=== PATIENT | female | born 1995 | race African-American/Black ===

== ENCOUNTER 2016-09-12 02:07 | Emergency (ER) | payer OTHER ==
[~2016-09-12 02:07] MED LIST: CEPH-460 PO; CLOT1CRE4 VAGINAL; MACR100C2 PO; ZOFR4TAB3 SL
[2016-09-12 02:10] VITALS: BP 123/63; PULSE 77; RESP 16; TEMP 98.3; O2SAT 98
[2016-09-12 03:21] LABS: BACTERIA, URINE RARE /hpf; BLOOD, URINE LARGE (NEG); CALCIUM OXALATE CRYSTALS,URINE MOD /hpf; COMMENT (UR) CULTURE INDICATED; CULTURE IF INDICATED CULTURE INDICATED; GLUCOSE,URINE NEG (NEG); KETONE, URINE 10 mg/dL (NEG); MUCUS URINE MOD /lpf (OCC); NITRITE,URINE NEG (NEG); PH, URINE 5.5 (5.0-8.5); SQUAMOUS EPITHELIAL CELL URINE 12 /hpf (0-5)
[2016-09-12 03:22] LABS: URINE COLOR LIGHT-RED (YELLW/STRAW)
[2016-09-12 03:49] LABS: BETA HCG QUANT 3729 MIU/ML (0-5)
--- NOTE | 2016-09-12 04:27 | PD ---
HPI Chief Complaint: Related Problem Time Seen by Provider: 02:21 Travel History International Travel<30 days: No Contact w/Intl Traveler<30days: No Traveled to known affect area: No History of Present Illness HPI 21-year-old female 3 para 0 now to be about 11 weeks arrives with pink spotting for about 5 hours or so. About 20 minutes prior to the time of evaluation the patient passed a small bright red clot during urination. She has felt some cramping. No back pain reported. Pt yet to establish outpatient follow up. PFSH Past Medical History Developmental Delay: No Immunizations Current: Yes ?: : 3 Para: 0 Miscarriage: 3 Social History Alcohol Use: No Tobacco Use: No Substance Use: Yes (HX marijuana) Allergies-Medications (Allergen,Severity, Reaction): Coded Allergies: No Known Allergies (Verified , 09/12/16) Reported Meds & Prescriptions Reported Meds & Active Scripts Active Keflex (Cephalexin) 500 Mg Cap 500 Mg PO Q6H 7 Days Zofran Odt (Ondansetron Odt) 4 Mg Tab 4 Mg SL Q6HR PRN Macrobid (Nitrofurantoin Monoh/Nitrofur Macro) 100 Mg Cap 100 Mg PO BID 7 Days Clotrimazole Vaginal 1% Cream 1 Appl VAGINAL HS 7 Days Review of Systems Except as stated in HPI: all other systems reviewed are Neg Physical Exam Narrative GENERAL: 21-year-old female pleasant SKIN: Warm and dry. HEAD: Atraumatic. Normocephalic. EYES: Pupils equal and round. No scleral icterus. No injection or drainage. ENT: No nasal bleeding or discharge. Mucous membranes pink and moist. NECK: Trachea midline. No JVD. CARDIOVASCULAR: Regular rate and rhythm. No murmur appreciated. RESPIRATORY: No accessory muscle use. Clear to auscultation. Breath sounds equal bilaterally. GASTROINTESTINAL: Abdomen soft, non-tender, nondistended. Hepatic and splenic margins not palpable. MUSCULOSKELETAL: No obvious deformities. No clubbing. No cyanosis. No edema. NEUROLOGICAL: Awake and alert. No obvious cranial nerve deficits. Motor grossly within normal limits. Normal speech. PSYCHIATRIC: Appropriate mood and affect; insight and judgment normal. Data Data Last Documented VS Vital Signs Date Time Temp Pulse Resp B/P Pulse Ox O2 Delivery O2 Flow Rate FiO2 09/12/16 02:10 98.3 77 16 123/63 98 Room Air Orders Beta Hcg (Quant/Titer) (09/12/16 02:55) Complete Rh (09/12/16 02:55) Us Pelvis (Ques Preg/Ectopic) (09/12/16 ) Urinalysis - C+S If Indicated (09/12/16 02:55) Urine Culture (09/12/16 03:00) Labs Laboratory Tests Test 09/12/16 03:00 Urine Color LIGHT-RED Urine Turbidity HAZY Urine pH 5.5 Urine Specific [place] 1.028 Urine Protein 30 mg/dL Urine Glucose (UA) NEG mg/dL Urine Ketones 10 mg/dL Urine Occult Blood LARGE Urine Nitrite NEG Urine Bilirubin NEG Urine Urobilinogen 2.0 MG/DL Urine Leukocyte Esterase LARGE Urine RBC /hpf Urine WBC 94 /hpf Urine Squamous Epithelial 12 /hpf Cells Urine Calcium Oxalate Crystals MOD /hpf Urine Bacteria RARE /hpf Urine Mucus MOD /lpf Microscopic Urinalysis Comment CULTURE INDICATED Human Chorionic Gonadotropin, 3729 MIU/ML Quant Blood Type B POSITIVE Rho(D) Type POSITIVE MDM Medical Decision Making Medical Screen Exam Complete: Yes Emergency Medical Condition: Yes Medical Record Reviewed: Yes Differential Diagnosis IUP, UTI, ectopic , ov torsion, appendicitis, TOA, cervicitis, BV, Trichomoniasis, ov cyst, hernia, mittelschmerz, pain from menstruation Narrative Course Urinalysis could reflect a UTI Beta HCG is 3729 Blood type is B+ Ultrasound demonstrates demise in utero at approx 6.5 weeks. Patient was educated regarding same. She will follow-up with Dr. Cortes and call first thing this morning. Diagnosis Primary Impression: demise before 20 weeks with retention of fetus Referrals: Mary Kay Cortes MD 1 day Additional Instructions: You have a choice when it comes to health care, and we are glad that you chose [facility]. Hopefully, we have met your expectations on today's visit. You are welcome to return to [facility] at any time, as we are committed to meeting the health care needs of our community. Med/Other Pt SpecificInfo: No Change to Meds Disposition: 01 DISCHARGE HOME Condition: Stable Mandeep Matos MD Sep 12, 2016 04:27
[2016-09-12 05:31] VITALS: BP 120/60
--- NOTE | 2016-09-12 06:10 | RADRPT ---
EXAM DATE/TIME: 09/12/2016 04:39 [facility] COMPARISON: No previous studies available for comparison. INDICATIONS : Bleeding with . LAB(S): Beta-hC MEDICAL HISTORY : . Miscarriage x 2. SURGICAL HISTORY : None. ENCOUNTER: Initial ACUITY: 1 day PAIN SCORE: 0/10 LOCATION: Bilateral pelvis MEASUREMENTS: UTERUS: 11.2 x 8.0 x 5.6 cm ENDOMETRIAL STRIPE: 1 mm RIGHT OVARY: 3.5 x 2.4 x 2.1 cm LEFT OVARY: 2.7 x 2.1 x 1.8 cm FINDINGS: UTERUS: A cystic structure is seen involving the body of the endometrial canal consistent with a gestational sac. It is somewhat irregularly marginated. No pole or yolk sac. Age by mean sac diameter is 6 weeks 3 days. There is mixed echogenicity seen adjacent to the yolk sac suggesting a component of sub chorionic hemorrhage. RIGHT OVARY: There is a mixed echogenicity lesion involving the right ovary that measures 1.8 cm in diameter. The remaining ovaries unremarkable. LEFT OVARY: Ovary contains no mass or significant cystic lesion. MISCELLANEOUS: Trace amount of free fluid within the cul-de-sac. CONCLUSION: 1. Intrauterine gestation. There is a gestational sac without pole or yolk sac. The gestational sac has an irregular appearance with subchorionic hemorrhage. This is concerning for possible blight ed ovum. A followup ultrasound is suggested. 2. 1.8 cm mixed echogenicity lesion involving the right ovary likely relating to a corpus luteal cyst . 3. Small volume free fluid. Rob Hart Jr., MD on September 12, 2016 at 6:04 Board Certified Radiologist. This report was verified electronically.
== END 2016-09-12 05:45 | disposition home or self-care (01) ==
LOC: NEPC 02:07
DX: O02.1 Missed abortion (principal); R82.90 Unspecified abnormal findings in urine
CPT/HCPCS: 76700; 76817; 81001; 84702; 86901; 87086

== ENCOUNTER 2017-09-10 23:37 | Emergency (ER) | payer MEDICAID, OTHER ==
--- NOTE | 2017-09-11 00:36 | PD ---
HPI Chief Complaint Contractions and possibly leaking fluid Date Seen: Sep 11, 2017 Time Seen: 00:31 Travel History International Travel<30 Days: No Contact w/Intl Traveler<30Days: No Known Affected Area: No History of Present Illness HPI This is 22-year-old black female at 38 weeks sees Socorro Bucio for care. She complains of contractions that are painful more so than I were a week ago, heart tones are reactive and she is kailash irregularly every 6-8 minutes. Amnio sure is negative Weeks Gestation: 38 Para: 0 : 3 Miscarriage: 2 History Obstetric History Obstetric History 2 early losses Social History Alcohol Use: No Tobacco Use: No Substance Abuse: No Allergies-Medications (Allergen,Severity, Reaction): Coded Allergies: No Known Allergies (Verified , 09/12/16) Home Meds Active Scripts Cephalexin (Keflex) 500 Mg Cap, 500 MG PO Q6H for Infection for 7 Days, CAP 0 Refills Prov:Marzena Rocha MD 07/31/16 Ondansetron Odt (Zofran Odt) 4 Mg Tab, 4 MG SL Q6HR Y for Nausea/Vomiting, #7 TAB 0 Refills Prov:Marzena Rocha MD 07/31/16 Nitrofurantoin Monohydrate Macrocrystals (Macrobid) 100 Mg Cap, 100 MG PO BID for Infection for 7 Days, CAP 0 Refills Prov:Vanessa Green 07/21/16 Clotrimazole Vaginal (Clotrimazole Vaginal) 1% Cream, 1 APPL VAGINAL HS for Fungal Infection for 7 Days, GM 0 Refills Prov:Vanessa Green 07/21/16 Review of Systems General / Constitutional: No: Fever, Weight Gain, Chills, Other Eyes: No: Diploplia, Blurred Vision, Visual changes, Pain, Photophobia HENT: No: Headaches, Vertigo, Lightheadedness Cardiovascular: No: Irregular Rhythm, Chest Pain or Discomfort, Palpitations, Tachycardia, Syncope, Varicosities, Edema, Cyanosis Respiratory: No: Cough, Short of Breath, Other Gastrointestinal: No: Nausea, Vomiting, Diarrhea Genitourinary: No: Decreased Urinary Output, Oliguria Musculoskeletal: No: Limited ROM, Weakness, Cramping, Edema, Pain Skin: No Rash, No Itching, No Dryness, No Lumps, No Change in Pigmentation, No Change in Nails, No Alopecia, No Lesions Neurologic: No: Weakness, Dizziness, Syncope, Focal Abnormalities, Coordination Problem, Headache, Slurred Speech, Seizures Psychiatric: No: Depression, Suicidal Ideations, Homicidal Ideation Endocrine: No: Heat Intolerance, Cold Intolerance, Polydipsia, Polyuria, Other Physical Exam Narrative GENERAL: Well-nourished, well-developed patient. SKIN: Warm and dry. HEAD: Normocephalic and atraumatic. EYES: No scleral icterus. No injection or drainage. ENT: No nasal drainage noted. Mucous membranes pink. Airway patent. NECK: Supple, trachea midline. No JVD. CARDIOVASCULAR: Regular rate and rhythm without murmurs, gallops, or rubs. RESPIRATORY: Breath sounds equal bilaterally. No accessory muscle use. BREASTS: Bilateral exam showed no masses , no retractions, no nipple discharge. ABDOMEN/GI: Abdomen soft, non-tender, bowel sounds present, no rebound, no guarding Gravid to [-38] weeks size Fundal Height: [-38] GENITOURINARY: External Genitalia: intact and normal in appearance BUS glands: [-] Cervix: [post-] Dilatation: [-1-2] Effacement: [-thick] Station: [-3] Presentation: [vtx-] Membranes: [intact ] Uterine Contractions: [irreg-] FHT's: Category: [-1] Baseline: [133-] Reactive: [-yes] Variability: [-mod] Decels: [-none] EXTREMITIES: No cyanosis or edema. BACK: Nontender without obvious deformity. No CVA tenderness. NEUROLOGICAL: Awake and alert. Motor and sensory grossly within normal limits. Five out of 5 muscle strength in all muscle groups. Normal speech. Data Data Labs amnisure neg MDM Interpretation(s) Patient is a 22-year-old black female at 38 weeks presents clinically contractions possibly leaking fluid. Amnio sure is negative here. heart tones are reactive she is kailash irregularly. The cervix was 1-2/thick/ high/vertex. Patient was offered a pain shot but she refused. Plan Plan to discharge patient home to bedrest, I increase by mouth fluids, hot bath or heating pad for symptom relief. She is to follow-up with Socorro Bucio as scheduled or sooner for increasing pain/bleeding/leakage. Diagnosis Diagnosis: Primary Impression: False labor after 37 weeks of gestation without delivery Additional Impression: No leakage of amniotic fluid into vagina Disposition: 01 DISCHARGE HOME Condition: Stable Farhad Shetty II, MD Sep 11, 2017 00:36
== END 2017-09-11 01:30 | disposition home or self-care (01) ==
LOC: HOBED 23:37
DX: O47.1 False labor at or after 37 completed weeks of gestation (principal); Z3A.38 38 weeks gestation of pregnancy
CPT/HCPCS: 59025; 84112

== ENCOUNTER 2017-12-24 05:50 | Inpatient (IN) | payer MEDICAID ==
[~2017-12-24] VITALS: Ht 162.6 cm; Wt 60.0 kg
[2017-12-24] VITALS (7 sets, daily range): BP systolic 110–134; BP diastolic 67–86; PULSE 76–110; RESP 16–19; TEMP 98.1–98.8; O2SAT 97–100
[2017-12-24] MEDS ORDERED: APIX5TAB PO (06:14)
[2017-12-24] MEDS ORDERED: METO-426 PO (06:14)
[2017-12-24] MEDS ORDERED: LISI-519 PO (06:14)
[2017-12-24] MEDS ORDERED: SODIUM CHLORIDE 0.9% FLUSH 10 ML FLUSH IVF PRN (06:30)
--- NOTE | 2017-12-24 06:30 | PD ---
HPI . Shortness of breath and palpitations Chief Complaint: Cardiac Complaint Time Seen by Provider: 06:11 Travel History International Travel<30 days: No Contact w/Intl Traveler<30days: No Traveled to known affect area: No History of Present Illness HPI Patient presents with a chief complaint of palpitations, shortness of breath and bilateral lower extremity edema. She states that it all started while she was at work at about 4 AM. She works at the [employer]. She admitted to the nurse that she had been smoking marijuana prior to the onset of her symptoms. Symptoms have persisted. Symptoms are mild. PFSH Past Medical History Developmental Delay: No Diminished Hearing: No Medical other: Yes ("BLOOD CLOT IN LUNG") Immunizations Current: Yes ?: Not : 3 Para: 0 Miscarriage: 3 Past Surgical History Surgical History: No Previous Surgery Social History Alcohol Use: No Tobacco Use: No Substance Use: Yes (MARIJUANA) Allergies-Medications (Allergen,Severity, Reaction): Coded Allergies: No Known Allergies (Verified Adverse Reaction, Unknown, 12/24/17) Reported Meds & Prescriptions Reported Meds & Active Scripts Active Reported Metoprolol Tartrate 75 Mg Tab 75 Mg PO DAILY Lisinopril 5 Mg Tab 5 Mg PO DAILY Eliquis (Apixaban) 5 Mg Tab 5 Mg PO BID Review of Systems Except as stated in HPI: all other systems reviewed are Neg HENT: Positive: Lightheadedness Cardiovascular: Positive: Palpitations Respiratory: Positive: Shortness of Breath Physical Exam Narrative GENERAL: Patient is awake and alert. She smells heavily of marijuana. SKIN: warm/dry. HEAD: Normocephalic. Atraumatic. EYES: Pupils equal and round. No scleral icterus. No injection or drainage. ENT: No nasal bleeding or discharge. Mucous membranes pink and moist. NECK: Trachea midline. Full range of motion without pain.. CARDIOVASCULAR: Regular rate and rhythm. Heart rate is about 100 in sinus. RESPIRATORY: No accessory muscle use. Clear to auscultation. Breath sounds equal bilaterally. MUSCULOSKELETAL: No obvious deformities. 2+ pretibial pitting edema. NEUROLOGICAL: Awake and alert. No obvious cranial nerve deficits. Motor grossly within normal limits. Normal speech. PSYCHIATRIC: Appropriate mood and affect; insight and judgment normal. Data Data Last Documented VS Vital Signs Date Time Temp Pulse Resp B/P (MAP) Pulse Ox O2 Delivery O2 Flow Rate FiO2 12/24/17 06:08 98.1 110 16 134/86 (102) 98 Orders Orders Electrocardiogram (12/24/17 06:24) Basic Metabolic Panel (Bmp) (12/24/17:24) B-Type Natriuretic Peptide (12/24/17:24) Complete Blood Count With Diff (12/24/17:24) Magnesium (Mg) (12/24/17:24) Troponin I (12/24/17:24) Ecg Monitoring (12/24/17:24) Iv Access Insert/Monitor (12/24/17:24) Oximetry (12/24/17:24) Sodium Chloride 0.9% Flush (Ns Flush) (12/24/17 06:30) Chest, Pa & Lat (12/24/17:24) Drug Screen, Random Urine (12/24/17:24) MDM Medical Decision Making Medical Screen Exam Complete: Yes Emergency Medical Condition: Yes Differential Diagnosis Differential diagnosis of palpitations includes but is not limited to anxiety, SVT, aVF with RVR, VT, sinus tachycardia, PVCs Narrative Course This patient presents with dizziness, palpitations, shortness of breath and bilateral lower extremity edema. She states that all symptoms started acutely at 4 AM while she was at work. She admitted to the nurse that the symptoms started after smoking marijuana. This patient does have a history of hypertension. She does have peripheral edema on examination. Cardiac evaluation is in process. Her care is being turned over to Dr. Camacho pending the results of her evaluation. Diagnosis Primary Impression: Palpitations Additional Impressions: Dyspnea Qualified Codes: R06.00 - Dyspnea, unspecified Dizziness Condition: Stable Dary Garza MD Dec 24, 2017 06:30
--- NOTE | 2017-12-24 07:08 | RADRPT ---
EXAM DATE/TIME: 12/24/2017 06:31 [facility] COMPARISON: No previous studies available for comparison. INDICATIONS : Chest pain. MEDICAL HISTORY : None. SURGICAL HISTORY : None. ENCOUNTER: Initial ACUITY: 1 day PAIN SCORE: 6/10 LOCATION: Bilateral chest FINDINGS: Heart is enlarged in this 22-year-old. Lungs are clear. The bony skeleton appears normal. There is no pleural effusion. CONCLUSION: Prominent cardiac silhouette. Correlation suggested in the 22 year-old. Hi Morocho MD FACR on December 24, 2017 at 7:06 Board Certified Radiologist. This report was verified electronically.
[2017-12-24 07:18] LABS: AUTOMATED NEUTROPHIL # 6.8 TH/MM3 (1.8-7.7); BASOPHIL % 0.4 % (0.0-2.0); EOSINOPHIL # 0.1 TH/MM3 (0-0.4); EOSINOPHIL % 1.3 % (0.0-4.0); HEMATOCRIT 29.4 % (35.0-46.0); HEMOGLOBIN 8.3 GM/DL (11.6-15.3); LYMPHOCYTE # 3.7 TH/MM3 (1.0-4.8); MEAN CELL VOLUME 69.3 FL (80.0-100.0); MEAN CORPUSCULAR HEMOGLOBIN 19.6 PG (27.0-34.0); MEAN PLATELET VOLUME 9.3 FL (7.0-11.0); MONO % 5.6 % (0.0-8.0); MONOCYTE # 0.6 TH/MM3 (0-0.9); NEUT % 59.7 % (16.0-70.0); PLATELET COUNT 467 TH/MM3 (150-450); RED BLOOD COUNT 4.24 MIL/MM3 (4.00-5.30); RED CELL DISTRIBUTION WIDTH 19.1 % (11.6-17.2); WHITE BLOOD COUNT 11.3 TH/MM3 (4.0-11.0)
[2017-12-24 07:19] LABS: MEAN CORPUSCULAR HGB CONC 28.2 % (32.0-36.0)
[2017-12-24 07:43] LABS: BICARBONATE 21.5 MEQ/L (21.0-32.0); CALCIUM 8.2 MG/DL (8.5-10.1); CREATININE 1.03 MG/DL (0.50-1.00)
[2017-12-24 07:46] LABS: TROPONIN I 0.07 NG/ML (0.02-0.05)
[2017-12-24] MEDS ORDERED: ASPIRIN 81 MG CHEW TAB CHEW ONE (08:00)
[2017-12-24] MEDS ORDERED: IOHEXOL 350 MG/ML 10 ML VIAL (for RAD DIAG) IVCONTRAST ONE (11:15)
--- NOTE | 2017-12-24 11:22 | RADRPT ---
EXAM DATE/TIME: 12/24/2017 11:06 [facility] COMPARISON: No previous studies available for comparison. INDICATIONS : SOB,Dizzy, nausea, heart palpatations. IV CONTRAST: 85 cc Omnipaque 350 (iohexol) IV RADIATION DOSE: 6.56 CTDIvol (mGy) MEDICAL HISTORY : Marijuana SURGICAL HISTORY : None. ENCOUNTER: Initial ACUITY: 1 day PAIN SCALE: 0/10 LOCATION: chest TECHNIQUE: Volumetric scanning of the chest was performed using a pulmonary embolism protocol MIP images were re constructed. Using automated exposure control and adjustment of the mA and/or kV according to patien t size, radiation dose was kept as low as reasonably achievable to obtain optimal diagnostic quality images. DICOM format image data is available electronically for review and comparison. Follow-up recommendations for detected pulmonary nodules are based at a minimum on nodule size and pa tient risk factors according to Fleischner Society Guidelines. FINDINGS: This small right pleural effusion. There is cardiomegaly without failure. There is no evidence for central pulmonary emboli. There is no axillary or mediastinal adenopathy. CONCLUSION: Splenomegaly without failure or pericardial effusion. Cardiomegaly appears biventricular. Cardiomyo diana may be etiology. Hi Morocho MD FACR on December 24, 2017 at 11:18 Board Certified Radiologist. This report was verified electronically.
--- NOTE | 2017-12-24 12:03 | PD ---
Physical Exam Narrative Patient signed out to me by Dr. Garza. Please see her documentation for complete details. Briefly, patient is a 22-year-old female with recent diagnosis of cardiomyopathy after giving to her baby a few months ago. She also was found to have a PE during this and is currently on blood thinners for this. She reports compliance. She says at work today she had palpitations and noticed swelling in her legs. She does have bilateral lower extremity edema. Lungs are clear to auscultation. Data Data Last Documented VS Vital Signs Date Time Temp Pulse Resp B/P (MAP) Pulse Ox O2 Delivery O2 Flow Rate FiO2 12/24/17 10:00 97 16 110/70 (83) 100 Room Air 12/24/17 06:08 98.1 Orders Orders Electrocardiogram (12/24/17 06:24) Basic Metabolic Panel (Bmp) (12/24/17 06:24) B-Type Natriuretic Peptide (12/24/17 06:24) Complete Blood Count With Diff (12/24/17 06:24) Magnesium (Mg) (12/24/17 06:24) Troponin I (12/24/17 06:24) Ecg Monitoring (12/24/17 06:24) Iv Access Insert/Monitor (12/24/17 06:24) Oximetry (12/24/17 06:24) Sodium Chloride 0.9% Flush (Ns Flush) (12/24/17 06:30) Chest, Pa & Lat (12/24/17 06:24) Drug Screen, Random Urine (12/24/17 06:24) Ct Pulmonary Angiogram (12/24/17 07:54) Aspirin Chew (Aspirin Chew) (12/24/17 08:00) Iohexol 350 Inj (Omnipaque 350 Inj) (12/24/17 11:15) Labs Laboratory Tests Test 12/24/17 06:40 12/24/17 06:50 Urine Opiates Screen NEG Urine Barbiturates Screen NEG Urine Amphetamines Screen NEG Urine Benzodiazepines Screen NEG Urine Cocaine Screen NEG Urine Cannabinoids Screen POS White Blood Count 11.3 TH/MM3 Red Blood Count 4.24 MIL/MM3 Hemoglobin 8.3 GM/DL Hematocrit 29.4 % Mean Corpuscular Volume 69.3 FL Mean Corpuscular Hemoglobin 19.6 PG Mean Corpuscular Hemoglobin Concent 28.2 % Red Cell Distribution Width 19.1 % Platelet Count 467 TH/MM3 Mean Platelet Volume 9.3 FL Neutrophils (%) (Auto) 59.7 % Lymphocytes (%) (Auto) 33.0 % Monocytes (%) (Auto) 5.6 % Eosinophils (%) (Auto) 1.3 % Basophils (%) (Auto) 0.4 % Neutrophils # (Auto) 6.8 TH/MM3 Lymphocytes # (Auto) 3.7 TH/MM3 Monocytes # (Auto) 0.6 TH/MM3 Eosinophils # (Auto) 0.1 TH/MM3 Basophils # (Auto) 0.0 TH/MM3 CBC Comment DIFF FINAL Differential Comment Blood Urea Nitrogen 11 MG/DL Creatinine 1.03 MG/DL Random Glucose 98 MG/DL Calcium Level 8.2 MG/DL Magnesium Level 2.0 MG/DL Sodium Level 142 MEQ/L Potassium Level 4.2 MEQ/L Chloride Level 110 MEQ/L Carbon Dioxide Level 21.5 MEQ/L Anion Gap 11 MEQ/L Estimat Glomerular Filtration Rate 80 ML/MIN Troponin I 0.07 NG/ML B-Type Natriuretic Peptide 1876 PG/ML MDM Supervised Visit with ASAD: No Narrative Course Labs concerning for elevated troponin to 0.07. BNP is elevated over thousand. CT of the chest shows cardiomegaly. There is no evidence of PE currently. Patient given an aspirin. She will be admitted for further management. Diagnosis Primary Impression: Palpitations Additional Impressions: Elevated troponin CHF (congestive heart failure) Qualified Codes: I50.9 - Heart failure, unspecified Admitting Information Admitting Physician Requests: Admit Condition: Stable Stefania Camacho MD Dec 24, 2017 12:03
[2017-12-24] MEDS ORDERED: LACTULOSE SYRUP 20 GM/30 ML CUP PO PRN (12:45)
[2017-12-24] MEDS ORDERED: ACETAMINOPHEN 325 MG TAB PO PRN ×2 (12:45)
[2017-12-24] MEDS ORDERED: oxyCODONE/ACETAMINOPHEN 5 MG/325 MG TAB PO PRN (12:45)
[2017-12-24] MEDS ORDERED: NALOXONE HCL 0.4 MG/ML AMP IV PUSH PRN (12:45)
[2017-12-24] MEDS ORDERED: ALPRAZolam 0.25 MG TAB PO PRN (12:45)
[2017-12-24] MEDS ORDERED: BISACODYL 10 MG SUPP RECTAL PRN (12:45)
[2017-12-24] MEDS ORDERED: METOCLOPRAMIDE HCL 10 MG/2 ML VIAL IV PUSH PRN (12:45)
[2017-12-24] MEDS ORDERED: MORPHINE SULFATE 2 MG/ML SYRINGE IV PUSH PRN (12:45)
[2017-12-24] MEDS ORDERED: NITROGLYCERIN 0.4 MG SL 25 TABS/BTL SL PRN (12:45)
[2017-12-24] MEDS ORDERED: SENNOSIDES 8.6 MG TAB PO PRN (12:45)
[2017-12-24] MEDS ORDERED: MAGNESIUM HYDROXIDE SUSP 30 ML CUP PO PRN (12:45)
[2017-12-24] MEDS ORDERED: ONDANSETRON HCL 4 MG/2 ML VIAL IVP PRN (12:45)
[2017-12-24] MEDS ORDERED: MORPHINE SULFATE 4 MG/ML INJ IV PUSH PRN ×2 (12:45)
[2017-12-24] MEDS ORDERED: oxyCODONE/ACETAMINOPHEN 10 MG/325 MG TAB PO PRN (12:45)
[2017-12-24] MEDS ORDERED: SODIUM CHLORIDE 0.9% FLUSH 10 ML FLUSH IV FLUSH PRN (12:45)
--- NOTE | 2017-12-24 13:50 | HHI.HP ---
[facility] Kumar Cha D.O. Admission Diagnosis elevated troponin, cardiomyopathy Diagnoses: (1) Cardiomyopathy Diagnosis: Principal (2) Pulmonary emboli Diagnosis: Secondary (3) Elevated troponin Diagnosis: Principal (4) CHF (congestive heart failure) Diagnosis: Principal (5) Dyspnea Diagnosis: Principal (6) Palpitations Diagnosis: Principal Chief Complaint: Shortness of breath and palpitations Travel History International Travel<30 Days: No Contact w/Intl Traveler <30 Da: No Traveled to Known Affected Are: No History of Present Illness Patient is a 22-year-old -[place] female. Who presents with chief complaint of palpitations and shortness of breath and bilateral lower extremity edema. Patient states that it all started while she was at work about 4 AM. She works at the [employer] and stands on her feet. Patient is also been smoking some marijuana recently. Her symptoms have persisted and therefore she presented emergency department for further evaluation. Patient has a past medical history significant for pulmonary emboli and what sounds like a cardiomyopathy post- Review of Systems Constitutional: COMPLAINS OF: Fatigue, DENIES: Diaphoretic episodes, Fever, Weight gain, Weight loss, Chills, Dizziness, Change in appetite, Night Sweats Endocrine: DENIES: Abnorml menstrual pattern, Heat/cold intolerance, Polydipsia , Polyuria, Polyphagia Eyes: DENIES: Blurred vision, Diplopia, Eye inflammation, Eye pain, Vision loss , Photosensitivity, Double Vision Ears, nose, mouth, throat: DENIES: Tinnitus, Hearing loss, Vertigo, Nasal discharge, Oral lesions, Throat pain, Hoarseness, Ear Pain, Running Nose, Epistaxis, Sinus Pain, Toothache, Odynophagia Respiratory: DENIES: Apneas, Cough, Snoring, Wheezing, Hemoptysis, Sputum production, Shortness of breath Cardiovascular: COMPLAINS OF: Palpitations, Dyspnea on Exertion, Lower Extremity Edema, DENIES: Chest pain, Syncope, PND, Orthopnea, Claudication Gastrointestinal: DENIES: Abdominal pain, Black stools, Bloody stools, Constipation, Diarrhea, Nausea, Vomiting, Difficulty Swallowing, Anorexia Genitourinary: DENIES: Abnormal vaginal bleeding, Dysmenorrhea, Dyspareunia, Sexual dysfunction, Urinary frequency, Urinary incontinence, Urgency, Hematuria , Dysuria, Nocturia, Vaginal discharge Musculoskeletal: DENIES: Joint pain, Muscle aches, Stiffness, Joint Swelling, Back pain, Neck pain Integumentary: DENIES: Abnormal pigmentation, Pruritus, Rash, Nail changes, Breast masses, Breast skin changes, Nipple discharge Hematologic/lymphatic: DENIES: Bruising, Lymphadenopathy Immunologic/allergic: DENIES: Eczema, Urticaria Neurologic: DENIES: Abnormal gait, Headache, Localized weakness, Paresthesias, Seizures, Speech Problems, Tremor, Poor Balance Psychiatric: DENIES: Anxiety, Confusion, Mood changes, Depression, Hallucinations, Agitation, Suicidal Ideation, Homicidal Ideation, Delusions Except as stated in HPI: all other systems reviewed are Neg Past Family Social History Past Medical History Cardiomyopathy post- Pulmonary emboli History of demise Past Surgical History Denies Reported Medications Reported Meds & Active Scripts Active Reported Metoprolol Tartrate 75 Mg Tab 75 Mg PO DAILY Lisinopril 5 Mg Tab 5 Mg PO DAILY Eliquis (Apixaban) 5 Mg Tab 5 Mg PO BID Allergies: Coded Allergies: No Known Allergies (Verified Adverse Reaction, Unknown, 12/24/17) Active Ordered Medications Current Medications Sodium Chloride (NS Flush) 2 ml UNSCH PRN IVF FLUSH AFTER USING IV ACCESS; Start 12/24/17 at 06:30 Aspirin (Aspirin Chew) 324 mg ONCE ONCE CHEW Last administered on 12/24/17at 08 :14; Start 12/24/17 at 08:00; Stop 12/24/17 at 08:01; Status DC Iohexol (Omnipaque 350 Inj) 85 ml STK-MED ONCE IVCONTRAST Last administered on 12/24/17at 11:15; Start 12/24/17 at 11:15; Stop 12/24/17 at 11:16; Status DC Apixaban (Eliquis) 5 mg BID PO ; Start 12/24/17 at 21:00 Lisinopril (Prinivil) 5 mg DAILY PO ; Start 12/25/17 at 09:00 Metoprolol Tartrate (Lopressor) 75 mg DAILY PO ; Start 12/25/17 at 09:00 Sodium Chloride (NS Flush) 2 ml UNSCH PRN IV FLUSH FLUSH AFTER USING IV ACCESS ; Start 12/24/17 at 12:45 Sodium Chloride (NS Flush) 2 ml BID IV FLUSH ; Start 12/24/17 at 21:00 Acetaminophen (Tylenol) 650 mg Q4H PRN PO TEMP > 100.4; Start 12/24/17 at 12:45 Ondansetron HCl (Zofran Inj) 4 mg Q6H PRN IVP NAUSEA OR VOMITING; Start at 12:45 Metoclopramide HCl (Reglan Inj) 5 mg Q6H PRN IV PUSH NAUSEA OR VOMITING; Start 12/24/17 at 12:45 Zolpidem Tartrate (Ambien) 5 mg HS PRN PO INSOMNIA; Start 12/24/17 at 21:00 Acetaminophen (Tylenol) 650 mg Q6H PRN PO PAIN SCALE 1 TO 2; Start 12/24/17 at 12:45 Oxycodone/ Acetaminophen (Percocet 5-325 Mg) 1 tab Q6H PRN PO PAIN SCALE 3 TO 5; Start 12/24/17 at 12:45 Oxycodone/ Acetaminophen (Percocet 10-325 Mg) 1 tab Q6H PRN PO PAIN SCALE 6 TO 10; Start 12/24/17 at 12:45 Morphine Sulfate (Morphine Inj) 2 mg Q3H PRN IV PUSH Pain 3-5; if unable to take PO; Start 12/24/17 at 12:45 Morphine Sulfate (Morphine Inj) 4 mg Q3H PRN IV PUSH Pain 6-10;if unable to take PO; Start 12/24/17 at 12:45 Morphine Sulfate (Morphine Inj) 4 mg Q3H PRN IV PUSH BREAKTHROUGH PAIN; Start 12/24/17 at 12:45 Naloxone HCl (Narcan Inj) 0.4 mg UNSCH PRN IV PUSH SEE LABEL COMMENTS; Start at 12:45 Senna/Docusate Sodium (Marsha-Colace) 1 tab BID PO ; Start 12/24/17 at 21:00 Magnesium Hydroxide (Milk Of Magnesia Liq) 30 ml Q12H PRN PO Mild constipation ; Start 12/24/17 at 12:45 Sennosides (Senokot) 17.2 mg Q12H PRN PO Moderate constipation; Start 12/24/17 at 12:45 Bisacodyl (Dulcolax Supp) 10 mg DAILY PRN RECTAL SEVERE CONSITIPATION; Start at 12:45 Lactulose (Lactulose Liq) 30 ml DAILY PRN PO SEVERE CONSITIPATION; Start at 12:45 Sodium Chloride (NS Flush) 2 ml BID IV FLUSH ; Start 12/24/17 at 21:00; Stop at 21:00; Status DC Sodium Chloride (NS Flush) 2 ml UNSCH PRN IV FLUSH FLUSH AFTER USING IV ACCESS ; Start 12/24/17 at 12:45; Stop 12/24/17 at 12:58; Status DC Aspirin (Ecotrin Ec) 325 mg DAILY PO ; Start 12/25/17 at 09:00 Nitroglycerin (Nitrostat Sl) 0.4 mg Q5M PRN SL CHEST PAIN; Start 12/24/17 at 12 :45 Alprazolam (Xanax) 0.25 mg Q8H PRN PO ANXIETY; Start 12/24/17 at 12:45 Atorvastatin Calcium (Lipitor) 10 mg HS PO ; Start 12/24/17 at 21:00 Family History May be some hypertension Social History Works at [employer] Smokes marijuana on occasion Denies any tobacco or alcohol or other illicit Physical Exam Vital Signs Vital Signs Date Time Temp Pulse Resp B/P (MAP) Pulse Ox O2 Delivery O2 Flow Rate FiO2 12/24/17 12:53 79 18 117/67 (84) 98 Room Air 12/24/17 12:22 89 18 98 Room Air 12/24/17 10:00 97 16 110/70 (83) 100 Room Air 12/24/17 07:38 108 18 110/76 (87) 100 Room Air 12/24/17 07:38 19 99 Room Air 12/24/17 06:08 98.1 110 16 134/86 (102) 98 Physical Exam GENERAL: This is a well-nourished, well-developed patient, in no apparent distress. SKIN: No rashes, ecchymoses or lesions. Cool and dry. HEAD: Atraumatic. Normocephalic. No temporal or scalp tenderness. EYES: Pupils equal round and reactive. Extraocular motions intact. No scleral icterus. No injection or drainage. ENT: Nose without bleeding, purulent drainage or septal hematoma. Throat without erythema, tonsillar hypertrophy or exudate. Uvula midline. Airway patent. NECK: Trachea midline. No JVD or lymphadenopathy. Supple, nontender, no meningeal signs. CARDIOVASCULAR: Regular rate and rhythm without murmurs, gallops, or rubs. S1- S2 no S3 or S4 RESPIRATORY: Clear to auscultation. Breath sounds equal bilaterally. No wheezes , rales, or rhonchi. GASTROINTESTINAL: Abdomen soft, non-tender, nondistended. No hepato-splenomegaly , or palpable masses. No guarding. MUSCULOSKELETAL: Extremities without clubbing, cyanosis, +2-3 lower extremity edema. No joint tenderness, effusion, or edema noted. No calf tenderness. Negative Homans sign bilaterally. NEUROLOGICAL: Awake and alert. Cranial nerves II through XII intact. Motor and sensory grossly within normal limits. Five out of 5 muscle strength in all muscle groups. Normal speech. Insight and judgment is good Mood and behavior is appropriate Laboratory Laboratory Tests Test 12/24/17 06:40 12/24/17 06:50 Urine Opiates Screen NEG Urine Barbiturates Screen NEG Urine Amphetamines Screen NEG Urine Benzodiazepines Screen NEG Urine Cocaine Screen NEG Urine Cannabinoids Screen POS White Blood Count 11.3 Red Blood Count 4.24 Hemoglobin 8.3 Hematocrit 29.4 Mean Corpuscular Volume 69.3 Mean Corpuscular Hemoglobin 19.6 Mean Corpuscular Hemoglobin Concent 28.2 Red Cell Distribution Width 19.1 Platelet Count 467 Mean Platelet Volume 9.3 Neutrophils (%) (Auto) 59.7 Lymphocytes (%) (Auto) 33.0 Monocytes (%) (Auto) 5.6 Eosinophils (%) (Auto) 1.3 Basophils (%) (Auto) 0.4 Neutrophils # (Auto) 6.8 Lymphocytes # (Auto) 3.7 Monocytes # (Auto) 0.6 Eosinophils # (Auto) 0.1 Basophils # (Auto) 0.0 CBC Comment DIFF FINAL Differential Comment Blood Urea Nitrogen 11 Creatinine 1.03 Random Glucose 98 Calcium Level 8.2 Magnesium Level 2.0 Sodium Level 142 Potassium Level 4.2 Chloride Level 110 Carbon Dioxide Level 21.5 Anion Gap 11 Estimat Glomerular Filtration Rate 80 Troponin I 0.07 B-Type Natriuretic Peptide 1876 Result Diagram: 12/24/17 0650 12/24/17 [address] Angiography 12/24/17 8888 Signed Impressions: Service Date/Time: Sunday, December 24, 2017 11:06 - CONCLUSION: Splenomegaly without failure or pericardial effusion. Cardiomegaly appears biventricular. Cardiomyopathy may be etiology. Hi Morocho MD FACR Chest X-Ray 12/24/17 0624 Signed Impressions: Service Date/Time: Sunday, December 24, 2017 06:31 - CONCLUSION: Prominent cardiac silhouette. Correlation suggested in the 22 year-old. Hi Morocho MD FACR Caprini VTE Risk Assessment Caprini VTE Risk Assessment: Mod/High Risk (score >= 2) Caprini Risk Assessment Model Point Value = 1 Point Value = 2 Point Value = 3 Point Value = 5 Age 41-60 Minor surgery BMI > 25 kg/m2 Swollen legs Varicose veins or History of unexplained or recurrent spontaneous Oral contraceptives or hormone replacement Sepsis (< 1 month) Serious lung disease, including pneumonia (< 1 month) Abnormal pulmonary function Acute myocardial infarction Congestive heart failure (< 1 month) History of inflammatory bowel disease Medical patient at bed rest Age 61-74 Arthroscopic surgery Major open surgery (> 45 min) Laparoscopic surgery (> 45 min) Malignancy Confined to bed (> 72 hours) Immobilizing plaster cast Central venous access Age >= 75 History of VTE Family history of VTE Factor V Leiden Prothrombin [id number] Lupus anticoagulant Anticardiolipin antibodies Elevated serum homocysteine Heparin-induced thrombocytopenia Other congenital or acquired thrombophilia Stroke (< 1 month) Elective arthroplasty Hip, pelvis, or leg fracture Acute spinal cord injury (< 1 month) Prophylaxis Regimen Total Risk Factor Score Risk Level Prophylaxis Regimen 0-1 Low Early ambulation 2 Moderate Order ONE of the following: *Sequential Compression Device (SCD) *Heparin 5000 units SQ BID 3-4 Higher Order ONE of the following medications: *Heparin 5000 units SQ TID *Enoxaparin/Lovenox 40 mg SQ daily (WT < 150 kg, CrCl > 30 mL/min) *Enoxaparin/Lovenox 30 mg SQ daily (WT < 150 kg, CrCl > 10-29 mL/min) *Enoxaparin/Lovenox 30 mg SQ BID (WT < 150 kg, CrCl > 30 mL/min) AND/OR *Sequential Compression Device (SCD) 5 or more Highest Order ONE of the following medications: *Heparin 5000 units SQ TID (Preferred with Epidurals) *Enoxaparin/Lovenox 40 mg SQ daily (WT < 150 kg, CrCl > 30 mL/min) *Enoxaparin/Lovenox 30 mg SQ daily (WT < 150 kg, CrCl > 10-29 mL/min) *Enoxaparin/Lovenox 30 mg SQ BID (WT < 150 kg, CrCl > 30 mL/min) AND *Sequential Compression Device (SCD) Assessment and Plan Assessment and Plan Elevated troponin -we will trend troponins and cardiac enzymes -consult cardiology -get a repeat echocardiogram Continue on her chronic anticoagulation Palpitations -Continue on her home medications -Continue on beta-maricruz Marijuana use -recommend cessation Post cardiomyopathy -We will get a repeat echocardiogram -Diurese with Lasix Pulmonary emboli continue on Eliquis 5 mg p.o. twice daily We will get bilateral lower extremity ultrasounds to rule out any DVTs We will give Lasix Consult cardiology Recommend KATE hose for the bilateral lower extremities if she does not have any Code Status Full code Discussed Condition With Patient and the emergency department and emergency room physician and nurse Problem Qualifiers (1) CHF (congestive heart failure): Qualified Codes: I50.9 - Heart failure, unspecified (2) Dyspnea: Qualified Codes: R06.00 - Dyspnea, unspecified Hi Black DO Dec 24, 2017 13:50
[2017-12-24] MEDS ORDERED: FUROSEMIDE 20 MG/2 ML VIAL IV PUSH ONE (14:00)
--- NOTE | 2017-12-24 14:20 | EKG ---
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
[2017-12-24] MEDS: SODIUM CHLORIDE 0.9% FLUSH 10 ML FLUSH IV FLUSH PRN ×2 (14:54→15:04)
--- NOTE | 2017-12-24 14:55 | RADRPT ---
EXAM DATE/TIME: 12/24/2017 14:18 [place] COMPARISON: No previous studies available for comparison. INDICATIONS : Bilateral leg swelling. MEDICAL HISTORY : . Palpatations. Susbtance use. SURGICAL HISTORY : None. ENCOUNTER: Initial ACUITY: 2 weeks PAIN SCORE: 5/10 LOCATION: Bilateral legs. TECHNIQUE: Venous ultrasound of the left and right leg was performed from the inguinal ligament to the proximal calf. Real-time, color Doppler and spectral tracing, compression and augmentation techniques were us ed. FINDINGS: RIGHT LEG: There is normal compressibility of the deep venous system from the inguinal region to the proximal ca lf. No echogenic clot is seen in the lumen of the common femoral, femoral, popliteal, and posterior tibial veins. There is a normal response of the venous system to proximal and distal augmentation an d respiration. LEFT LEG: There is normal compressibility of the deep venous system from the inguinal region to the proximal ca lf. No echogenic clot is seen in the lumen of the common femoral, femoral, popliteal, and posterior tibial veins. There is a normal response of the venous system to proximal and distal augmentation an d respiration. CONCLUSION: Normal examination. Santana Evangelista MD on December 24, 2017 at 14:52 Board Certified Radiologist. This report was verified electronically.
[2017-12-24 15:29] LABS: TROPONIN I 1.8 NG/ML (0.02-0.05)
--- NOTE | 2017-12-24 16:23 | MB ---
cc: Rayne Sinclair MD DATE: 12/24/2017 REASON FOR CONSULTATION: Elevated troponin. HISTORY OF PRESENT ILLNESS: Ms. Noriega is a 22-year-old female who gives a history of a cardiomyopathy. She reports that she was kept in the hospital in October and her pump function did gradually improve. She has done fairly well since that time. Then, yesterday, she reports that while at work, she started swelling from her feet, which went right on up her legs. She notes that she is feeling significantly better now. She did have some shortness of breath as well. She denies any prior problems since her discharge. She, after further questioning, reports that she had some [place] food earlier in the week. The night of the event, she had several slices of pizza and fries. PAST MEDICAL HISTORY: Significant for cardiomyopathy, pulmonary emboli, history of demise. OUTPATIENT MEDICATIONS: Include metoprolol, lisinopril, Eliquis. FAMILY HISTORY: Positive for hypertension. SOCIAL HISTORY: The patient does not drink or smoke. She does occasionally have marijuana. REVIEW OF SYSTEMS: Except as mentioned in the HPI, all 12 systems are negative. PHYSICAL EXAMINATION: VITAL SIGNS: 79, 18, 117/67. GENERAL: She is a well-appearing female, who is in no apparent distress. NECK: Free from JVD. LUNGS: Bilaterally clear to auscultation. CARDIOVASCULAR: She has a normal S1 and S2. No rubs or gallops were appreciated. ABDOMEN: Soft. EXTREMITIES: Free from edema. DIAGNOSTIC DATA: Chest x-ray shows a prominent cardiac silhouette. CT shows splenomegaly and no failure. LABORATORY DATA: Show serial troponin of 0.07/1.80 with a BNP of 1876. EKG shows normal sinus tachycardia with inverted lateral T waves. IMPRESSIONS: 1. Acute systolic heart failure. This is likely acute on chronic. The patient is feeling much better at this point. We did discuss the importance of sodium and fluid restrictions. The patient is really not interested in any Lasix p.o. as an outpatient if she does not absolutely need it. At this point, we will continue her on her present medications and obtain an echocardiogram to evaluate for the need of ongoing diuretics. The patient was also counseled that the lisinopril is teratogenic. 2. History of pulmonary embolism. I do agree with continuing the Eliquis. 3. Elevated troponin. I believe this elevation is consistent with her acute presentation of the heart failure. She does not have any other cardiac risk factors for ischemia and is quite young. I will continue observation on this regard. MD NHAN Mabry/JUAN , 03:59 PM , 04:20 PM
[2017-12-24 19:50] LABS: CHOLESTEROL/ HDL RATIO 4.59 RATIO; HDL CHOLESTEROL 23.5 MG/DL (40.0-60.0)
[2017-12-24 19:54] LABS: TROPONIN I 1.75 NG/ML (0.02-0.05)
[2017-12-24] MEDS: DOCUSATE SODIUM 50 MG/SENNA 8.6 MG TAB PO SCH (21:00)
[2017-12-24] MEDS ORDERED: SODIUM CHLORIDE 0.9% FLUSH 10 ML FLUSH IV FLUSH SCH (21:00)
[2017-12-24] MEDS ORDERED: ZOLPIDEM TARTRATE 5 MG TAB PO PRN (21:00)
[2017-12-24] MEDS: APIXABAN 5 MG TABLET PO SCH (21:01)
[2017-12-24] MEDS: ATORVASTATIN 10 MG TAB PO SCH (21:04)
[2017-12-24] MEDS: FAMOTIDINE 20 MG TAB PO SCH (21:04)
[2017-12-24] MEDS: SODIUM CHLORIDE 0.9% FLUSH 10 ML FLUSH IV FLUSH SCH (21:05)
[2017-12-25] VITALS (10 sets, daily range): BP systolic 109–154; BP diastolic 76–98; PULSE 88–104; RESP 16–18; TEMP 97.6–98.7; O2SAT 97–100
[2017-12-25 01:35] LABS: ALBUMIN 2.7 GM/DL (3.4-5.0); ALT (GPT) 52 U/L (10-53); AST (GOT) 42 U/L (15-37); BICARBONATE 26.9 MEQ/L (21.0-32.0); BLOOD UREA NITROGEN 8 MG/DL (7-18); CHLORIDE 108 MEQ/L (98-107); CREATININE 0.88 MG/DL (0.50-1.00); GLOMERULAR FILTRATION RATE 96 ML/MIN (>89); GLUCOSE,RANDOM 92 MG/DL (74-106); MAGNESIUM 1.8 MG/DL (1.5-2.5); SODIUM (NA) 142 MEQ/L (136-145)
[2017-12-25 01:43] LABS: ALKALINE PHOSPHATASE 105 U/L (45-117); FREE T4 1.55 NG/DL (0.76-1.46); TOTAL BILIRUBIN ADULT 0.7 MG/DL (0.2-1.0); TOTAL PROTEIN 5.8 GM/DL (6.4-8.2)
[2017-12-25 01:47] LABS: TROPONIN I 2.44 NG/ML (0.02-0.05)
[2017-12-25 07:48] LABS: BASOPHIL # 0.1 TH/MM3 (0-0.2); EOSINOPHIL # 0.1 TH/MM3 (0-0.4); EOSINOPHIL % 1.7 % (0.0-4.0); HEMATOCRIT 25.4 % (35.0-46.0); HEMOGLOBIN 7.5 GM/DL (11.6-15.3); LYMPH % 29.3 % (9.0-44.0); LYMPHOCYTE # 1.9 TH/MM3 (1.0-4.8); MEAN CORPUSCULAR HEMOGLOBIN 20.2 PG (27.0-34.0); MEAN PLATELET VOLUME 9.1 FL (7.0-11.0); MONO % 7.7 % (0.0-8.0); MONOCYTE # 0.5 TH/MM3 (0-0.9); NEUT % 60.3 % (16.0-70.0); PLATELET COUNT 377 TH/MM3 (150-450); RED BLOOD COUNT 3.74 MIL/MM3 (4.00-5.30); RED CELL DISTRIBUTION WIDTH 19.7 % (11.6-17.2); WHITE BLOOD COUNT 6.6 TH/MM3 (4.0-11.0)
[2017-12-25 07:54] LABS: MEAN CORPUSCULAR HGB CONC 29.7 % (32.0-36.0)
[2017-12-25 08:10] LABS: INTERNATIONAL NORMALIZED RATIO 1.3 RATIO; PROTHROMBIN TIME - PATIENT 13.4 SEC (9.8-11.6)
--- NOTE | 2017-12-25 08:38 | HHI.PR ---
Subjective Remarks in no acute distress. denies chest pain or sob or dizziness. overall doing better. Objective Vitals Vital Signs Date Time Temp Pulse Resp B/P (MAP) Pulse Ox O2 Delivery O2 Flow Rate FiO2 12/25/17 07:59 97 21 12/25/17 04:00 93 12/25/17 00:34 103 18 121/98 (106) 100 12/25/17 00:34 104 12/24/17 20:27 96 12/24/17 20:20 98 121/78 (92) 97 12/24/17 15:48 98.8 76 16 122/79 (93) 98 12/24/17 13:56 12/24/17 12:53 79 18 117/67 (84) 98 Room Air 12/24/17 12:22 89 18 98 Room Air 12/24/17 10:00 97 16 110/70 (83) 100 Room Air Result Diagram: 12/25/17 0653 12/25/17 [address] Angiography 12/24/17 0754 Signed Impressions: Service Date/Time: Sunday, December 24, 2017 11:06 - CONCLUSION: Splenomegaly without failure or pericardial effusion. Cardiomegaly appears biventricular. Cardiomyopathy may be etiology. Hi Morocho MD FACR Chest X-Ray 12/24/17 0624 Signed Impressions: Service Date/Time: Sunday, December 24, 2017 06:31 - CONCLUSION: Prominent cardiac silhouette. Correlation suggested in the 22 year-old. Hi Morocho MD FACR Lower Extremity Ultrasound 12/24/17 0000 Signed Impressions: Service Date/Time: Sunday, December 24, 2017 14:18 - CONCLUSION: Normal examination. Santana Evangelista MD Objective Remarks GENERAL: This is a well-nourished, well-developed patient, in no apparent distress. CARDIOVASCULAR: Regular rate and regular rhythm without murmurs, gallops, or rubs. RESPIRATORY: Clear to auscultation. Breath sounds equal bilaterally. No wheezes , rales, or rhonchi. GASTROINTESTINAL: Abdomen soft, non-tender, nondistended. Normal, active bowel sounds MUSCULOSKELETAL: Extremities without clubbing, cyanosis, or edema. NEURO: Alert & Oriented x4 to person, place, time, situation. Moves all ext x4 Medications and IVs Inpatient Medications Acetaminophen (Tylenol) 650 mg Q6H PRN PO PAIN SCALE 1 TO 2; Start 12/24/17 at 12:45 Alprazolam (Xanax) 0.25 mg Q8H PRN PO ANXIETY; Start 12/24/17 at 12:45 Apixaban (Eliquis) 5 mg BID PO Last administered on 12/24/17at 21:01; Start at 21:00 Aspirin (Aspirin Chew) 324 mg ONCE ONCE CHEW Last administered on 12/24/17at 08 :14; Start 12/24/17 at 08:00; Stop 12/24/17 at 08:01; Status DC Aspirin (Ecotrin Ec) 325 mg DAILY PO ; Start 12/25/17 at 09:00 Atorvastatin Calcium (Lipitor) 10 mg HS PO Last administered on 12/24/17at 21:04 ; Start 12/24/17 at 21:00 Bisacodyl (Dulcolax Supp) 10 mg DAILY PRN RECTAL SEVERE CONSITIPATION; Start at 12:45 Famotidine (Pepcid) 20 mg BID PO Last administered on 12/24/17at 21:04; Start at 21:00 Furosemide (Lasix Inj) 20 mg ONCE ONCE IV PUSH Last administered on 12/24/17at 14:54; Start 12/24/17 at 14:00; Stop 12/24/17 at 14:01; Status DC Furosemide (Lasix) 20 mg DAILY PO ; Start 12/25/17 at 09:00 Lactulose (Lactulose Liq) 30 ml DAILY PRN PO SEVERE CONSITIPATION; Start at 12:45 Lisinopril (Prinivil) 5 mg DAILY PO ; Start 12/25/17 at 09:00 Magnesium Hydroxide (Milk Of Magnesia Liq) 30 ml Q12H PRN PO Mild constipation ; Start 12/24/17 at 12:45 Metoclopramide HCl (Reglan Inj) 5 mg Q6H PRN IV PUSH NAUSEA OR VOMITING; Start 12/24/17 at 12:45 Metoprolol Tartrate (Lopressor) 75 mg DAILY PO ; Start 12/25/17 at 09:00 Morphine Sulfate (Morphine Inj) 4 mg Q3H PRN IV PUSH BREAKTHROUGH PAIN; Start 12/24/17 at 12:45 Naloxone HCl (Narcan Inj) 0.4 mg UNSCH PRN IV PUSH SEE LABEL COMMENTS; Start at 12:45 Nitroglycerin (Nitrostat Sl) 0.4 mg Q5M PRN SL CHEST PAIN; Start 12/24/17 at 12 :45 Ondansetron HCl (Zofran Inj) 4 mg Q6H PRN IVP NAUSEA OR VOMITING Last administered on 12/24/17at 15:04; Start 12/24/17 at 12:45 Oxycodone/ Acetaminophen (Percocet 5-325 Mg) 1 tab Q6H PRN PO PAIN SCALE 3 TO 5; Start 12/24/17 at 12:45 Oxycodone/ Acetaminophen (Percocet 10-325 Mg) 1 tab Q6H PRN PO PAIN SCALE 6 TO 10; Start 12/24/17 at 12:45 Senna/Docusate Sodium (Marsha-Colace) 1 tab BID PO ; Start 12/24/17 at 21:00 Sennosides (Senokot) 17.2 mg Q12H PRN PO Moderate constipation; Start 12/24/17 at 12:45 Sodium Chloride (NS Flush) 2 ml UNSCH PRN IV FLUSH FLUSH AFTER USING IV ACCESS ; Start 12/24/17 at 12:45; Stop 12/24/17 at 12:58; Status DC Zolpidem Tartrate (Ambien) 5 mg HS PRN PO INSOMNIA; Start 12/24/17 at 21:00 A/P Problem List: (1) Cardiomyopathy ICD Code: I42.9 - Cardiomyopathy, unspecified (2) Pulmonary emboli ICD Code: I26.99 - Other pulmonary embolism without acute cor pulmonale (3) Elevated troponin ICD Code: R74.8 - Abnormal levels of other serum enzymes Status: Acute (4) CHF (congestive heart failure) ICD Code: I50.9 - Heart failure, unspecified Status: Acute (5) Dyspnea ICD Code: R06.00 - Dyspnea, unspecified Status: Acute (6) Palpitations ICD Code: R00.2 - Palpitations Status: Acute Assessment and Plan A/P Elevated troponin - likely related to CHF exacerbation -cardiology consult appreciated; no interventions at this time. -get a repeat echocardiogram Continue on her chronic anticoagulation Palpitations -Continue on her home medications -Continue on beta-maricruz Marijuana use -recommended cessation Post cardiomyopathy -We will get a repeat echocardiogram -Kaylae with Lasix Pulmonary emboli continue on Eliquis 5 mg p.o. twice daily anemia- chronic- however H/H is trending down- anemia w/u; will consult hematology. admit to inpatient due to worsening anemia and need for further w/u with hematology evaluation. d/w . Problem Qualifiers (1) CHF (congestive heart failure): Qualified Codes: I50.9 - Heart failure, unspecified (2) Dyspnea: Qualified Codes: R06.00 - Dyspnea, unspecified Mouna Ramsey MD Dec 25, 2017 08:38
[2017-12-25] MEDS ORDERED: FUROSEMIDE 20 MG/2 ML VIAL IV PUSH SCH (09:00)
[2017-12-25 09:03] LABS: % SATURATION IRON PROFILE 3.8 % (20-50); IRON (FE) 17 MCG/DL (50-170); TOTAL IRON BINDING CAPACITY 448 MCG/DL (250-450)
[2017-12-25] MEDS: SODIUM CHLORIDE 0.9% FLUSH 10 ML FLUSH IV FLUSH SCH ×2 (09:04→20:59)
[2017-12-25] MEDS: DOCUSATE SODIUM 50 MG/SENNA 8.6 MG TAB PO SCH ×2 (09:04→20:59)
[2017-12-25] MEDS: FAMOTIDINE 20 MG TAB PO SCH ×2 (09:04→20:58)
[2017-12-25] MEDS: ASPIRIN EC 325 MG TABEC PO SCH (09:04)
[2017-12-25] MEDS: APIXABAN 5 MG TABLET PO SCH ×2 (09:04→20:58)
[2017-12-25] MEDS: METOPROLOL TARTRATE 25 MG TAB PO SCH (09:04)
[2017-12-25] MEDS: LISINOPRIL 5 MG TAB PO SCH (09:04)
[2017-12-25 09:06] LABS: FERRITIN 7 NG/ML (8-252)
--- NOTE | 2017-12-25 09:20 | PD.CARD.PN ---
Subjective Subjective Remarks PT without complaints and feeling back to normal, no overt bleeding- she is spotting Objective Medications Current Medications Medications (Trade) Dose Ordered Sig/Ruma Route Start Time Stop Time Status Last Admin (NS Flush) 2 ml UNSCH PRN IVF 12/24/17 06:30 (Eliquis) 5 mg BID PO 12/24/17 21:00 12/25/17 09:04 (Prinivil) 5 mg DAILY PO 12/25/17 09:00 12/25/17 09:04 (Lopressor) 75 mg DAILY PO 12/25/17 09:00 12/25/17 09:04 (NS Flush) 2 ml UNSCH PRN IV FLUSH 12/24/17 12:45 12/24/17 15:04 (NS Flush) 2 ml BID IV FLUSH 12/24/17 21:00 12/25/17 09:04 (Tylenol) 650 mg Q4H PRN PO 12/24/17 12:45 (Zofran Inj) 4 mg Q6H PRN IVP 12/24/17 12:45 12/24/17 15:04 (Reglan Inj) 5 mg Q6H PRN IV PUSH 12/24/17 12:45 (Ambien) 5 mg HS PRN PO 12/24/17 21:00 (Tylenol) 650 mg Q6H PRN PO 12/24/17 12:45 (Percocet 5-325 Mg) 1 tab Q6H PRN PO 12/24/17 12:45 (Percocet 10-325 Mg) 1 tab Q6H PRN PO 12/24/17 12:45 (Morphine Inj) 2 mg Q3H PRN IV PUSH 12/24/17 12:45 (Morphine Inj) 4 mg Q3H PRN IV PUSH 12/24/17 12:45 (Morphine Inj) 4 mg Q3H PRN IV PUSH 12/24/17 12:45 (Narcan Inj) 0.4 mg UNSCH PRN IV PUSH 12/24/17 12:45 (Marsha-Colace) 1 tab BID PO 12/24/17 21:00 (Milk Of Magnesia Liq) 30 ml Q12H PRN PO 12/24/17 12:45 (Senokot) 17.2 mg Q12H PRN PO 12/24/17 12:45 (Dulcolax Supp) 10 mg DAILY PRN RECTAL 12/24/17 12:45 (Lactulose Liq) 30 ml DAILY PRN PO 12/24/17 12:45 (Ecotrin Ec) 325 mg DAILY PO 12/25/17 09:00 12/25/17 09:04 (Nitrostat Sl) 0.4 mg Q5M PRN SL 12/24/17 12:45 (Xanax) 0.25 mg Q8H PRN PO 12/24/17 12:45 (Lipitor) 10 mg HS PO 12/24/17 21:00 12/24/17 21:04 (Pepcid) 20 mg BID PO 12/24/17 21:00 12/25/17 09:04 (Lasix) 20 mg DAILY PO 12/25/17 09:00 Vital Signs / I&O Vital Signs Date Time Temp Pulse Resp B/P (MAP) Pulse Ox O2 Delivery O2 Flow Rate FiO2 12/25/17 08:00 98.5 92 16 112/79 (90) 97 12/25/17 07:59 97 21 12/25/17 04:00 93 12/25/17 00:34 103 18 121/98 (106) 100 12/25/17 00:34 104 12/24/17 20:27 96 12/24/17 20:20 98 121/78 (92) 97 12/24/17 15:48 98.8 76 16 122/79 (93) 98 12/24/17 13:56 12/24/17 12:53 79 18 117/67 (84) 98 Room Air 12/24/17 12:22 89 18 98 Room Air 12/24/17 10:00 97 16 110/70 (83) 100 Room Air Physical Exam GENERAL: Well developed, well nourished. No acute distress. HEENT: Jugular venous pressure is normal. CHEST: Lungs clear to auscultation bilaterally. Unlabored respiratory effort. CARDIAC: Regular rate and rhythm without S3, S4, or murmur. ABDOMEN: Soft, nontender, no hepatosplenomegaly. Bowel sounds present. EXTREMITIES: No clubbing, cyanosis, or edema. Laboratory Laboratory Tests Test 12/24/17 12:55 12/24/17 19:01 12/25/17 00:48 12/25/17 06:53 Total Creatine Kinase 103 U/L 105 U/L 105 U/L Troponin I 1.80 NG/ML 1.75 NG/ML 2.44 NG/ML Triglycerides Level 66 MG/DL Cholesterol Level 108 MG/DL LDL Cholesterol 71 MG/DL HDL Cholesterol 23.5 MG/DL Cholesterol/HDL Ratio 4.59 RATIO Blood Urea Nitrogen 8 MG/DL Creatinine 0.88 MG/DL Random Glucose 92 MG/DL Total Protein 5.8 GM/DL Albumin 2.7 GM/DL Calcium Level 8.0 MG/DL Phosphorus Level 3.0 MG/DL Magnesium Level 1.8 MG/DL Alkaline Phosphatase 105 U/L Aspartate Amino Transf (AST/SGOT) 42 U/L Alanine Aminotransferase (ALT/SGPT) 52 U/L Total Bilirubin 0.7 MG/DL Sodium Level 142 MEQ/L Potassium Level 3.5 MEQ/L Chloride Level 108 MEQ/L Carbon Dioxide Level 26.9 MEQ/L Anion Gap 7 MEQ/L Estimat Glomerular Filtration Rate 96 ML/MIN Iron Level 17 MCG/DL Total Iron Binding Capacity 448 MCG/DL Percent Iron Saturation 3.8 % Ferritin 7 NG/ML Free Thyroxine 1.55 NG/DL Thyroid Stimulating Hormone 3rd Gen 0.429 uIU/ML White Blood Count 6.6 TH/MM3 Red Blood Count 3.74 MIL/MM3 Hemoglobin 7.5 GM/DL Hematocrit 25.4 % Mean Corpuscular Volume 68.0 FL Mean Corpuscular Hemoglobin 20.2 PG Mean Corpuscular Hemoglobin Concent 29.7 % Red Cell Distribution Width 19.7 % Platelet Count 377 TH/MM3 Mean Platelet Volume 9.1 FL Neutrophils (%) (Auto) 60.3 % Lymphocytes (%) (Auto) 29.3 % Monocytes (%) (Auto) 7.7 % Eosinophils (%) (Auto) 1.7 % Basophils (%) (Auto) 1.0 % Neutrophils # (Auto) 4.0 TH/MM3 Lymphocytes # (Auto) 1.9 TH/MM3 Monocytes # (Auto) 0.5 TH/MM3 Eosinophils # (Auto) 0.1 TH/MM3 Basophils # (Auto) 0.1 TH/MM3 CBC Comment DIFF FINAL Differential Comment Prothrombin Time 13.4 SEC Prothromb Time International Ratio 1.3 RATIO Imaging Last [address] Angiography 12/24/17 0754 Signed Impressions: Service Date/Time: Sunday, December 24, 2017 11:06 - CONCLUSION: Splenomegaly without failure or pericardial effusion. Cardiomegaly appears biventricular. Cardiomyopathy may be etiology. Hi Morocho MD FACR Chest X-Ray 12/24/17 0624 Signed Impressions: Service Date/Time: Sunday, December 24, 2017 06:31 - CONCLUSION: Prominent cardiac silhouette. Correlation suggested in the 22 year-old. Hi Morocho MD FACR Lower Extremity Ultrasound 12/24/17 0000 Signed Impressions: Service Date/Time: Sunday, December 24, 2017 14:18 - CONCLUSION: Normal examination. Santana Evangelista MD Assessment and Plan Assessment and Plan 1. Acute systolic heart failure. This is likely acute on chronic. The patient is feeling much better at this point. ECHO pending - seems to be at baseline 2. History of pulmonary embolism. I do agree with continuing the Eliquis. 3. secondary HI- pt has never had any CP- no risk factors -secondary to CHF and anemia, though a bit higher then we typically see for this -elevated trop is typically a poor prognostic factor 4. Anemia- per primary team, we discussed her care both yesterday and today Rayne Sinclair MD Dec 25, 2017 09:20
--- NOTE | 2017-12-25 10:32 | EKG ---
Date Performed: 12/24/2017 Time Performed: 18:55:12 PTAGE: 22 years EKG: Sinus rhythm POSSIBLE LEFT ATRIAL ENLARGEMENT SEPTAL MYOCARDIAL INFARCTION MODERATE T-WAVE ABNORMALITY, CONSIDER ANTEROLATERAL ISCHEMIA ABNORMAL ECG Since the PREVIOUS TRACING , no significant change noted PREVIOUS TRACIN12/24/2017 13.25 DOCTOR: Best Mcknight Interpretating Date/Time 12/25/2017 10:29:46
--- NOTE | 2017-12-25 10:32 | EKG ---
Date Performed: 12/25/2017 Time Performed: 00:42:08 PTAGE: 22 years EKG: SINUS TACHYCARDIA POSSIBLE LEFT ATRIAL ENLARGEMENT MODERATE T-WAVE ABNORMALITY, CONSIDER LA TERAL ISCHEMIA ABNORMAL ECG Since the PREVIOUS TRACING , no significant change noted PREVIOUS TRACIN12/24/2017 18.55 DOCTOR: Best Mcknight Interpretating Date/Time 12/25/2017 10:29:38
--- NOTE | 2017-12-25 10:32 | EKG ---
Date Performed: 12/24/2017 Time Performed: 13:25:30 PTAGE: 22 years EKG: SINUS TACHYCARDIA POSSIBLE LEFT ATRIAL ENLARGEMENT SEPTAL MYOCARDIAL INFARCTION MODERATE T- WAVE ABNORMALITY, CONSIDER LATERAL ISCHEMIA ABNORMAL ECG Since the PREVIOUS TRACING , no significant change noted PREVIOUS TRACIN12/24/2017 07.02 DOCTOR: Best Mcknight Interpretating Date/Time 12/25/2017 10:29:54
[2017-12-25] MEDS: FUROSEMIDE 20 MG TAB PO SCH (16:00)
[2017-12-25 16:02] LABS: HEMOGLOBIN A1C 5.2 % (4.3-6.0)
[2017-12-25] MEDS ORDERED: SODIUM CHLOR 0.9% 250 ML INJ 250 ML IV ONE (18:00)
--- NOTE | 2017-12-25 18:59 | MB ---
cc: Rusty Hammonds MD DATE: 12/25/2017 REASON FOR CONSULTATION: Consult requested by hospitalist for evaluation of a microcytic hypochromic anemia. HISTORY OF PRESENT ILLNESS: Izabela is a 22-year-old female. She has a history of hypertension and recurrent miscarriages x 4. She stated that all these were in the first trimester. The longest was up to 3 months when she lost her fetus last year, September. The patient subsequently got and she was able to continue her to the full term, and she delivered a baby girl on 09/17/2017. She stated that she was 38 weeks at that time. She was under the care of cabin crew on [facility]. The patient stated that a month after her delivery, she developed shortness of breath. She was admitted to [facility] and she was diagnosed with cardiomyopathy. She was prescribed some medications that she could not remember. The patient, in middle of last month, developed severe shortness of breath and not feeling well. She again went to [facility], and she was diagnosed with bilateral pulmonary embolism. She did not have any DVTs. She was treated with anticoagulation. She saw a director of supply chain, which she could not remember the name. She was placed on Eliquis and was discharged to home. The patient has been compliant with the Eliquis. The patient came into the emergency room yesterday, complaning of swelling in both legs , palpitations and feeling dizzy. In the emergency room, she underwent workup and her troponin level was high. The patient is subsequently admitted to the hospital. Cardiology was consulted. The patient was found to have exacerbation of congestive heart failure. The troponin was not considered to be due to ischemia. The patient had a CBC yesterday, which showed white count 11.3, hemoglobin 8.3, hematocrit 29.4, MCV 69.3, platelet count is 467. CBC today white count of 6.6, hemoglobin 7.5, hematocrit 25.4, platelet count 377. Her iron studies shows serum ferritin of only 7, serum iron is 17, TIBC is 448, iron saturation is 3.8. I have been asked to see the patient for further evaluation. The patient stated that with her , she was anemic and she was taking iron, but she was not compliant with that. When she was admitted to the hospital last month, she was anemic also and she was told to take oral iron. She took it for a few days and then she stopped. She noticed that after taking the Eliquis, she had excessive vaginal bleeding. Her menses usually last for 4 days and she stated that she was bleeding for almost 3 weeks. She did not seek CONTINUOUS DRIER OPERATOR advice on that. The patient said that last night, she started having vaginal bleeding. This is her normal time. She is feeling somewhat better since she is in the hospital. She underwent multiple tests. The ultrasound of lower legs does not show any DVTs. The CT angiogram of the chest does not show any pulmonary embolism. She has cardiomegaly without failure or pericardial effusion. I think there is a typographical error in the conclusion of the CT angiogram of the chest. Radiologist mentioned splenomegaly, but it should be read as cardiomegaly. The patient wants to go home. Her baby girl was in the room with the patient's boyfriend. The rest of the review of systems is negative. PAST MEDICAL HISTORY: Hypertension, cardiomyopathy diagnosed 2 months ago, bilateral pulmonary embolism diagnosed last month. History of repeated miscarriage x 4. PAST SURGICAL HISTORY: None. ALLERGIES: NONE. MEDICATIONS: Prior to coming to the hospital were metoprolol, lisinopril and then Eliquis 5 mg twice a day. FAMILY HISTORY: None for any blood disorder or malignancy. SOCIAL HISTORY: The patient lives with her boyfriend. She does not smoke cigarettes, does not drink alcohol. She uses marijuana. She works at [employer]. PHYSICAL EXAMINATION: GENERAL: This is a well-developed, well-nourished female in no apparent distress. VITAL SIGNS: Temperature 98.1, heart rate is 90, blood pressure 109/76, O2 saturation 99%. HEENT: PERRLA. EOMI, anicteric. No oral lesions noted. NECK: No lymphadenopathy noted. LUNGS: Clear. No wheezing, rhonchi or rales. HEART: Regular rate and rhythm. ABDOMEN: Soft, nontender. EXTREMITIES: Edema noted. NEUROLOGIC: Awake, alert, oriented x 3. SKIN: No significant lesions are noted. ASSESSMENT: 1. Severe microcytic hypochromic anemia due to menorrhagia since she has been placed on Eliquis. 2. cardiomyopathy. 3. Pulmonary embolism diagnosed last month, currently on Eliquis. The patient had a repeat CT angiogram of the chest, which did not show any pulmonary embolism. The Doppler ultrasound of both lower legs does not show any deep vein thrombosis either. 4. Exacerbation of congestive heart failure, most likely due to severe anemia. PLAN: I have reviewed her available records, and I had an extensive discussion with the patient and her boyfriend regarding the anemia. She has severe microcytic hypochromic anemia. The iron study shows severe iron deficiency with a serum ferritin of only 7. She is noncompliant with oral iron due to the intolerance. She states that she had prolonged vaginal bleeding last month, which lasted for 3 weeks, and it all happened since she was placed on Eliquis. Clearly, the source of iron loss is heavy vaginal bleeding. My recommendation is that patient should be evaluated by stonecutter for menorrhagia and to slow down her excessive menstrual bleeding while she is on Eliquis for pulmonary embolism. The patient has severe anemia, which most likely has caused exacerbation of her cardiomyopathy/congestive heart failure. Therefore, my recommendation is for 2 units of blood transfusion. We discussed the risks of blood transfusion. The patient has agreed and accepted those risks. She has been advised to take oral iron again, but if she is not able to tolerate it, then she can come to our office for iron infusion or she can go to director of supply chain in [place] whom she saw last month when she was admitted to [facility] for pulmonary embolism. Thank you for asking my opinion. MD NEENA Joyce/JUAN , 05:57 PM , 06:58 PM RADHA
--- NOTE | 2017-12-25 19:56 | ECHRPT ---
Indication: POST CARDIOMYOPATHY CONCLUSIONS Mildly dilated left ventricle. The left ventricular systolic function is severely reduced with an estimated ejection fraction in th e range of 25-30%. There is global left ventricular dysfunction. There are findings consistent with dilated cardiomyopathy. The right ventricular systoilc function is moderately decreased. Moderate mitral valve regurgitation. There is moderate to severe tricuspid valve regurgitation. There is estimated [id number] pulmonary hypertension present (range 60-70 mmHg). Mild pulmonary valve regurgitation. There is a small pericardial effusion present. No hemodynamically significant echocardiographic features were observed (no pre-tamponade physiology). BP: 121 / 98 HR: 103 Rhythm: Sinus MEASUREMENTS (Male / Female) Normal Values Technical Quality:Fair 2D ECHO LV Diastolic Diameter PLAX 5.6 cm 4.2 - 5.9 / 3.9 - 5.3 cm LV Systolic Diameter PLAX 4.9 cm IVS Diastolic Thickness 0.8 cm 0.6 - 1.0 / 0.6 - 0.9 cm LVPW Diastolic Thickness 0.8 cm 0.6 - 1.0 / 0.6 - 0.9 cm LV Relative Wall Thickness 0.3 RV Internal Dim ED PLAX 2.8 cm LVOT Diameter 1.7 cm Aortic Root Diameter 2.5 cm LA Systolic Diameter LX 4.4 cm 3.0 - 4.0 / 2.7 - 3.8 cm M-MODE AV Cusp Separation MM 2.0 cm DOPPLER AV Peak Velocity 99.1 cm/s AV Peak Gradient 3.9 mmHg AV Mean Gradient 2.0 mmHg AV Velocity Time Integral 13.8 cm LVOT Peak Velocity 55.6 cm/s LVOT Peak Gradient 1.2 mmHg LVOT Velocity Time Integral 8.2 cm AV Area Cont Eq vti 1.3 cm AV Area Cont Eq pk 1.3 cm LV E' Lateral Velocity 5.2 cm/s LV E' Septal Velocity 4.3 cm/s TR Peak Velocity 370.0 cm/s TR Peak Gradient 54.8 mmHg Right Atrial Pressure 10.0 mmHg Pulmonary Artery Systolic Pressu 64.8 mmHg Right Ventricular Systolic Press 64.8 mmHg PV Peak Velocity 42.9 cm/s PV Peak Gradient 0.7 mmHg FINDINGS LEFT VENTRICLE Mildly dilated left ventricle. Wall thickness is normal. The left ventricular systolic function is severely reduced with an estimated ejection fraction in th e range of 25-30%. There is global left ventricular dysfunction. There are findings consistent with dilated cardiomyopathy. RIGHT VENTRICLE The right ventricular size is normal. The right ventricular systoilc function is moderately decreased. LEFT ATRIUM The left atrial size is moderately dilated. RIGHT ATRIUM The right atrial size is moderately dilated. ATRIAL SEPTUM No atrial level shunt is demonstrated by color flow Doppler interrogation. AORTA The aortic root and proximal ascending aorta are normal in size on limited imaging. MITRAL VALVE Structurally normal mitral valve. Moderate mitral valve regurgitation. The mitral valve regurgitation jet is directed posteriorly. No mitral valve stenosis. AORTIC VALVE Trileaflet aortic valve. No aortic valve stenosis or regurgitation. TRICUSPID VALVE There is moderate to severe tricuspid valve regurgitation. The estimated pulmonary arterial pressure is 64.8 mmHg. There is estimated [id number] pulmonary hypertension present (range 60-70 mmHg). PULMONARY VALVE Mild pulmonary valve regurgitation. VESSELS The inferior vena cava is normal in size. PERICARDIUM There is a small pericardial effusion present. No hemodynamically significant echocardiographic features were observed (no pre-tamponade physiology). Sachin Matos DO (Electronically Signed) Final Date:25 December 2017 19:55
[2017-12-25] MEDS: ATORVASTATIN 10 MG TAB PO SCH (20:59)
[2017-12-26] VITALS (12 sets, daily range): BP systolic 104–132; BP diastolic 68–100; PULSE 81–99; RESP 15–20; TEMP 97.4–98.6; O2SAT 96–100
--- NOTE | 2017-12-26 09:12 | PD.CARD.PN ---
Subjective Subjective Remarks PT without complaints Objective Medications Current Medications Medications (Trade) Dose Ordered Sig/Ruma Route Start Time Stop Time Status Last Admin (NS Flush) 2 ml UNSCH PRN IVF 12/24/17 06:30 (Eliquis) 5 mg BID PO 12/24/17 21:00 12/25/17 20:58 (Prinivil) 5 mg DAILY PO 12/25/17 09:00 12/25/17 09:04 (Lopressor) 75 mg DAILY PO 12/25/17 09:00 12/25/17 09:04 (NS Flush) 2 ml UNSCH PRN IV FLUSH 12/24/17 12:45 12/24/17 15:04 (NS Flush) 2 ml BID IV FLUSH 12/24/17 21:00 12/25/17 20:59 (Tylenol) 650 mg Q4H PRN PO 12/24/17 12:45 (Zofran Inj) 4 mg Q6H PRN IVP 12/24/17 12:45 12/24/17 15:04 (Reglan Inj) 5 mg Q6H PRN IV PUSH 12/24/17 12:45 (Ambien) 5 mg HS PRN PO 12/24/17 21:00 (Tylenol) 650 mg Q6H PRN PO 12/24/17 12:45 (Percocet 5-325 Mg) 1 tab Q6H PRN PO 12/24/17 12:45 (Percocet 10-325 Mg) 1 tab Q6H PRN PO 12/24/17 12:45 (Morphine Inj) 2 mg Q3H PRN IV PUSH 12/24/17 12:45 (Morphine Inj) 4 mg Q3H PRN IV PUSH 12/24/17 12:45 (Morphine Inj) 4 mg Q3H PRN IV PUSH 12/24/17 12:45 (Narcan Inj) 0.4 mg UNSCH PRN IV PUSH 12/24/17 12:45 (Marsha-Colace) 1 tab BID PO 12/24/17 21:00 (Milk Of Magnesia Liq) 30 ml Q12H PRN PO 12/24/17 12:45 (Senokot) 17.2 mg Q12H PRN PO 12/24/17 12:45 (Dulcolax Supp) 10 mg DAILY PRN RECTAL 12/24/17 12:45 (Lactulose Liq) 30 ml DAILY PRN PO 12/24/17 12:45 (Ecotrin Ec) 325 mg DAILY PO 12/25/17 09:00 12/25/17 09:04 (Nitrostat Sl) 0.4 mg Q5M PRN SL 12/24/17 12:45 (Xanax) 0.25 mg Q8H PRN PO 12/24/17 12:45 (Lipitor) 10 mg HS PO 12/24/17 21:00 12/25/17 20:59 (Pepcid) 20 mg BID PO 12/24/17 21:00 12/25/17 20:58 (Lasix) 20 mg DAILY PO 12/25/17 09:00 Sodium Chloride 250 ml @ 15 mls/hr ONCE ONCE IV 12/25/17 18:00 12/26/17 10:39 Vital Signs / I&O Vital Signs Date Time Temp Pulse Resp B/P (MAP) Pulse Ox O2 Delivery O2 Flow Rate FiO2 12/26/17 07:29 98.2 89 18 106/75 (85) 98 12/26/17 07:03 98.2 89 18 106/75 (85) 98 12/26/17 07:02 98.2 88 18 106/75 98 12/26/17 06:46 97.4 84 15 119/81 99 12/26/17 06:44 97.4 84 15 119/81 99 12/26/17 06:12 21 12/26/17 04:05 86 12/26/17 03:33 98.5 89 18 122/85 96 12/26/17 03:20 98.6 99 18 117/76 (90) 96 12/26/17 03:16 98.6 97 15 117/76 96 12/26/17 00:26 98.4 84 18 104/68 (80) 100 12/26/17 00:05 88 12/25/17 21:09 98.7 88 18 154/83 (106) 100 12/25/17 20:35 98 12/25/17 16:05 92 12/25/17 16:00 98.1 90 16 109/76 (87) 99 12/25/17 12:00 97.6 97 16 109/87 (94) 100 I/O 4/16/18 12/25/17 12/25/17 12/26/17 12/26/17 12/26/17 07:00 15:00 23:00 07:00 15:00 23:00 Intake Total 412 ml Balance 412 ml Intake Packed Cells 400 ml Blood Product IV Normal Saline Flush 12 ml Physical Exam GENERAL: Well developed, well nourished. No acute distress. HEENT: Jugular venous pressure is normal. CHEST: Lungs clear to auscultation bilaterally. Unlabored respiratory effort. CARDIAC: Regular rate and rhythm without S3, S4, or murmur. ABDOMEN: Soft, nontender, no hepatosplenomegaly. Bowel sounds present. EXTREMITIES: No clubbing, cyanosis, or edema. Assessment and Plan Assessment and Plan 1. Acute systolic heart failure. This is likely acute on chronic. - EF 25% by ECHO - seems to be at baseline -consult EPP- Dr Salazar to evaluate for ICD 2. History of pulmonary embolism. - I do agree with continuing the Eliquis. 3. secondary CO- pt has never had any CP- no risk factors -secondary to CHF and anemia, though a bit higher then we typically see for this -elevated trop is typically a poor prognostic factor 4. Anemia- per primary team, we discussed her care both yesterday and today Rayne Sinclair MD Dec 26, 2017 09:12
[2017-12-26] MEDS: DOCUSATE SODIUM 50 MG/SENNA 8.6 MG TAB PO SCH (09:21)
[2017-12-26] MEDS: FAMOTIDINE 20 MG TAB PO SCH (09:21)
[2017-12-26] MEDS: APIXABAN 5 MG TABLET PO SCH (09:21)
[2017-12-26] MEDS: FUROSEMIDE 20 MG TAB PO SCH (09:21)
[2017-12-26] MEDS: LISINOPRIL 5 MG TAB PO SCH (09:22)
[2017-12-26] MEDS: METOPROLOL TARTRATE 25 MG TAB PO SCH (09:22)
[2017-12-26] MEDS: ASPIRIN EC 325 MG TABEC PO SCH (09:22)
--- NOTE | 2017-12-26 10:05 | HHI.PR ---
Subjective Remarks in no acute distress. denies chest pain, sob. is upset about the ' whole situation' and wants to sign out. d/w the RN. Objective Vitals Vital Signs Date Time Temp Pulse Resp B/P (MAP) Pulse Ox O2 Delivery O2 Flow Rate FiO2 12/26/17 09:39 98.2 81 20 132/100 100 12/26/17 07:29 98.2 89 18 106/75 (85) 98 12/26/17 07:03 98.2 89 18 106/75 (85) 98 12/26/17 07:02 98.2 88 18 106/75 98 12/26/17 06:46 97.4 84 15 119/81 99 12/26/17 06:44 97.4 84 15 119/81 99 12/26/17 06:12 21 12/26/17 04:05 86 12/26/17 03:33 98.5 89 18 122/85 96 12/26/17 03:20 98.6 99 18 117/76 (90) 96 12/26/17 03:16 98.6 97 15 117/76 96 12/26/17 00:26 98.4 84 18 104/68 (80) 100 12/26/17 00:05 88 12/25/17 21:09 98.7 88 18 154/83 (106) 100 12/25/17 20:35 98 12/25/17 16:05 92 12/25/17 16:00 98.1 90 16 109/76 (87) 99 12/25/17 12:00 97.6 97 16 109/87 (94) 100 I/O 12/25/17 12/25/17 12/25/17 12/26/17 12/26/17 12/26/17 07:00 15:00 23:00 07:00 15:00 23:00 Intake Total 412 ml 400 ml Balance 412 ml 400 ml Intake Packed Cells 400 ml 400 ml Blood Product IV Normal Saline Flush 12 ml Result Diagram: 12/25/17 0653 12/25/17 [address] Angiography 12/24/17 0754 Signed Impressions: Service Date/Time: Sunday, December 24, 2017 11:06 - CONCLUSION: Splenomegaly without failure or pericardial effusion. Cardiomegaly appears biventricular. Cardiomyopathy may be etiology. Hi Morocho MD FACR Chest X-Ray 12/24/17 0624 Signed Impressions: Service Date/Time: Sunday, December 24, 2017 06:31 - CONCLUSION: Prominent cardiac silhouette. Correlation suggested in the 22 year-old. Hi Morocho MD FACR Lower Extremity Ultrasound 12/24/17 0000 Signed Impressions: Service Date/Time: Sunday, December 24, 2017 14:18 - CONCLUSION: Normal examination. Santana Evangelista MD Objective Remarks GENERAL: This is a well-nourished, well-developed patient, in no apparent distress. CARDIOVASCULAR: Regular rate and regular rhythm without murmurs, gallops, or rubs. RESPIRATORY: Clear to auscultation. Breath sounds equal bilaterally. No wheezes , rales, or rhonchi. GASTROINTESTINAL: Abdomen soft, non-tender, nondistended. Normal, active bowel sounds MUSCULOSKELETAL: Extremities without clubbing, cyanosis, or edema. NEURO: Alert & Oriented x4 to person, place, time, situation. Moves all ext x4 Medications and IVs Inpatient Medications Acetaminophen (Tylenol) 650 mg Q6H PRN PO PAIN SCALE 1 TO 2; Start 12/24/17 at 12:45 Alprazolam (Xanax) 0.25 mg Q8H PRN PO ANXIETY; Start 12/24/17 at 12:45 Apixaban (Eliquis) 5 mg BID PO Last administered on 12/26/17at 09:21; Start at 21:00 Aspirin (Aspirin Chew) 324 mg ONCE ONCE CHEW Last administered on 12/24/17at 08 :14; Start 12/24/17 at 08:00; Stop 12/24/17 at 08:01; Status DC Aspirin (Ecotrin Ec) 325 mg DAILY PO Last administered on 12/26/17at 09:22; Start 12/25/17 at 09:00 Atorvastatin Calcium (Lipitor) 10 mg HS PO Last administered on 12/25/17at 20:59 ; Start 12/24/17 at 21:00 Bisacodyl (Dulcolax Supp) 10 mg DAILY PRN RECTAL SEVERE CONSITIPATION; Start at 12:45 Famotidine (Pepcid) 20 mg BID PO Last administered on 12/26/17at 09:21; Start at 21:00 Furosemide (Lasix Inj) 20 mg ONCE ONCE IV PUSH Last administered on 12/24/17at 14:54; Start 12/24/17 at 14:00; Stop 12/24/17 at 14:01; Status DC Furosemide (Lasix) 20 mg DAILY PO Last administered on 12/26/17at 09:21; Start 12/25/17 at 09:00 Lactulose (Lactulose Liq) 30 ml DAILY PRN PO SEVERE CONSITIPATION; Start at 12:45 Lisinopril (Prinivil) 5 mg DAILY PO Last administered on 12/26/17at 09:22; Start 12/25/17 at 09:00 Magnesium Hydroxide (Milk Of Magnesia Liq) 30 ml Q12H PRN PO Mild constipation ; Start 12/24/17 at 12:45 Metoclopramide HCl (Reglan Inj) 5 mg Q6H PRN IV PUSH NAUSEA OR VOMITING; Start 12/24/17 at 12:45 Metoprolol Tartrate (Lopressor) 75 mg DAILY PO Last administered on 12/26/17at 09:22; Start 12/25/17 at 09:00 Morphine Sulfate (Morphine Inj) 4 mg Q3H PRN IV PUSH BREAKTHROUGH PAIN; Start 12/24/17 at 12:45 Naloxone HCl (Narcan Inj) 0.4 mg UNSCH PRN IV PUSH SEE LABEL COMMENTS; Start at 12:45 Nitroglycerin (Nitrostat Sl) 0.4 mg Q5M PRN SL CHEST PAIN; Start 12/24/17 at 12 :45 Ondansetron HCl (Zofran Inj) 4 mg Q6H PRN IVP NAUSEA OR VOMITING Last administered on 12/24/17at 15:04; Start 12/24/17 at 12:45 Oxycodone/ Acetaminophen (Percocet 5-325 Mg) 1 tab Q6H PRN PO PAIN SCALE 3 TO 5; Start 12/24/17 at 12:45 Oxycodone/ Acetaminophen (Percocet 10-325 Mg) 1 tab Q6H PRN PO PAIN SCALE 6 TO 10; Start 12/24/17 at 12:45 Senna/Docusate Sodium (Marsha-Colace) 1 tab BID PO ; Start 12/24/17 at 21:00 Sennosides (Senokot) 17.2 mg Q12H PRN PO Moderate constipation; Start 12/24/17 at 12:45 Sodium Chloride 250 ml @ 15 mls/hr ONCE ONCE IV ; Start 12/25/17 at 18:00; Stop 12/26/17 at 10:39 Sodium Chloride (NS Flush) 2 ml UNSCH PRN IV FLUSH FLUSH AFTER USING IV ACCESS ; Start 12/24/17 at 12:45; Stop 12/24/17 at 12:58; Status DC Zolpidem Tartrate (Ambien) 5 mg HS PRN PO INSOMNIA; Start 12/24/17 at 21:00 A/P Problem List: (1) Cardiomyopathy ICD Code: I42.9 - Cardiomyopathy, unspecified (2) Pulmonary emboli ICD Code: I26.99 - Other pulmonary embolism without acute cor pulmonale (3) Elevated troponin ICD Code: R74.8 - Abnormal levels of other serum enzymes Status: Acute (4) CHF (congestive heart failure) ICD Code: I50.9 - Heart failure, unspecified Status: Acute (5) Dyspnea ICD Code: R06.00 - Dyspnea, unspecified Status: Acute (6) Palpitations ICD Code: R00.2 - Palpitations Status: Acute Assessment and Plan A/P Elevated troponin - likely related to CHF exacerbation -echo with EF 25% -cardiology consult appreciated- Continue on her chronic anticoagulation Palpitations -Continue on her home medications -Continue on beta-maricruz Marijuana use -recommended cessation Post cardiomyopathy -eche with EF 25%- was consulted for possible ICD placement. -Diurese with Lasix -continue with lisinopril and metoprolol. Pulmonary emboli continue on Eliquis 5 mg p.o. twice daily anemia- chronic- however H/H is trending down-anemia w/u with iron deficiency anemia- likely due to abnormal uterine bleeding. hematology consult appreciated; had PRBC transfusion- [employer] was conulted. d/w . Problem Qualifiers (1) CHF (congestive heart failure): Qualified Codes: I50.9 - Heart failure, unspecified (2) Dyspnea: Qualified Codes: R06.00 - Dyspnea, unspecified Mouna Ramsey MD Dec 26, 2017 10:05
--- NOTE | 2017-12-26 10:19 | PD.ONC.PN ---
Subjective Subjective Remarks Afebrile overnight. Patient states "I feel fine." when asked how she is feeling. she is still having vaginal bleeding. patient reports she is planning to leave the hospital AMA after being told she needs a "pacemaker." she is planning to go straight to a hospital in [place]. I have strongly encouraged the patient not to leave. Objective Data Date Time Temp Pulse Resp B/P (MAP) Pulse Ox O2 Delivery O2 Flow Rate FiO2 12/26/17 09:39 98.2 81 20 132/100 100 12/26/17 07:29 98.2 89 18 106/75 (85) 98 12/26/17 07:03 98.2 89 18 106/75 (85) 98 12/26/17 07:02 98.2 88 18 106/75 98 12/26/17 06:46 97.4 84 15 119/81 99 12/26/17 06:44 97.4 84 15 119/81 99 12/26/17 06:12 21 12/26/17 04:05 86 12/26/17 03:33 98.5 89 18 122/85 96 12/26/17 03:20 98.6 99 18 117/76 (90) 96 12/26/17 03:16 98.6 97 15 117/76 96 12/26/17 00:26 98.4 84 18 104/68 (80) 100 12/26/17 00:05 88 12/25/17 21:09 98.7 88 18 154/83 (106) 100 12/25/17 20:35 98 12/25/17 16:05 92 12/25/17 16:00 98.1 90 16 109/76 (87) 99 12/25/17 12:00 97.6 97 16 109/87 (94) 100 12/26/17 12/26/17 12/26/17 07:00 15:00 23:00 Intake Total 412 ml 400 ml Balance 412 ml 400 ml Result Diagram: 12/25/17 0653 12/25/17 0048 Administered Medications Medications (Trade) Dose Ordered Sig/Ruma Route PRN Reason Start Time Stop Time Status Last Admin Dose Admin Apixaban (Eliquis) 5 mg BID PO 12/24/17 21:00 12/26/17 09:21 Lisinopril (Prinivil) 5 mg DAILY PO 12/25/17 09:00 12/26/17 09:22 Metoprolol Tartrate (Lopressor) 75 mg DAILY PO 12/25/17 09:00 12/26/17 09:22 Sodium Chloride (NS Flush) 2 ml UNSCH PRN IV FLUSH FLUSH AFTER USING IV ACCESS 12/24/17 12:45 12/24/17 15:04 Sodium Chloride (NS Flush) 2 ml BID IV FLUSH 12/24/17 21:00 12/25/17 20:59 Ondansetron HCl (Zofran Inj) 4 mg Q6H PRN IVP NAUSEA OR VOMITING 12/24/17 12:45 12/24/17 15:04 Aspirin (Ecotrin Ec) 325 mg DAILY PO 12/25/17 09:00 12/26/17 09:22 Atorvastatin Calcium (Lipitor) 10 mg HS PO 12/24/17 21:00 12/25/17 20:59 Famotidine (Pepcid) 20 mg BID PO 12/24/17 21:00 12/26/17 09:21 Furosemide (Lasix) 20 mg DAILY PO 12/25/17 09:00 12/26/17 09:21 Objective Remarks GENERAL: Young woman, sitting up in bed in [facility]. SKIN: Warm and dry. HEAD: Normocephalic. EYES: No injection or drainage. NECK: Supple, trachea midline. CARDIOVASCULAR: Regular rate and rhythm. RESPIRATORY: Breath sounds equal bilaterally. No accessory muscle use. GASTROINTESTINAL: Abdomen soft, non-tender, nondistended. EXTREMITIES: No cyanosis NEUROLOGICAL: awake and alert. normal speech. Assessment/Plan Problem List: (1) Microcytic anemia ICD Codes: D50.9 - Iron deficiency anemia, unspecified Plan: 12/26: await CBC today. s/p 2 units pRBC early this AM. await [employer] for recommendations on vaginal bleeding. encouraged patient to follow up with hematology upon discharge from hospital. --Severe microcytic hypochromic anemia due to menorrhagia since she has been placed on Eliquis. --iron study shows severe iron deficiency--> serum ferritin= 7. --is noncompliant with oral iron due to the intolerance. had prolonged vaginal bleeding last month x 3 weeks since starting Eliquis. (2) Menorrhagia ICD Codes: N92.0 - Excessive and frequent menstruation with regular cycle Plan: --await [employer]ST[employer]ER consult. (3) History of pulmonary embolism ICD Codes: Z86.711 - Personal history of pulmonary embolism Plan: --on Eliquis Assessment 22y/o female with microcytic hypochromic anemia w/ h/o pulmonary embolism admitted with CHF exacerbation. history of hypertension and recurrent miscarriages x 4. h/o congestive heart failure. cardiomyopathy diagnosed 2 months ago, bilateral pulmonary embolism diagnosed last month. Ira Abernathy Dec 26, 2017 10:19
== END 2017-12-26 11:12 | disposition left against medical advice (07) | DRG 776 ==
LOC: NEPE 05:50 → NEDA 12:36 → INTOOBSV 12:36 → NEPGCP 13:55 → OBSVTOIN 12-25 09:12
PROVIDERS: ADMIT Internal Medicine; ATTEND Internal Medicine
PROC: 30233N1 Transfusion of Nonautologous Red Blood Cells into Peripheral Vein, Percutaneous Approach (ICD-10-PCS; principal; 2017-12-26)
DX: O90.3 Peripartum cardiomyopathy (principal); I50.23 Acute on chronic systolic (congestive) heart failure; F12.90 Cannabis use, unspecified, uncomplicated; R00.2 Palpitations; D50.0 Iron deficiency anemia secondary to blood loss (chronic); N92.0 Excessive and frequent menstruation with regular cycle; I11.0 Hypertensive heart disease with heart failure; R74.8 Abnormal levels of other serum enzymes; Z86.711 Personal history of pulmonary embolism; Z91.14 Patient's other noncompliance with medication regimen; Z79.02 Long term (current) use of antithrombotics/antiplatelets
CPT/HCPCS: 36430; 71046; 71275; 80048; 80053; 80061; 80307; 82550; 82728; 83036; 83540; 83550; 83735; 83880; 84100; 84439; 84443; 84484; 85025; 85610; 86077; 86850; 86870; 86900; 86901; 86902; 86920; 86922; 93005; 93306; 93970; 99285; G0378; J1940; J2405; P9016; Q9967

== ENCOUNTER 2018-03-15 17:08 | Inpatient (IN) ==
--- NOTE | 2018-03-15 17:28 | ED ---
HPI General Chief Complaint: Chest Pain Stated Complaint: L side pain/Evac Time Seen by Provider: 03/15/18 17:22 Source: patient Mode of arrival: EMS Limitations: no limitations History of Present Illness HPI narrative: Patient gave a history of sharp left costal pain, nonradiating, 8 out of 10 MD complaint: rapid heart beat, "heart racing" and palpitations Onset (ago): hour(s) (1) Duration: constant Severity: moderate Context: occurred during rest Arrhythmia history: other (History of cardiomyopathy with ejection fraction of 25) Related Data Home Medications Medication Instructions Recorded Confirmed apixaban [Eliquis] 2.5 mg PO BID 03/15/18 03/15/18 carvedilol 3.125 mg PO BID 03/15/18 03/15/18 cefdinir 300 mg PO Q12H 03/15/18 03/15/18 furosemide [Lasix] 40 mg PO DAILY 03/15/18 03/15/18 spironolactone 25 mg PO BID 03/15/18 03/15/18 Allergies Allergy/AdvReac Type Severity Reaction Status Date / Time No Known Allergies Allergy Unverified 03/15/18 18:05 Review of Systems Except as stated in HPI: all other systems reviewed are negative PMFSH History History Provided By: Patient Medical History Medical History cardiomyopathy (Acute) in first trimester with history of (Acute) Pulmonary emboli (Acute) Family History Family History Other Hypothyroidism Social History Social History Substance History: Active Abuse Second Hand Smoke Exposure: Yes Smoking Status: Never smoker (Smokes marijuana) How Often Do You Have a Drink Containing Alcohol: Never Recent Travel in [facility] within the Last 8 Weeks: No Recent Out of Country Travel within the Last 8 Weeks: No Exam Narrative Exam Narrative: GENERAL: Well-nourished, well-developed patient in no apparent distress. SKIN: Warm and dry. HEAD: Atraumatic. Normocephalic. EYES: Pupils equal and round. No scleral icterus. No injection or drainage. ENT: No nasal bleeding or discharge. Mucous membranes pink and moist. NECK: Trachea midline. No JVD. CARDIOVASCULAR: Tachycardic rate, regular rhythm RESPIRATORY: No accessory muscle use. Clear to auscultation. Breath sounds equal bilaterally. GASTROINTESTINAL: Abdomen soft, non-tender, nondistended. No rebound or guarding MUSCULOSKELETAL: Extremities without clubbing, cyanosis, or edema. No obvious deformities. NEUROLOGICAL: Awake and alert. No obvious cranial nerve deficits. Motor grossly within normal limits. Five out of 5 muscle strength in the arms and legs. Normal speech. PSYCHIATRIC: Appropriate mood and affect; insight and judgment normal. Course Initial Documented Vital Signs Temperature 97.8 F 03/15/18 18:17 Pulse Rate 119 H 03/15/18 18:17 Respiratory Rate 18 03/15/18 18:17 Blood Pressure 136/87 03/15/18 18:17 Pulse Oximetry 100 03/15/18 18:17 Last Documented Vital Signs Temperature 98.0 F 03/17/18 02:00 Pulse Rate 126 H 03/17/18 03:30 Respiratory Rate 37 H 03/17/18 03:30 Blood Pressure 102/77 03/17/18 03:30 Pulse Oximetry 99 03/17/18 03:30 Critical Care Time Critical Care Time: Yes Total Critical Care Time: 30 Attestation: Aggregate critical care time was [30] minutes. Time to perform other separately billable procedures was not included in the critical care time. My time did not include minutes spent treating any other patients simultaneously or on activities that did not directly contribute to the patient's treatment. The services I provided to this patient were to treat and/or prevent clinically significant deterioration that could result in: [] I provided critical care services requiring my management, as noted below: Chart data review, documentation time, medication orders and management, vital sign assessments/reviewing monitor data, ordering and reviewing lab tests, ordering and interpreting/reviewing x-rays and diagnostic studies, care of the patient and discussion of the patient with the admitting physicians. Sign Out Sign Out Data: Patient Sign Out occurred on 03/15/18 at 19:14. Patient's care was discussed, and care was transferred from Stephen Hart to Zeus Escalera. Sign Out Comment: post cardiomyopathy, ef 25%, c/o left chest area pain, tachy 130's, once labs back needs admit Last updated by Stephen Hart at 03/15/18 18:36 Medical Decision Making Lab Data Result diagrams: 03/16/18 07:43 03/16/18 14:55 Lab Results 03/15/18 03/15/18 03/15/18 Range/Units 17:10 17:10 17:10 WBC 11.8 H (4.0-11.0) th/mm3 RBC 3.82 L (4.00-5.30) mil/mm3 Hgb 9.7 L (11.6-15.3) gm/dL Hct 30.1 L (35.0-46.0) % MCV 78.7 L (80.0-100.0) fL MCH 25.3 L (27.0-34.0) pg MCHC 32.2 (32.0-36.0) % RDW 22.0 H (11.6-17.2) % Plt Count 712 H (150-450) th/mm3 MPV 7.2 (7.0-11.0) fL Neut % (Auto) 77.6 H (16.0-70.0) % Lymph % (Auto) 12.4 (9.0-44.0) % Schuyler % (Auto) 7.2 (0.0-8.0) % Eos % (Auto) 2.2 (0.0-4.0) % Baso % (Auto) 0.6 (0.0-2.0) % Neut # (Auto) 9.2 H (1.8-7.7) th/mm3 Lymph # (Auto) 1.5 (1.0-4.8) th/mm3 Schuyler # (Auto) 0.8 (0.0-0.9) th/mm3 Eos # (Auto) 0.3 (0.0-0.4) th/mm3 Baso # (Auto) 0.1 (0.0-0.2) th/mm3 WBC Differential . Differential Comment Auto diff final PT (9.8-11.6) sec INR Ratio APTT (24.3-30.1) sec Sodium (136-145) meq/L Potassium (3.5-5.1) meq/L Chloride (98-107) meq/L Carbon Dioxide (21.0-32.0) meq/L Anion Gap (5-15) meq/L BUN (7-18) mg/dL Creatinine (0.50-1.00) mg/dL Estimated GFR (>89) mL/min Random Glucose (74-106) mg/dL Calcium (8.5-10.1) mg/dL Total Bilirubin (0.2-1.0) mg/dL AST (15-37) U/L ALT (10-53) U/L Alkaline Phosphatase (45-117) U/L Total Creatine Kinase (26-192) U/L Troponin I (0.02-0.05) ng/mL B-Natriuretic Peptide 443 H (0-100) pg/mL Total Protein (6.4-8.2) g/dL Albumin (3.4-5.0) g/dL Urine Color (Yellw/Straw) Urine Clarity (Clear) Urine pH (5.0-8.5) Ur Specific [place] (1.002-1.035) Urine Protein (Neg-Trace) mg/dL Urine Glucose (UA) (Negative) mg/dL Urine Ketones (Negative) mg/dL Urine Occult Blood (Negative) Urine Nitrate (Negative) Urine Bilirubin (Negative) Urine Urobilinogen (Less than 2) mg/dL Ur Leukocyte Esterase (Negative) Urine RBC (0-3) /hpf Urine WBC (0-5) /hpf Ur Squamous Epith Cells (0-5) /hpf Urine Mucus (Occasional) /lpf Micro UA Comment Urine Culture Comments Nasal Screen MRSA (PCR) (Negative) Urine Opiates Screen (Neg) Ur Barbiturates Screen (Neg) Ur Amphetamines Screen (Neg) U Benzodiazepines Scrn (Neg) Urine Cocaine Screen (Neg) U Cannabinoids Screen (Neg) Serum Alcohol Less than 3 (0-5) mg/dL 03/15/18 03/15/18 03/15/18 Range/Units 17:10 17:10 17:10 WBC (4.0-11.0) th/mm3 RBC (4.00-5.30) mil/mm3 Hgb (11.6-15.3) gm/dL Hct (35.0-46.0) % MCV (80.0-100.0) fL MCH (27.0-34.0) pg MCHC (32.0-36.0) % RDW (11.6-17.2) % Plt Count (150-450) th/mm3 MPV (7.0-11.0) fL Neut % (Auto) (16.0-70.0) % Lymph % (Auto) (9.0-44.0) % Schuyler % (Auto) (0.0-8.0) % Eos % (Auto) (0.0-4.0) % Baso % (Auto) (0.0-2.0) % Neut # (Auto) (1.8-7.7) th/mm3 Lymph # (Auto) (1.0-4.8) th/mm3 Schuyler # (Auto) (0.0-0.9) th/mm3 Eos # (Auto) (0.0-0.4) th/mm3 Baso # (Auto) (0.0-0.2) th/mm3 WBC Differential Differential Comment PT 11.9 H (9.8-11.6) sec INR 1.2 Ratio APTT 26.4 (24.3-30.1) sec Sodium 142 (136-145) meq/L Potassium 3.7 (3.5-5.1) meq/L Chloride 108 H (98-107) meq/L Carbon Dioxide 26.1 (21.0-32.0) meq/L Anion Gap 8 (5-15) meq/L BUN 7 (7-18) mg/dL Creatinine 0.73 (0.50-1.00) mg/dL Estimated GFR Greater than 89 (>89) mL/min Random Glucose 87 (74-106) mg/dL Calcium 8.9 (8.5-10.1) mg/dL Total Bilirubin 0.3 (0.2-1.0) mg/dL AST 11 L (15-37) U/L ALT 11 (10-53) U/L Alkaline Phosphatase 178 H (45-117) U/L Total Creatine Kinase 33 (26-192) U/L Troponin I Less than 0.02 L (0.02-0.05) ng/mL B-Natriuretic Peptide (0-100) pg/mL Total Protein 7.9 (6.4-8.2) g/dL Albumin 2.4 L (3.4-5.0) g/dL Urine Color (Yellw/Straw) Urine Clarity (Clear) Urine pH (5.0-8.5) Ur Specific [place] (1.002-1.035) Urine Protein (Neg-Trace) mg/dL Urine Glucose (UA) (Negative) mg/dL Urine Ketones (Negative) mg/dL Urine Occult Blood (Negative) Urine Nitrate (Negative) Urine Bilirubin (Negative) Urine Urobilinogen (Less than 2) mg/dL Ur Leukocyte Esterase (Negative) Urine RBC (0-3) /hpf Urine WBC (0-5) /hpf Ur Squamous Epith Cells (0-5) /hpf Urine Mucus (Occasional) /lpf Micro UA Comment Urine Culture Comments Nasal Screen MRSA (PCR) (Negative) Urine Opiates Screen (Neg) Ur Barbiturates Screen (Neg) Ur Amphetamines Screen (Neg) U Benzodiazepines Scrn (Neg) Urine Cocaine Screen (Neg) U Cannabinoids Screen (Neg) Serum Alcohol (0-5) mg/dL 03/15/18 03/16/18 03/16/18 Range/Units 21:43 02:45 02:45 WBC 12.4 H (4.0-11.0) th/mm3 RBC 4.16 (4.00-5.30) mil/mm3 Hgb 10.0 L (11.6-15.3) gm/dL Hct 32.8 L (35.0-46.0) % MCV 79.0 L (80.0-100.0) fL MCH 24.1 L (27.0-34.0) pg MCHC 30.5 L (32.0-36.0) % RDW 21.7 H (11.6-17.2) % Plt Count 850 H (150-450) th/mm3 MPV 7.6 (7.0-11.0) fL Neut % (Auto) 72.4 H (16.0-70.0) % Lymph % (Auto) 19.2 (9.0-44.0) % Schuyler % (Auto) 5.8 (0.0-8.0) % Eos % (Auto) 1.9 (0.0-4.0) % Baso % (Auto) 0.7 (0.0-2.0) % Neut # (Auto) 9.0 H (1.8-7.7) th/mm3 Lymph # (Auto) 2.4 (1.0-4.8) th/mm3 Schuyler # (Auto) 0.7 (0.0-0.9) th/mm3 Eos # (Auto) 0.2 (0.0-0.4) th/mm3 Baso # (Auto) 0.1 (0.0-0.2) th/mm3 WBC Differential . Differential Comment Auto diff final PT (9.8-11.6) sec INR Ratio APTT (24.3-30.1) sec Sodium 143 (136-145) meq/L Potassium 4.0 (3.5-5.1) meq/L Chloride 109 H (98-107) meq/L Carbon Dioxide 23.5 (21.0-32.0) meq/L Anion Gap 11 (5-15) meq/L BUN 7 (7-18) mg/dL Creatinine 0.59 (0.50-1.00) mg/dL Estimated GFR Greater than 89 (>89) mL/min Random Glucose 84 (74-106) mg/dL Calcium 8.8 (8.5-10.1) mg/dL Total Bilirubin 0.7 (0.2-1.0) mg/dL AST 11 L (15-37) U/L ALT 12 (10-53) U/L Alkaline Phosphatase 155 H (45-117) U/L Total Creatine Kinase (26-192) U/L Troponin I (0.02-0.05) ng/mL B-Natriuretic Peptide (0-100) pg/mL Total Protein 8.5 H D (6.4-8.2) g/dL Albumin 2.7 L (3.4-5.0) g/dL Urine Color (Yellw/Straw) Urine Clarity (Clear) Urine pH (5.0-8.5) Ur Specific [place] (1.002-1.035) Urine Protein (Neg-Trace) mg/dL Urine Glucose (UA) (Negative) mg/dL Urine Ketones (Negative) mg/dL Urine Occult Blood (Negative) Urine Nitrate (Negative) Urine Bilirubin (Negative) Urine Urobilinogen (Less than 2) mg/dL Ur Leukocyte Esterase (Negative) Urine RBC (0-3) /hpf Urine WBC (0-5) /hpf Ur Squamous Epith Cells (0-5) /hpf Urine Mucus (Occasional) /lpf Micro UA Comment Urine Culture Comments Nasal Screen MRSA (PCR) (Negative) Urine Opiates Screen Neg (Neg) Ur Barbiturates Screen Neg (Neg) Ur Amphetamines Screen Neg (Neg) U Benzodiazepines Scrn Neg (Neg) Urine Cocaine Screen Neg (Neg) U Cannabinoids Screen Pos (Neg) Serum Alcohol (0-5) mg/dL 03/16/18 03/16/18 03/16/18 Range/Units 02:45 07:43 07:43 WBC 10.8 (4.0-11.0) th/mm3 RBC 3.67 L (4.00-5.30) mil/mm3 Hgb 8.9 L (11.6-15.3) gm/dL Hct 29.1 L (35.0-46.0) % MCV 79.3 L (80.0-100.0) fL MCH 24.2 L (27.0-34.0) pg MCHC 30.5 L (32.0-36.0) % RDW 21.9 H (11.6-17.2) % Plt Count 759 H (150-450) th/mm3 MPV 7.6 (7.0-11.0) fL Neut % (Auto) (16.0-70.0) % Lymph % (Auto) (9.0-44.0) % Schuyler % (Auto) (0.0-8.0) % Eos % (Auto) (0.0-4.0) % Baso % (Auto) (0.0-2.0) % Neut # (Auto) (1.8-7.7) th/mm3 Lymph # (Auto) (1.0-4.8) th/mm3 Schuyler # (Auto) (0.0-0.9) th/mm3 Eos # (Auto) (0.0-0.4) th/mm3 Baso # (Auto) (0.0-0.2) th/mm3 WBC Differential Differential Comment PT 12.7 H (9.8-11.6) sec INR 1.3 Ratio APTT 27.5 34.3 H D (24.3-30.1) sec Sodium (136-145) meq/L Potassium (3.5-5.1) meq/L Chloride (98-107) meq/L Carbon Dioxide (21.0-32.0) meq/L Anion Gap (5-15) meq/L BUN (7-18) mg/dL Creatinine (0.50-1.00) mg/dL Estimated GFR (>89) mL/min Random Glucose (74-106) mg/dL Calcium (8.5-10.1) mg/dL Total Bilirubin (0.2-1.0) mg/dL AST (15-37) U/L ALT (10-53) U/L Alkaline Phosphatase (45-117) U/L Total Creatine Kinase (26-192) U/L Troponin I (0.02-0.05) ng/mL B-Natriuretic Peptide (0-100) pg/mL Total Protein (6.4-8.2) g/dL Albumin (3.4-5.0) g/dL Urine Color (Yellw/Straw) Urine Clarity (Clear) Urine pH (5.0-8.5) Ur Specific [place] (1.002-1.035) Urine Protein (Neg-Trace) mg/dL Urine Glucose (UA) (Negative) mg/dL Urine Ketones (Negative) mg/dL Urine Occult Blood (Negative) Urine Nitrate (Negative) Urine Bilirubin (Negative) Urine Urobilinogen (Less than 2) mg/dL Ur Leukocyte Esterase (Negative) Urine RBC (0-3) /hpf Urine WBC (0-5) /hpf Ur Squamous Epith Cells (0-5) /hpf Urine Mucus (Occasional) /lpf Micro UA Comment Urine Culture Comments Nasal Screen MRSA (PCR) (Negative) Urine Opiates Screen (Neg) Ur Barbiturates Screen (Neg) Ur Amphetamines Screen (Neg) U Benzodiazepines Scrn (Neg) Urine Cocaine Screen (Neg) U Cannabinoids Screen (Neg) Serum Alcohol (0-5) mg/dL 03/16/18 03/16/18 03/16/18 Range/Units 09:50 14:55 14:55 WBC (4.0-11.0) th/mm3 RBC (4.00-5.30) mil/mm3 Hgb (11.6-15.3) gm/dL Hct (35.0-46.0) % MCV (80.0-100.0) fL MCH (27.0-34.0) pg MCHC (32.0-36.0) % RDW (11.6-17.2) % Plt Count (150-450) th/mm3 MPV (7.0-11.0) fL Neut % (Auto) (16.0-70.0) % Lymph % (Auto) (9.0-44.0) % Schuyler % (Auto) (0.0-8.0) % Eos % (Auto) (0.0-4.0) % Baso % (Auto) (0.0-2.0) % Neut # (Auto) (1.8-7.7) th/mm3 Lymph # (Auto) (1.0-4.8) th/mm3 [place]yler # (Auto) (0.0-0.9) th/mm3 Eos # (Auto) (0.0-0.4) th/mm3 Baso # (Auto) (0.0-0.2) th/mm3 WBC Differential Differential Comment PT (9.8-11.6) sec INR Ratio APTT 34.0 H (24.3-30.1) sec Sodium 144 (136-145) meq/L Potassium 4.6 (3.5-5.1) meq/L Chloride 111 H (98-107) meq/L Carbon Dioxide 21.9 (21.0-32.0) meq/L Anion Gap 11 (5-15) meq/L BUN 8 (7-18) mg/dL Creatinine 0.65 (0.50-1.00) mg/dL Estimated GFR Greater than 89 (>89) mL/min Random Glucose 78 (74-106) mg/dL Calcium 9.3 (8.5-10.1) mg/dL Total Bilirubin (0.2-1.0) mg/dL AST (15-37) U/L ALT (10-53) U/L Alkaline Phosphatase (45-117) U/L Total Creatine Kinase (26-192) U/L Troponin I Less than 0.02 L (0.02-0.05) ng/mL B-Natriuretic Peptide (0-100) pg/mL Total Protein (6.4-8.2) g/dL Albumin (3.4-5.0) g/dL Urine Color (Yellw/Straw) Urine Clarity (Clear) Urine pH (5.0-8.5) Ur Specific [place] (1.002-1.035) Urine Protein (Neg-Trace) mg/dL Urine Glucose (UA) (Negative) mg/dL Urine Ketones (Negative) mg/dL Urine Occult Blood (Negative) Urine Nitrate (Negative) Urine Bilirubin (Negative) Urine Urobilinogen (Less than 2) mg/dL Ur Leukocyte Esterase (Negative) Urine RBC (0-3) /hpf Urine WBC (0-5) /hpf Ur Squamous Epith Cells (0-5) /hpf Urine Mucus (Occasional) /lpf Micro UA Comment Urine Culture Comments Nasal Screen MRSA (PCR) (Negative) Urine Opiates Screen (Neg) Ur Barbiturates Screen (Neg) Ur Amphetamines Screen (Neg) U Benzodiazepines Scrn (Neg) Urine Cocaine Screen (Neg) U Cannabinoids Screen (Neg) Serum Alcohol (0-5) mg/dL 03/16/18 03/16/18 03/16/18 Range/Units 17:25 23:20 23:20 WBC (4.0-11.0) th/mm3 RBC (4.00-5.30) mil/mm3 Hgb (11.6-15.3) gm/dL Hct (35.0-46.0) % MCV (80.0-100.0) fL MCH (27.0-34.0) pg MCHC (32.0-36.0) % RDW (11.6-17.2) % Plt Count (150-450) th/mm3 MPV (7.0-11.0) fL Neut % (Auto) (16.0-70.0) % Lymph % (Auto) (9.0-44.0) % [place] % (Auto) (0.0-8.0) % Eos % (Auto) (0.0-4.0) % Baso % (Auto) (0.0-2.0) % Neut # (Auto) (1.8-7.7) th/mm3 Lymph # (Auto) (1.0-4.8) th/mm3 [place] # (Auto) (0.0-0.9) th/mm3 Eos # (Auto) (0.0-0.4) th/mm3 Baso # (Auto) (0.0-0.2) th/mm3 WBC Differential Differential Comment PT (9.8-11.6) sec INR Ratio APTT (24.3-30.1) sec Sodium (136-145) meq/L Potassium (3.5-5.1) meq/L Chloride (98-107) meq/L Carbon Dioxide (21.0-32.0) meq/L Anion Gap (5-15) meq/L BUN (7-18) mg/dL Creatinine (0.50-1.00) mg/dL Estimated GFR (>89) mL/min Random Glucose (74-106) mg/dL Calcium (8.5-10.1) mg/dL Total Bilirubin (0.2-1.0) mg/dL AST (15-37) U/L ALT (10-53) U/L Alkaline Phosphatase (45-117) U/L Total Creatine Kinase 21 L (26-192) U/L Troponin I Less than 0.02 L (0.02-0.05) ng/mL B-Natriuretic Peptide (0-100) pg/mL Total Protein (6.4-8.2) g/dL Albumin (3.4-5.0) g/dL Urine Color (Yellw/Straw) Urine Clarity (Clear) Urine pH (5.0-8.5) Ur Specific [place] (1.002-1.035) Urine Protein (Neg-Trace) mg/dL Urine Glucose (UA) (Negative) mg/dL Urine Ketones (Negative) mg/dL Urine Occult Blood (Negative) Urine Nitrate (Negative) Urine Bilirubin (Negative) Urine Urobilinogen (Less than 2) mg/dL Ur Leukocyte Esterase (Negative) Urine RBC (0-3) /hpf Urine WBC (0-5) /hpf Ur Squamous Epith Cells (0-5) /hpf Urine Mucus (Occasional) /lpf Micro UA Comment Urine Culture Comments Nasal Screen MRSA (PCR) Not detected (Negative) Urine Opiates Screen (Neg) Ur Barbiturates Screen (Neg) Ur Amphetamines Screen (Neg) U Benzodiazepines Scrn (Neg) Urine Cocaine Screen (Neg) U Cannabinoids Screen (Neg) Serum Alcohol (0-5) mg/dL 03/17/18 Range/Units 00:00 WBC (4.0-11.0) th/mm3 RBC (4.00-5.30) mil/mm3 Hgb (11.6-15.3) gm/dL Hct (35.0-46.0) % MCV (80.0-100.0) fL MCH (27.0-34.0) pg MCHC (32.0-36.0) % RDW (11.6-17.2) % Plt Count (150-450) th/mm3 MPV (7.0-11.0) fL Neut % (Auto) (16.0-70.0) % Lymph % (Auto) (9.0-44.0) % [place] % (Auto) (0.0-8.0) % Eos % (Auto) (0.0-4.0) % Baso % (Auto) (0.0-2.0) % Neut # (Auto) (1.8-7.7) th/mm3 Lymph # (Auto) (1.0-4.8) th/mm3 [place] # (Auto) (0.0-0.9) th/mm3 Eos # (Auto) (0.0-0.4) th/mm3 Baso # (Auto) (0.0-0.2) th/mm3 WBC Differential Differential Comment PT (9.8-11.6) sec INR Ratio APTT (24.3-30.1) sec Sodium (136-145) meq/L Potassium (3.5-5.1) meq/L Chloride (98-107) meq/L Carbon Dioxide (21.0-32.0) meq/L Anion Gap (5-15) meq/L BUN (7-18) mg/dL Creatinine (0.50-1.00) mg/dL Estimated GFR (>89) mL/min Random Glucose (74-106) mg/dL Calcium (8.5-10.1) mg/dL Total Bilirubin (0.2-1.0) mg/dL AST (15-37) U/L ALT (10-53) U/L Alkaline Phosphatase (45-117) U/L Total Creatine Kinase (26-192) U/L Troponin I (0.02-0.05) ng/mL B-Natriuretic Peptide (0-100) pg/mL Total Protein (6.4-8.2) g/dL Albumin (3.4-5.0) g/dL Urine Color Lisa (Yellw/Straw) Urine Clarity Cloudy H (Clear) Urine pH 5.0 (5.0-8.5) Ur Specific [place] 1.031 (1.002-1.035) Urine Protein 100 H (Neg-Trace) mg/dL Urine Glucose (UA) Negative (Negative) mg/dL Urine Ketones Trace H (Negative) mg/dL Urine Occult Blood Small H (Negative) Urine Nitrate Negative (Negative) Urine Bilirubin Negative (Negative) Urine Urobilinogen Less than 2 (Less than 2) mg/dL Ur Leukocyte Esterase Negative (Negative) Urine RBC 2 (0-3) /hpf Urine WBC 6 H (0-5) /hpf Ur Squamous Epith Cells 37 (0-5) /hpf Urine Mucus Few H (Occasional) /lpf Micro UA Comment Culture not ind Urine Culture Comments Culture not ind Nasal Screen MRSA (PCR) (Negative) Urine Opiates Screen (Neg) Ur Barbiturates Screen (Neg) Ur Amphetamines Screen (Neg) U Benzodiazepines Scrn (Neg) Urine Cocaine Screen (Neg) U Cannabinoids Screen (Neg) Serum Alcohol (0-5) mg/dL Imaging Data Radiologist's impression: ITS Impressions Chest X-Ray 03/15/18 17:24 CONCLUSION: Mild cardiac decompensation Chest CTA 03/15/18 17:32 CONCLUSION: 1. Low volume pulmonary embolism 2. Multifocal infiltrates including cavitary left base infiltrate. 3. Cardiac enlargement Chest X-Ray 03/16/18 21:24 CONCLUSION: 1. Marked cardiomegaly suggesting cardiomyopathy. 2. Patchy infiltrates consistent with probable pneumonia and/or pulmonary edema. Clinical correlation is recommended. ECG Data EKG Prior to Arrival: No Attestation: I personally reviewed and interpreted this ECG as follows: Prior ECG tracings: not available for review Interpretation: st 135 bpm, lvh,lateral st depressions mild with nonspec stt changes Patient received at sign out from Dr Hart pending CT scan and labs. CT demonstrated diffuse infiltrate and segmental/subsegmental PE Patient given Vancomycin/Cefepime. Admitted to Dr Kent ([facility]) Discharge Plan Discharge Disposition Patient Disposition: 30 Still Patient Discharge Condition Condition: Fair Physicians Team ED Provider: Zeus Escalera Primary Care Provider: Neo Vasques Attending Provider: Shayla Duque Other Providers: Juan Hughes ; Santana Rucker V ; Emmanuel Nava ; Tawana Arndt Status ED Status: Left Department Discharge Information Discharge Date/Time: 03/15/18 23:31
[2018-03-15] MEDS: Metoprolol Inj 5 MG/5 ML Vial IV.PUSH SCH ×3 (18:13→19:44)
--- NOTE | 2018-03-15 18:29 | XR ---
EXAM DATE: 03/15/2018 6:13 PM EDT AGE/SEX: 22 years / Female INDICATIONS: Left side chest pain. CLINICAL DATA: This is the patient's initial encounter. Patient reports that signs and symptoms have been present for 4 - 6 days and indicates a pain score of 7/10. MEDICAL/SURGICAL HISTORY: . Post- cardiomyopathy. None. COMPARISON: [facility] – [place], CHEST PA & LAT, 12/24/2017. . FINDINGS: Moderate cardiac silhouette enlargement. Small bilateral effusions. Mild probable parenchymal edema i n the lung bases. CONCLUSION: Mild cardiac decompensation Electronically signed by: Santana Evangelista MD 03/15/2018 6:27 PM EDT
[2018-03-15 18:50] LABS: Baso # (Auto) 0.1 th/mm3 (0.0-0.2); Baso % (Auto) 0.6 % (0.0-2.0); Eos # (Auto) 0.3 th/mm3 (0.0-0.4); Eos % (Auto) 2.2 % (0.0-4.0); Hematocrit 30.1 % (35.0-46.0); Hemoglobin 9.7 gm/dL (11.6-15.3); Lymph # (Auto) 1.5 th/mm3 (1.0-4.8); Lymph % (Auto) 12.4 % (9.0-44.0); Mean Corpuscular HGB Conc 32.2 % (32.0-36.0); Mean Corpuscular Hemoglobin 25.3 pg (27.0-34.0); Mean Corpuscular Volume 78.7 fL (80.0-100.0); Mean Platelet Volume 7.2 fL (7.0-11.0); Mono # (Auto) 0.8 th/mm3 (0.0-0.9); Mono % (Auto) 7.2 % (0.0-8.0); Neut # (Auto) 9.2 th/mm3 (1.8-7.7); Neut % (Auto) 77.6 % (16.0-70.0); Platelet Count 712 th/mm3 (150-450); Red Blood Count 3.82 mil/mm3 (4.00-5.30); White Blood Count 11.8 th/mm3 (4.0-11.0)
[2018-03-15 18:58] LABS: Activated Partial Thrombo Time 26.4 sec (24.3-30.1); INR 1.2 Ratio; Prothrombin Time 11.9 sec (9.8-11.6)
[2018-03-15 18:59] LABS: Alanine Aminotransferase 11 U/L (10-53); Albumin 2.4 g/dL (3.4-5.0); Anion Gap 8 meq/L (5-15); Aspartate Aminotransferase 11 U/L (15-37); Blood Urea Nitrogen 7 mg/dL (7-18); Calcium 8.9 mg/dL (8.5-10.1); Carbon Dioxide 26.1 meq/L (21.0-32.0); Chloride 108 meq/L (98-107); Glomerular Filtration Rate Greater Than 89 mL/min (>89); Glucose,Random 87 mg/dL (74-106); Potassium 3.7 meq/L (3.5-5.1); Sodium 142 meq/L (136-145)
[2018-03-15 19:02] LABS: Alkaline Phosphatase 178 U/L (45-117); Total Protein 7.9 g/dL (6.4-8.2)
[2018-03-15 19:15] LABS: Creatine Kinase 33 U/L (26-192)
--- NOTE | 2018-03-15 19:54 | CT ---
EXAM DATE: 03/15/2018 7:41 PM EDT AGE/SEX: 22 years / Female INDICATIONS: Left sided chest pain. CLINICAL DATA: This is the patient's initial encounter. Patient reports that signs and symptoms have been present for 1 day and indicates a pain score of 8/10. MEDICAL/SURGICAL HISTORY: . cardiomyopathy. None. RADIATION DOSE: 5.66 CTDI (mGy) [place] [facility] [place]24/2017. . TECHNIQUE: Volumetric scanning was performed using a multi-row detector CT scanner during bolus infu fifi of 75 ml Omnipaque 350 (iohexol) nonionic water-soluble contrast as a single exam dose. The tessy a was post processed with a variety of visualization algorithms including full volume maximum intensi ty projection and sliding thin slab reformation. Using automated exposure control and adjustment of the mA and/or kV according to patient size, radiation dose was kept as low as reasonably achievable t o obtain optimal diagnostic quality images. DICOM format image data is available electronically for review and comparison. FINDINGS: Pulmonary Arteries: There is low volume PE identified with a filling defect seen in the posterior la teral basal segmental vessels on the left. No larger central PE is identified. Lung: There are patchy bilateral infiltrates identified including a slightly greater than 3 cm cavit debbie infiltrate in the lateral left lower lobe with larger noncavitary infiltrates in the anterior lef t upper lobe, the posterior lower lobes bilaterally and in the lateral right lower lobe. 8 mm focus i n the posterior lateral right upper lobe. Effusion: Small left effusion Mediastinum: Heart is enlarged. Other: The axilla is unremarkable. CONCLUSION: 1. Low volume pulmonary embolism 2. Multifocal infiltrates including cavitary left base infiltrate. 3. Cardiac enlargement Electronically signed by: Santana Evangelista MD 03/15/2018 7:53 PM EDT
[2018-03-15] MEDS ORDERED: Vancomycin Inj 1 GM/200 ML PIGGYBACK IV.SIG ONE (20:18)
[2018-03-15] MEDS ORDERED: Vancomycin Inj 1,000 MG in Sodium Chlor 0.9% Inj 250 ML IV.SIG ONE (21:00)
[2018-03-15] MEDS ORDERED: Bisacodyl 10 MG Supp RECTAL PRN (21:22)
[2018-03-15] MEDS ORDERED: Temazepam 15 MG Capsule PO PRN (21:22)
[2018-03-15] MEDS ORDERED: Heparin 10,000 UNITS/10 ML Vial (for IV use) IV.PUSH STA (21:25)
--- NOTE | 2018-03-15 21:51 | ECG ---
Date Performed: 03/15/2018 Time Performed: 17:20:16 PTAGE: 22 years EKG: SINUS TACHYCARDIA VOLTAGE CRITERIA FOR LVH NONSPECIFIC ST & T-WAVE ABNORMALITY ABNORMAL ECG Compared to prior electrocardiogram, Rate has increased and QRS voltage has increased. PREVIOUS TRACING : 12/25/2017 00.42 DOCTOR: Rory Joiner Interpretating Date/Time 03/15/2018 21:50:29
[2018-03-15] MEDS ORDERED: Vancomycin Consult Pharmacy 1 EACH OTHER SCH (22:00)
[2018-03-15] MEDS ORDERED: Sod Chloride 0.9% Inj 1,000 ML IV.SIG ONE (22:08)
[2018-03-15 22:19] LABS: Amphetamine Screen,Urine Neg (Neg); Barbiturate Screen,Urine Neg (Neg); Cannabinoid Screen,Urine Pos (Neg); Cocaine Screen,Urine Neg (Neg); Opiate Screen,Urine Neg (Neg)
[2018-03-16] MEDS ORDERED: Heparin 10,000 UNITS/10 ML Vial (for IV use) IV.PUSH SCH (03:01)
[2018-03-16] MEDS ORDERED: Heparin Drip 25,000 UNIT/250 ML BAG IV.CONT PRN (03:10)
[2018-03-16 03:12] LABS: Baso # (Auto) 0.1 th/mm3 (0.0-0.2); Baso % (Auto) 0.7 % (0.0-2.0); Eos # (Auto) 0.2 th/mm3 (0.0-0.4); Eos % (Auto) 1.9 % (0.0-4.0); Hematocrit 32.8 % (35.0-46.0); Lymph # (Auto) 2.4 th/mm3 (1.0-4.8); Lymph % (Auto) 19.2 % (9.0-44.0); Mean Corpuscular Hemoglobin 24.1 pg (27.0-34.0); Mean Platelet Volume 7.6 fL (7.0-11.0); Mono # (Auto) 0.7 th/mm3 (0.0-0.9); Mono % (Auto) 5.8 % (0.0-8.0); Neut % (Auto) 72.4 % (16.0-70.0); Platelet Count 850 th/mm3 (150-450); Red Blood Count 4.16 mil/mm3 (4.00-5.30); Red Cell Distribution Width 21.7 % (11.6-17.2); White Blood Count 12.4 th/mm3 (4.0-11.0)
[2018-03-16 03:18] LABS: Mean Corpuscular HGB Conc 30.5 % (32.0-36.0)
[2018-03-16 03:40] LABS: Alanine Aminotransferase 12 U/L (10-53); Albumin 2.7 g/dL (3.4-5.0); Anion Gap 11 meq/L (5-15); Aspartate Aminotransferase 11 U/L (15-37); Blood Urea Nitrogen 7 mg/dL (7-18); Calcium 8.8 mg/dL (8.5-10.1); Carbon Dioxide 23.5 meq/L (21.0-32.0); Chloride 109 meq/L (98-107); Glomerular Filtration Rate Greater Than 89 mL/min (>89); Glucose,Random 84 mg/dL (74-106); Sodium 143 meq/L (136-145)
[2018-03-16 03:42] LABS: Alkaline Phosphatase 155 U/L (45-117); Total Protein 8.5 g/dL (6.4-8.2)
[2018-03-16 08:29] LABS: Hematocrit 29.1 % (35.0-46.0); Hemoglobin 8.9 gm/dL (11.6-15.3); Mean Corpuscular Hemoglobin 24.2 pg (27.0-34.0); Mean Corpuscular Volume 79.3 fL (80.0-100.0); Mean Platelet Volume 7.6 fL (7.0-11.0); Platelet Count 759 th/mm3 (150-450); Red Blood Count 3.67 mil/mm3 (4.00-5.30); Red Cell Distribution Width 21.9 % (11.6-17.2); White Blood Count 10.8 th/mm3 (4.0-11.0)
[2018-03-16 08:36] LABS: Activated Partial Thrombo Time 34.3 sec (24.3-30.1); INR 1.3 Ratio; Prothrombin Time 12.7 sec (9.8-11.6)
[2018-03-16 08:39] LABS: Mean Corpuscular HGB Conc 30.5 % (32.0-36.0)
[2018-03-16] MEDS: Vancomycin Inj 1,000 MG in Sodium Chlor 0.9% Inj 250 ML IV.SIG SCH ×2 (08:51→22:41)
[2018-03-16] MEDS: Sod Chloride 0.9% Inj 1,000 ML IV.CONT SCH ×2 (09:30→22:58)
[2018-03-16] MEDS ORDERED: Morphine Inj 4 MG/ML Vial IM ONE (14:30)
--- NOTE | 2018-03-16 14:37 | P.CONCA ---
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 She reports having recently been discharged from [facility] earlier this week and diagnosed with pneumonia. She was seen by Dr. Casiano and given a LifeVest. Upon arrival at the ED yesterday she was in sinus tachycardia with HR 130s, CTA shows pulmonary embolism and bilateral infiltrates. She reports feeling acute "10/10" anterior chest pain worse with deep breaths starting this morning while resting in bed, pain is constant in nature without radiation. She remains tachypneic. Systolic blood pressure decreasing and currently 90, with heart rate 130bpm. She is carvedilol 3.125mg BID. Echo performed at bedside with EF reported 15%. Troponin level and BNP are unremarkable Review of Systems Constitutional: Denies fever(s), Denies headache(s), Denies night sweats Cardiovascular: Denies excessive sweating, Denies irregular heart rhythm, Denies lightheadedness Respiratory: Denies stridor, Denies wheezing Gastrointestinal: Denies abdominal pain, Denies heartburn, Denies nausea, Denies vomiting PMFSH - History History Provided By: Patient - Medical History Medical History: Medical History (Last Updated 03/15/18 @ 19:15 by David Jimenez) cardiomyopathy - Tobacco History Second Hand Smoke Exposure: Yes Tobacco Use In Past 30 Days: Yes Smoking Status: Current every day smoker Tobacco Type: Cigarettes - Alcohol History How Often Do You Have a Drink Containing Alcohol: Never - Substance Use History Substance History: Active Abuse - Substance Use Type Marijuana Status: Active Route Used: Inhalation Frequency: 3 times a week Reason for Use: Calm Down, Feels Good - Travel History Recent Travel in the [place] Within the Last 8 Weeks: No Recent Travel Out of the Country Within the Last 8 Weeks: No - Immunization History Tetanus Immunization: Unsure Medications and Allergies Allergies Allergy/AdvReac Type Severity Reaction Status Date / Time No Known Allergies Allergy Unverified 03/15/18 18:05 Home Medications Medication Instructions Recorded Confirmed Type apixaban [Eliquis] 2.5 mg PO BID 03/15/18 03/15/18 History carvedilol 3.125 mg PO BID 03/15/18 03/15/18 History cefdinir 300 mg PO Q12H 03/15/18 03/15/18 History furosemide [Lasix] 40 mg PO DAILY 03/15/18 03/15/18 History spironolactone 25 mg PO BID 03/15/18 03/15/18 History Active Medications: Active Medications Al Hydroxide/Mg Hydroxide (Milk Of Magnesia Liq) 30 ml PO Q12H PRN PRN Reason: Mild Constipation Albuterol (Albuterol Neb (Ruma)) 2.5 mg NEB Q6HR NEB RUMA Bisacodyl (Dulcolax Supp) 10 mg RECTAL DAILY PRN PRN Reason: SEVERE CONSITIPATION Carvedilol (Coreg) 3.125 mg PO BID [facility] Cefepime HCl 2,000 mg/ Sodium (Chloride) 100 mls @ 200 mls/hr IV.SIG Q8H [facility] Last Infusion: 03/16/18 13:58 Dose: Infused Pharmacy Profile Note (Vancomycin Consult Pharmacy) 0 mls @ 0 mls/hr OTHER UNSCH [facility] Vancomycin HCl 1,000 mg/ (Sodium Chloride) 250 mls @ 200 mls/hr IV.SIG Q12H [facility] Last Infusion: 03/16/18 12:06 Dose: Infused Heparin Sodium/Dextrose (Heparin/D5w 25,000 U/250 Ml) 25,000 unit in 250 mls @ 9 mls/hr IV.CONT TITRATE PRN; Protocol PRN Reason: Per Protocol Last Admin: 03/16/18 03:40 Dose: 900 units/hr, 9 mls/hr Sodium Chloride (Ns Inj) 1,000 mls @ 100 mls/hr IV.CONT .Q10H [facility] Last Admin: 03/16/18 09:30 Dose: 100 mls/hr Lactulose (Lactulose Liq) 30 ml PO DAILY PRN PRN Reason: SEVERE CONSITIPATION Miscellaneous Information ([facility] Ordered Lab Info) 0 each OTHER ONCE ONE Stop: 03/17/18 08:46 Morphine Sulfate (Morphine Inj) 2 mg IM ONCE ONE Stop: 03/16/18 13:58 Nitroglycerin (Nitrostat Sl) 0.4 mg SL Q5M PRN PRN Reason: CHEST PAIN Sennosides (Senokot) 17.2 mg PO Q12H PRN PRN Reason: Moderate Constipation Sodium Chloride (Ns Flush) 2 ml IV.FLUSH UNSCH PRN PRN Reason: FLUSH AFTER USING IV ACCESS Last Admin: 03/15/18 19:10 Dose: 2 ml Temazepam (Restoril) 15 mg PO HS PRN PRN Reason: INSOMNIA Last Admin: 03/16/18 00:10 Dose: 15 mg Exam Vital signs: Vital Signs 03/15/18 18:17 03/15/18 19:05 03/15/18 19:14 Temperature 97.8 F Pulse Rate 119 H 124 H Respiratory Rate 18 16 Blood Pressure 136/87 138/77 Pulse Oximetry 100 100 100 03/15/18 19:20 03/15/18 19:46 03/15/18 21:00 Temperature Pulse Rate 116 H 115 H 122 H Respiratory Rate 16 16 16 Blood Pressure 119/84 110/78 116/88 Pulse Oximetry 100 100 03/16/18 00:00 03/16/18 04:00 03/16/18 07:53 Temperature 98.8 F 99.0 F 98.1 F Pulse Rate 140 H 135 H 130 H Respiratory Rate 17 17 15 Blood Pressure 100/69 Pulse Oximetry 100 98 98 03/16/18 08:00 03/16/18 08:26 03/16/18 09:00 Temperature Pulse Rate Respiratory Rate Blood Pressure 82/50 L Pulse Oximetry 98 98 03/16/18 11:20 03/16/18 12:03 Temperature 98.2 F Pulse Rate 128 H 133 H Respiratory Rate 18 Blood Pressure 90/50 L Pulse Oximetry 100 Intake & Output 03/15/18 03/16/18 03/16/18 18:59 06:59 18:59 Intake Total 1450 / 1450 350 / 350 Balance 1450 / 1450 350 / 350 Weight 52 kg 52 kg Intake: IV 1450 / 1450 350 / 350 Maxipime Inj 2,000 MG In NS Inj 200 / 200 100 / 100 100 ML @ 200 mls/hr IV.SIG Q8H [facility] Rx#:[id number] NS Inj 1,000 ML @ Wide Open IV. 1000 / 1000 SIG BOLUS ONE Rx#:[id number] Vancomycin Inj 1,000 MG In NS 250 / 250 250 / 250 Inj 250 ML @ 200 mls/hr IV.SIG Q12H [facility] Rx#:[id number] Other: Date of Last Bowel Movement 03/16/18 Weight On Admission 52 kg Narrative: GENERAL: SKIN: Warm and dry. HEAD: Normocephalic. EYES: No scleral icterus. No injection or drainage. NECK: Supple, trachea midline. No JVD or lymphadenopathy. CARDIOVASCULAR: tachycardic and rhythm with II/III systolic murmur, gallops, or rubs. RESPIRATORY: Breath sounds equal bilaterally. No accessory muscle use. GASTROINTESTINAL: Abdomen soft, non-tender, nondistended. MUSCULOSKELETAL: No cyanosis, or edema. BACK: Nontender without obvious deformity. No CVA tenderness. Results 03/16/18 07:43 03/16/18 02:45 Cardiac Enzymes 03/15/18 03/15/18 03/15/18 Range/Units 17:10 17:10 17:10 AST 11 L (15-37) U/L Troponin I Less than 0.02 L (0.02-0.05) ng/mL B-Natriuretic Peptide 443 H (0-100) pg/mL 03/16/18 Range/Units 02:45 AST 11 L (15-37) U/L Troponin I (0.02-0.05) ng/mL B-Natriuretic Peptide (0-100) pg/mL Coagulation 03/15/18 03/15/18 03/16/18 Range/Units 17:10 17:10 02:45 PT 11.9 H (9.8-11.6) sec APTT 26.4 27.5 (24.3-30.1) sec B-Natriuretic Peptide 443 H (0-100) pg/mL 03/16/18 03/16/18 Range/Units 07:43 09:50 PT 12.7 H (9.8-11.6) sec APTT 34.3 H D 34.0 H (24.3-30.1) sec B-Natriuretic Peptide (0-100) pg/mL CBC 03/15/18 03/16/18 03/16/18 Range/Units 17:10 02:45 07:43 WBC 11.8 H 12.4 H 10.8 (4.0-11.0) th/mm3 RBC 3.82 L 4.16 3.67 L (4.00-5.30) mil/mm3 Hgb 9.7 L 10.0 L 8.9 L (11.6-15.3) gm/dL Hct 30.1 L 32.8 L 29.1 L (35.0-46.0) % Plt Count 712 H 850 H 759 H (150-450) th/mm3 Neut # (Auto) 9.2 H 9.0 H (1.8-7.7) th/mm3 Lymph # (Auto) 1.5 2.4 (1.0-4.8) th/mm3 [place] # (Auto) 0.8 0.7 (0.0-0.9) th/mm3 Eos # (Auto) 0.3 0.2 (0.0-0.4) th/mm3 Baso # (Auto) 0.1 0.1 (0.0-0.2) th/mm3 Comprehensive Metabolic Panel 03/15/18 03/16/18 Range/Units 17:10 02:45 Sodium 142 143 (136-145) meq/L Potassium 3.7 4.0 (3.5-5.1) meq/L Chloride 108 H 109 H (98-107) meq/L Carbon Dioxide 26.1 23.5 (21.0-32.0) meq/L BUN 7 7 (7-18) mg/dL Creatinine 0.73 0.59 (0.50-1.00) mg/dL Calcium 8.9 8.8 (8.5-10.1) mg/dL AST 11 L 11 L (15-37) U/L ALT 11 12 (10-53) U/L Alkaline Phosphatase 178 H 155 H (45-117) U/L Total Protein 7.9 8.5 H D (6.4-8.2) g/dL Albumin 2.4 L 2.7 L (3.4-5.0) g/dL Intake and Output 03/15/18 03/16/18 03/16/18 22:59 06:59 14:59 Intake Total 1450 / 1450 350 / 350 Balance 1450 / 1450 350 / 350 Intake: IV 1450 / 1450 350 / 350 Maxipime Inj 2,000 MG In NS Inj 200 / 200 100 / 100 100 ML @ 200 mls/hr IV.SIG Q8H [facility] Rx#:[id number] NS Inj 1,000 ML @ Wide Open IV. 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 She reports having recently been discharged from [facility] earlier this week and diagnosed with pneumonia. She was seen by Dr. Casiano and given a LifeVest. Upon arrival at the ED yesterday she was in sinus tachycardia with HR 130s, CTA shows pulmonary embolism and bilateral infiltrates. She reports feeling acute "10/10" anterior chest pain worse with deep breaths starting this morning while resting in bed, pain is constant in nature without radiation. She remains tachypneic. Systolic blood pressure decreasing and currently 90, with heart rate 130bpm. She is carvedilol 3.125mg BID. Echo performed at bedside with EF reported 15%. Troponin level and BNP are unremarkable cardiomyopathy- EF 15%, wearing LifeVest, hypotensive with sinus tachycardia SBP 90, carvedilol 3.125mg BID need records for [facility] from admission this week <Levi Vasques - Last Filed: 03/16/18 15:14> History of Present Illness Primary Care Provider: Neo Vasques Family Provider: Neo Vasques [facility] - Medical History Medical History: Medical History (Last Updated 03/15/18 @ 19:15 by David Jimenez) cardiomyopathy Medications and Allergies Active Medications: Active Medications Al Hydroxide/Mg Hydroxide (Milk Of Magnesia Liq) 30 ml PO Q12H PRN PRN Reason: Mild Constipation Albuterol (Albuterol Neb (Ruma)) 2.5 mg NEB Q6HR NEB RUMA Bisacodyl (Dulcolax Supp) 10 mg RECTAL DAILY PRN PRN Reason: SEVERE CONSITIPATION Cefepime HCl 2,000 mg/ Sodium (Chloride) 100 mls @ 200 mls/hr IV.SIG Q8H [facility] Last Infusion: 03/16/18 13:58 Dose: Infused Pharmacy Profile Note (Vancomycin Consult Pharmacy) 0 mls @ 0 mls/hr OTHER UNSCH [facility] Vancomycin HCl 1,000 mg/ (Sodium Chloride) 250 mls @ 200 mls/hr IV.SIG Q12H [facility] Last Infusion: 03/16/18 12:06 Dose: Infused Heparin Sodium/Dextrose (Heparin/D5w 25,000 U/250 Ml) 25,000 unit in 250 mls @ 9 mls/hr IV.CONT TITRATE PRN; Protocol PRN Reason: Per Protocol Last Admin: 03/16/18 03:40 Dose: 900 units/hr, 9 mls/hr Sodium Chloride (Ns Inj) 1,000 mls @ 100 mls/hr IV.CONT .Q10H [facility] Last Admin: 03/16/18 09:30 Dose: 100 mls/hr Lactulose (Lactulose Liq) 30 ml PO DAILY PRN PRN Reason: SEVERE CONSITIPATION Miscellaneous Information ([facility] Ordered Lab Info) 0 each OTHER ONCE ONE Stop: 03/17/18 08:46 Nitroglycerin (Nitrostat Sl) 0.4 mg SL Q5M PRN PRN Reason: CHEST PAIN Sennosides (Senokot) 17.2 mg PO Q12H PRN PRN Reason: Moderate Constipation Sodium Chloride (Ns Flush) 2 ml IV.FLUSH UNSCH PRN PRN Reason: FLUSH AFTER USING IV ACCESS Last Admin: 03/15/18 19:10 Dose: 2 ml Temazepam (Restoril) 15 mg PO HS PRN PRN Reason: INSOMNIA Last Admin: 03/16/18 00:10 Dose: 15 mg Exam Vital signs: Vital Signs 03/15/18 18:17 03/15/18 19:05 03/15/18 19:14 Temperature 97.8 F Pulse Rate 119 H 124 H Respiratory Rate 18 16 Blood Pressure 136/87 138/77 Pulse Oximetry 100 100 100 03/15/18 19:20 03/15/18 19:46 03/15/18 21:00 Temperature Pulse Rate 116 H 115 H 122 H Respiratory Rate 16 16 16 Blood Pressure 119/84 110/78 116/88 Pulse Oximetry 100 100 03/16/18 00:00 03/16/18 04:00 03/16/18 07:53 Temperature 98.8 F 99.0 F 98.1 F Pulse Rate 140 H 135 H 130 H Respiratory Rate 17 17 15 Blood Pressure 100/69 Pulse Oximetry 100 98 98 03/16/18 08:00 03/16/18 08:26 03/16/18 09:00 Temperature Pulse Rate Respiratory Rate Blood Pressure 82/50 L Pulse Oximetry 98 98 03/16/18 11:20 03/16/18 12:03 Temperature 98.2 F Pulse Rate 128 H 133 H Respiratory Rate 18 Blood Pressure 90/50 L Pulse Oximetry 100 Intake & Output 03/15/18 03/16/18 03/16/18 18:59 06:59 18:59 Intake Total 1450 / 1450 350 / 350 Balance 1450 / 1450 350 / 350 Weight 52 kg 52 kg Intake: IV 1450 / 1450 350 / 350 Maxipime Inj 2,000 MG In NS Inj 200 / 200 100 / 100 100 ML @ 200 mls/hr IV.SIG Q8H [facility] Rx#:[id number] NS Inj 1,000 ML @ Wide Open IV. 1000 / 1000 SIG BOLUS ONE Rx#:[id number] Vancomycin Inj 1,000 MG In NS 250 / 250 250 / 250 Inj 250 ML @ 200 mls/hr IV.SIG Q12H [facility] Rx#:[id number] Other: Date of Last Bowel Movement 03/16/18 Weight On Admission 52 kg Results 03/16/18 07:43 03/16/18 02:45 Cardiac Enzymes 03/15/18 03/15/18 03/15/18 Range/Units 17:10 17:10 17:10 AST 11 L (15-37) U/L Troponin I Less than 0.02 L (0.02-0.05) ng/mL B-Natriuretic Peptide 443 H (0-100) pg/mL 03/16/18 Range/Units 02:45 AST 11 L (15-37) U/L Troponin I (0.02-0.05) ng/mL B-Natriuretic Peptide (0-100) pg/mL Coagulation 03/15/18 03/15/18 03/16/18 Range/Units 17:10 17:10 02:45 PT 11.9 H (9.8-11.6) sec APTT 26.4 27.5 (24.3-30.1) sec B-Natriuretic Peptide 443 H (0-100) pg/mL 03/16/18 03/16/18 Range/Units 07:43 09:50 PT 12.7 H (9.8-11.6) sec APTT 34.3 H D 34.0 H (24.3-30.1) sec B-Natriuretic Peptide (0-100) pg/mL CBC 03/15/18 03/16/18 03/16/18 Range/Units 17:10 02:45 07:43 WBC 11.8 H 12.4 H 10.8 (4.0-11.0) th/mm3 RBC 3.82 L 4.16 3.67 L (4.00-5.30) mil/mm3 Hgb 9.7 L 10.0 L 8.9 L (11.6-15.3) gm/dL Hct 30.1 L 32.8 L 29.1 L (35.0-46.0) % Plt Count 712 H 850 H 759 H (150-450) th/mm3 Neut # (Auto) 9.2 H 9.0 H (1.8-7.7) th/mm3 Lymph # (Auto) 1.5 2.4 (1.0-4.8) th/mm3 [place] # (Auto) 0.8 0.7 (0.0-0.9) th/mm3 Eos # (Auto) 0.3 0.2 (0.0-0.4) th/mm3 Baso # (Auto) 0.1 0.1 (0.0-0.2) th/mm3 Comprehensive Metabolic Panel 03/15/18 03/16/18 Range/Units 17:10 02:45 Sodium 142 143 (136-145) meq/L Potassium 3.7 4.0 (3.5-5.1) meq/L Chloride 108 H 109 H (98-107) meq/L Carbon Dioxide 26.1 23.5 (21.0-32.0) meq/L BUN 7 7 (7-18) mg/dL Creatinine 0.73 0.59 (0.50-1.00) mg/dL Calcium 8.9 8.8 (8.5-10.1) mg/dL AST 11 L 11 L (15-37) U/L ALT 11 12 (10-53) U/L Alkaline Phosphatase 178 H 155 H (45-117) U/L Total Protein 7.9 8.5 H D (6.4-8.2) g/dL Albumin 2.4 L 2.7 L (3.4-5.0) g/dL Intake and Output 03/15/18 03/16/18 03/16/18 22:59 06:59 14:59 Intake Total 1450 / 1450 350 / 350 Balance 1450 / 1450 350 / 350 Intake: IV 1450 / 1450 350 / 350 Maxipime Inj 2,000 MG In NS Inj 200 / 200 100 / 100 100 ML @ 200 mls/hr IV.SIG Q8H [facility] Rx#:[id number] NS Inj 1,000 ML @ Wide Open IV. 1000 / 1000 SIG BOLUS ONE Rx#:[id number] Vancomycin Inj 1,000 MG In NS 250 / 250 250 / 250 Inj 250 ML @ 200 mls/hr IV.SIG Q12H [facility] Rx#:[id number] Other: Date of Last Bowel Movement 03/16/18 Weight 52 kg 52 kg Weight On Admission 52 kg Assessment and Plan - Attending Attestation 22 yo with PPCM EF 15-20%. Admitted yesterday with persistent Left lower pleuritic chest pain and finding of small segmental PEs in LLL with multifocal infiltrates on left consistent with possible PNA. She reported treatment from last Monday to this Monday at [facility] for the same. She was given an Rx for Abx however cost was prohibitive and she did not fill the Rx. As an outpatient previously, she has been appropriately on Carvedilol, Spironolactone, furosemide. Should also be on STEFAN-I/ARB. However, currently she is hypotensive with SBP 80-90s and all BP lowering meds should be held. She is tachycardic with HR 130s which is physiologic and reactive to current PE/PNA with pleuritic chest pain, query small pulmonary infarction with pleuritis. Focus of management should be on treating underlying acute pain syndrome, PNA, PE. She appears euvolemic currently by examination. Would avoid judicious use of IVF for BP support, however would provide 250cc NS bolus now due to current hemodynamics. Resume diuretic therapy and remainder of cardiac medications when she is HD stable and clinically improved. Will sign off for now. please call with any questions.
--- NOTE | 2018-03-16 15:31 | P.HPIM ---
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 The patient reports she was diagnosed and treated with pneumonia at [facility]. She was discharged 5 days ago. She was given a LifeVest during her hospitalization at [facility]. She presented to [facility] due to chest pain involving the left side. She also endorsed coughing and increased heart rate. Workup in the emergency room revealed pulmonary embolus and bilateral infiltrates. There is also mention of cavitary lesion. The patient is currently unstable, she is tachycardic in the 130s and blood pressures in the 90 over 50s. She looks uncomfortable. She denies fevers but endorses chills. She has been complaining of severe pain and was given morphine which she reports make her sleepy. Echo reportedly performed at bedside showed EF of 15%. - Diagnosis (1) Lung infiltrate on CT (2) Cavitary lesion of lung (3) Cardiomyopathy (4) Pulmonary embolism (5) Hypotension (6) Tachycardia Inpatient Certification: I certify that the inpatient services were ordered in accordance with Medicare regulations governing the order. This includes certification that hospital inpatient services are reasonable and necessary and in the case of services not specified as inpatient-only under 42 CFR 419.22(n), that they are appropriately provided as inpatient services in accordance to with the 2-midnight benchmark under 43 CFR 412.3(e) Estimated Total Length of Stay (Days): 5 Plans for Post Hospital Care: Home Review of Systems All other systems reviewed negative except as stated in HPI [facility] - History History Provided By: Patient - Medical History Medical History: Medical History (Last Reviewed 03/16/18 @ 15:40 by Shayla Duque MD) cardiomyopathy - Tobacco History Second Hand Smoke Exposure: Yes Tobacco Use In Past 30 Days: Yes Smoking Status: Current every day smoker Tobacco Type: Cigarettes - Alcohol History How Often Do You Have a Drink Containing Alcohol: Never - Substance Use History Substance History: Active Abuse - Substance Use Type Marijuana Status: Active Route Used: Inhalation Frequency: 3 times a week Reason for Use: Calm Down, Feels Good - Travel History Recent Travel in the [place] Within the Last 8 Weeks: No Recent Travel Out of the Country Within the Last 8 Weeks: No - Immunization History Tetanus Immunization: Unsure Medications and Allergies Active Medications: Active Medications Al Hydroxide/Mg Hydroxide (Milk Of Magnesia Liq) 30 ml PO Q12H PRN PRN Reason: Mild Constipation Albuterol (Albuterol Neb (Ruma)) 2.5 mg NEB Q6HR NEB RUMA Bisacodyl (Dulcolax Supp) 10 mg RECTAL DAILY PRN PRN Reason: SEVERE CONSITIPATION Cefepime HCl 2,000 mg/ Sodium (Chloride) 100 mls @ 200 mls/hr IV.SIG Q8H RUMA Last Infusion: 03/16/18 13:58 Dose: Infused Pharmacy Profile Note (Vancomycin Consult Pharmacy) 0 mls @ 0 mls/hr OTHER UNSCH [facility] Vancomycin HCl 1,000 mg/ (Sodium Chloride) 250 mls @ 200 mls/hr IV.SIG Q12H RUMA Last Infusion: 03/16/18 12:06 Dose: Infused Heparin Sodium/Dextrose (Heparin/D5w 25,000 U/250 Ml) 25,000 unit in 250 mls @ 9 mls/hr IV.CONT TITRATE PRN; Protocol PRN Reason: Per Protocol Last Admin: 03/16/18 03:40 Dose: 900 units/hr, 9 mls/hr Sodium Chloride (Ns Inj) 1,000 mls @ 100 mls/hr IV.CONT .Q10H RUMA Last Admin: 03/16/18 09:30 Dose: 100 mls/hr Lactulose (Lactulose Liq) 30 ml PO DAILY PRN PRN Reason: SEVERE CONSITIPATION Miscellaneous Information ([facility] Ordered Lab Info) 0 each OTHER ONCE ONE Stop: 03/17/18 08:46 Nitroglycerin (Nitrostat Sl) 0.4 mg SL Q5M PRN PRN Reason: CHEST PAIN Sennosides (Senokot) 17.2 mg PO Q12H PRN PRN Reason: Moderate Constipation Sodium Chloride (Ns Flush) 2 ml IV.FLUSH UNSCH PRN PRN Reason: FLUSH AFTER USING IV ACCESS Last Admin: 03/15/18 19:10 Dose: 2 ml Temazepam (Restoril) 15 mg PO HS PRN PRN Reason: INSOMNIA Last Admin: 03/16/18 00:10 Dose: 15 mg Allergies Allergy/AdvReac Type Severity Reaction Status Date / Time No Known Allergies Allergy Unverified 03/15/18 18:05 Home Medications Medication Instructions Recorded Confirmed Type apixaban [Eliquis] 2.5 mg PO BID 03/15/18 03/15/18 History carvedilol 3.125 mg PO BID 03/15/18 03/15/18 History cefdinir 300 mg PO Q12H 03/15/18 03/15/18 History furosemide [Lasix] 40 mg PO DAILY 03/15/18 03/15/18 History spironolactone 25 mg PO BID 03/15/18 03/15/18 History Exam Vital signs: Vital Signs 03/15/18 18:17 03/15/18 19:05 03/15/18 19:14 Temperature 97.8 F Pulse Rate 119 H 124 H Respiratory Rate 18 16 Blood Pressure 136/87 138/77 Pulse Oximetry 100 100 100 03/15/18 19:20 03/15/18 19:46 03/15/18 21:00 Temperature Pulse Rate 116 H 115 H 122 H Respiratory Rate 16 16 16 Blood Pressure 119/84 110/78 116/88 Pulse Oximetry 100 100 03/16/18 00:00 03/16/18 04:00 03/16/18 07:53 Temperature 98.8 F 99.0 F 98.1 F Pulse Rate 140 H 135 H 130 H Respiratory Rate 17 17 15 Blood Pressure 100/69 Pulse Oximetry 100 98 98 03/16/18 08:00 03/16/18 08:26 03/16/18 09:00 Temperature Pulse Rate Respiratory Rate Blood Pressure 82/50 L Pulse Oximetry 98 98 03/16/18 11:20 03/16/18 12:03 Temperature 98.2 F Pulse Rate 128 H 133 H Respiratory Rate 18 Blood Pressure 90/50 L Pulse Oximetry 100 Intake & Output 03/15/18 03/16/18 03/16/18 18:59 06:59 18:59 Intake Total 1450 / 1450 350 / 350 Balance 1450 / 1450 350 / 350 Weight 52 kg 52 kg Intake: IV 1450 / 1450 350 / 350 Maxipime Inj 2,000 MG In NS Inj 200 / 200 100 / 100 100 ML @ 200 mls/hr IV.SIG Q8H RUMA Rx#:[id number] NS Inj 1,000 ML @ Wide Open IV. 1000 / 1000 SIG BOLUS ONE Rx#:[id number] Vancomycin Inj 1,000 MG In NS 250 / 250 250 / 250 Inj 250 ML @ 200 mls/hr IV.SIG Q12H RUMA Rx#:[id number] Other: Date of Last Bowel Movement 03/16/18 Weight On Admission 52 kg Narrative: CONSTITUTIONAL/GENERAL: Thin appearing female, appear uncomfortable and short of breath. SKIN: No jaundice, rashes, or concerning lesions. Not diaphoretic. HEAD: Atraumatic. Normocephalic. EYES: Pupils equal and round and reactive. ENT: Hearing grossly normal. Nose without drainage. Throat without visible erythema, exudates, masses, or lesions. NECK: Trachea midline. Neck is supple, non-tender. No palpable thyroid enlargement or nodularity. CARDIOVASCULAR: Rate in the 140s with 2 out of 6 ISRAEL murmur. RESPIRATORY/CHEST: Diffuse rhonchi throughout. No wheezing. No appreciable crackles. GASTROINTESTINAL: Abdomen soft, non-tender, non-distended. MUSCULOSKELETAL: Extremities without clubbing, cyanosis, or edema. NEUROLOGICAL: Sleepy, slow to answer questions but is otherwise appropriate. No focal deficits. PSYCHIATRIC: No obvious mood problems. Results - Labs CBC & Chem 7: 03/16/18 07:43 03/16/18 02:45 Labs: Short CBC 03/15/18 03/16/18 03/16/18 Range/Units 17:10 02:45 07:43 WBC 11.8 H 12.4 H 10.8 (4.0-11.0) th/mm3 Hgb 9.7 L 10.0 L 8.9 L (11.6-15.3) gm/dL Hct 30.1 L 32.8 L 29.1 L (35.0-46.0) % Plt Count 712 H 850 H 759 H (150-450) th/mm3 BMP 03/15/18 03/16/18 17:10 02:45 Sodium 142 143 Potassium 3.7 4.0 Chloride 108 H 109 H Carbon Dioxide 26.1 23.5 BUN 7 7 Creatinine 0.73 0.59 Calcium 8.9 8.8 Cardiac Enzymes 03/15/18 Range/Units 17:10 Total Creatine Kinase 33 (26-192) U/L Troponin I Less than 0.02 L (0.02-0.05) ng/mL Liver Function 03/15/18 03/16/18 Range/Units 17:10 02:45 Total Bilirubin 0.3 0.7 (0.2-1.0) mg/dL AST 11 L 11 L (15-37) U/L ALT 11 12 (10-53) U/L Alkaline Phosphatase 178 H 155 H (45-117) U/L Albumin 2.4 L 2.7 L (3.4-5.0) g/dL - Imaging Impressions Chest X-Ray 03/15/18 17:24 CONCLUSION: Mild cardiac decompensation Chest CTA 03/15/18 17:32 CONCLUSION: 1. Low volume pulmonary embolism 2. Multifocal infiltrates including cavitary left base infiltrate. 3. Cardiac enlargement Caprini VTE Risk Assessment Caprini VTE Risk Assessment: Moderate/High Risk (score >= 2) Caprini Risk Assessment Model: Point Value = 1 Point Value = 2 Point Value = 3 Point Value = 5 Age 41-60 Minor surgery BMI > 25 kg/m2 Swollen legs Varicose veins or History of unexplained or recurrent spontaneous Oral contraceptives or hormone replacement Sepsis (< 1 month) Serious lung disease, including pneumonia (< 1 month) Abnormal pulmonary function Acute myocardial infarction Congestive heart failure (< 1 month) History of inflammatory bowel disease Medical patient at bed rest Age 61-74 Arthroscopic surgery Major open surgery (> 45 min) Laparoscopic surgery (> 45 min) Malignancy Confined to bed (> 72 hours) Immobilizing plaster cast Central venous access Age >= 75 History of VTE Family history of VTE Factor V Leiden Prothrombin [id number] Lupus anticoagulant Anticardiolipin antibodies Elevated serum homocysteine Heparin-induced thrombocytopenia Other congenital or acquired thrombophilia Stroke (< 1 month) Elective arthroplasty Hip, pelvis, or leg fracture Acute spinal cord injury (< 1 month) Prophylaxis Regimen: Total Risk Factor Score Risk Level Prophylaxis Regimen 0-1 Low Early ambulation 2 Moderate Order ONE of the following: *Sequential Compression Device (SCD) *Heparin 5000 units SQ BID 3-4 Higher Order ONE of the following medications: *Heparin 5000 units SQ TID *Enoxaparin/Lovenox 40 mg SQ daily (WT < 150 kg, CrCl > 30 mL/min) *Enoxaparin/Lovenox 30 mg SQ daily (WT < 150 kg, CrCl > 10-29 mL/min) *Enoxaparin/Lovenox 30 mg SQ BID (WT < 150 kg, CrCl > 30 mL/min) AND/OR *Sequential Compression Device (SCD) 5 or more Highest Order ONE of the following medications: *Heparin 5000 units SQ TID (Preferred with Epidurals) *Enoxaparin/Lovenox 40 mg SQ daily (WT < 150 kg, CrCl > 30 mL/min) *Enoxaparin/Lovenox 30 mg SQ daily (WT < 150 kg, CrCl > 10-29 mL/min) *Enoxaparin/Lovenox 30 mg SQ BID (WT < 150 kg, CrCl > 30 mL/min) AND *Sequential Compression Device (SCD) Assessment and Plan - Assessment (1) Lung infiltrate on CT Code(s): R91.8 - Other nonspecific abnormal finding of lung field Status: Acute Plan: I am concerned about healthcare associated pneumonia. The patient was released from [facility] about 5 days ago after she was reportedly treated for pneumonia. She was given a LifeVest at the time due to severe cardiomyopathy. She is currently tachycardic and hypotensive. Will broaden antibiotics. Add vancomycin to cefepime. Consult infectious disease for assistance. Supplemental oxygen and breathing treatment as needed. (2) Cavitary lesion of lung Code(s): J98.4 - Other disorders of lung Status: Acute Plan: Treatment for pneumonia as above. Will broaden antibiotics coverage (3) Cardiomyopathy Code(s): I42.9 - Cardiomyopathy, unspecified Status: Acute Plan: Severe cardiomyopathy with bedside EF reportedly around 15%. The patient currently has a LifeVest that was put on at [facility] but a week ago. Cardiology consulted who recommended continuing treatment for pneumonia. Plan to resume beta-maricruz, STEFAN inhibitor, and spironolactone when hemodynamically stable (4) Pulmonary embolism Code(s): I26.99 - Other pulmonary embolism without acute cor pulmonale Status : Acute Plan: Patient has been on Eliquis. Continue the same. (5) Hypotension Code(s): I95.9 - Hypotension, unspecified Status: Acute Plan: Hold antihypertensives. She does appear somewhat dry. Will give 500 cc of normal saline bolus and continue to monitor. The patient will be transferred to the ICU for closer monitoring. Given current comorbid conditions including PE and severe cardiomyopathy, she is at high risk for decompensation. (6) Tachycardia Code(s): R00.0 - Tachycardia, unspecified Status: Acute Plan: Could be related to underlying infectious process. Hold off on beta-maricruz. IV fluid as above. Continue to monitor. - Plan Patient is currently critically ill, tachycardic, hypotensive with pneumonia, PE. Admit to ICU. Monitor closely. High risk for sudden decompensation. Appreciate specialist input. H&P: Quality - VTE Deep Vein Thrombosis/Pulmonary Embolism Present on Admission: Yes
[2018-03-16] MEDS ORDERED: Sodium Chlor 0.9% Inj 500 ML IV.SIG ONE (15:51)
--- NOTE | 2018-03-16 16:32 | ECHRPT ---
Indication: PE R/O HEART DYSFUNCTION CONCLUSIONS Wall thickness is normal. Moderately dilated left ventricle. The left ventricular systolic function is severely reduced with an estimated ejection fraction in th e range of 20-25%. There is global left ventricular dysfunction. The right ventricular systoilc function is moderately decreased. The left atrial size is moderately dilated. The right atrial size is moderately dilated. No atrial level shunt is demonstrated by color flow Doppler interrogation. [id number] mitral valve regurgitation. The mitral valve regurgitation jet is directed anteriorly. No mitral valve stenosis. There is moderate to severe eccentric tricuspid valve regurgitation. The estimated pulmonary arterial pressure is 52 mmHg. Mild pulmonary valve regurgitation. There is less than 50% respiratory change in dimension of the inferior vena cava (abnormal). The inferior vena cava is dilated. There is a small pericardial effusion present. BP: / HR: Rhythm: Sinus MEASUREMENTS (Male / Female) Normal Values Technical Quality:Fair 2D ECHO LV Diastolic Diameter PLAX 5.6 cm 4.2 - 5.9 / 3.9 - 5.3 cm LV Systolic Diameter PLAX 5.3 cm IVS Diastolic Thickness 0.7 cm 0.6 - 1.0 / 0.6 - 0.9 cm LVPW Diastolic Thickness 0.7 cm 0.6 - 1.0 / 0.6 - 0.9 cm LV Relative Wall Thickness 0.3 RV Internal Dim ED PLAX 2.6 cm LVOT Diameter 1.9 cm Aortic Root Diameter 2.7 cm LA Systolic Diameter LX 4.2 cm 3.0 - 4.0 / 2.7 - 3.8 cm M-MODE AV Cusp Separation MM 1.5 cm DOPPLER AV Peak Velocity 95.1 cm/s AV Peak Gradient 3.6 mmHg AV Mean Gradient 2.0 mmHg AV Velocity Time Integral 11.9 cm LVOT Peak Velocity 69.2 cm/s LVOT Peak Gradient 1.9 mmHg LVOT Velocity Time Integral 8.3 cm AV Area Cont Eq vti 2.0 cm AV Area Cont Eq pk 2.1 cm Mitral E Point Velocity 70.6 cm/s Mitral A Point Velocity 113.0 cm/s Mitral E to A Ratio 0.6 LV E' Lateral Velocity 9.3 cm/s Mitral E to LV E' Lateral Ratio 7.6 LV E' Septal Velocity 3.4 cm/s Mitral E to LV E' Septal Ratio 20.7 TR Peak Velocity 324.0 cm/s TR Peak Gradient 42.0 mmHg Right Atrial Pressure 10.0 mmHg Pulmonary Artery Systolic Pressu 52.0 mmHg Right Ventricular Systolic Press 52.0 mmHg PV Peak Velocity 49.6 cm/s PV Peak Gradient 1.0 mmHg FINDINGS LEFT VENTRICLE Wall thickness is normal. Moderately dilated left ventricle. The left ventricular systolic function is severely reduced with an estimated ejection fraction in th e range of 20-25%. There is global left ventricular dysfunction. RIGHT VENTRICLE The right ventricular systoilc function is moderately decreased. LEFT ATRIUM The left atrial size is moderately dilated. RIGHT ATRIUM The right atrial size is moderately dilated. ATRIAL SEPTUM No atrial level shunt is demonstrated by color flow Doppler interrogation. AORTA The aortic root and proximal ascending aorta are normal in size on limited imaging. MITRAL VALVE [id number] mitral valve regurgitation. The mitral valve regurgitation jet is directed anteriorly. No mitral valve stenosis. AORTIC VALVE Trileaflet aortic valve. No aortic valve stenosis or regurgitation. TRICUSPID VALVE There is moderate to severe eccentric tricuspid valve regurgitation. The estimated pulmonary arterial pressure is 52 mmHg. PULMONARY VALVE Mild pulmonary valve regurgitation. VESSELS There is less than 50% respiratory change in dimension of the inferior vena cava (abnormal). The inferior vena cava is dilated. PERICARDIUM There is a small pericardial effusion present. Emmanuel aNva MD, FACC (Electronically Signed) Final Date:16 March 2018 16:31
--- NOTE | 2018-03-16 18:23 | MB ---
cc: Ros Smith MD DATE: 03/16/2018 REASON FOR CONSULTATION: Pneumonia and pulmonary emboli. HISTORY OF PRESENT ILLNESS: This is a 22-year-old lady who has been previously diagnosed to have cardiomyopathy approximately 5 months ago, has been treated for recurrent pulmonary embolism and pulmonary hypertension and anemia. The patient was treated for an episode of pneumonia recently and was at [facility] and discharged this past week. She was given a LifeVest and now admitted to [facility] with left-sided lower chest pain. She has been coughing, bringing up some whitish mucus, but has no hemoptysis. No fevers, or chills. A chest CT was done, which showed evidence of small pulmonary emboli and bilateral infiltrates, one of which was cavitated. The patient has now been started on IV antibiotics including cefepime 2 grams IV and vancomycin 1 g IV q.12 hours. She is complaining of pain along the lower chest and requires morphine. She is also tachycardic and mildly hypotensive. The recent echo apparently shows an ejection fraction of 15 to 20%. PAST MEDICAL HISTORY: The patient's past history has been significant for cardiomyopathy, history of pneumonia, history of anemia, and history of pulmonary hypertension. No history of diabetes. HABITS: The patient smokes marijuana quite often. No significant alcohol use. FAMILY HISTORY: Noncontributory. MEDICATIONS: She is on cefepime 2 grams IV and vancomycin 1 g IV q.12 hours. ALLERGIES: NO DRUG ALLERGIES WERE LISTED. REVIEW OF SYSTEMS: The patient has lost weight. She has chest pains and back pain. She has cough and wheezing. She has shortness of breath with activity and she has had no leg swelling. Denies abdominal pains, nausea or GI bleed. She has some anxiety attacks. Denied skin lesions. PHYSICAL EXAMINATION: GENERAL: This is a thinly built young lady, alert, pale, in no acute distress. VITAL SIGNS: Blood pressure 110/70, pulse is 112, respirations 22, temperature 97.8. HEENT: Head is normocephalic. Pupils are reactive. Sclerae were injected. Throat was clear. Nasal mucosa is clear. NECK: Supple, no bruits, no lymphadenopathy or thyromegaly. CHEST: Decreased breath sounds at the periphery with occasional crackles. HEART: Sounds are regular, S1 and S2 with a systolic murmur II/ at the apex. No S3. ABDOMEN: Soft, scaphoid, without masses. No organomegaly or tenderness. Bowel sounds are active. EXTREMITIES: No edema. No lesions. No calf tenderness. Reflexes are 1+. NEUROLOGIC: There are no gross motor deficits. The patient is alert and oriented, cooperative and has normal affect. SKIN: No lesions were noted. IMPRESSION: 1. Bilateral pulmonary infiltrates with cavitation. 2. Probable atypical pneumonia, healthcare-associated infection. 3. Cardiomyopathy. 4. Pulmonary embolism. 5. Pulmonary hypertension. 6. Chest pain. PLAN: The patient has been started on antibiotic coverage, which we will continue including cefepime 2 grams and vancomycin 1 gram IV b.i.d. Nebulized DuoNeb solution added t.i.d. and p.r.n. O2 2 liters nasal cannula to maintain saturations over 92. Sputum sent for Gram stain and culture, and we will also get a followup chest x-ray in a.m. and blood gas studies. The patient will be maintained on anticoagulation and presently on heparin, but could be switched to Eliquis in 24-48 hours. There is no sign of acute cor pulmonale and the patient will need a cardiology assessment with regards to her CHF as well as pulmonary hypertension. Thank you Dr. Mcguire, for this consultation. Ros Smith MD VJD/TREV , 05:42 PM , 06:21 PM
[2018-03-16 18:26] LABS: Anion Gap 11 meq/L (5-15); Blood Urea Nitrogen 8 mg/dL (7-18); Calcium 9.3 mg/dL (8.5-10.1); Carbon Dioxide 21.9 meq/L (21.0-32.0); Chloride 111 meq/L (98-107); Glomerular Filtration Rate Greater Than 89 mL/min (>89); Glucose,Random 78 mg/dL (74-106); Potassium 4.6 meq/L (3.5-5.1); Sodium 144 meq/L (136-145)
--- NOTE | 2018-03-16 19:20 | P.CON ---
History of Present Illness Service: Hematology/oncology Consult date: 03/16/18 Primary Care Provider: Neo Vasques Family Provider: Neo Vasques Chief Complaint: Left-sided chest pain. Difficulty breathing. Cough. Fevers and chills. History of Present Illness: Patient profile: Ms. Noriega is a 22-year-old female, she presently lives at home with her mother and boyfriend, she has a 6-month-old baby daughter. Patient grew up in [place] but had been living in [place] up until the spring 2017. 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 The patient reports having attended school up until the 12th grade, she did not graduate from high school. History of presenting illness: Ms. Noriega is a 22-year-old female with a complicated recent past medical history. Ms. Noriega reports having delivered a healthy baby girl vaginally in mid September 2017 ([facility]). In November 2017 she reports developing a cough producing phlegm and shortness of breath. Her symptoms worsen and she was seen at various outpatient urgent care clinics and was assessed to have bronchitis. She was initiated on antibiotics but had no improvement in her symptoms, she therefore presented to [facility] for further workup and management. During the hospitalization in November 2017 she was diagnosed with a pulmonary embolism, cardiomyopathy with a reported left ventricular ejection fraction of less than 20%. She was told she had cardiomyopathy. She tells me she was initiated on Eliquis for anticoagulation and at that time was also initiated on lisinopril in addition to which she was started on "water pills". She was established with a census enumerator in [place] with whom she had one outpatient follow-up visit. At some point she was initiated on a LifeVest pack for cardiomyopathy associated cardiac arrhythmia. Between December and January 2018 she had hospitalizations at [facility], [facility] in [facility]. Her most recent hospitalization at [facility] was in December 2017, she at that time had become increasingly short of breath and had developed lower extremity edema, orthopnea and fevers and chills. Upon admission to [facility] she underwent CT angiogram which revealed resolution of pulmonary embolus , she was noted to have CHF and was advised having a permanent pacemaker placed. The patient reports she left the hospital AGAINST MEDICAL ADVICE because she did not want to undergo pacemaker placement. Because she was told the CT angiographic performed in December revealed no pulmonary embolism she discontinued therapeutic anticoagulation. She had been taking her cardiac medications and reports her breathing improving, lower extremity edema also improved. In February 2018 she went back to work at a restaurant, she reports having developed increasing difficulty breathing, cough, congestion, fevers, chills and left-sided chest pain while she was at work. She reports she was unable to continue working, she was not on anticoagulation. On the day of hospitalization ; 03/15/2018 she developed left-sided chest pain which was excruciating, the chest pain was worse with taking deep breaths and coughing. She presented to [facility] for further workup and management. CT angiogram performed at [facility] on 03/15/2018 revealed pulmonary embolism as well as pneumonia. Echocardiogram performed earlier today revealed moderate pulmonary hypertension with a peak pulmonary artery pressure 53 mmHg in the left ventricular ejection fraction of approximately 25%. She has been resumed on therapeutic anticoagulation; initially with heparin infusion and now with Eliquis. She has been evaluated by advanced practitioner with cardiology, she is on rate control medications now i.e. Coreg for management of cardiomyopathy. The hematology service is been asked to see her for further workup and management and specifically recommendations for long-term anticoagulation. Review of Systems Constitutional: Reports anorexia, Reports chills, Reports fatigue, Reports fever (s), Reports lack of energy, Reports weakness, Denies body ache(s), Denies daytime sleepiness, Denies excessive sweating, Denies headache(s), Denies increased appetite, Denies malaise, Denies night sweats, Denies weight gain, Denies weight loss Eyes: Denies blind spots, Denies blurry vision, Denies bulging eyes, Denies change in vision, Denies double vision, Denies discharge, Denies dry eyes, Denies floaters, Denies irritation, Denies itchy eyes, Denies loss of vision, Denies pain, Denies requires corrective lenses, Denies sensitivity to light, Denies other Ears, Nose, Mouth, and Throat: Denies abnormal hearing, Denies bleeding gums, Denies bad breath, Denies change in voice, Denies dental pain, Denies difficulty swallowing, Denies dizziness, Denies dry mouth, Denies ear discharge , Denies ear pain, Denies facial pain, Denies headache(s), Denies hearing loss, Denies hoarseness, Denies lip swelling, Denies nosebleed, Denies mouth lesions, Denies mouth pain, Denies nasal congestion, Denies nasal discharge, Denies nasal obstruction, Denies nasal trauma, Denies neck lump, Denies neck pain, Denies nose pain, Denies pain with swallowing, Denies poor balance, Denies post nasal drip, Denies ringing in the ears, Denies sinus pain, Denies sinus pressure , Denies sore throat, Denies throat swelling, Denies tongue swelling, Denies other Cardiovascular: Reports chest pain, Reports chest pain at rest, Reports chest pain with activity, Reports fast heart rate, Reports foot swelling, Reports leg swelling, Reports shortness of breath, Reports shortness of breath with activity , Reports shortness of breath when lying down, Reports shortness of breath causing sudden awakening, Denies excessive sweating, Denies fainting, Denies generalized swelling, Denies irregular heart rhythm, Denies leg pain with activity, Denies leg sores, Denies lightheadedness, Denies radiating jaw, neck or arm pain, Denies rapid, pounding, or irregular heartbeat, Denies slow heart rate Respiratory: Reports cough, Reports pain on inspiration, Reports pain with cough , Reports shortness of breath, Reports shortness of breath with activity, Denies change in phlegm color, Denies chest congestion, Denies coughing up blood , Denies excessive phlegm production, Denies snoring, Denies stridor, Denies wheezing Gastrointestinal: Denies abdominal pain, Denies belching, Denies black, tarry stools, Denies bloating, Denies bright, red blood in stools, Denies change in bowel habits, Denies constant urge to pass stool, Denies change in stools, Denies coffee ground vomit, Denies constipation, Denies cramping, Denies difficulty swallowing, Denies excessive passing of gas, Denies feeling full early, Denies heartburn, Denies incontinent of stools, Denies loose stools, Denies nausea, Denies pain with swallowing, Denies vomiting, Denies vomiting blood, Denies other Genitourinary: Denies abnormal periods, Denies abnormal vaginal bleeding, Denies absent period, Denies bleeding between periods, Denies blood in urine, Denies difficulty starting urination, Denies difficulty urinating, Denies dribbling after urination, Denies frequent nighttime urination, Denies genital itching, Denies genital lesions, Denies heavy periods, Denies hot flashes, Denies light periods, Denies nipple discharge, Denies painful intercourse, Denies painful periods, Denies painful urination, Denies pelvic pain, Denies prolapse symptoms, Denies sexual problems, Denies side pain, Denies urinary incontinence, Denies urinary urgency, Denies vaginal discharge, Denies vaginal dryness, Denies vaginal odor, Denies vaginal itching, Denies other Musculoskeletal: Reports back pain, Denies abnormal walking, Denies body aches, Denies decreased muscle mass, Denies deformity, Denies joint pain, Denies joint swelling, Denies limited joint movement, Denies loss of height, Denies muscle cramps, Denies muscle weakness, Denies neck pain, Denies numbness, Denies radiating pain into limb, Denies stiffness, Denies tingling, Denies other Skin/Breast: Denies acne, Denies bleeding lesions, Denies boil, Denies breast swelling, Denies breast skin changes, Denies breast pain, Denies breast lump, Denies change in breast shape, Denies change in hair, Denies change in skin color, Denies changing lesions, Denies dry skin, Denies excessive hair growth, Denies hair loss, Denies itching, Denies lesions, Denies nail changes, Denies new lesions, Denies nipple discharge, Denies non-healing lesions, Denies redness , Denies sensitivity to light, Denies rash, Denies skin pain, Denies skin ulcer , Denies sores, Denies stretch peng, Denies unusual bruising, Denies wounds, Denies yellowing of the skin, Denies other Neurologic: Denies abnormal hearing, Denies abnormal movements, Denies abnormal speech, Denies abnormal walking, Denies behavioral changes, Denies burning sensations, Denies confusion, Denies dizziness, Denies fainting, Denies frequent falls, Denies headache(s), Denies lack of coordination, Denies localized weakness, Denies loss of vision, Denies memory loss, Denies numbness, Denies other visual disturbances, Denies radiating pain, Denies restless legs, Denies convulsions, Denies seizure-like activity, Denies sensory deficit, Denies tingling, Denies tingling/numbness/burning sensations, Denies tremor(s), Denies unsteadiness, Denies weakness, Denies other Psychiatric: Denies abnormal sleep pattern, Denies anxiety, Denies behavioral changes, Denies change in appetite, Denies change in sex drive, Denies confusion , Denies depression, Denies difficulty concentrating, Denies hearing things others do not hear, Denies hopelessness, Denies irritability, Denies lack of enjoyment, Denies memory loss, Denies mood swings, Denies panic attacks, Denies paranoia, Denies seeing things others do not see, Denies sensing things others do not sense, Denies tactile hallucinations, Denies thoughts of hurting/killing others, Denies thoughts of hurting/killing yourself, Denies other Endocrine: Denies cold intolerance, Denies excessive sweating, Denies flushing, Denies heat intolerance, Denies increased hunger, Denies increased thirst, Denies increased urination, Denies rapid, pounding, or irregular heartbeat, Denies other Hematologic/Lymphatic: Denies easy bleeding, Denies easy bruising, Denies enlarged lymph nodes, Denies other Allergic/Immunologic: Denies GI upset with certain foods, Denies hives, Denies itchy eyes, Denies lip swelling, Denies seasonal runny nose, Denies throat swelling, Denies tongue swelling, Denies wheezing, Denies other PMFSH - History History Provided By: Patient - Medical History Medical History: Medical History (Last Updated 03/16/18 @ 19:12 by Juan Hughes MD) cardiomyopathy in first trimester with history of Pulmonary emboli - Family History Family History: Family History (Last Updated 03/16/18 @ 19:12 by Juan Hughes MD) Other Hypothyroidism - Tobacco History Second Hand Smoke Exposure: Yes Smoking Status: Never smoker (Smokes marijuana) - Alcohol History How Often Do You Have a Drink Containing Alcohol: Never - Substance Use History Substance History: Active Abuse - Substance Use Type Marijuana Status: Active Route Used: Inhalation Frequency: 3- 4 JOINTS 3-4 X WEEK Reason for Use: Calm Down, Feels Good, Get High - Travel History Recent Travel in the [facility] Within the Last 8 Weeks: No Recent Travel Out of the Country Within the Last 8 Weeks: No - Immunization History Tetanus Immunization: Unsure Medications and Allergies Active Medications: Active Medications Al Hydroxide/Mg Hydroxide (Milk Of Magnesia Liq) 30 ml PO Q12H PRN PRN Reason: Mild Constipation Albuterol (Albuterol Neb (Ruma)) 2.5 mg NEB Q6HR NEB RUMA Last Admin: 03/16/18 16:16 Dose: 2.5 mg Apixaban (Eliquis) 2.5 mg PO BID RUMA Bisacodyl (Dulcolax Supp) 10 mg RECTAL DAILY PRN PRN Reason: SEVERE CONSITIPATION Cefepime HCl 2,000 mg/ Sodium (Chloride) 100 mls @ 200 mls/hr IV.SIG Q8H RUMA Last Infusion: 03/16/18 13:58 Dose: Infused Pharmacy Profile Note (Vancomycin Consult Pharmacy) 0 mls @ 0 mls/hr OTHER UNSCH RUMA Vancomycin HCl 1,000 mg/ (Sodium Chloride) 250 mls @ 200 mls/hr IV.SIG Q12H RUMA Last Infusion: 03/16/18 12:06 Dose: Infused Sodium Chloride (Ns Inj) 1,000 mls @ 100 mls/hr IV.CONT .Q10H RUMA Last Admin: 03/16/18 09:30 Dose: 100 mls/hr Lactulose (Lactulose Liq) 30 ml PO DAILY PRN PRN Reason: SEVERE CONSITIPATION Miscellaneous Information ([facility] Ordered Lab Info) 0 each OTHER ONCE ONE Stop: 03/17/18 08:46 Nitroglycerin (Nitrostat Sl) 0.4 mg SL Q5M PRN PRN Reason: CHEST PAIN Sennosides (Senokot) 17.2 mg PO Q12H PRN PRN Reason: Moderate Constipation Sodium Chloride (Ns Flush) 2 ml IV.FLUSH UNSCH PRN PRN Reason: FLUSH AFTER USING IV ACCESS Last Admin: 03/15/18 19:10 Dose: 2 ml Temazepam (Restoril) 15 mg PO HS PRN PRN Reason: INSOMNIA Last Admin: 03/16/18 00:10 Dose: 15 mg Allergies Allergy/AdvReac Type Severity Reaction Status Date / Time No Known Allergies Allergy Unverified 03/15/18 18:05 Home Medications Medication Instructions Recorded Confirmed Type apixaban [Eliquis] 2.5 mg PO BID 03/15/18 03/15/18 History carvedilol 3.125 mg PO BID 03/15/18 03/15/18 History cefdinir 300 mg PO Q12H 03/15/18 03/15/18 History furosemide [Lasix] 40 mg PO DAILY 03/15/18 03/15/18 History spironolactone 25 mg PO BID 03/15/18 03/15/18 History Physical Exam Vital signs: Vital Signs 03/15/18 19:05 03/15/18 19:14 03/15/18 19:20 Temperature Pulse Rate 124 H 116 H Respiratory Rate 16 16 Blood Pressure 138/77 119/84 Pulse Oximetry 100 100 100 03/15/18 19:46 03/15/18 21:00 03/16/18 00:00 Temperature 98.8 F Pulse Rate 115 H 122 H 140 H Respiratory Rate 16 16 17 Blood Pressure 110/78 116/88 Pulse Oximetry 100 100 03/16/18 04:00 03/16/18 07:53 03/16/18 08:00 Temperature 99.0 F 98.1 F Pulse Rate 135 H 130 H Respiratory Rate 17 15 Blood Pressure 100/69 Pulse Oximetry 98 98 98 03/16/18 08:26 03/16/18 09:00 03/16/18 11:20 Temperature Pulse Rate 128 H Respiratory Rate Blood Pressure 82/50 L Pulse Oximetry 98 03/16/18 12:03 03/16/18 15:51 03/16/18 16:02 Temperature 98.2 F 98.3 F Pulse Rate 133 H 128 H 133 H Respiratory Rate 18 14 Blood Pressure 90/50 L 90/50 L Pulse Oximetry 100 100 03/16/18 16:17 03/16/18 18:33 Temperature Pulse Rate 72 144 H Respiratory Rate 18 35 H Blood Pressure 122/91 H Pulse Oximetry 98 Intake & Output 03/16/18 03/16/18 03/17/18 06:59 18:59 06:59 Intake Total 1450 / 1450 500 / 500 Balance 1450 / 1450 500 / 500 Weight 52 kg 52 kg Intake: IV 1450 / 1450 500 / 500 Heparin/D5W 25,000 U/250 mL 25, 150 / 150 000 unit In 250 ml @ 900 UNITS/ HR 9 mls/hr IV.CONT TITRATE PRN Rx#:[id number] Maxipime Inj 2,000 MG In NS Inj 200 / 200 100 / 100 100 ML @ 200 mls/hr IV.SIG Q8H RUMA Rx#:[id number] NS Inj 1,000 ML @ Wide Open IV. 1000 / 1000 SIG BOLUS ONE Rx#:[id number] Vancomycin Inj 1,000 MG In NS 250 / 250 250 / 250 Inj 250 ML @ 200 mls/hr IV.SIG Q12H RUMA Rx#:[id number] Other: Date of Last Bowel Movement 03/16/18 Weight On Admission 52 kg - Constitutional mild distress - Routine HEENT Exam Head: Absent: normocephalic, atraumatic, cushingoid faces, abrasion, laceration , hematoma, Ramirez's sign, CSF rhinorrhea Eye: Present: EOMI, PERRL, normal accommodation. Absent: conjunctival icterus, scleral injection ENT: Absent: mucous membranes moist, mucous membranes dry - Routine Neck Exam Absent: supple, full ROM, JVD - Routine Respiratory Exam Present: rhonchi, crackles. Absent: accessory muscle use, patient mechanically ventilated, decreased breath sounds, CTA bilaterally - Routine Cardiovascular Exam Present: S1, S2, tachycardia - Routine Abdominal Exam Present: soft, normoactive bowel sounds, tenderness, distended - Detailed Abdominal Exam Palpation/Percussion: Absent: hepatomegaly, Mooney's sign, splenomegaly, tympany Abdominal exam hernia: Absent: epigastric, incisional - Routine Extremities Exam Absent: cyanosis, clubbing, edema, full ROM, pulses intact - Routine Skin Exam Present: intact, cyanosis, erythema, dry, pallor, mottling - Routine Neurological Exam Present: alert, oriented X3, CN II-XII intact - Detailed Neurological Exam: Coma Scale Eye Opening: Spontaneous - Routine Psychiatric Exam Present: normal affect Assessment and Plan - Assessment (1) Pulmonary embolism Code(s): I26.99 - Other pulmonary embolism without acute cor pulmonale Status : Chronic Plan: Pulmonary emboli initially diagnosed in November 2017. She had appropriate response to therapy while she was on it with restaging CT angiogram in December 2017 revealing no evidence of residual clot burden. After the scans performed in December she came off of anticoagulation (her own decision). Repeat CT Linsey Pitt performed on 03/15/2018 reveals recurrent pulmonary emboli in the peripheral pulmonary artery circulation. Based on the appearance of the pulmonary emboli as well as echocardiogram results the pulmonary emboli do not appear to be resulting in significant cardiac dysfunction. The patient should be known does have significant cardiac dysfunction but this is related to cardiomyopathy. Agree with management currently being rendered i.e. therapeutic anticoagulation with Eliquis 5 mill grams p.o. twice daily. I have however ordered a prothrombotic workup given her history of repeated loss; antiphospholipid antibody levels, circulating lupus anticoagulant, protein C and protein S antigen and activity levels have been ordered, prothrombin gene mutation is also been ordered. The patient has dual indications for therapeutic anticoagulations i.e. pulmonary emboli as well as advanced cardiomyopathy. (2) Iron deficiency anemia Code(s): D50.9 - Iron deficiency anemia, unspecified Status: Chronic Plan: Initiate intravenous iron replacement therapy at iron sucrose 100 mg IV daily. Her medical record she has difficulty tolerating oral iron replacement therapy. - Plan 1. Pulmonary emboli: Recurrent due to inadequate duration of therapy. Prothrombotic workup has been ordered. 2. Iron deficiency anemia: Initiate intravenous iron replacement therapy with iron sucrose. Code Status: Full Discussed Condition With: Patient. Patient's nurse. (1) Pulmonary embolism Qualifiers: Pulmonary embolism type: other Chronicity: chronic Acute cor pulmonale presence: without acute cor pulmonale Qualified Code(s): I27.82 - Chronic pulmonary embolism (2) Iron deficiency anemia Qualifiers: Iron deficiency anemia type: unspecified iron deficiency Qualified Code(s): D50.9 - Iron deficiency anemia, unspecified
[2018-03-16] MEDS ORDERED: Sodium Chlor 0.9% Inj 250 ML IV.SIG ONE (20:00)
[2018-03-16] MEDS: Iron Sucrose Inj 100 MG in Sodium Chlor 0.9% Inj 100 ML IV.SIG SCH (20:29)
--- NOTE | 2018-03-16 22:08 | XR ---
EXAM DATE: 03/16/2018 9:59 PM EDT AGE/SEX: 22 years / Female INDICATIONS: Follow up pneumonia. CLINICAL DATA: This is the patient's subsequent encounter. Patient reports that signs and symptoms h ave been present for 3 days and indicates a pain score of 4/10. MEDICAL/SURGICAL HISTORY: None. None. COMPARISON: [facility] [place], CTA PULMONARY W CONTRAST W 3D, 03/15/2018. . FINDINGS: The cardiac silhouette is prominent suggesting cardiomyopathy. Patchy infiltrates are noted consisten t with probable pneumonia and/or pulmonary edema. Clinical correlation is recommended. CONCLUSION: 1. Marked cardiomegaly suggesting cardiomyopathy. 2. Patchy infiltrates consistent with probable pneumonia and/or pulmonary edema. Clinical correlatio n is recommended. Electronically signed by: Gregorio Sutton MD 03/16/2018 10:06 PM EDT
[2018-03-16] MEDS ORDERED: Metoprolol Inj 5 MG/5 ML Vial IV.PUSH ONE (22:39)
[2018-03-16] MEDS: Morphine Inj 4 MG/ML Vial IV.PUSH PRN (22:55)
[2018-03-17 00:40] LABS: Bilirubin,Urine Negative (Negative); Clarity,Urine Cloudy (Clear); Color,Urine Amber (Yellw/Straw); Glucose,Urine (UA) Negative (Negative); Leukocyte Esterase,Urine Negative (Negative); Mucus,Urine Few /lpf (Occasional); Nitrite,Urine Negative (Negative); Specific Gravity,Urine 1.031 (1.002-1.035); Squamous Epithelial Cell,Urine 37 /hpf (0-5)
[2018-03-17] MEDS: Morphine Inj 4 MG/ML Vial IV.PUSH PRN (03:54)
[2018-03-17] MEDS ORDERED: Chlorhexidine Gluconate 2% 1 Pack (2 Cloths) TOPICAL PRN (04:00)
[2018-03-17 04:31] LABS: Hematocrit 26.4 % (35.0-46.0); Hemoglobin 7.9 gm/dL (11.6-15.3); Mean Corpuscular Hemoglobin 23.9 pg (27.0-34.0); Mean Corpuscular Volume 80.2 fL (80.0-100.0); Mean Platelet Volume 7.1 fL (7.0-11.0); Platelet Count 719 th/mm3 (150-450); Red Cell Distribution Width 21.3 % (11.6-17.2)
[2018-03-17 04:38] LABS: Mean Corpuscular HGB Conc 29.8 % (32.0-36.0)
[2018-03-17 04:49] LABS: Creatine Kinase 20 U/L (26-192)
[2018-03-17] MEDS: Sod Chloride 0.9% Inj 1,000 ML IV.CONT SCH (05:15)
[2018-03-17] MEDS: Chlorhexidine Gluconate 2% 1 Pack (2 Cloths) TOPICAL SCH (05:16)
[2018-03-17] MEDS ORDERED: Pharmacy Ordered Lab Info OTHER ONE (08:45)
[2018-03-17] MEDS: Vancomycin Inj 1,000 MG in Sodium Chlor 0.9% Inj 250 ML IV.SIG SCH ×2 (08:50→16:37)
[2018-03-17] MEDS ORDERED: Sodium Chlor 0.9% Inj 250 ML IV.SIG SCH (10:00)
--- NOTE | 2018-03-17 10:19 | ECG ---
Date Performed: 03/17/2018 Time Performed: 04:03:22 PTAGE: 22 years EKG: Sinus tachycardia. Lateral and infeiror T wave changes are nonspecific Abnormal ECG NO PREVIOUS TRACING DOCTOR: Cliff Smith Interpretating Date/Time 03/17/2018 10:18:33
--- NOTE | 2018-03-17 10:21 | P.PNONC ---
Subjective Interval history: Afebrile Patient reports she continues to have chest pain, especially when taking deep breath Denies significant shortness of breath States "I know I have to take the blood thinner indefinitely" Objective Vital Signs/Intake & Output: Vital Signs 03/16/18 11:20 03/16/18 12:03 03/16/18 15:51 Temperature 98.2 F 98.3 F Pulse Rate 128 H 133 H 128 H Respiratory Rate 18 14 Blood Pressure 90/50 L 90/50 L Pulse Oximetry 100 100 03/16/18 16:02 03/16/18 16:17 03/16/18 18:33 Temperature Pulse Rate 133 H 72 144 H Respiratory Rate 18 35 H Blood Pressure 122/91 H Pulse Oximetry 98 03/16/18 19:00 03/16/18 19:30 03/16/18 20:00 Temperature 103.1 F H Pulse Rate 145 H 144 H 141 H Respiratory Rate 51 H 44 H 45 H Blood Pressure 121/95 H 119/82 111/74 Pulse Oximetry 100 100 100 03/16/18 20:29 03/16/18 20:30 03/16/18 20:45 Temperature Pulse Rate 143 H Respiratory Rate 4 L 53 H Blood Pressure 104/66 Pulse Oximetry 97 98 03/16/18 21:00 03/16/18 21:30 03/16/18 22:00 Temperature Pulse Rate 145 H 147 H 141 H Respiratory Rate 32 H 26 H 39 H Blood Pressure 110/75 117/90 108/73 Pulse Oximetry 100 100 100 03/16/18 22:22 03/16/18 22:30 03/16/18 23:00 Temperature Pulse Rate 141 H 139 H Respiratory Rate 18 43 H 40 H Blood Pressure 116/79 114/81 Pulse Oximetry 100 97 03/16/18 23:30 03/17/18 00:00 03/17/18 00:30 Temperature 100.9 F H Pulse Rate 120 H 126 H 126 H Respiratory Rate 39 H 46 H 32 H Blood Pressure 97/70 L 111/78 101/78 Pulse Oximetry 99 100 100 03/17/18 01:00 03/17/18 01:30 03/17/18 02:00 Temperature 98.0 F Pulse Rate 126 H 126 H 126 H Respiratory Rate 35 H 33 H 33 H Blood Pressure 102/80 103/80 105/76 Pulse Oximetry 100 100 100 03/17/18 02:30 03/17/18 03:00 03/17/18 03:30 Temperature Pulse Rate 128 H 126 H 126 H Respiratory Rate 35 H 35 H 37 H Blood Pressure 106/77 105/78 102/77 Pulse Oximetry 100 100 99 03/17/18 04:00 03/17/18 04:01 03/17/18 04:30 Temperature 98.7 F Pulse Rate 126 H 126 H 120 H Respiratory Rate 34 H 33 H 29 H Blood Pressure 114/79 104/68 Pulse Oximetry 100 100 100 03/17/18 05:00 03/17/18 05:30 03/17/18 06:00 Temperature Pulse Rate 119 H 118 H 117 H Respiratory Rate 28 H 28 H 31 H Blood Pressure 103/67 96/61 L 101/59 L Pulse Oximetry 100 99 99 03/17/18 06:30 03/17/18 07:00 03/17/18 07:30 Temperature Pulse Rate 118 H 126 H 129 H Respiratory Rate 30 H 35 H 35 H Blood Pressure 101/61 105/80 104/73 Pulse Oximetry 99 100 100 03/17/18 08:00 03/17/18 08:30 03/17/18 09:00 Temperature 98.5 F Pulse Rate 129 H 130 H 134 H Respiratory Rate 34 H 30 H 38 H Blood Pressure 106/72 105/74 96/72 L Pulse Oximetry 100 99 100 03/17/18 09:30 Temperature Pulse Rate 130 H Respiratory Rate 36 H Blood Pressure 102/63 Pulse Oximetry 98 Intake & Output 03/16/18 03/17/18 03/17/18 18:59 06:59 18:59 Intake Total 500 / 500 2350 / 2350 1468 / 1468 Balance 500 / 500 2350 / 2350 1468 / 1468 Weight 114 lb 10.246 oz Intake: IV 500 / 500 2100 / 2100 1468 / 1468 Heparin/D5W 25,000 U/250 mL 25, 150 / 150 000 unit In 250 ml @ 900 UNITS/ HR 9 mls/hr IV.CONT TITRATE PRN Rx#:[id number] NS Inj 1,000 ML @ 100 mls/hr IV 1999 / 1999 263 / 263 .CONT .Q10H [facility] Rx#:[id number] Maxipime Inj 2,000 MG In NS Inj 100 / 100 100 / 100 100 / 100 100 ML @ 200 mls/hr IV.SIG Q8H [facility] Rx#:[id number] Venofer Inj 100 MG In NS Inj 105 / 105 100 ML @ 105 mls/hr IV.SIG Q24H [facility] Rx#:[id number] Vancomycin Inj 1,000 MG In NS 250 / 250 500 / 500 Inj 250 ML @ 200 mls/hr IV.SIG Q12H [facility] Rx#:[id number] Oral 250 / 250 Other: # Voids 3 Date of Last Bowel Movement 03/16/18 03/16/18 Result Diagrams: 03/17/18 03:59 03/16/18 14:55 Laboratory Results: Laboratory Results - last 24 hr 03/16/18 03/16/18 03/16/18 09:50 14:55 14:55 WBC RBC Hgb Hct MCV MCH MCHC RDW Plt Count MPV APTT 34.0 H Sodium 144 Potassium 4.6 Chloride 111 H Carbon Dioxide 21.9 Anion Gap 11 BUN 8 Creatinine 0.65 Estimated GFR Greater than 89 Random Glucose 78 Calcium 9.3 Total Creatine Kinase Troponin I Less than 0.02 L Urine Color Urine Clarity Urine pH Ur Specific [place] Urine Protein Urine Glucose (UA) Urine Ketones Urine Occult Blood Urine Nitrate Urine Bilirubin Urine Urobilinogen Ur Leukocyte Esterase Urine RBC Urine WBC Ur Squamous Epith Cells Urine Mucus Micro UA Comment Urine Culture Comments Nasal Screen MRSA (PCR) Vancomycin Trough 03/16/18 03/16/18 03/16/18 17:25 23:20 23:20 WBC RBC Hgb Hct MCV MCH MCHC RDW Plt Count MPV APTT Sodium Potassium Chloride Carbon Dioxide Anion Gap BUN Creatinine Estimated GFR Random Glucose Calcium Total Creatine Kinase 21 L Troponin I Less than 0.02 L Urine Color Urine Clarity Urine pH Ur Specific [place] Urine Protein Urine Glucose (UA) Urine Ketones Urine Occult Blood Urine Nitrate Urine Bilirubin Urine Urobilinogen Ur Leukocyte Esterase Urine RBC Urine WBC Ur Squamous Epith Cells Urine Mucus Micro UA Comment Urine Culture Comments Nasal Screen MRSA (PCR) Not detected Vancomycin Trough 03/17/18 03/17/18 03/17/18 00:00 03:59 03:59 WBC 17.0 H D RBC 3.30 L Hgb 7.9 L Hct 26.4 L MCV 80.2 MCH 23.9 L MCHC 29.8 L RDW 21.3 H Plt Count 719 H MPV 7.1 APTT Sodium Potassium Chloride Carbon Dioxide Anion Gap BUN Creatinine Estimated GFR Random Glucose Calcium Total Creatine Kinase 20 L Troponin I Less than 0.02 L Urine Color Lisa Urine Clarity Cloudy H Urine pH 5.0 Ur Specific [place] 1.031 Urine Protein 100 H Urine Glucose (UA) Negative Urine Ketones Trace H Urine Occult Blood Small H Urine Nitrate Negative Urine Bilirubin Negative Urine Urobilinogen Less than 2 Ur Leukocyte Esterase Negative Urine RBC 2 Urine WBC 6 H Ur Squamous Epith Cells 37 Urine Mucus Few H Micro UA Comment Culture not ind Urine Culture Comments Culture not ind Nasal Screen MRSA (PCR) Vancomycin Trough 03/17/18 08:51 WBC RBC Hgb Hct MCV MCH MCHC RDW Plt Count MPV APTT Sodium Potassium Chloride Carbon Dioxide Anion Gap BUN Creatinine Estimated GFR Random Glucose Calcium Total Creatine Kinase Troponin I Urine Color Urine Clarity Urine pH Ur Specific [place] Urine Protein Urine Glucose (UA) Urine Ketones Urine Occult Blood Urine Nitrate Urine Bilirubin Urine Urobilinogen Ur Leukocyte Esterase Urine RBC Urine WBC Ur Squamous Epith Cells Urine Mucus Micro UA Comment Urine Culture Comments Nasal Screen MRSA (PCR) Vancomycin Trough 9.8 Culture Results: Microbiology 03/15/18 20:25 Aerobic Blood Culture - Preliminary Blood - Peripheral No growth in 1 day Anaerobic Blood Culture - Preliminary No growth in 1 day 03/15/18 20:30 Aerobic Blood Culture - Preliminary Blood - Peripheral No growth in 1 day Anaerobic Blood Culture - Preliminary No growth in 1 day Imaging Studies: Impressions Chest X-Ray 03/16/18 21:24 CONCLUSION: 1. Marked cardiomegaly suggesting cardiomyopathy. 2. Patchy infiltrates consistent with probable pneumonia and/or pulmonary edema. Clinical correlation is recommended. Medications: Active Medications Generic Name Dose Route Start Last Admin Trade Name Pedroq PRN Reason Stop Dose Admin Albuterol 2.5 mg 03/16/18 16:00 03/16/18 16:16 Albuterol Neb (Ruma) NEB 2.5 mg Q6HR NEB RUMA Administration Apixaban 5 mg 03/16/18 21:00 03/17/18 08:50 Eliquis PO 5 mg BID RUMA Administration Chlorhexidine Gluconate 3 pack 03/17/18 04:00 03/17/18 05:16 Chlorhexidine 2% Cloth TOPICAL 03/22/18 03:59 3 pack DAILY@0400 RUMA Administration Cefepime HCl 2,000 mg/ Sodium 100 mls @ 200 mls/hr 03/16/18 05:00 03/17/18 07 :25 Chloride IV.SIG Infused Q8H [facility] Infusion Vancomycin HCl 1,000 mg/ 250 mls @ 200 mls/hr 03/16/18 09:00 03/17/18 09:52 Sodium Chloride IV.SIG Infused Q12H [facility] Infusion Iron Sucrose 100 mg/ Sodium 105 mls @ 105 mls/hr 03/16/18 20:00 03/17/18 07: 25 Chloride IV.SIG 03/18/18 20:59 Infused Q24H [facility]MA Infusion Sodium Chloride 2 ml 03/15/18 17:22 03/17/18 08:50 Ns Flush IV.FLUSH 2 ml UNSCH PRN Administration FLUSH AFTER USING IV ACCESS Temazepam 15 mg 03/15/18 21:22 03/16/18 00:10 Restoril PO 15 mg HS PRN Administration INSOMNIA Objective Remarks: GENERAL: Young female resting in bed in no obvious distress SKIN: Warm and dry. No oozing from lines HEAD: Normocephalic. EYES: No scleral icterus. No injection or drainage. NECK: Supple, trachea midline. No JVD or lymphadenopathy. CARDIOVASCULAR: Tachycardia with heart rate in 130s. RESPIRATORY: Breath sounds equal bilaterally. No accessory muscle use. GASTROINTESTINAL: Abdomen soft, non-tender, nondistended. EXTREMITIES: No cyanosis, or edema. MUSCULOSKELETAL: Adequate muscle tone. NEUROLOGICAL: No obvious focal deficit. Awake, alert, and oriented x3. Assessment/Plan - Plan Hx/Workup: Patient is a 22-year-old female who delivered a baby mid September of this year. In November she developed a pulmonary embolism with severe cardiomyopathy that was felt to be related to being . Patient had a repeat CTA in December that did not show any pulmonary embolism and unfortunately the patient self discontinued her anticoagulation. She again presents now with significant shortness of breath. CTA shows persistent pulmonary embolism. Echocardiogram this admission shows ejection fraction estimated in the range of 20-25%. 1. Continue Eliquis at 5 mg twice daily 2. Patient tolerating iron sucrose. We will continue with 3 doses. 3. Noted patient has tachycardia, low blood pressure and drop in hemoglobin. Transfuse 1 unit packed red blood cells for symptomatic anemia. 4. CBC in a.m. - Attending Statement The exam, history, and the medical decision-making described in the above note were completed with the assistance of the mid-level provider. I reviewed and agree with the findings presented. I attest that I had a [id number] encounter with the patient on the same day, and personally performed and documented my assessment and findings in the medical record. Patient still has pleuritic chest pain. Shortness of breath is stable. She remains tachycardic. The globin trended down to 7.9. She will get 1 unit of packed red blood cell transfusion today. We will give Lasix after transfusion. Continue Eliquis. Check stool occult blood.
--- NOTE | 2018-03-17 10:24 | ECG ---
Date Performed: 03/16/2018 Time Performed: 22:20:02 PTAGE: 22 years EKG: Probable sinus tachycardia. Possible left ventricular hypertrophy Anterolateral ST-T change s are probably due to ventricular hypertrophy, cannot rule out ischemia Abnormal ECG PREVIOUS TRACING : 03/16/2018 13.51 No significant change from previous tracing noted. DOCTOR: Cliff Smith Interpretating Date/Time 03/17/2018 10:24:17
--- NOTE | 2018-03-17 10:43 | P.PNCA ---
<MalikAlly A - Last Filed: 03/17/18 10:44> Subjective Interval history: improved chest pain now "-01/18" compared to "06/20" yesterday. Improved breathing. Hgb falling, 1 PRBC ordered. Physical Exam Vital signs: Vital Signs 03/16/18 11:20 03/16/18 12:03 03/16/18 15:51 Temperature 98.2 F 98.3 F Pulse Rate 128 H 133 H 128 H Respiratory Rate 18 14 Blood Pressure 90/50 L 90/50 L Pulse Oximetry 100 100 03/16/18 16:02 03/16/18 16:17 03/16/18 18:33 Temperature Pulse Rate 133 H 72 144 H Respiratory Rate 18 35 H Blood Pressure 122/91 H Pulse Oximetry 98 03/16/18 19:00 03/16/18 19:30 03/16/18 20:00 Temperature 103.1 F H Pulse Rate 145 H 144 H 141 H Respiratory Rate 51 H 44 H 45 H Blood Pressure 121/95 H 119/82 111/74 Pulse Oximetry 100 100 100 03/16/18 20:29 03/16/18 20:30 03/16/18 20:45 Temperature Pulse Rate 143 H Respiratory Rate 4 L 53 H Blood Pressure 104/66 Pulse Oximetry 97 98 03/16/18 21:00 03/16/18 21:30 03/16/18 22:00 Temperature Pulse Rate 145 H 147 H 141 H Respiratory Rate 32 H 26 H 39 H Blood Pressure 110/75 117/90 108/73 Pulse Oximetry 100 100 100 03/16/18 22:22 03/16/18 22:30 03/16/18 23:00 Temperature Pulse Rate 141 H 139 H Respiratory Rate 18 43 H 40 H Blood Pressure 116/79 114/81 Pulse Oximetry 100 97 03/16/18 23:30 03/17/18 00:00 03/17/18 00:30 Temperature 100.9 F H Pulse Rate 120 H 126 H 126 H Respiratory Rate 39 H 46 H 32 H Blood Pressure 97/70 L 111/78 101/78 Pulse Oximetry 99 100 100 03/17/18 01:00 03/17/18 01:30 03/17/18 02:00 Temperature 98.0 F Pulse Rate 126 H 126 H 126 H Respiratory Rate 35 H 33 H 33 H Blood Pressure 102/80 103/80 105/76 Pulse Oximetry 100 100 100 03/17/18 02:30 03/17/18 03:00 03/17/18 03:30 Temperature Pulse Rate 128 H 126 H 126 H Respiratory Rate 35 H 35 H 37 H Blood Pressure 106/77 105/78 102/77 Pulse Oximetry 100 100 99 03/17/18 04:00 03/17/18 04:01 03/17/18 04:30 Temperature 98.7 F Pulse Rate 126 H 126 H 120 H Respiratory Rate 34 H 33 H 29 H Blood Pressure 114/79 104/68 Pulse Oximetry 100 100 100 03/17/18 05:00 03/17/18 05:30 03/17/18 06:00 Temperature Pulse Rate 119 H 118 H 117 H Respiratory Rate 28 H 28 H 31 H Blood Pressure 103/67 96/61 L 101/59 L Pulse Oximetry 100 99 99 03/17/18 06:30 03/17/18 07:00 03/17/18 07:30 Temperature Pulse Rate 118 H 126 H 129 H Respiratory Rate 30 H 35 H 35 H Blood Pressure 101/61 105/80 104/73 Pulse Oximetry 99 100 100 03/17/18 08:00 03/17/18 08:30 03/17/18 09:00 Temperature 98.5 F Pulse Rate 129 H 130 H 134 H Respiratory Rate 34 H 30 H 38 H Blood Pressure 106/72 105/74 96/72 L Pulse Oximetry 100 99 100 03/17/18 09:30 03/17/18 10:00 Temperature Pulse Rate 130 H 134 H Respiratory Rate 36 H 36 H Blood Pressure 102/63 100/63 Pulse Oximetry 98 99 Intake & Output 03/16/18 03/17/18 03/17/18 18:59 06:59 18:59 Intake Total 500 / 500 2350 / 2350 1468 / 1468 Balance 500 / 500 2350 / 2350 1468 / 1468 Weight 52 kg Intake: IV 500 / 500 2100 / 2100 1468 / 1468 Heparin/D5W 25,000 U/250 mL 25, 150 / 150 000 unit In 250 ml @ 900 UNITS/ HR 9 mls/hr IV.CONT TITRATE PRN Rx#:[id number] NS Inj 1,000 ML @ 100 mls/hr IV 1999 / 1999 263 / 263 .CONT .Q10H [facility] Rx#:[id number] Maxipime Inj 2,000 MG In NS Inj 100 / 100 100 / 100 100 / 100 100 ML @ 200 mls/hr IV.SIG Q8H [facility] Rx#:[id number] Venofer Inj 100 MG In NS Inj 105 / 105 100 ML @ 105 mls/hr IV.SIG Q24H [facility] Rx#:[id number] Vancomycin Inj 1,000 MG In NS 250 / 250 500 / 500 Inj 250 ML @ 200 mls/hr IV.SIG Q12H [facility] Rx#:[id number] Oral 250 / 250 Other: # Voids 3 Date of Last Bowel Movement 03/16/18 03/16/18 Narrative: GENERAL: SKIN: Warm and dry. HEAD: Normocephalic. EYES: No scleral icterus. No injection or drainage. NECK: Supple, trachea midline. No JVD or lymphadenopathy. CARDIOVASCULAR: tachycardic and sinus rhythm without murmurs, gallops, or rubs. RESPIRATORY: Breath sounds equal bilaterally. No accessory muscle use. GASTROINTESTINAL: Abdomen soft, non-tender, nondistended. MUSCULOSKELETAL: No cyanosis, or edema. 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 She reports having recently been discharged from [facility] earlier this week and diagnosed with pneumonia. She was seen by Dr. Valdez and given a LifeVest. Upon arrival at the ED yesterday she was in sinus tachycardia with HR 130s, CTA shows pulmonary embolism and bilateral infiltrates. cardiomyopathy- EF 15%, wearing LifeVest, hypotensive with sinus tachycardia remains hypotensive, carvedilol held chest pain improving add digoxin for improved chronotropic support. Consider Corlanor brand med, but not covered by formulary. sinus tachycardia compensatory from low EF and/or pulmonary embolism follow up with Dr. Valdez in outpatient setting anemia- hematology following, 1 unit PRBC ordered for keyona <Emmanuel Nava - Last Filed: 03/17/18 11:16> Physical Exam Vital signs: Vital Signs 03/16/18 11:20 03/16/18 12:03 03/16/18 15:51 Temperature 98.2 F 98.3 F Pulse Rate 128 H 133 H 128 H Respiratory Rate 18 14 Blood Pressure 90/50 L 90/50 L Pulse Oximetry 100 100 03/16/18 16:02 03/16/18 16:17 03/16/18 18:33 Temperature Pulse Rate 133 H 72 144 H Respiratory Rate 18 35 H Blood Pressure 122/91 H Pulse Oximetry 98 03/16/18 19:00 03/16/18 19:30 03/16/18 20:00 Temperature 103.1 F H Pulse Rate 145 H 144 H 141 H Respiratory Rate 51 H 44 H 45 H Blood Pressure 121/95 H 119/82 111/74 Pulse Oximetry 100 100 100 03/16/18 20:29 03/16/18 20:30 03/16/18 20:45 Temperature Pulse Rate 143 H Respiratory Rate 4 L 53 H Blood Pressure 104/66 Pulse Oximetry 97 98 03/16/18 21:00 03/16/18 21:30 03/16/18 22:00 Temperature Pulse Rate 145 H 147 H 141 H Respiratory Rate 32 H 26 H 39 H Blood Pressure 110/75 117/90 108/73 Pulse Oximetry 100 100 100 03/16/18 22:22 03/16/18 22:30 03/16/18 23:00 Temperature Pulse Rate 141 H 139 H Respiratory Rate 18 43 H 40 H Blood Pressure 116/79 114/81 Pulse Oximetry 100 97 03/16/18 23:30 03/17/18 00:00 03/17/18 00:30 Temperature 100.9 F H Pulse Rate 120 H 126 H 126 H Respiratory Rate 39 H 46 H 32 H Blood Pressure 97/70 L 111/78 101/78 Pulse Oximetry 99 100 100 03/17/18 01:00 03/17/18 01:30 03/17/18 02:00 Temperature 98.0 F Pulse Rate 126 H 126 H 126 H Respiratory Rate 35 H 33 H 33 H Blood Pressure 102/80 103/80 105/76 Pulse Oximetry 100 100 100 03/17/18 02:30 03/17/18 03:00 03/17/18 03:30 Temperature Pulse Rate 128 H 126 H 126 H Respiratory Rate 35 H 35 H 37 H Blood Pressure 106/77 105/78 102/77 Pulse Oximetry 100 100 99 03/17/18 04:00 03/17/18 04:01 03/17/18 04:30 Temperature 98.7 F Pulse Rate 126 H 126 H 120 H Respiratory Rate 34 H 33 H 29 H Blood Pressure 114/79 104/68 Pulse Oximetry 100 100 100 03/17/18 05:00 03/17/18 05:30 03/17/18 06:00 Temperature Pulse Rate 119 H 118 H 117 H Respiratory Rate 28 H 28 H 31 H Blood Pressure 103/67 96/61 L 101/59 L Pulse Oximetry 100 99 99 03/17/18 06:30 03/17/18 07:00 03/17/18 07:30 Temperature Pulse Rate 118 H 126 H 129 H Respiratory Rate 30 H 35 H 35 H Blood Pressure 101/61 105/80 104/73 Pulse Oximetry 99 100 100 03/17/18 08:00 03/17/18 08:30 03/17/18 09:00 Temperature 98.5 F Pulse Rate 129 H 130 H 134 H Respiratory Rate 34 H 30 H 38 H Blood Pressure 106/72 105/74 96/72 L Pulse Oximetry 100 99 100 03/17/18 09:30 03/17/18 10:00 Temperature Pulse Rate 130 H 134 H Respiratory Rate 36 H 36 H Blood Pressure 102/63 100/63 Pulse Oximetry 98 99 Intake & Output 03/16/18 03/17/18 03/17/18 18:59 06:59 18:59 Intake Total 500 / 500 2350 / 2350 1468 / 1468 Balance 500 / 500 2350 / 2350 1468 / 1468 Weight 52 kg Intake: IV 500 / 500 2100 / 2100 1468 / 1468 Heparin/D5W 25,000 U/250 mL 25, 150 / 150 000 unit In 250 ml @ 900 UNITS/ HR 9 mls/hr IV.CONT TITRATE PRN Rx#:[id number] NS Inj 1,000 ML @ 100 mls/hr IV 1999 / 1999 263 / 263 .CONT .Q10H [facility] Rx#:[id number] Maxipime Inj 2,000 MG In NS Inj 100 / 100 100 / 100 100 / 100 100 ML @ 200 mls/hr IV.SIG Q8H [facility] Rx#:[id number] Venofer Inj 100 MG In NS Inj 105 / 105 100 ML @ 105 mls/hr IV.SIG Q24H [facility] Rx#:[id number] Vancomycin Inj 1,000 MG In NS 250 / 250 500 / 500 Inj 250 ML @ 200 mls/hr IV.SIG Q12H [facility] Rx#:[id number] Oral 250 / 250 Other: # Voids 3 Date of Last Bowel Movement 03/16/18 03/16/18 03/16/18 Assessment and Plan - Assessment (1) Cardiomyopathy Code(s): I42.9 - Cardiomyopathy, unspecified Status: Acute (2) Pulmonary embolism Code(s): I26.99 - Other pulmonary embolism without acute cor pulmonale Status : Chronic (3) Lung infiltrate on CT Code(s): R91.8 - Other nonspecific abnormal finding of lung field Status: Acute - Attending Attestation ------ NICM PE anemia due to hypotension unable to tolerate STEFAN ARB or BB will add digoxin for chronotropy lifevest sinus tachycardia - compensatory from PE or cardiomyopathy. Corlanor/irvabrine would be a good option for her, but not on [facility] formulary and not generic continue supportive care minimize salt FU with dr. valdez will sign off call with further questions <Ally Malik - Last Filed: 03/17/18 10:44> (2) Pulmonary embolism Qualifiers: Pulmonary embolism type: other Chronicity: chronic Acute cor pulmonale presence: without acute cor pulmonale Qualified Code(s): I27.82 - Chronic pulmonary embolism <Emmanuel Nava - Last Filed: 03/17/18 11:16> (2) Pulmonary embolism Qualifiers: Pulmonary embolism type: other Chronicity: chronic Acute cor pulmonale presence: without acute cor pulmonale Qualified Code(s): I27.82 - Chronic pulmonary embolism
--- NOTE | 2018-03-17 10:43 | ECG ---
Date Performed: 03/16/2018 Time Performed: 13:51:00 PTAGE: 22 years EKG: SINUS TACHYCARDIA NONSPECIFIC ST & T-WAVE ABNORMALITY ABNORMAL RHYTHM ECG NO PREVIOUS TRACING DOCTOR: Cliff Smith Interpretating Date/Time 03/17/2018 10:42:28
--- NOTE | 2018-03-17 10:51 | ECG ---
Date Performed: 03/17/2018 Time Performed: 09:56:32 PTAGE: 22 years EKG: SINUS TACHYCARDIA NONSPECIFIC ST & T-WAVE ABNORMALITY ABNORMAL ECG PREVIOUS TRACING : 03/17/2018 04.03 No significant change from previous tracing noted. DOCTOR: Cliff Smith Interpretating Date/Time 03/17/2018 10:49:19
--- NOTE | 2018-03-17 11:28 | P.PNIM ---
Subjective Interval history: Patient reports she is feeling slightly better today. However she remains tachycardic, hemoglobin dropped to 7.8. Blood pressure slightly better. Physical Exam Vital signs: Vital Signs 03/16/18 12:03 03/16/18 15:51 03/16/18 16:02 Temperature 98.2 F 98.3 F Pulse Rate 133 H 128 H 133 H Respiratory Rate 18 14 Blood Pressure 90/50 L 90/50 L Pulse Oximetry 100 100 03/16/18 16:17 03/16/18 18:33 03/16/18 19:00 Temperature Pulse Rate 72 144 H 145 H Respiratory Rate 18 35 H 51 H Blood Pressure 122/91 H 121/95 H Pulse Oximetry 98 100 03/16/18 19:30 03/16/18 20:00 03/16/18 20:29 Temperature 103.1 F H Pulse Rate 144 H 141 H Respiratory Rate 44 H 45 H 4 L Blood Pressure 119/82 111/74 Pulse Oximetry 100 100 03/16/18 20:30 03/16/18 20:45 03/16/18 21:00 Temperature Pulse Rate 143 H 145 H Respiratory Rate 53 H 32 H Blood Pressure 104/66 110/75 Pulse Oximetry 97 98 100 03/16/18 21:30 03/16/18 22:00 03/16/18 22:22 Temperature Pulse Rate 147 H 141 H Respiratory Rate 26 H 39 H 18 Blood Pressure 117/90 108/73 Pulse Oximetry 100 100 03/16/18 22:30 03/16/18 23:00 03/16/18 23:30 Temperature Pulse Rate 141 H 139 H 120 H Respiratory Rate 43 H 40 H 39 H Blood Pressure 116/79 114/81 97/70 L Pulse Oximetry 100 97 99 03/17/18 00:00 03/17/18 00:30 03/17/18 01:00 Temperature 100.9 F H Pulse Rate 126 H 126 H 126 H Respiratory Rate 46 H 32 H 35 H Blood Pressure 111/78 101/78 102/80 Pulse Oximetry 100 100 100 03/17/18 01:30 03/17/18 02:00 03/17/18 02:30 Temperature 98.0 F Pulse Rate 126 H 126 H 128 H Respiratory Rate 33 H 33 H 35 H Blood Pressure 103/80 105/76 106/77 Pulse Oximetry 100 100 100 03/17/18 03:00 03/17/18 03:30 03/17/18 04:00 Temperature Pulse Rate 126 H 126 H 126 H Respiratory Rate 35 H 37 H 34 H Blood Pressure 105/78 102/77 Pulse Oximetry 100 99 100 03/17/18 04:01 03/17/18 04:30 03/17/18 05:00 Temperature 98.7 F Pulse Rate 126 H 120 H 119 H Respiratory Rate 33 H 29 H 28 H Blood Pressure 114/79 104/68 103/67 Pulse Oximetry 100 100 100 03/17/18 05:30 03/17/18 06:00 03/17/18 06:30 Temperature Pulse Rate 118 H 117 H 118 H Respiratory Rate 28 H 31 H 30 H Blood Pressure 96/61 L 101/59 L 101/61 Pulse Oximetry 99 99 99 03/17/18 07:00 03/17/18 07:30 03/17/18 08:00 Temperature Pulse Rate 126 H 129 H 129 H Respiratory Rate 35 H 35 H 34 H Blood Pressure 105/80 104/73 106/72 Pulse Oximetry 100 100 100 03/17/18 08:30 03/17/18 09:00 03/17/18 09:30 Temperature 98.5 F Pulse Rate 130 H 134 H 130 H Respiratory Rate 30 H 38 H 36 H Blood Pressure 105/74 96/72 L 102/63 Pulse Oximetry 99 100 98 03/17/18 10:00 Temperature Pulse Rate 134 H Respiratory Rate 36 H Blood Pressure 100/63 Pulse Oximetry 99 Intake & Output 03/16/18 03/17/18 03/17/18 18:59 06:59 18:59 Intake Total 500 / 500 2350 / 2350 1468 / 1468 Balance 500 / 500 2350 / 2350 1468 / 1468 Weight 52 kg Intake: IV 500 / 500 2100 / 2100 1468 / 1468 Heparin/D5W 25,000 U/250 mL 25, 150 / 150 000 unit In 250 ml @ 900 UNITS/ HR 9 mls/hr IV.CONT TITRATE PRN Rx#:[id number] NS Inj 1,000 ML @ 100 mls/hr IV 1999 / 1999 263 / 263 .CONT .Q10H KARLEE Rx#:[id number] Maxipime Inj 2,000 MG In NS Inj 100 / 100 100 / 100 100 / 100 100 ML @ 200 mls/hr IV.SIG Q8H K[facility]LEE Rx#:[id number] Venofer Inj 100 MG In NS Inj 105 / 105 100 ML @ 105 mls/hr IV.SIG Q24H K[facility]LEE Rx#:[id number] Vancomycin Inj 1,000 MG In NS 250 / 250 500 / 500 Inj 250 ML @ 200 mls/hr IV.SIG Q12H KARLEE Rx#:[id number] Oral 250 / 250 Other: # Voids 3 Date of Last Bowel Movement 03/16/18 03/16/18 03/16/18 Narrative: GENERAL: Patient is in no acute distress. CARDIOVASCULAR: Rate in the 130s, regular rhythm. There is a 2 out of 6 [place] murmur best heard over the left lower sternal border. RESPIRATORY: Good respiratory efforts. Diffuse rhonchi throughout. GASTROINTESTINAL: Abdomen soft, non-tender, non-distended. Normal active bowel sounds MUSCULOSKELETAL: Extremities without cyanosis, or edema. NEURO: Alert & Oriented x4 to person, place, time, situation. Moves all ext x4 PSYCH: Appropriate mood and affect. Results - Labs CBC & Chem 7: 03/17/18 03:59 03/16/18 14:55 Laboratory Results - last 24 hr 03/16/18 03/16/18 03/16/18 14:55 14:55 17:25 WBC RBC Hgb Hct MCV MCH MCHC RDW Plt Count MPV Sodium 144 Potassium 4.6 Chloride 111 H Carbon Dioxide 21.9 Anion Gap 11 BUN 8 Creatinine 0.65 Estimated GFR Greater than 89 Random Glucose 78 Calcium 9.3 Total Creatine Kinase Troponin I Less than 0.02 L Urine Color Urine Clarity Urine pH Ur Specific [place] Urine Protein Urine Glucose (UA) Urine Ketones Urine Occult Blood Urine Nitrate Urine Bilirubin Urine Urobilinogen Ur Leukocyte Esterase Urine RBC Urine WBC Ur Squamous Epith Cells Urine Mucus Micro UA Comment Urine Culture Comments Nasal Screen MRSA (PCR) Not detected Vancomycin Trough 03/16/18 03/16/18 03/17/18 23:20 23:20 00:00 WBC RBC Hgb Hct MCV MCH MCHC RDW Plt Count MPV Sodium Potassium Chloride Carbon Dioxide Anion Gap BUN Creatinine Estimated GFR Random Glucose Calcium Total Creatine Kinase 21 L Troponin I Less than 0.02 L Urine Color Lisa Urine Clarity Cloudy H Urine pH 5.0 Ur Specific [place] 1.031 Urine Protein 100 H Urine Glucose (UA) Negative Urine Ketones Trace H Urine Occult Blood Small H Urine Nitrate Negative Urine Bilirubin Negative Urine Urobilinogen Less than 2 Ur Leukocyte Esterase Negative Urine RBC 2 Urine WBC 6 H Ur Squamous Epith Cells 37 Urine Mucus Few H Micro UA Comment Culture not ind Urine Culture Comments Culture not ind Nasal Screen MRSA (PCR) Vancomycin Trough 03/17/18 03/17/18 03/17/18 03:59 03:59 08:51 WBC 17.0 H D RBC 3.30 L Hgb 7.9 L Hct 26.4 L MCV 80.2 MCH 23.9 L MCHC 29.8 L RDW 21.3 H Plt Count 719 H MPV 7.1 Sodium Potassium Chloride Carbon Dioxide Anion Gap BUN Creatinine Estimated GFR Random Glucose Calcium Total Creatine Kinase 20 L Troponin I Less than 0.02 L Urine Color Urine Clarity Urine pH Ur Specific [place] Urine Protein Urine Glucose (UA) Urine Ketones Urine Occult Blood Urine Nitrate Urine Bilirubin Urine Urobilinogen Ur Leukocyte Esterase Urine RBC Urine WBC Ur Squamous Epith Cells Urine Mucus Micro UA Comment Urine Culture Comments Nasal Screen MRSA (PCR) Vancomycin Trough 9.8 Microbiology 03/16/18 23:15 Blood - Peripheral Aerobic Blood Culture - Preliminary No growth in 1 day 03/16/18 23:15 Blood - Peripheral Anaerobic Blood Culture - Preliminary No growth in 1 day 03/16/18 23:20 Blood - Peripheral Aerobic Blood Culture - Preliminary No growth in 1 day 03/16/18 23:20 Blood - Peripheral Anaerobic Blood Culture - Preliminary No growth in 1 day 03/15/18 20:25 Blood - Peripheral Aerobic Blood Culture - Preliminary No growth in 2 days 03/15/18 20:25 Blood - Peripheral Anaerobic Blood Culture - Preliminary No growth in 2 days 03/15/18 20:30 Blood - Peripheral Aerobic Blood Culture - Preliminary No growth in 2 days 03/15/18 20:30 Blood - Peripheral Anaerobic Blood Culture - Preliminary No growth in 2 days - Imaging Impressions Chest X-Ray 03/16/18 21:24 CONCLUSION: 1. Marked cardiomegaly suggesting cardiomyopathy. 2. Patchy infiltrates consistent with probable pneumonia and/or pulmonary edema. Clinical correlation is recommended. Assessment and Plan - Assessment (1) Lung infiltrate on CT Code(s): R91.8 - Other nonspecific abnormal finding of lung field Status: Acute Plan: I am concerned about healthcare associated pneumonia. The patient was released from [facility] about 5 days prior to presentation at [facility] and she was reportedly treated for pneumonia. She was given a LifeVest at the time due to severe cardiomyopathy. Continue vancomycin and cefepime. Infectious disease consulted for assistance. Supplemental oxygen and breathing treatment as needed. (2) Cavitary lesion of lung Code(s): J98.4 - Other disorders of lung Status: Acute Plan: Treatment for pneumonia as above. Antibiotics as above. ID consulted (3) Cardiomyopathy Code(s): I42.9 - Cardiomyopathy, unspecified Status: Acute Plan: Severe cardiomyopathy with bedside EF reportedly around 15%. The patient currently has a LifeVest that was put on at [facility] but a week ago. Appreciate cardiology following. Patient started on digoxin. Has not been able to get beta-blockers, or STEFAN inhibitors due to low blood pressure. Lasix and spironolactone on hold as well. (4) Pulmonary embolism Code(s): I26.99 - Other pulmonary embolism without acute cor pulmonale Status : Chronic Plan: Patient has been on Eliquis. Appreciate Hematology input. Continue the same. (5) Hypotension Code(s): I95.9 - Hypotension, unspecified Status: Acute Plan: Hold antihypertensives. She was started on Digoxin. s/p gentle IVF resuscitation. BP better but not optimal yet. (6) Tachycardia Code(s): R00.0 - Tachycardia, unspecified Status: Acute Plan: Could be related to underlying infectious process. Hold off on beta-maricruz. IV fluid as above. Continue to monitor. (7) Iron deficiency anemia Code(s): D50.9 - Iron deficiency anemia, unspecified Status: Chronic Plan: Anemia is worse today. Symptomatic. Appreciate Hematology following. Agree with blood transfusion given severe cardiomyopathy and overall low cardiac and pulmonary reserve Iron infusion per hematology. - Plan Continue care in the ICU. Follow progress. (4) Pulmonary embolism Qualifiers: Pulmonary embolism type: other Chronicity: chronic Acute cor pulmonale presence: without acute cor pulmonale Qualified Code(s): I27.82 - Chronic pulmonary embolism (7) Iron deficiency anemia Qualifiers: Iron deficiency anemia type: unspecified iron deficiency Qualified Code(s): D50.9 - Iron deficiency anemia, unspecified
[2018-03-17] MEDS: Digoxin 250 MCG Tablet PO SCH (11:46)
--- NOTE | 2018-03-17 15:21 | P.CONID ---
History of Present Illness Service: ID Consult date: 03/17/18 Requesting Physician: Shayla Duque Reason for Consult: Evaluation and Mment of Pneumonia and Septic emboli. Primary Care Provider: Neo Vasques Family Provider: Neo Vasques Chief Complaint: Left-sided chest pain. Difficulty breathing. Cough. Fevers and chills. 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 Patient also was found to have bilateral PE and was placed on Eliquis. Her PMHx is also significant for severe pulmonary hypertension, iron deficiency anemia, and recurrent pulmonary embolism. The patient reports she was diagnosed and treated with pneumonia at [facility]. She was discharged 5 days ago. She was given a LifeVest during her hospitalization at [facility]. She presented to [facility] due to chest pain involving the left side. She also endorsed coughing and increased heart rate. Workup in the emergency room revealed pulmonary embolus and bilateral infiltrates with left cavitary lesion. Patient reports cough with clear sputum and blood tinged sputum. Repeat Echo reportedly performed at bedside showed EF of 15%. Patient is undergoing workup for sepsis and cavitary pneumonia. Patient reports a sick contact her best friend. She reports working at [employer] and [employer]. Denies any exposure to patients with tuberculosis Denies any intravenous drug abuse although admits to using marijuana Patient's best friend who is a girl has had recent pneumonia. ID consulted for evaluation and management of sepsis and cavitating pneumonia Review of Systems All other systems reviewed negative except as stated in HPI PMFSH - History History Provided By: Patient - Medical History Medical History: Medical History (Last Updated 03/16/18 @ 19:12 by Juan Hughes MD) cardiomyopathy in first trimester with history of Pulmonary emboli - Family History Family History: Family History (Last Updated 03/16/18 @ 19:12 by Juan Hughes MD) Other Hypothyroidism - Tobacco History Second Hand Smoke Exposure: Yes Tobacco Use In Past 30 Days: Yes Smoking Status: Never smoker (Smokes marijuana) - Alcohol History How Often Do You Have a Drink Containing Alcohol: Never - Substance Use History Substance History: Active Abuse - Substance Use Type Marijuana Status: Active Route Used: Inhalation Frequency: 3- 4 JOINTS 3-4 X WEEK Reason for Use: Calm Down, Feels Good, Get High - Travel History Recent Travel in the [place] Within the Last 8 Weeks: No Recent Travel Out of the Country Within the Last 8 Weeks: No - Immunization History Tetanus Immunization: Unsure Medications and Allergies Active Medications: Active Medications Hydrocodone Bitart/Acetaminophen ([place] 5/325) 1 tab PO Q4H PRN PRN Reason: PAIN SCALE 6 TO 10 Al Hydroxide/Mg Hydroxide (Milk Of Magnjosey Liq) 30 ml PO Q12H PRN PRN Reason: Mild Constipation Albuterol (Albuterol Neb (Ruma)) 2.5 mg NEB Q6HR NEB [facility] Last Admin: 03/16/18 16:16 Dose: 2.5 mg Apixaban (Eliquis) 5 mg PO BID [facility] Last Admin: 03/17/18 08:50 Dose: 5 mg Bisacodyl (Dulcolax Supp) 10 mg RECTAL DAILY PRN PRN Reason: SEVERE CONSITIPATION Chlorhexidine Gluconate (Chlorhexidine 2% Cloth) 3 pack TOPICAL DAILY@0400 [facility] Stop: 03/22/18 03:59 Last Admin: 03/17/18 05:16 Dose: 3 pack Chlorhexidine Gluconate (Chlorhexidine 2% Cloth) 3 pack TOPICAL DAILY@0400 PRN PRN Reason: Extra cloth needed Stop: 03/22/18 03:59 Digoxin (Lanoxin) 250 mcg PO DAILY [facility] Last Admin: 03/17/18 11:46 Dose: 250 mcg Cefepime HCl 2,000 mg/ Sodium (Chloride) 100 mls @ 200 mls/hr IV.SIG Q8H [facility] Last Admin: 03/17/18 13:18 Dose: 200 mls/hr Pharmacy Profile Note (Vancomycin Consult Pharmacy) 0 mls @ 0 mls/hr OTHER UNSCH [facility] Iron Sucrose 100 mg/ Sodium (Chloride) 105 mls @ 105 mls/hr IV.SIG Q24H [facility] Stop: 03/18/18 20:59 Last Infusion: 03/17/18 07:25 Dose: Infused Sodium Chloride (Ns Inj) 250 mls @ 15 mls/hr IV.SIG ONCE [facility] Stop: 03/18/18 02:39 Vancomycin HCl 1,000 mg/ (Sodium Chloride) 250 mls @ 200 mls/hr IV.SIG Q8H [facility] Ipratropium [place] (Atrovent Neb) 0.5 mg NEB Q4HR NEB PRN PRN Reason: sob Lactulose (Lactulose Liq) 30 ml PO DAILY PRN PRN Reason: SEVERE CONSITIPATION Miscellaneous Information ([facility] Ordered Lab Info) 0 each OTHER ONCE ONE Stop: 03/18/18 12:46 Sennosides (Senokot) 17.2 mg PO Q12H PRN PRN Reason: Moderate Constipation Sodium Chloride (Ns Flush) 2 ml IV.FLUSH UNSCH PRN PRN Reason: FLUSH AFTER USING IV ACCESS Last Admin: 03/17/18 08:50 Dose: 2 ml Temazepam (Restoril) 15 mg PO HS PRN PRN Reason: INSOMNIA Last Admin: 03/16/18 00:10 Dose: 15 mg Allergies Allergy/AdvReac Type Severity Reaction Status Date / Time No Known Allergies Allergy Unverified 03/15/18 18:05 Home Medications Medication Instructions Recorded Confirmed Type apixaban [Eliquis] 2.5 mg PO BID 03/15/18 03/15/18 History carvedilol 3.125 mg PO BID 03/15/18 03/15/18 History cefdinir 300 mg PO Q12H 03/15/18 03/15/18 History furosemide [Lasix] 40 mg PO DAILY 03/15/18 03/15/18 History spironolactone 25 mg PO BID 03/15/18 03/15/18 History Exam Vital signs: Vital Signs 03/16/18 15:51 03/16/18 16:02 03/16/18 16:17 Temperature 98.3 F Pulse Rate 128 H 133 H 72 Respiratory Rate 14 18 Blood Pressure 90/50 L Pulse Oximetry 100 03/16/18 18:33 03/16/18 19:00 03/16/18 19:30 Temperature Pulse Rate 144 H 145 H 144 H Respiratory Rate 35 H 51 H 44 H Blood Pressure 122/91 H 121/95 H 119/82 Pulse Oximetry 98 100 100 03/16/18 20:00 03/16/18 20:29 03/16/18 20:30 Temperature 103.1 F H Pulse Rate 141 H 143 H Respiratory Rate 45 H 4 L 53 H Blood Pressure 111/74 104/66 Pulse Oximetry 100 97 03/16/18 20:45 03/16/18 21:00 03/16/18 21:30 Temperature Pulse Rate 145 H 147 H Respiratory Rate 32 H 26 H Blood Pressure 110/75 117/90 Pulse Oximetry 98 100 100 03/16/18 22:00 03/16/18 22:22 03/16/18 22:30 Temperature Pulse Rate 141 H 141 H Respiratory Rate 39 H 18 43 H Blood Pressure 108/73 116/79 Pulse Oximetry 100 100 03/16/18 23:00 03/16/18 23:30 03/17/18 00:00 Temperature 100.9 F H Pulse Rate 139 H 120 H 126 H Respiratory Rate 40 H 39 H 46 H Blood Pressure 114/81 97/70 L 111/78 Pulse Oximetry 97 99 100 03/17/18 00:30 03/17/18 01:00 03/17/18 01:30 Temperature Pulse Rate 126 H 126 H 126 H Respiratory Rate 32 H 35 H 33 H Blood Pressure 101/78 102/80 103/80 Pulse Oximetry 100 100 100 03/17/18 02:00 03/17/18 02:30 03/17/18 03:00 Temperature 98.0 F Pulse Rate 126 H 128 H 126 H Respiratory Rate 33 H 35 H 35 H Blood Pressure 105/76 106/77 105/78 Pulse Oximetry 100 100 100 03/17/18 03:30 03/17/18 04:00 03/17/18 04:01 Temperature Pulse Rate 126 H 126 H 126 H Respiratory Rate 37 H 34 H 33 H Blood Pressure 102/77 114/79 Pulse Oximetry 99 100 100 03/17/18 04:30 03/17/18 05:00 03/17/18 05:30 Temperature 98.7 F Pulse Rate 120 H 119 H 118 H Respiratory Rate 29 H 28 H 28 H Blood Pressure 104/68 103/67 96/61 L Pulse Oximetry 100 100 99 03/17/18 06:00 03/17/18 06:30 03/17/18 07:00 Temperature Pulse Rate 117 H 118 H 126 H Respiratory Rate 31 H 30 H 35 H Blood Pressure 101/59 L 101/61 105/80 Pulse Oximetry 99 99 100 03/17/18 07:30 03/17/18 08:00 03/17/18 08:30 Temperature 98.5 F Pulse Rate 129 H 129 H 130 H Respiratory Rate 35 H 34 H 30 H Blood Pressure 104/73 106/72 105/74 Pulse Oximetry 100 100 99 03/17/18 09:00 07/07/18 09:30 03/17/18 10:00 Temperature Pulse Rate 134 H 130 H 134 H Respiratory Rate 38 H 36 H 36 H Blood Pressure 96/72 L 102/63 100/63 Pulse Oximetry 100 98 99 03/17/18 10:30 03/17/18 11:00 03/17/18 11:30 Temperature Pulse Rate 140 H 138 H 142 H Respiratory Rate 43 H 32 H 27 H Blood Pressure 105/76 104/70 103/79 Pulse Oximetry 100 100 99 03/17/18 12:00 03/17/18 12:12 03/17/18 13:00 Temperature 101.3 F H Pulse Rate 153 H 138 H 138 H Respiratory Rate 51 H 41 H 9 L Blood Pressure 109/61 Pulse Oximetry 100 100 98 03/17/18 14:00 Temperature Pulse Rate 135 H Respiratory Rate 3 L Blood Pressure Pulse Oximetry 99 Intake & Output 03/16/18 03/17/18 03/17/18 18:59 06:59 18:59 Intake Total 500 / 500 2350 / 2350 1468 / 1468 Output Total 200 / 200 Balance 500 / 500 2350 / 2350 1268 / 1268 Weight 52 kg Intake: IV 500 / 500 2100 / 2100 1468 / 1468 Heparin/D5W 25,000 U/250 mL 25, 150 / 150 000 unit In 250 ml @ 900 UNITS/ HR 9 mls/hr IV.CONT TITRATE PRN Rx#:[id number] NS Inj 1,000 ML @ 100 mls/hr IV 1999 / 1999 263 / 263 .CONT .Q10H RUMA Rx#:[id number] Maxipime Inj 2,000 MG In NS Inj 100 / 100 100 / 100 100 / 100 100 ML @ 200 mls/hr IV.SIG Q8H RUMA Rx#:[id number] Venofer Inj 100 MG In NS Inj 105 / 105 100 ML @ 105 mls/hr IV.SIG Q24H RUMA Rx#:[id number] Vancomycin Inj 1,000 MG In NS 250 / 250 500 / 500 Inj 250 ML @ 200 mls/hr IV.SIG Q12H RUMA Rx#:[id number] Oral 250 / 250 Output: Urine 200 / 200 Other: # Voids 3 Date of Last Bowel Movement 03/16/18 03/16/18 03/16/18 Narrative: GENERAL: Well-nourished well-developed, not in acute distress SKIN: Cool and dry, no generalized rash HEAD: Atraumatic. Normocephalic. No temporal or scalp tenderness. EYES: Pupils equal round and reactive. Scleral icterus. No injection or drainage. No petechia ENT: Nothing abnormal detected NECK: Trachea midline. Supple, nontender, no meningeal signs. CARDIOVASCULAR: HS audible. RESPIRATORY: Decreased air entry bilaterally. Occasional crepitations in the bases especially on the left side. GASTROINTESTINAL: Abdomen soft nontender. MUSCULOSKELETAL: Extremities without clubbing, cyanosis. NEUROLOGICAL: Alert oriented 3. Nonfocal. Psych cooperative IV line sites ok. Results - Labs CBC & Chem 7: 03/17/18 15:50 03/16/18 14:55 Labs: Laboratory Results - last 24 hr 03/16/18 03/16/18 03/16/18 14:55 14:55 17:25 WBC RBC Hgb Hct MCV MCH MCHC RDW Plt Count MPV Sodium 144 Potassium 4.6 Chloride 111 H Carbon Dioxide 21.9 Anion Gap 11 BUN 8 Creatinine 0.65 Estimated GFR Greater than 89 Random Glucose 78 Calcium 9.3 Total Creatine Kinase Troponin I Less than 0.02 L Urine Color Urine Clarity Urine pH Ur Specific [place] Urine Protein Urine Glucose (UA) Urine Ketones Urine Occult Blood Urine Nitrate Urine Bilirubin Urine Urobilinogen Ur Leukocyte Esterase Urine RBC Urine WBC Ur Squamous Epith Cells Urine Mucus Micro UA Comment Urine Culture Comments Nasal Screen MRSA (PCR) Not detected Vancomycin Trough MTS Gel Crossmatch 03/16/18 03/16/18 03/17/18 23:20 23:20 00:00 WBC RBC Hgb Hct MCV MCH MCHC RDW Plt Count MPV Sodium Potassium Chloride Carbon Dioxide Anion Gap BUN Creatinine Estimated GFR Random Glucose Calcium Total Creatine Kinase 21 L Troponin I Less than 0.02 L Urine Color Lisa Urine Clarity Cloudy H Urine pH 5.0 Ur Specific [place] 1.031 Urine Protein 100 H Urine Glucose (UA) Negative Urine Ketones Trace H Urine Occult Blood Small H Urine Nitrate Negative Urine Bilirubin Negative Urine Urobilinogen Less than 2 Ur Leukocyte Esterase Negative Urine RBC 2 Urine WBC 6 H Ur Squamous Epith Cells 37 Urine Mucus Few H Micro UA Comment Culture not ind Urine Culture Comments Culture not ind Nasal Screen MRSA (PCR) Vancomycin Trough MTS Gel Crossmatch 03/17/18 03/17/18 03/17/18 03:59 03:59 08:51 WBC 17.0 H D RBC 3.30 L Hgb 7.9 L Hct 26.4 L MCV 80.2 MCH 23.9 L MCHC 29.8 L RDW 21.3 H Plt Count 719 H MPV 7.1 Sodium Potassium Chloride Carbon Dioxide Anion Gap BUN Creatinine Estimated GFR Random Glucose Calcium Total Creatine Kinase 20 L Troponin I Less than 0.02 L Urine Color Urine Clarity Urine pH Ur Specific [place] Urine Protein Urine Glucose (UA) Urine Ketones Urine Occult Blood Urine Nitrate Urine Bilirubin Urine Urobilinogen Ur Leukocyte Esterase Urine RBC Urine WBC Ur Squamous Epith Cells Urine Mucus Micro UA Comment Urine Culture Comments Nasal Screen MRSA (PCR) Vancomycin Trough 9.8 MTS Gel Crossmatch 03/17/18 13:40 WBC RBC Hgb Hct MCV MCH MCHC RDW Plt Count MPV Sodium Potassium Chloride Carbon Dioxide Anion Gap BUN Creatinine Estimated GFR Random Glucose Calcium Total Creatine Kinase Troponin I Urine Color Urine Clarity Urine pH Ur Specific [place] Urine Protein Urine Glucose (UA) Urine Ketones Urine Occult Blood Urine Nitrate Urine Bilirubin Urine Urobilinogen Ur Leukocyte Esterase Urine RBC Urine WBC Ur Squamous Epith Cells Urine Mucus Micro UA Comment Urine Culture Comments Nasal Screen MRSA (PCR) Vancomycin Trough MTS Gel Crossmatch See Detail - Imaging Impressions Chest X-Ray 03/16/18 21:24 CONCLUSION: 1. Marked cardiomegaly suggesting cardiomyopathy. 2. Patchy infiltrates consistent with probable pneumonia and/or pulmonary edema. Clinical correlation is recommended. Assessment and Plan - Plan Lung infiltrates with cavity DDx: Community acquired pneumonia with cavities Septic Emboli related cavities. Pulm embolism on treatment 6 months post Cardiomyopathy with severe TR, moderate MR. On Life Vest Recs Continue cefepime IV Continue vancomycin IV target trough 15-20 Start Levaquin for atypical pneumonia. Follow QuantiFERON gold TB Check legionella urine antigen Check pneumococcal urinary antigen Due to multiple PE is as well as cavitary lesions concern for Autoimmune processes (will start basic workup) Patient adamantly denies IV drug abuse. Fungal workup sent. Sputum culture and gram stain Sputum AFB stain and Culture. Follow cultures Follow clinically Discussed with RN Discussed with patient
[2018-03-17 15:24] LABS: Creatine Kinase 29 U/L (26-192)
[2018-03-17 16:36] LABS: Hematocrit 26.7 % (35.0-46.0); Hemoglobin 8.2 gm/dL (11.6-15.3)
[2018-03-17] MEDS ORDERED: Acetaminophen 325 MG Tablet PO PRN (17:10)
[2018-03-17] MEDS: levoFLOXacin 500 MG Tablet PO SCH (19:10)
[2018-03-17] MEDS: Iron Sucrose Inj 100 MG in Sodium Chlor 0.9% Inj 100 ML IV.SIG SCH (20:03)
[2018-03-17 23:21] LABS: Hepatitis A IgM Antibody Nonreactive (Nonreactive); Hepatitits B Surface Antigen Nonreactive (Nonreactive)
[2018-03-18] MEDS: Vancomycin Inj 1,000 MG in Sodium Chlor 0.9% Inj 250 ML IV.SIG SCH ×3 (00:51→16:53)
[2018-03-18 05:38] LABS: Hematocrit 28.6 % (35.0-46.0); Mean Corpuscular HGB Conc 31.5 % (32.0-36.0); Mean Corpuscular Hemoglobin 24.9 pg (27.0-34.0); Mean Corpuscular Volume 79.1 fL (80.0-100.0); Mean Platelet Volume 7.3 fL (7.0-11.0); Platelet Count 601 th/mm3 (150-450); Red Blood Count 3.61 mil/mm3 (4.00-5.30); Red Cell Distribution Width 20.8 % (11.6-17.2); White Blood Count 11.9 th/mm3 (4.0-11.0)
[2018-03-18] MEDS: Chlorhexidine Gluconate 2% 1 Pack (2 Cloths) TOPICAL SCH (05:55)
[2018-03-18 06:00] LABS: Anion Gap 10 meq/L (5-15); Blood Urea Nitrogen 10 mg/dL (7-18); Calcium 8.3 mg/dL (8.5-10.1); Carbon Dioxide 23.7 meq/L (21.0-32.0); Chloride 106 meq/L (98-107); Glomerular Filtration Rate Greater Than 89 mL/min (>89); Glucose,Random 81 mg/dL (74-106); Potassium 3.6 meq/L (3.5-5.1); Sodium 140 meq/L (136-145)
--- NOTE | 2018-03-18 08:22 | P.PNONC ---
Subjective Interval history: Patient had temperature 101.7 yesterday afternoon Reports overall she is feeling better since blood transfusion Chest pain is improved Heart rate improved as well Objective Vital Signs/Intake & Output: Vital Signs 03/17/18 08:30 03/17/18 09:00 03/17/18 09:30 Temperature 98.5 F Pulse Rate 130 H 134 H 130 H Respiratory Rate 30 H 38 H 36 H Blood Pressure 105/74 96/72 L 102/63 Pulse Oximetry 99 100 98 03/17/18 10:00 03/17/18 10:30 03/17/18 11:00 Temperature Pulse Rate 134 H 140 H 138 H Respiratory Rate 36 H 43 H 32 H Blood Pressure 100/63 105/76 104/70 Pulse Oximetry 99 100 100 03/17/18 11:30 03/17/18 12:00 03/17/18 12:12 Temperature Pulse Rate 142 H 153 H 138 H Respiratory Rate 27 H 51 H 41 H Blood Pressure 103/79 109/61 Pulse Oximetry 99 100 100 03/17/18 13:00 03/17/18 14:00 03/17/18 15:00 Temperature 101.3 F H Pulse Rate 138 H 135 H 132 H Respiratory Rate 9 L 3 L 29 H Blood Pressure Pulse Oximetry 98 99 03/17/18 16:00 03/17/18 16:04 03/17/18 17:00 Temperature 101.7 F H Pulse Rate 141 H 133 H 127 H Respiratory Rate 45 H 34 H 42 H Blood Pressure 92/67 L Pulse Oximetry 100 100 03/17/18 18:00 03/17/18 19:00 03/17/18 20:00 Temperature Pulse Rate 132 H 125 H 128 H Respiratory Rate 41 H 39 H 38 H Blood Pressure 109/72 Pulse Oximetry 100 100 99 03/17/18 21:00 03/17/18 22:00 03/17/18 22:06 Temperature 98.5 F Pulse Rate 133 H 130 H 130 H Respiratory Rate 35 H 41 H 15 Blood Pressure 109/72 Pulse Oximetry 100 97 100 03/17/18 22:07 03/17/18 22:22 03/17/18 22:23 Temperature 99.1 F Pulse Rate 130 H 128 H 128 H Respiratory Rate 29 H 27 H 31 H Blood Pressure 109/72 102/68 102/68 Pulse Oximetry 100 100 99 03/17/18 23:00 03/18/18 00:00 03/18/18 01:00 Temperature 99.1 F Pulse Rate 130 H 129 H 128 H Respiratory Rate 40 H 26 H 35 H Blood Pressure 110/79 106/76 111/81 Pulse Oximetry 100 98 100 03/18/18 02:00 03/18/18 03:00 03/18/18 04:00 Temperature Pulse Rate 134 H 113 H 126 H Respiratory Rate 37 H 29 H 28 H Blood Pressure 100/79 126/76 Pulse Oximetry 100 99 100 03/18/18 04:01 03/18/18 05:00 03/18/18 06:00 Temperature 99.4 F Pulse Rate 125 H 110 H 106 H Respiratory Rate 29 H 26 H 33 H Blood Pressure 119/86 112/76 115/75 Pulse Oximetry 100 99 98 Intake & Output 03/17/18 03/18/18 03/18/18 18:59 06:59 18:59 Intake Total 2618 / 2618 1205 / 1205 100 / 100 Output Total 1300 / 1300 1300 / 1300 Balance 1318 / 1318 -95 / -95 100 / 100 Weight 121 lb 4.068 oz Intake: IV 1818 / 1818 455 / 455 100 / 100 NS Inj 1,000 ML @ 100 mls/hr IV 263 / 263 .CONT .Q10H RUMA Rx#:[id number] Maxipime Inj 2,000 MG In NS Inj 200 / 200 100 / 100 100 / 100 100 ML @ 200 mls/hr IV.SIG Q8H RUMA Rx#:[id number] Venofer Inj 100 MG In NS Inj 105 / 105 105 / 105 100 ML @ 105 mls/hr IV.SIG Q24H RUMA Rx#:[id number] Vancomycin Inj 1,000 MG In NS 750 / 750 250 / 250 Inj 250 ML @ 200 mls/hr IV.SIG Q8H RUMA Rx#:[id number] Oral 800 / 800 350 / 350 Intake (Blood Product) Amt 400 / 400 Rbc As-3 Leukoreduced Unit 400 / 400 [id number] Output: Urine 1300 / 1300 1300 / 1300 Other: Date of Last Bowel Movement 03/16/18 03/16/18 Result Diagrams: 03/18/18 05:04 03/18/18 05:04 Laboratory Results: Laboratory Results - last 24 hr 03/17/18 03/17/18 03/17/18 08:51 13:40 13:40 WBC RBC Hgb Hct MCV MCH MCHC RDW Plt Count MPV Sodium Potassium Chloride Carbon Dioxide Anion Gap BUN Creatinine Estimated GFR Random Glucose Calcium Total Creatine Kinase 29 Troponin I Less than 0.02 L C-Reactive Protein Vancomycin Trough 9.8 Hepatitis A IgM Ab Hep Bs Antigen Hep B Core IgM Ab Hep C IgG Ab Blood Type B Positive Antibody Screen Positive H Ab Screen Tube Method Positive H Prewarmed Antibody Srcn Positive H Antibody Identification Direct Antiglob Test Negative MTS Gel Crossmatch See Detail Crossmatch Prewarmed See Detail Bld Prod Order Comment 03/17/18 03/17/18 03/17/18 13:40 15:50 17:58 WBC RBC Hgb 8.2 L Hct 26.7 L MCV MCH MCHC RDW Plt Count MPV Sodium Potassium Chloride Carbon Dioxide Anion Gap BUN Creatinine Estimated GFR Random Glucose Calcium Total Creatine Kinase Troponin I C-Reactive Protein 15.00 H Vancomycin Trough Hepatitis A IgM Ab Hep Bs Antigen Hep B Core IgM Ab Hep C IgG Ab Blood Type B Positive Antibody Screen Ab Screen Tube Method Prewarmed Antibody Srcn Positive H Antibody Identification Direct Antiglob Test MTS Gel Crossmatch Crossmatch Prewarmed Bld Prod Order Comment 03/17/18 03/17/18 03/18/18 18:04 20:43 05:04 WBC 11.9 H RBC 3.61 L Hgb 9.0 L Hct 28.6 L MCV 79.1 L MCH 24.9 L MCHC 31.5 L RDW 20.8 H Plt Count 601 H MPV 7.3 Sodium Potassium Chloride Carbon Dioxide Anion Gap BUN Creatinine Estimated GFR Random Glucose Calcium Total Creatine Kinase Troponin I C-Reactive Protein Vancomycin Trough Hepatitis A IgM Ab Nonreactive Hep Bs Antigen Nonreactive Hep B Core IgM Ab Nonreactive Hep C IgG Ab Nonreactive Blood Type Antibody Screen Ab Screen Tube Method Prewarmed Antibody Srcn Antibody Identification Strong Non-Specific Cold Agg Direct Antiglob Test MTS Gel Crossmatch Crossmatch Prewarmed Bld Prod Order Comment 03/18/18 05:04 WBC RBC Hgb Hct MCV MCH MCHC RDW Plt Count MPV Sodium 140 Potassium 3.6 D Chloride 106 Carbon Dioxide 23.7 Anion Gap 10 BUN 10 Creatinine 0.56 Estimated GFR Greater than 89 Random Glucose 81 Calcium 8.3 L D Total Creatine Kinase Troponin I C-Reactive Protein Vancomycin Trough Hepatitis A IgM Ab Hep Bs Antigen Hep B Core IgM Ab Hep C IgG Ab Blood Type Antibody Screen Ab Screen Tube Method Prewarmed Antibody Srcn Antibody Identification Direct Antiglob Test MTS Gel Crossmatch Crossmatch Prewarmed Bld Prod Order Comment Culture Results: Microbiology 03/16/18 23:15 Aerobic Blood Culture - Preliminary Blood - Peripheral No growth in 1 day Anaerobic Blood Culture - Preliminary No growth in 1 day 03/16/18 23:20 Aerobic Blood Culture - Preliminary Blood - Peripheral No growth in 1 day Anaerobic Blood Culture - Preliminary No growth in 1 day 03/15/18 20:25 Aerobic Blood Culture - Preliminary Blood - Peripheral No growth in 2 days Anaerobic Blood Culture - Preliminary No growth in 2 days 03/15/18 20:30 Aerobic Blood Culture - Preliminary Blood - Peripheral No growth in 2 days Anaerobic Blood Culture - Preliminary No growth in 2 days Medications: Active Medications Generic Name Dose Route Start Last Admin Trade Name Freq PRN Reason Stop Dose Admin Hydrocodone Bitart/Acetaminophen 1 tab 03/17/18 08:49 03/18/18 00:51 [place] 5/325 PO 1 tab Q4H PRN Administration PAIN SCALE 6 TO 10 Albuterol 2.5 mg 03/16/18 16:00 03/16/18 16:16 Albuterol Neb (Ruma) NEB 2.5 mg Q6HR NEB RUMA Administration Apixaban 5 mg 03/16/18 21:00 03/17/18 20:44 Eliquis PO 5 mg BID RUMA Administration Chlorhexidine Gluconate 3 pack 03/17/18 04:00 03/18/18 05:55 Chlorhexidine 2% Cloth TOPICAL 03/22/18 03:59 3 pack DAILY@0400 RUMA Administration Digoxin 250 mcg 03/17/18 10:45 03/17/18 11:46 Lanoxin PO 250 mcg DAILY RUMA Administration Cefepime HCl 2,000 mg/ Sodium 100 mls @ 200 mls/hr 03/16/18 05:00 03/18/18 07 :43 Chloride IV.SIG Infused Q8H RUMA Infusion Iron Sucrose 100 mg/ Sodium 105 mls @ 105 mls/hr 03/16/18 20:00 03/18/18 03: 35 Chloride IV.SIG 03/18/18 20:59 Infused Q24H RUMA Infusion Vancomycin HCl 1,000 mg/ 250 mls @ 200 mls/hr 03/17/18 17:00 03/18/18 03:35 Sodium Chloride IV.SIG Infused Q8H RUMA Infusion Levofloxacin 500 mg 03/17/18 18:00 03/17/18 19:10 Levaquin PO 500 mg DAILY RUMA Administration Sodium Chloride 2 ml 03/15/18 17:22 03/17/18 08:50 Ns Flush IV.FLUSH 2 ml UNSCH PRN Administration FLUSH AFTER USING IV ACCESS Temazepam 15 mg 03/15/18 21:22 03/16/18 00:10 Restoril PO 15 mg HS PRN Administration INSOMNIA Objective Remarks: GENERAL: Young female resting in bed asleep on approach. She wakens easily to verbal stimuli. SKIN: Warm and moist. No oozing from lines HEAD: Normocephalic. EYES: No scleral icterus. No injection or drainage. NECK: Supple, trachea midline. No JVD or lymphadenopathy. CARDIOVASCULAR: Tachycardia with heart rate in 110s. LifeVest in place. RESPIRATORY: Breath sounds equal bilaterally. No accessory muscle use. GASTROINTESTINAL: Abdomen soft, non-tender, nondistended. EXTREMITIES: No cyanosis, or edema. MUSCULOSKELETAL: Adequate muscle tone. NEUROLOGICAL: No obvious focal deficit. Awake, alert, and oriented x3. Assessment/Plan - Plan Hx/Workup: Patient is a 22-year-old female who delivered a baby mid September of this year. In November she developed a pulmonary embolism with severe cardiomyopathy that was felt to be related to being . Patient had a repeat CTA in December that did not show any pulmonary embolism and unfortunately the patient self discontinued her anticoagulation. She again presents now with significant shortness of breath. CTA shows persistent pulmonary embolism. Echocardiogram this admission shows ejection fraction estimated in the range of 20-25%. 1. Patient improved after packed red blood cell transfusion yesterday. Heart rate down from the 130s at rest prior to transfusion to the 110s at rest. 2. Continue for total of 3 doses of iron sucrose IV. 3. Continue apixaban 5 mg twice daily for pulmonary embolism. 4. CBC in a.m. 5. Stool for occult blood ordered. - Attending Statement The exam, history, and the medical decision-making described in the above note were completed with the assistance of the mid-level provider. I reviewed and agree with the findings presented. I attest that I had a [id number] encounter with the patient on the same day, and personally performed and documented my assessment and findings in the medical record. Patient is feeling better. Her chest pain is improved. Her shortness of breath also has improved. Hemoglobin trended up to 9 after transfusion. Stool occult blood test pending. She will continue Eliquis. Continue monitor CBC.
[2018-03-18] MEDS: Digoxin 250 MCG Tablet PO SCH (08:46)
[2018-03-18] MEDS: levoFLOXacin 500 MG Tablet PO SCH (08:46)
--- NOTE | 2018-03-18 10:02 | P.PNIM ---
Subjective Interval history: Patient reports she is feeling much better today. Chest pain has resolved. Still tachycardic. However blood pressure is normal. Physical Exam Vital signs: Vital Signs 03/17/18 10:00 03/17/18 10:30 03/17/18 11:00 Temperature Pulse Rate 134 H 140 H 138 H Respiratory Rate 36 H 43 H 32 H Blood Pressure 100/63 105/76 104/70 Pulse Oximetry 99 100 100 03/17/18 11:30 03/17/18 12:00 03/17/18 12:12 Temperature Pulse Rate 142 H 153 H 138 H Respiratory Rate 27 H 51 H 41 H Blood Pressure 103/79 109/61 Pulse Oximetry 99 100 100 03/17/18 13:00 03/17/18 14:00 03/17/18 15:00 Temperature 101.3 F H Pulse Rate 138 H 135 H 132 H Respiratory Rate 9 L 3 L 29 H Blood Pressure Pulse Oximetry 98 99 03/17/18 16:00 03/17/18 16:04 03/17/18 17:00 Temperature 101.7 F H Pulse Rate 141 H 133 H 127 H Respiratory Rate 45 H 34 H 42 H Blood Pressure 92/67 L Pulse Oximetry 100 100 03/17/18 18:00 03/17/18 19:00 03/17/18 20:00 Temperature Pulse Rate 132 H 125 H 128 H Respiratory Rate 41 H 39 H 38 H Blood Pressure 109/72 Pulse Oximetry 100 100 99 03/17/18 21:00 03/17/18 22:00 03/17/18 22:06 Temperature 98.5 F Pulse Rate 133 H 130 H 130 H Respiratory Rate 35 H 41 H 15 Blood Pressure 109/72 Pulse Oximetry 100 97 100 03/17/18 22:07 03/17/18 22:22 03/17/18 22:23 Temperature 99.1 F Pulse Rate 130 H 128 H 128 H Respiratory Rate 29 H 27 H 31 H Blood Pressure 109/72 102/68 102/68 Pulse Oximetry 100 100 99 03/17/18 23:00 03/18/18 00:00 03/18/18 01:00 Temperature 99.1 F Pulse Rate 130 H 129 H 128 H Respiratory Rate 40 H 26 H 35 H Blood Pressure 110/79 106/76 111/81 Pulse Oximetry 100 98 100 03/18/18 02:00 03/18/18 03:00 03/18/18 04:00 Temperature Pulse Rate 134 H 113 H 126 H Respiratory Rate 37 H 29 H 28 H Blood Pressure 100/79 126/76 Pulse Oximetry 100 99 100 03/18/18 04:01 03/18/18 05:00 03/18/18 06:00 Temperature 99.4 F Pulse Rate 125 H 110 H 106 H Respiratory Rate 29 H 26 H 33 H Blood Pressure 119/86 112/76 115/75 Pulse Oximetry 100 99 98 Intake & Output 03/17/18 03/18/18 03/18/18 18:59 06:59 18:59 Intake Total 2618 / 2618 1205 / 1205 100 / 100 Output Total 1300 / 1300 1300 / 1300 Balance 1318 / 1318 -95 / -95 100 / 100 Weight 55 kg Intake: IV 1818 / 1818 455 / 455 100 / 100 NS Inj 1,000 ML @ 100 mls/hr IV 263 / 263 .CONT .Q10H [facility] Rx#:[id number] Maxipime Inj 2,000 MG In NS Inj 200 / 200 100 / 100 100 / 100 100 ML @ 200 mls/hr IV.SIG Q8H [facility] Rx#:[id number] Venofer Inj 100 MG In NS Inj 105 / 105 105 / 105 100 ML @ 105 mls/hr IV.SIG Q24H [facility] Rx#:[id number] Vancomycin Inj 1,000 MG In NS 750 / 750 250 / 250 Inj 250 ML @ 200 mls/hr IV.SIG Q8H [facility] Rx#:[id number] Oral 800 / 800 350 / 350 Intake (Blood Product) Amt 400 / 400 Rbc As-3 Leukoreduced Unit 400 / 400 [id number] Output: Urine 1300 / 1300 1300 / 1300 Other: Date of Last Bowel Movement 03/16/18 03/16/18 Narrative: GENERAL: Patient is in no acute distress. CARDIOVASCULAR: Rate in the 120s, regular rhythm. There is a 2 out of 6 [place] murmur best heard over the left lower sternal border. RESPIRATORY: Good respiratory efforts. Faint rhonchi throughout. GASTROINTESTINAL: Abdomen soft, non-tender, non-distended. Normal active bowel sounds MUSCULOSKELETAL: Extremities without cyanosis, or edema. NEURO: Alert & Oriented x4 to person, place, time, situation. Moves all ext x4 PSYCH: Appropriate mood and affect. Results - Labs CBC & Chem 7: 07/08/18 05:04 03/18/18 05:04 Laboratory Results - last 24 hr 03/17/18 03/17/18 03/17/18 13:40 13:40 13:40 WBC RBC Hgb Hct MCV MCH MCHC RDW Plt Count MPV Sodium Potassium Chloride Carbon Dioxide Anion Gap BUN Creatinine Estimated GFR Random Glucose Calcium Total Creatine Kinase 29 Troponin I Less than 0.02 L C-Reactive Protein 15.00 H Hepatitis A IgM Ab Hep Bs Antigen Hep B Core IgM Ab Hep C IgG Ab Blood Type B Positive Antibody Screen Positive H Ab Screen Tube Method Positive H Prewarmed Antibody Srcn Positive H Antibody Identification Direct Antiglob Test Negative MTS Gel Crossmatch See Detail Crossmatch Prewarmed See Detail Bld Prod Order Comment 03/17/18 03/17/18 03/17/18 15:50 17:58 18:04 WBC RBC Hgb 8.2 L Hct 26.7 L MCV MCH MCHC RDW Plt Count MPV Sodium Potassium Chloride Carbon Dioxide Anion Gap BUN Creatinine Estimated GFR Random Glucose Calcium Total Creatine Kinase Troponin I C-Reactive Protein Hepatitis A IgM Ab Hep Bs Antigen Hep B Core IgM Ab Hep C IgG Ab Blood Type B Positive Antibody Screen Ab Screen Tube Method Prewarmed Antibody Srcn Positive H Antibody Identification Strong Non-Specific Cold Agg Direct Antiglob Test MTS Gel Crossmatch Crossmatch Prewarmed Bld Prod Order Comment 03/17/18 03/18/18 03/18/18 20:43 05:04 05:04 WBC 11.9 H RBC 3.61 L Hgb 9.0 L Hct 28.6 L MCV 79.1 L MCH 24.9 L MCHC 31.5 L RDW 20.8 H Plt Count 601 H MPV 7.3 Sodium 140 Potassium 3.6 D Chloride 106 Carbon Dioxide 23.7 Anion Gap 10 BUN 10 Creatinine 0.56 Estimated GFR Greater than 89 Random Glucose 81 Calcium 8.3 L D Total Creatine Kinase Troponin I C-Reactive Protein Hepatitis A IgM Ab Nonreactive Hep Bs Antigen Nonreactive Hep B Core IgM Ab Nonreactive Hep C IgG Ab Nonreactive Blood Type Antibody Screen Ab Screen Tube Method Prewarmed Antibody Srcn Antibody Identification Direct Antiglob Test MTS Gel Crossmatch Crossmatch Prewarmed Bld Prod Order Comment Microbiology 03/17/18 23:40 Urine - Clean Catch Urine Streptococcus pneumoniae Antigen ( M - Final Presumptive negative for streptococcus pneumoniae antigen, suggesting no current or recent infection. Infection due to Streptococcus pneumoniae cannot be ruled out since the antigen present in the sample may be below the detection limit of the test. 03/17/18 23:40 Urine - Clean Catch Urine Legionella Antigen - Final Presumptive negative for Legionella pneumophila serogroup 1 antigen in urine, suggesting no recent or recurrent infection. Infection due to Legionella cannot be ruled out since other serogroups and species may cause disease, antigen may not be present in urine in early infection, and the level of antigen present in the urine may be below the detection limit of the test. 03/17/18 16:10 Sputum - Expectorated Sputum Gram Stain - Final 03/16/18 23:15 Blood - Peripheral Aerobic Blood Culture - Preliminary No growth in 1 day 03/16/18 23:15 Blood - Peripheral Anaerobic Blood Culture - Preliminary No growth in 1 day 03/16/18 23:20 Blood - Peripheral Aerobic Blood Culture - Preliminary No growth in 1 day 03/16/18 23:20 Blood - Peripheral Anaerobic Blood Culture - Preliminary No growth in 1 day 03/15/18 20:25 Blood - Peripheral Aerobic Blood Culture - Preliminary No growth in 2 days 03/15/18 20:25 Blood - Peripheral Anaerobic Blood Culture - Preliminary No growth in 2 days 03/15/18 20:30 Blood - Peripheral Aerobic Blood Culture - Preliminary No growth in 2 days 03/15/18 20:30 Blood - Peripheral Anaerobic Blood Culture - Preliminary No growth in 2 days Assessment and Plan - Assessment (1) Lung infiltrate on CT Code(s): R91.8 - Other nonspecific abnormal finding of lung field Status: Acute Plan: ID following. Continue vancomycin and cefepime. Levaquin. Supplemental oxygen and breathing treatment as needed. Follow cultures Patient is much improved (2) Cavitary lesion of lung Code(s): J98.4 - Other disorders of lung Status: Acute Plan: Treatment for pneumonia as above. Antibiotics as above. (3) Cardiomyopathy Code(s): I42.9 - Cardiomyopathy, unspecified Status: Acute Plan: Severe cardiomyopathy with bedside EF reportedly around 15%. The patient currently has a LifeVest that was put on at [facility] but a week ago. Appreciate cardiology following. Patient started on digoxin. Has not been able to get beta-blockers, or STEFAN inhibitors due to low blood pressure. Lasix and spironolactone on hold as well. Patient still with significant tachycardia. BP stable to resume beta maricruz today. Will add Metoprolol further plans per cardiology. (4) Pulmonary embolism Code(s): I26.99 - Other pulmonary embolism without acute cor pulmonale Status : Chronic Plan: Patient has been on Eliquis. Appreciate Hematology input. Continue the same. (5) Hypotension Code(s): I95.9 - Hypotension, unspecified Status: Resolved Plan: Resolved, see above. (6) Tachycardia Code(s): R00.0 - Tachycardia, unspecified Status: Acute Plan: Started on Metoprolol. On Digoxin. Continue to monitor (7) Iron deficiency anemia Code(s): D50.9 - Iron deficiency anemia, unspecified Status: Chronic Plan: Symptomatic anemia. Status post PRBC transfusion. Anemia much improved. Appreciate hematology following. Iron infusion per hematology. - Plan Stable for transfer to [facility] today. (4) Pulmonary embolism Qualifiers: Pulmonary embolism type: other Chronicity: chronic Acute cor pulmonale presence: without acute cor pulmonale Qualified Code(s): I27.82 - Chronic pulmonary embolism (7) Iron deficiency anemia Qualifiers: Iron deficiency anemia type: unspecified iron deficiency Qualified Code(s): D50.9 - Iron deficiency anemia, unspecified
[2018-03-18] MEDS: Metoprolol Tartrate 25 MG Tablet PO SCH ×3 (12:36→18:24)
[2018-03-18] MEDS ORDERED: Pharmacy Ordered Lab Info OTHER ONE (12:45)
[2018-03-18] MEDS: Iron Sucrose Inj 100 MG in Sodium Chlor 0.9% Inj 100 ML IV.SIG SCH (20:12)
[2018-03-19] MEDS ORDERED: Pharmacy Ordered Lab Info OTHER ONE (00:45)
[2018-03-19] MEDS: Vancomycin Inj 1,000 MG in Sodium Chlor 0.9% Inj 250 ML IV.SIG SCH ×2 (01:25→09:18)
[2018-03-19] MEDS: Chlorhexidine Gluconate 2% 1 Pack (2 Cloths) TOPICAL SCH (04:44)
[2018-03-19 07:27] LABS: Hematocrit 29.6 % (35.0-46.0); Hemoglobin 9.1 gm/dL (11.6-15.3); Mean Corpuscular Hemoglobin 24.9 pg (27.0-34.0); Mean Platelet Volume 7.5 fL (7.0-11.0); Platelet Count 594 th/mm3 (150-450); Red Blood Count 3.65 mil/mm3 (4.00-5.30); White Blood Count 8.3 th/mm3 (4.0-11.0)
[2018-03-19 07:37] LABS: Mean Corpuscular HGB Conc 30.7 % (32.0-36.0)
[2018-03-19 07:39] LABS: Anion Gap 9 meq/L (5-15); Blood Urea Nitrogen 10 mg/dL (7-18); Calcium 8.2 mg/dL (8.5-10.1); Carbon Dioxide 23.4 meq/L (21.0-32.0); Chloride 111 meq/L (98-107); Glomerular Filtration Rate Greater Than 89 mL/min (>89); Glucose,Random 80 mg/dL (74-106); Sodium 143 meq/L (136-145)
[2018-03-19] MEDS: Metoprolol Tartrate 25 MG Tablet PO SCH ×3 (09:15→17:33)
[2018-03-19] MEDS: levoFLOXacin 500 MG Tablet PO SCH (09:15)
[2018-03-19] MEDS: Digoxin 250 MCG Tablet PO SCH (09:15)
--- NOTE | 2018-03-19 11:19 | P.PNONC ---
Subjective Interval history: T-max 24 hours 100F. patient lying in bed, talking on the telephone. In no acute distress. She states she is feeling much better. She reports her breathing is much improved. She is no longer experiencing chest pain, unless she takes a very deep breath. Her heart rate is down trending. Objective Vital Signs/Intake & Output: Vital Signs 03/18/18 12:00 03/18/18 13:00 03/18/18 14:00 Temperature 99.0 F Pulse Rate 124 H 119 H 125 H Respiratory Rate 28 H 29 H 22 Blood Pressure 114/78 101/69 131/87 Pulse Oximetry 100 100 62 L 03/18/18 15:00 03/18/18 16:00 03/18/18 19:53 Temperature 100.0 F H Pulse Rate 112 H 107 H Respiratory Rate 27 H 27 H 16 Blood Pressure 114/80 102/70 Pulse Oximetry 100 100 03/18/18 20:00 03/18/18 20:16 03/19/18 00:00 Temperature 98.5 F 98.7 F Pulse Rate 110 H 98 H 113 H Respiratory Rate 16 18 Blood Pressure 130/103 H 95/53 L Pulse Oximetry 96 98 03/19/18 00:04 03/19/18 03:42 03/19/18 04:00 Temperature 98.8 F Pulse Rate 113 H 112 H Respiratory Rate 18 Blood Pressure 108/72 Pulse Oximetry 98 98 03/19/18 04:06 03/19/18 08:38 Temperature 97.4 F L Pulse Rate 113 H 103 H Respiratory Rate 16 Blood Pressure 123/80 Pulse Oximetry 97 Intake & Output 03/18/18 03/19/18 03/19/18 18:59 06:59 18:59 Intake Total 1180 / 1180 885 / 885 Output Total 1000 / 1000 250 / 250 Balance 180 / 180 635 / 635 Weight 51 kg Intake: IV 700 / 700 555 / 555 Maxipime Inj 2,000 MG In NS Inj 200 / 200 200 / 200 100 ML @ 200 mls/hr IV.SIG Q8H [facility] Rx#:[id number] Venofer Inj 100 MG In NS Inj 105 / 105 100 ML @ 105 mls/hr IV.SIG Q24H RUMA Rx#:[id number] Vancomycin Inj 1,000 MG In NS 500 / 500 250 / 250 Inj 250 ML @ 200 mls/hr IV.SIG Q8H REPLACED BY [facility] Rx#:[id number] Oral 480 / 480 330 / 330 Output: Urine 1000 / 1000 250 / 250 Other: Date of Last Bowel Movement 03/16/18 03/19/18 # Bowel Movements 0 Result Diagrams: 03/19/18 06:03 03/19/18 06:03 Laboratory Results: Laboratory Results - last 24 hr 03/17/18 03/19/18 03/19/18 03:59 01:19 06:03 WBC 8.3 RBC 3.65 L Hgb 9.1 L Hct 29.6 L MCV 81.0 MCH 24.9 L MCHC 30.7 L RDW 21.0 H Plt Count 594 H MPV 7.5 Thrombin Time Cancelled Lupus Anticoagulant Cancelled Lupus Anticoag aPTT Cancelled Dil Bentley Viper Venom Cancelled dRVVT Confirm Interp Cancelled dRVVT Mix Pat/Norm 1:1 Cancelled dRVVT Mix Interpret Cancelled Hexagonal Phase Confirm Cancelled Sodium Potassium Chloride Carbon Dioxide Anion Gap BUN Creatinine Estimated GFR Random Glucose Calcium Vancomycin Trough 19.7 H Beta-2-GPI IgG Ab Cancelled Beta-2-GPI IgA Ab Cancelled Beta-2-GPI IgM Ab Cancelled Anti-Cardiolipin IgG Ab Cancelled Anti-Cardiolipin IgA Ab Cancelled Anti-Cardiolipin IgM Ab Cancelled 03/19/18 06:03 WBC RBC Hgb Hct MCV MCH MCHC RDW Plt Count MPV Thrombin Time Lupus Anticoagulant Lupus Anticoag aPTT Dil Bentley Viper Venom dRVVT Confirm Interp dRVVT Mix Pat/Norm 1:1 dRVVT Mix Interpret Hexagonal Phase Confirm Sodium 143 Potassium 4.0 Chloride 111 H Carbon Dioxide 23.4 Anion Gap 9 BUN 10 Creatinine 0.56 Estimated GFR Greater than 89 Random Glucose 80 Calcium 8.2 L Vancomycin Trough Beta-2-GPI IgG Ab Beta-2-GPI IgA Ab Beta-2-GPI IgM Ab Anti-Cardiolipin IgG Ab Anti-Cardiolipin IgA Ab Anti-Cardiolipin IgM Ab Culture Results: Microbiology 03/16/18 23:15 Aerobic Blood Culture - Preliminary Blood - Peripheral No growth in 3 days Anaerobic Blood Culture - Preliminary No growth in 3 days 03/16/18 23:20 Aerobic Blood Culture - Preliminary Blood - Peripheral No growth in 3 days Anaerobic Blood Culture - Preliminary No growth in 3 days 03/15/18 20:25 Aerobic Blood Culture - Preliminary Blood - Peripheral No growth in 4 days Anaerobic Blood Culture - Preliminary No growth in 4 days 03/15/18 20:30 Aerobic Blood Culture - Preliminary Blood - Peripheral No growth in 4 days Anaerobic Blood Culture - Preliminary No growth in 4 days 03/17/18 16:10 Gram Stain - Final Sputum - Expectorated Sputum Sputum Culture - Preliminary Light growth normal respiratory eber at 24 hours 03/17/18 23:40 Streptococcus pneumoniae Antigen (M - Final Urine - Clean Catch Urine Presumptive negative for streptococcus pneumoniae antigen, suggesting no current or recent infection. Infection due to Streptococcus pneumoniae cannot be ruled out since the antigen present in the sample may be below the detection limit of the test. 03/17/18 23:40 Legionella Antigen - Final Urine - Clean Catch Urine Presumptive negative for Legionella pneumophila serogroup 1 antigen in urine, suggesting no recent or recurrent infection. Infection due to Legionella cannot be ruled out since other serogroups and species may cause disease, antigen may not be present in urine in early infection, and the level of antigen present in the urine may be below the detection limit of the test. Medications: Active Medications Generic Name Dose Route Start Last Admin Trade Name Freq PRN Reason Stop Dose Admin Hydrocodone Bitart/Acetaminophen 1 tab 03/17/18 08:49 03/19/18 04:38 [place] 5/325 PO 1 tab Q4H PRN Administration PAIN SCALE 6 TO 10 Albuterol 2.5 mg 03/16/18 16:00 03/18/18 22:42 Albuterol Neb (Ruma) NEB Not Given Q6HR NEB RUMA Apixaban 5 mg 03/16/18 21:00 03/19/18 09:15 Eliquis PO 5 mg BID RUMA Administration Chlorhexidine Gluconate 3 pack 03/17/18 04:00 03/19/18 04:44 Chlorhexidine 2% Cloth TOPICAL 03/22/18 03:59 3 pack DAILY@0400 RUMA Administration Digoxin 250 mcg 03/17/18 10:45 03/19/18 09:15 Lanoxin PO 250 mcg DAILY RUMA Administration Cefepime HCl 2,000 mg/ Sodium 100 mls @ 200 mls/hr 03/16/18 05:00 03/19/18 06 :14 Chloride IV.SIG Infused Q8H RUMA Infusion Vancomycin HCl 1,000 mg/ 250 mls @ 200 mls/hr 03/17/18 17:00 03/19/18 09:18 Sodium Chloride IV.SIG 250 mls/hr Q8H RUMA Administration Levofloxacin 500 mg 03/17/18 18:00 03/19/18 09:15 Levaquin PO 500 mg DAILY RUMA Administration Metoprolol Tartrate 25 mg 03/18/18 09:56 03/19/18 09:15 Lopressor PO 25 mg TID RUMA Administration Sodium Chloride 2 ml 03/15/18 17:22 03/19/18 09:18 Ns Flush IV.FLUSH 2 ml UNSCH PRN Administration FLUSH AFTER USING IV ACCESS Temazepam 15 mg 03/15/18 21:22 03/16/18 00:10 Restoril PO 15 mg HS PRN Administration INSOMNIA Objective Remarks: GENERAL: Well-nourished, well-developed patient, young female patient. In no acute distress SKIN: Warm and dry. HEAD: Normocephalic. EYES: No scleral icterus. No injection or drainage. NECK: Supple, trachea midline. CARDIOVASCULAR: +S/S2. LifeVest in place RESPIRATORY: Breath sounds equal bilaterally. No accessory muscle use. GASTROINTESTINAL: Abdomen flat, soft, non-tender, nondistended. EXTREMITIES: No cyanosis, or edema. MUSCULOSKELETAL: Adequate muscle tone. NEUROLOGICAL: No obvious focal deficit. Awake, alert, and oriented x3. PSYCHIATRIC: Appropriate mood and affect; insight and judgment normal. Assessment/Plan - Plan Hx/Workup: Patient is a 22-year-old female who delivered a baby mid September of this year. In November she developed a pulmonary embolism with severe cardiomyopathy that was felt to be related to being . Patient had a repeat CTA in December that did not show any pulmonary embolism and unfortunately the patient self discontinued her anticoagulation. She again presents now with significant shortness of breath. CTA shows persistent pulmonary embolism. Echocardiogram this admission shows ejection fraction estimated in the range of 20-25%. 1. Heart rate has continued to improve. Subjectively reported ease in breathing. 2. Hemoglobin improving, status post 1 unit packed red blood cells and iron infusions. 3. Continue apixaban 5 mg twice daily for pulmonary embolism. 4. CBC in a.m. 5. Stool for occult blood ordered, continue to monitor for bleeding. - Attending Statement The exam, history, and the medical decision-making described in the above note were completed with the assistance of the mid-level provider. I reviewed and agree with the findings presented. I attest that I had a [id number] encounter with the patient on the same day, and personally performed and documented my assessment and findings in the medical record. Denies any SOB/CP. Continue Eliquis. Advice her that she should not stop eliquis without an MD approval.
--- NOTE | 2018-03-19 12:17 | P.PNID ---
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 Patient also was found to have bilateral PE and was placed on Eliquis. Her PMHx is also significant for severe pulmonary hypertension, iron deficiency anemia, and recurrent pulmonary embolism. The patient reports she was diagnosed and treated with pneumonia at [facility]. She was discharged 5 days ago. She was given a LifeVest during her hospitalization at [facility]. She presented to [facility] due to chest pain involving the left side. She also endorsed coughing and increased heart rate. Workup in the emergency room revealed pulmonary embolus and bilateral infiltrates with left cavitary lesion. Patient reports cough with clear sputum and blood tinged sputum. Repeat Echo reportedly performed at bedside showed EF of 15%. Patient is undergoing workup for sepsis and cavitary pneumonia. Patient reports a sick contact her best friend. She reports working at [employer]. Denies any exposure to patients with tuberculosis Denies any intravenous drug abuse although admits to using marijuana Patient's best friend who is a girl has had recent pneumonia. ID consulted for evaluation and management of sepsis and cavitating pneumonia Overnight events reviewed No fevers No rash No diarrhea Reviewed imaging with Dr. Juarez pulmonology due to her extensive history of DVT and anticoagulants will hold off on bronchoscopy until we can further evaluate her medical records from [facility]. Upon further questioning patient reports she was prescribed some antibiotics on discharge from [facility] but did not fill her prescriptions. She goes on to report that she did receive IV antibiotics for an extended period of time in hospital. Antibiotics: Cefepime IV Vanco IV Levaquin oral Lines: Lines Ok Past Medical History: cardiomyopathy on Lifevest in first trimester with history of Pulmonary emboli Allergies/Adverse Reactions: Allergies No Known Allergies Allergy (Unverified 03/15/18 18:05) Objective Vital Signs 03/18/18 13:00 03/18/18 14:00 03/18/18 15:00 Temperature Pulse Rate 119 H 125 H 112 H Respiratory Rate 29 H 22 27 H Blood Pressure 101/69 131/87 114/80 Pulse Oximetry 100 62 L 100 03/18/18 16:00 03/18/18 19:53 03/18/18 20:00 Temperature 100.0 F H 98.5 F Pulse Rate 107 H 110 H Respiratory Rate 27 H 16 16 Blood Pressure 102/70 130/103 H Pulse Oximetry 100 96 03/18/18 20:16 03/19/18 00:00 03/19/18 00:04 Temperature 98.7 F Pulse Rate 98 H 113 H 113 H Respiratory Rate 18 Blood Pressure 95/53 L Pulse Oximetry 98 03/19/18 03:42 03/19/18 04:00 03/19/18 04:06 Temperature 98.8 F Pulse Rate 112 H 113 H Respiratory Rate 18 Blood Pressure 108/72 Pulse Oximetry 98 98 03/19/18 08:38 Temperature 97.4 F L Pulse Rate 103 H Respiratory Rate 16 Blood Pressure 123/80 Pulse Oximetry 97 Intake & Output 03/18/18 03/19/18 03/19/18 18:59 06:59 18:59 Intake Total 1180 / 1180 885 / 885 Output Total 1000 / 1000 250 / 250 Balance 180 / 180 635 / 635 Weight 51 kg Intake: IV 700 / 700 555 / 555 Maxipime Inj 2,000 MG In NS Inj 200 / 200 200 / 200 100 ML @ 200 mls/hr IV.SIG Q8H [facility] Rx#:[id number] Venofer Inj 100 MG In NS Inj 105 / 105 100 ML @ 105 mls/hr IV.SIG Q24H [facility] Rx#:[id number] Vancomycin Inj 1,000 MG In NS 500 / 500 250 / 250 Inj 250 ML @ 200 mls/hr IV.SIG Q8H [facility] Rx#:[id number] Oral 480 / 480 330 / 330 Output: Urine 1000 / 1000 250 / 250 Other: Date of Last Bowel Movement 03/16/18 03/19/18 # Bowel Movements 0 03/16/18 23:15 Blood - Peripheral Aerobic Blood Culture - Preliminary No growth in 3 days 03/16/18 23:15 Blood - Peripheral Anaerobic Blood Culture - Preliminary No growth in 3 days 03/16/18 23:20 Blood - Peripheral Aerobic Blood Culture - Preliminary No growth in 3 days 03/16/18 23:20 Blood - Peripheral Anaerobic Blood Culture - Preliminary No growth in 3 days 03/15/18 20:25 Blood - Peripheral Aerobic Blood Culture - Preliminary No growth in 4 days 03/15/18 20:25 Blood - Peripheral Anaerobic Blood Culture - Preliminary No growth in 4 days 03/15/18 20:30 Blood - Peripheral Aerobic Blood Culture - Preliminary No growth in 4 days 03/15/18 20:30 Blood - Peripheral Anaerobic Blood Culture - Preliminary No growth in 4 days 03/17/18 16:10 Sputum - Expectorated Sputum Gram Stain - Final 03/17/18 16:10 Sputum - Expectorated Sputum Sputum Culture - Preliminary Light growth normal respiratory eber at 24 hours 03/17/18 23:40 Urine - Clean Catch Urine Streptococcus pneumoniae Antigen ( M - Final Presumptive negative for streptococcus pneumoniae antigen, suggesting no current or recent infection. Infection due to Streptococcus pneumoniae cannot be ruled out since the antigen present in the sample may be below the detection limit of the test. 03/17/18 23:40 Urine - Clean Catch Urine Legionella Antigen - Final Presumptive negative for Legionella pneumophila serogroup 1 antigen in urine, suggesting no recent or recurrent infection. Infection due to Legionella cannot be ruled out since other serogroups and species may cause disease, antigen may not be present in urine in early infection, and the level of antigen present in the urine may be below the detection limit of the test. 03/17/18 16:10 Sputum - Expectorated Sputum Acid Fast Bacilli Smear - Pending 03/17/18 16:10 Sputum - Expectorated Sputum Mycobacterial Culture - Pending Lab - Hematology Results 03/17/18 03/18/18 03/19/18 15:50 05:04 06:03 WBC 11.9 H 8.3 RBC 3.61 L 3.65 L Hgb 8.2 L 9.0 L 9.1 L Hct 26.7 L 28.6 L 29.6 L MCV 79.1 L 81.0 MCH 24.9 L 24.9 L MCHC 31.5 L 30.7 L RDW 20.8 H 21.0 H Plt Count 601 H 594 H MPV 7.3 7.5 Lab - Chemistry Results 03/17/18 03/17/18 03/18/18 13:40 13:40 05:04 Sodium 140 Potassium 3.6 D Chloride 106 Carbon Dioxide 23.7 Anion Gap 10 BUN 10 Creatinine 0.56 Estimated GFR Greater than 89 Random Glucose 81 Calcium 8.3 L D Total Creatine Kinase 29 Troponin I Less than 0.02 L C-Reactive Protein 15.00 H 03/19/18 06:03 Sodium 143 Potassium 4.0 Chloride 111 H Carbon Dioxide 23.4 Anion Gap 9 BUN 10 Creatinine 0.56 Estimated GFR Greater than 89 Random Glucose 80 Calcium 8.2 L Total Creatine Kinase Troponin I C-Reactive Protein Imaging: ITS Impressions Chest CTA 03/15/18 17:32 CONCLUSION: 1. Low volume pulmonary embolism 2. Multifocal infiltrates including cavitary left base infiltrate. 3. Cardiac enlargement Chest X-Ray 03/16/18 21:24 CONCLUSION: 1. Marked cardiomegaly suggesting cardiomyopathy. 2. Patchy infiltrates consistent with probable pneumonia and/or pulmonary edema. Clinical correlation is recommended. Physical Exam: GENERAL: Well-nourished well-developed, not in acute distress SKIN: Cool and dry, no generalized rash HEAD: Atraumatic. Normocephalic. No temporal or scalp tenderness. EYES: Pupils equal round and reactive. Scleral icterus. No injection or drainage. No petechia ENT: Nothing abnormal detected NECK: Trachea midline. Supple, nontender, no meningeal signs. CARDIOVASCULAR: HS audible. RESPIRATORY: Clear to auscultation bilaterally. GASTROINTESTINAL: Abdomen soft nontender. MUSCULOSKELETAL: Extremities without clubbing, cyanosis. NEUROLOGICAL: Alert oriented 3. Nonfocal. Psych cooperative IV line sites ok. Assessment and Plan - Plan Lung infiltrates with cavity DDx: Community acquired pneumonia with cavities Septic Emboli related cavities. Pulm embolism on treatment 6 months post Cardiomyopathy with severe TR, moderate MR. On Life Vest Recs Start Ceftriaxone IV DC cefepime IV DC vancomycin IV target trough 15-20 DC Levaquin Follow QuantiFERON gold TB legionella urine antigen negative Pneumococcal urinary antigen negative Due to multiple PE is as well as cavitary lesions. 2 million workup. Patient adamantly denies IV drug abuse. Fungal workup sent. Sputum culture and gram stain Sputum AFB stain and Culture. We will add MTB PCR. Follow cultures Follow clinically Discussed with RN to obtain medical records from [facility] Discussed with Dr. Juarez Discussed with Dr. Aranda Discussed with patient
[2018-03-19 14:07] LABS: TB1 Ag minus Nil Result 0 IU/mL
[2018-03-19] MEDS ORDERED: Vancomycin Inj 750 MG in Sodium Chlor 0.9% Inj 250 ML IV.SIG SCH (17:00)
--- NOTE | 2018-03-19 17:17 | P.PN ---
Subjective Interval history: Follow-up for cavitary lung lesions, PE. Patient is currently doing well. Denies any chest pain, shortness of breath, fever or chills. She is on room air. Physical Exam Vital signs: Vital Signs 03/18/18 19:53 03/18/18 20:00 03/18/18 20:16 Temperature 98.5 F Pulse Rate 110 H 98 H Respiratory Rate 16 16 Blood Pressure 130/103 H Pulse Oximetry 96 03/19/18 00:00 03/19/18 00:04 03/19/18 03:42 Temperature 98.7 F Pulse Rate 113 H 113 H Respiratory Rate 18 Blood Pressure 95/53 L Pulse Oximetry 98 98 03/19/18 04:00 03/19/18 04:06 03/19/18 08:00 Temperature 98.8 F Pulse Rate 112 H 113 H 85 Respiratory Rate 18 Blood Pressure 108/72 Pulse Oximetry 98 03/19/18 08:38 03/19/18 09:00 03/19/18 12:00 Temperature 97.4 F L 98.4 F Pulse Rate 103 H 85 115 H Respiratory Rate 16 16 Blood Pressure 123/80 103/63 Pulse Oximetry 97 97 03/19/18 16:17 Temperature Pulse Rate 96 H Respiratory Rate Blood Pressure Pulse Oximetry Intake & Output 03/18/18 03/19/18 03/19/18 18:59 06:59 18:59 Intake Total 1180 / 1180 885 / 885 Output Total 1000 / 1000 250 / 250 Balance 180 / 180 635 / 635 Weight 51 kg Intake: IV 700 / 700 555 / 555 Maxipime Inj 2,000 MG In NS Inj 200 / 200 200 / 200 100 ML @ 200 mls/hr IV.SIG Q8H [facility] Rx#:[id number] Venofer Inj 100 MG In NS Inj 105 / 105 100 ML @ 105 mls/hr IV.SIG Q24H [facility] Rx#:[id number] Vancomycin Inj 1,000 MG In NS 500 / 500 250 / 250 Inj 250 ML @ 200 mls/hr IV.SIG Q8H [facility] Rx#:[id number] Oral 480 / 480 330 / 330 Output: Urine 1000 / 1000 250 / 250 Other: Date of Last Bowel Movement 03/16/18 03/19/18 # Bowel Movements 0 Narrative: GENERAL: Patient is in no acute distress. CARDIOVASCULAR: Rate in the 120s, regular rhythm. There is a 2 out of 6 ISRAEL murmur best heard over the left lower sternal border. RESPIRATORY: Good respiratory efforts. Faint rhonchi throughout. GASTROINTESTINAL: Abdomen soft, non-tender, non-distended. Normal active bowel sounds MUSCULOSKELETAL: Extremities without cyanosis, or edema. NEURO: Alert & Oriented x4 to person, place, time, situation. Moves all ext x4 PSYCH: Appropriate mood and affect. Results - Labs CBC & Chem 7: 03/19/18 06:03 03/19/18 06:03 Laboratory Results - last 24 hr 03/15/18 03/17/18 03/17/18 21:43 03:59 18:04 WBC RBC Hgb Hct MCV MCH MCHC RDW Plt Count MPV Thrombin Time Cancelled Lupus Anticoagulant Cancelled Lupus Anticoag aPTT Cancelled Dil Bentley Viper Venom Cancelled dRVVT Confirm Interp Cancelled dRVVT Mix Pat/Norm 1:1 Cancelled dRVVT Mix Interpret Cancelled Hexagonal Phase Confirm Cancelled Sodium Potassium Chloride Carbon Dioxide Anion Gap BUN Creatinine Estimated GFR Random Glucose Calcium Vancomycin Trough KENNY Screen Beta-2-GPI IgG Ab Cancelled Beta-2-GPI IgA Ab Cancelled Beta-2-GPI IgM Ab Cancelled Anti-Cardiolipin IgG Ab Cancelled Anti-Cardiolipin IgA Ab Cancelled Anti-Cardiolipin IgM Ab Cancelled M.tuberculosis DNA (PCR) TB (QFT) Gold In Tube Negative TB Test (QFT) Nil 0.01 TB Test Mitogen - Nil Greater than 10.00 TB Test Antigen - Nil 0 Rout Panel Path Interp 03/17/18 03/19/18 03/19/18 20:43 01:19 06:03 WBC 8.3 RBC 3.65 L Hgb 9.1 L Hct 29.6 L MCV 81.0 MCH 24.9 L MCHC 30.7 L RDW 21.0 H Plt Count 594 H MPV 7.5 Thrombin Time Lupus Anticoagulant Lupus Anticoag aPTT Dil Bentley Viper Venom dRVVT Confirm Interp dRVVT Mix Pat/Norm 1:1 dRVVT Mix Interpret Hexagonal Phase Confirm Sodium Potassium Chloride Carbon Dioxide Anion Gap BUN Creatinine Estimated GFR Random Glucose Calcium Vancomycin Trough 19.7 H KENNY Screen Neg Beta-2-GPI IgG Ab Beta-2-GPI IgA Ab Beta-2-GPI IgM Ab Anti-Cardiolipin IgG Ab Anti-Cardiolipin IgA Ab Anti-Cardiolipin IgM Ab M.tuberculosis DNA (PCR) TB (QFT) Gold In Tube TB Test (QFT) Nil TB Test Mitogen - Nil TB Test Antigen - Nil Rout Panel Path Interp 03/19/18 03/19/18 06:03 11:30 WBC RBC Hgb Hct MCV MCH MCHC RDW Plt Count MPV Thrombin Time Lupus Anticoagulant Lupus Anticoag aPTT Dil Bentley Viper Venom dRVVT Confirm Interp dRVVT Mix Pat/Norm 1:1 dRVVT Mix Interpret Hexagonal Phase Confirm Sodium 143 Potassium 4.0 Chloride 111 H Carbon Dioxide 23.4 Anion Gap 9 BUN 10 Creatinine 0.56 Estimated GFR Greater than 89 Random Glucose 80 Calcium 8.2 L Vancomycin Trough KENNY Screen Beta-2-GPI IgG Ab Beta-2-GPI IgA Ab Beta-2-GPI IgM Ab Anti-Cardiolipin IgG Ab Anti-Cardiolipin IgA Ab Anti-Cardiolipin IgM Ab M.tuberculosis DNA (PCR) Not detected TB (QFT) Gold In Tube TB Test (QFT) Nil TB Test Mitogen - Nil TB Test Antigen - Nil Rout Panel Path Inter Microbiology 03/17/18 16:10 Sputum - Expectorated Sputum Gram Stain - Final 03/17/18 16:10 Sputum - Expectorated Sputum Sputum Culture - Final Heavy growth normal respiratory eber 03/16/18 23:15 Blood - Peripheral Aerobic Blood Culture - Preliminary No growth in 3 days 03/16/18 23:15 Blood - Peripheral Anaerobic Blood Culture - Preliminary No growth in 3 days 03/16/18 23:20 Blood - Peripheral Aerobic Blood Culture - Preliminary No growth in 3 days 03/16/18 23:20 Blood - Peripheral Anaerobic Blood Culture - Preliminary No growth in 3 days 03/15/18 20:25 Blood - Peripheral Aerobic Blood Culture - Preliminary No growth in 4 days 03/15/18 20:25 Blood - Peripheral Anaerobic Blood Culture - Preliminary No growth in 4 days 03/15/18 20:30 Blood - Peripheral Aerobic Blood Culture - Preliminary No growth in 4 days 03/15/18 20:30 Blood - Peripheral Anaerobic Blood Culture - Preliminary No growth in 4 days Assessment and Plan - Plan Ms. Noriega is a pleasant 22-year-old -[place] female with a history of cardiomyopathy, pulmonary hypertension, iron deficiency anemia and recurrent pulmonary embolism who was admitted to the hospital on 03/16/2018 due to chest pain involving left side. She she had cough and tachycardia. ED workup at [facility] indicates pulmonary embolism and bilateral infiltrates. There was also left lung cavitary lesion. Infectious disease and pulmonology were consulted. Patient denies any IV drug use history. Pulmonary embolism -Hematology is following. Patient is currently on apixaban 5 mg twice daily. Probable pneumonia Cavitary lesion of left lung -Infectious disease is following patient. Infectious disease change antibiotics to ceftriaxone 2 g every 24 hours. -MTB DNA PCR negative. QuantiFERON gold is also negative. -Cavitary lesion could be due to superimposed infection and embolism. -Discussed with pulmonology and infectious disease today. -We will obtain records from [facility]. If needed bronchoscopy could be considered. However, pulmonology feel that it would be a low yield procedure. We will have to stop apixaban for 1-2 days before bronchoscopy is considered. cardiomyopathy -Patient has an appointment to see Dr. Casiano in the outpatient setting. -Currently on digoxin 250 mcg daily, metoprolol tartrate 25 mg p.o. 3 times daily. -Patient has a LifeVest Full code. Apixaban.
--- NOTE | 2018-03-19 20:21 | P.PN ---
Subjective Interval history: She is up and breathing well.off O2 and has less chest pain. No fever. So far no positive culture and CT chest showed a Cavitary lesion. She had been W/U at [facility] last mth. records to be sent here. Physical Exam Vital signs: Vital Signs 03/18/18 20:16 03/19/18 00:00 03/19/18 00:04 Temperature 98.7 F Pulse Rate 98 H 113 H 113 H Respiratory Rate 18 Blood Pressure 95/53 L Pulse Oximetry 98 03/19/18 03:42 03/19/18 04:00 03/19/18 04:06 Temperature 98.8 F Pulse Rate 112 H 113 H Respiratory Rate 18 Blood Pressure 108/72 Pulse Oximetry 98 98 03/19/18 08:00 03/19/18 08:38 03/19/18 09:00 Temperature 97.4 F L Pulse Rate 85 103 H 85 Respiratory Rate 16 Blood Pressure 123/80 Pulse Oximetry 97 03/19/18 12:00 03/19/18 16:00 03/19/18 16:17 Temperature 98.4 F 99 F Pulse Rate 115 H 95 H 96 H Respiratory Rate 16 16 Blood Pressure 103/63 101/63 Pulse Oximetry 97 98 Intake & Output 03/19/18 03/19/18 03/20/18 06:59 18:59 06:59 Intake Total 885 / 885 1300 / 1300 Output Total 250 / 250 400 / 400 Balance 635 / 635 900 / 900 Weight 51 kg Intake: IV 555 / 555 100 / 100 Maxipime Inj 2,000 MG In NS Inj 200 / 200 100 ML @ 200 mls/hr IV.SIG Q8H KARLEE Rx#:[id number] Venofer Inj 100 MG In NS Inj 105 / 105 100 ML @ 105 mls/hr IV.SIG Q24H KARLEE Rx#:[id number] Vancomycin Inj 1,000 MG In NS 250 / 250 Inj 250 ML @ 200 mls/hr IV.SIG Q8H KARLEE Rx#:[id number] Rocephin Inj 2,000 MG In NS Inj 100 / 100 100 ML @ 200 mls/hr IV.SIG Q24H KARLEE Rx#:[id number] Oral 330 / 330 1200 / 1200 Output: Urine 250 / 250 400 / 400 Other: Date of Last Bowel Movement 03/16/18 03/19/18 GENERAL: Thin young lady in no distress SKIN: Warm and dry. HEAD: Atraumatic. Normocephalic. EYES: Pupils equal and round. No scleral icterus. No injection or drainage. ENT: No nasal bleeding or discharge. Mucous membranes pink and moist. NECK: Trachea midline. No JVD. CARDIOVASCULAR: Regular rate and rhythm. a 2/6 systolic murmur at LSB RESPIRATORY: No accessory muscle use. Occ wheeze upper chest. Breath sounds equal bilaterally. GASTROINTESTINAL: Abdomen soft, non-tender, nondistended. Hepatic and splenic margins not palpable. MUSCULOSKELETAL: Extremities without clubbing, cyanosis, or edema. No obvious deformities. NEUROLOGICAL: Awake and alert. No obvious cranial nerve deficits. Motor grossly within normal limits. Five out of 5 muscle strength in the arms and legs. Normal speech. PSYCHIATRIC: Appropriate mood and affect; insight and judgment normal. Results - Labs CBC & Chem 7: 03/19/18 06:03 03/19/18 06:03 Laboratory Results - last 24 hr 03/15/18 03/17/18 03/17/18 21:43 03:59 18:04 WBC RBC Hgb Hct MCV MCH MCHC RDW Plt Count MPV Thrombin Time Cancelled Lupus Anticoagulant Cancelled Lupus Anticoag aPTT Cancelled Dil Bentley Viper Venom Cancelled dRVVT Confirm Interp Cancelled dRVVT Mix Pat/Norm 1:1 Cancelled dRVVT Mix Interpret Cancelled Hexagonal Phase Confirm Cancelled Sodium Potassium Chloride Carbon Dioxide Anion Gap BUN Creatinine Estimated GFR Random Glucose Calcium Vancomycin Trough KENNY Screen Beta-2-GPI IgG Ab Cancelled Beta-2-GPI IgA Ab Cancelled Beta-2-GPI IgM Ab Cancelled Anti-Cardiolipin IgG Ab Cancelled Anti-Cardiolipin IgA Ab Cancelled Anti-Cardiolipin IgM Ab Cancelled M.tuberculosis DNA (PCR) TB (QFT) Gold In Tube Negative TB Test (QFT) Nil 0.01 TB Test Mitogen - Nil Greater than 10.00 TB Test Antigen - Nil 0 Rifampin Resistance Rout Panel Path Interp 03/17/18 03/19/18 03/19/18 20:43 01:19 06:03 WBC 8.3 RBC 3.65 L Hgb 9.1 L Hct 29.6 L MCV 81.0 MCH 24.9 L MCHC 30.7 L RDW 21.0 H Plt Count 594 H MPV 7.5 Thrombin Time Lupus Anticoagulant Lupus Anticoag aPTT Dil Bentley Viper Venom dRVVT Confirm Interp dRVVT Mix Pat/Norm 1:1 dRVVT Mix Interpret Hexagonal Phase Confirm Sodium Potassium Chloride Carbon Dioxide Anion Gap BUN Creatinine Estimated GFR Random Glucose Calcium Vancomycin Trough 19.7 H KENNY Screen Neg Beta-2-GPI IgG Ab Beta-2-GPI IgA Ab Beta-2-GPI IgM Ab Anti-Cardiolipin IgG Ab Anti-Cardiolipin IgA Ab Anti-Cardiolipin IgM Ab M.tuberculosis DNA (PCR) TB (QFT) Gold In Tube TB Test (QFT) Nil TB Test Mitogen - Nil TB Test Antigen - Nil Rifampin Resistance Rout Panel Path Inter 03/19/18 03/19/18 06:03 11:30 WBC RBC Hgb Hct MCV MCH MCHC RDW Plt Count MPV Thrombin Time Lupus Anticoagulant Lupus Anticoag aPTT Dil Bentley Viper Venom dRVVT Confirm Interp dRVVT Mix Pat/Norm 1:1 dRVVT Mix Interpret Hexagonal Phase Confirm Sodium 143 Potassium 4.0 Chloride 111 H Carbon Dioxide 23.4 Anion Gap 9 BUN 10 Creatinine 0.56 Estimated GFR Greater than 89 Random Glucose 80 Calcium 8.2 L Vancomycin Trough KENNY Screen Beta-2-GPI IgG Ab Beta-2-GPI IgA Ab Beta-2-GPI IgM Ab Anti-Cardiolipin IgG Ab Anti-Cardiolipin IgA Ab Anti-Cardiolipin IgM Ab M.tuberculosis DNA (PCR) Not detected TB (QFT) Gold In Tube TB Test (QFT) Nil TB Test Mitogen - Nil TB Test Antigen - Nil Rifampin Resistance Not detected Rout Panel Path Inter Microbiology 03/17/18 16:10 Sputum - Expectorated Sputum Gram Stain - Final 03/17/18 16:10 Sputum - Expectorated Sputum Sputum Culture - Final Heavy growth normal respiratory eber 03/16/18 23:15 Blood - Peripheral Aerobic Blood Culture - Preliminary No growth in 3 days 03/16/18 23:15 Blood - Peripheral Anaerobic Blood Culture - Preliminary No growth in 3 days 03/16/18 23:20 Blood - Peripheral Aerobic Blood Culture - Preliminary No growth in 3 days 03/16/18 23:20 Blood - Peripheral Anaerobic Blood Culture - Preliminary No growth in 3 days 03/15/18 20:25 Blood - Peripheral Aerobic Blood Culture - Preliminary No growth in 4 days 03/15/18 20:25 Blood - Peripheral Anaerobic Blood Culture - Preliminary No growth in 4 days 03/15/18 20:30 Blood - Peripheral Aerobic Blood Culture - Preliminary No growth in 4 days 03/15/18 20:30 Blood - Peripheral Anaerobic Blood Culture - Preliminary No growth in 4 days Assessment and Plan - Assessment (1) Cardiomyopathy Code(s): I42.9 - Cardiomyopathy, unspecified Status: Acute (2) Pulmonary embolism Code(s): I26.99 - Other pulmonary embolism without acute cor pulmonale Status : Chronic (3) Lung infiltrate on CT Code(s): R91.8 - Other nonspecific abnormal finding of lung field Status: Acute (4) Cavitary lesion of lung Code(s): J98.4 - Other disorders of lung Status: Acute (5) Hypotension Code(s): I95.9 - Hypotension, unspecified Status: Resolved (6) Iron deficiency anemia Code(s): D50.9 - Iron deficiency anemia, unspecified Status: Chronic - Plan 1. Will continue antibiotics per ID 2. O2 prn 2 L. 3. Duonebs qid prn. 4. Await reports from [facility] on prior W/U 5. CBC,CXR,BMP 6. Will consider bronchoscopy if all other reports negative ,but will need to hold Eliquis for [address] on heparin drip (2) Pulmonary embolism Qualifiers: Pulmonary embolism type: other Chronicity: chronic Acute cor pulmonale presence: without acute cor pulmonale Qualified Code(s): I27.82 - Chronic pulmonary embolism (6) Iron deficiency anemia Qualifiers: Iron deficiency anemia type: unspecified iron deficiency Qualified Code(s): D50.9 - Iron deficiency anemia, unspecified
[2018-03-19] MEDS: Senna/Docusate Sodium 8.6/50 MG Tablet PO SCH (22:06)
[2018-03-20] MEDS: Chlorhexidine Gluconate 2% 1 Pack (2 Cloths) TOPICAL SCH (05:08)
[2018-03-20] MEDS: Digoxin 250 MCG Tablet PO SCH (09:51)
[2018-03-20] MEDS: Metoprolol Tartrate 25 MG Tablet PO SCH ×3 (09:51→18:02)
--- NOTE | 2018-03-20 10:13 | P.PNID ---
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 Patient also was found to have bilateral PE and was placed on Eliquis. Her PMHx is also significant for severe pulmonary hypertension, iron deficiency anemia, and recurrent pulmonary embolism. The patient reports she was diagnosed and treated with pneumonia at [facility] She was discharged 5 days ago. She was given a LifeVest during her hospitalization at [facility] She presented to [facility] due to chest pain involving the left side. She also endorsed coughing and increased heart rate. Workup in the emergency room revealed pulmonary embolus and bilateral infiltrates with left cavitary lesion. Patient reports cough with clear sputum and blood tinged sputum. Repeat Echo reportedly performed at bedside showed EF of 15%. Patient is undergoing workup for sepsis and cavitary pneumonia. Patient reports a sick contact her best friend. She reports working at [employer]. Denies any exposure to patients with tuberculosis Denies any intravenous drug abuse although admits to using marijuana Patient's best friend who is a girl has had recent pneumonia. ID consulted for evaluation and management of sepsis and cavitating pneumonia Overnight events reviewed No fevers No rash No diarrhea Records from [facility] reviewed: Blood cultures negative at 5 days. UDS positive for Marijuana. CT with PE/septic emboli and cavitation. Strep pneumo antigen was positive. Patient was discharged with a diagnosis of cavitary pneumonia secondary to Streptococcus pneumoniae. Patient discharged on Cefdinir but patient reports she did not take it as she could not afford it. ID saw patient at other hospital. Antibiotics: Cefepime IV Vanco IV Levaquin oral Lines: Lines Ok Past Medical History: cardiomyopathy on Lifevest in first trimester with history of Pulmonary emboli Allergies/Adverse Reactions: Allergies No Known Allergies Allergy (Unverified 03/15/18 18:05) Objective Vital Signs 03/19/18 12:00 03/19/18 16:00 03/19/18 16:17 Temperature 98.4 F 99 F Pulse Rate 115 H 95 H 96 H Respiratory Rate 16 16 Blood Pressure 103/63 101/63 Pulse Oximetry 97 98 03/19/18 20:00 03/19/18 21:55 03/19/18 22:25 Temperature 99.5 F Pulse Rate 89 89 Respiratory Rate 16 16 Blood Pressure 115/83 Pulse Oximetry 99 03/20/18 00:00 03/20/18 04:00 03/20/18 05:00 Temperature 99.0 F 98.7 F Pulse Rate 106 H 90 88 Respiratory Rate 16 15 Blood Pressure 126/90 122/84 Pulse Oximetry 98 96 03/20/18 07:20 Temperature Pulse Rate 87 Respiratory Rate Blood Pressure Pulse Oximetry Intake & Output 03/19/18 03/20/18 03/20/18 18:59 06:59 18:59 Intake Total 1300 / 1300 840 / 840 Output Total 400 / 400 Balance 900 / 900 840 / 840 Intake: IV 100 / 100 Rocephin Inj 2,000 MG In NS Inj 100 / 100 100 ML @ 200 mls/hr IV.SIG Q24H KARLEE Rx#:[id number] Oral 1200 / 1200 840 / 840 Output: Urine 400 / 400 Other: # Voids 3 Date of Last Bowel Movement 03/19/18 03/19/18 # Bowel Movements 1 03/17/18 16:10 Sputum - Expectorated Sputum Gram Stain - Final 03/17/18 16:10 Sputum - Expectorated Sputum Sputum Culture - Final Heavy growth normal respiratory eber 03/16/18 23:15 Blood - Peripheral Aerobic Blood Culture - Preliminary No growth in 3 days 03/16/18 23:15 Blood - Peripheral Anaerobic Blood Culture - Preliminary No growth in 3 days 03/16/18 23:20 Blood - Peripheral Aerobic Blood Culture - Preliminary No growth in 3 days 03/16/18 23:20 Blood - Peripheral Anaerobic Blood Culture - Preliminary No growth in 3 days 03/15/18 20:25 Blood - Peripheral Aerobic Blood Culture - Preliminary No growth in 4 days 03/15/18 20:25 Blood - Peripheral Anaerobic Blood Culture - Preliminary No growth in 4 days 03/15/18 20:30 Blood - Peripheral Aerobic Blood Culture - Preliminary No growth in 4 days 03/15/18 20:30 Blood - Peripheral Anaerobic Blood Culture - Preliminary No growth in 4 days 03/17/18 23:40 Urine - Clean Catch Urine Streptococcus pneumoniae Antigen ( M - Final Presumptive negative for streptococcus pneumoniae antigen, suggesting no current or recent infection. Infection due to Streptococcus pneumoniae cannot be ruled out since the antigen present in the sample may be below the detection limit of the test. 03/17/18 23:40 Urine - Clean Catch Urine Legionella Antigen - Final Presumptive negative for Legionella pneumophila serogroup 1 antigen in urine, suggesting no recent or recurrent infection. Infection due to Legionella cannot be ruled out since other serogroups and species may cause disease, antigen may not be present in urine in early infection, and the level of antigen present in the urine may be below the detection limit of the test. 03/17/18 16:10 Sputum - Expectorated Sputum Acid Fast Bacilli Smear - Pending 03/17/18 16:10 Sputum - Expectorated Sputum Mycobacterial Culture - Pending Lab - Hematology Results 03/19/18 06:03 WBC 8.3 RBC 3.65 L Hgb 9.1 L Hct 29.6 L MCV 81.0 MCH 24.9 L MCHC 30.7 L RDW 21.0 H Plt Count 594 H MPV 7.5 Lab - Chemistry Results 03/19/18 06:03 Sodium 143 Potassium 4.0 Chloride 111 H Carbon Dioxide 23.4 Anion Gap 9 BUN 10 Creatinine 0.56 Estimated GFR Greater than 89 Random Glucose 80 Calcium 8.2 L Imaging: ITS Impressions Chest CTA 03/15/18 17:32 CONCLUSION: 1. Low volume pulmonary embolism 2. Multifocal infiltrates including cavitary left base infiltrate. 3. Cardiac enlargement Chest X-Ray 03/16/18 21:24 CONCLUSION: 1. Marked cardiomegaly suggesting cardiomyopathy. 2. Patchy infiltrates consistent with probable pneumonia and/or pulmonary edema. Clinical correlation is recommended. Physical Exam: GENERAL: Well-nourished well-developed, not in acute distress SKIN: Cool and dry, no generalized rash HEAD: Atraumatic. Normocephalic. No temporal or scalp tenderness. EYES: Pupils equal round and reactive. Scleral icterus. No injection or drainage. No petechia ENT: Nothing abnormal detected NECK: Trachea midline. Supple, nontender, no meningeal signs. CARDIOVASCULAR: HS audible. RESPIRATORY: Clear to auscultation bilaterally. GASTROINTESTINAL: Abdomen soft nontender. MUSCULOSKELETAL: Extremities without clubbing, cyanosis. NEUROLOGICAL: Alert oriented 3. Nonfocal. Psych cooperative IV line sites ok. Assessment and Plan - Plan Lung infiltrates with cavity DDx: Community acquired pneumonia with cavities Septic Emboli related cavities. Pulm embolism on treatment 6 months post Cardiomyopathy with severe TR, moderate MR. On Life Vest Recs Continue Ceftriaxone IV Patient adamantly denies IV drug abuse. Fungal workup sent. Sputum culture and gram stain Sputum AFB stain and Culture. Negative MTB PCR. Follow cultures Follow clinically Discussed with patient
--- NOTE | 2018-03-20 11:11 | P.PNONC ---
Subjective Interval history: Pt standing up at sink washing. Reports that she is feeling much better, denies any sob or chest pain. she reports that she started her menstrual cycle today. She also reports some bright red blood after straining for a bowel movement. History of hemorroids. She has a picture of this, appears to be a quarter size blood clot. Objective Vital Signs/Intake & Output: Vital Signs 03/19/18 12:00 03/19/18 16:00 03/19/18 16:17 Temperature 98.4 F 99 F Pulse Rate 115 H 95 H 96 H Respiratory Rate 16 16 Blood Pressure 103/63 101/63 Pulse Oximetry 97 98 03/19/18 20:00 03/19/18 21:55 03/19/18 22:25 Temperature 99.5 F Pulse Rate 89 89 Respiratory Rate 16 16 Blood Pressure 115/83 Pulse Oximetry 99 03/20/18 00:00 03/20/18 04:00 03/20/18 05:00 Temperature 99.0 F 98.7 F Pulse Rate 106 H 90 88 Respiratory Rate 16 15 Blood Pressure 126/90 122/84 Pulse Oximetry 98 96 03/20/18 07:20 03/20/18 10:30 03/20/18 10:39 Temperature 98.5 F Pulse Rate 87 98 H Respiratory Rate 16 Blood Pressure 106/75 Pulse Oximetry 98 98 Intake & Output 03/19/18 03/20/18 03/20/18 18:59 06:59 18:59 Intake Total 1300 / 1300 840 / 840 Output Total 400 / 400 Balance 900 / 900 840 / 840 Intake: IV 100 / 100 Rocephin Inj 2,000 MG In NS Inj 100 / 100 100 ML @ 200 mls/hr IV.SIG Q24H RUMA Rx#:[id number] Oral 1200 / 1200 840 / 840 Output: Urine 400 / 400 Other: # Voids 3 Date of Last Bowel Movement 03/19/18 03/19/18 # Bowel Movements 1 Result Diagrams: 03/19/18 06:03 03/19/18 06:03 Laboratory Results: Laboratory Results - last 24 hr 03/15/18 03/17/18 03/17/18 21:43 18:04 20:43 KENNY Screen Neg M.tuberculosis DNA (PCR) TB (QFT) Gold In Tube Negative TB Test (QFT) Nil 0.01 TB Test Mitogen - Nil Greater than 10.00 TB Test Antigen - Nil 0 Rifampin Resistance Rout Panel Path Interp 03/19/18 11:30 KENNY Screen M.tuberculosis DNA (PCR) Not detected TB (QFT) Gold In Tube TB Test (QFT) Nil TB Test Mitogen - Nil TB Test Antigen - Nil Rifampin Resistance Not detected Rout Panel Path Interp Culture Results: Microbiology 03/16/18 23:15 Aerobic Blood Culture - Preliminary Blood - Peripheral No growth in 4 days Anaerobic Blood Culture - Preliminary No growth in 4 days 03/16/18 23:20 Aerobic Blood Culture - Preliminary Blood - Peripheral No growth in 4 days Anaerobic Blood Culture - Preliminary No growth in 4 days 03/15/18 20:25 Aerobic Blood Culture - Final Blood - Peripheral No growth in 5 days Anaerobic Blood Culture - Final No growth in 5 days 03/15/18 20:30 Aerobic Blood Culture - Final Blood - Peripheral No growth in 5 days Anaerobic Blood Culture - Final No growth in 5 days 03/17/18 16:10 Gram Stain - Final Sputum - Expectorated Sputum Sputum Culture - Final Heavy growth normal respiratory eber 03/17/18 23:40 Streptococcus pneumoniae Antigen (M - Final Urine - Clean Catch Urine Presumptive negative for streptococcus pneumoniae antigen, suggesting no current or recent infection. Infection due to Streptococcus pneumoniae cannot be ruled out since the antigen present in the sample may be below the detection limit of the test. 03/17/18 23:40 Legionella Antigen - Final Urine - Clean Catch Urine Presumptive negative for Legionella pneumophila serogroup 1 antigen in urine, suggesting no recent or recurrent infection. Infection due to Legionella cannot be ruled out since other serogroups and species may cause disease, antigen may not be present in urine in early infection, and the level of antigen present in the urine may be below the detection limit of the test. Medications: Active Medications Generic Name Dose Route Start Last Admin Trade Name Freq PRN Reason Stop Dose Admin Hydrocodone Bitart/Acetaminophen 1 tab 03/17/18 08:49 03/19/18 22:05 [place] 5/325 PO 1 tab Q4H PRN Administration PAIN SCALE 6 TO 10 Albuterol 2.5 mg 03/16/18 16:00 03/18/18 22:42 Albuterol Neb (Ruma) NEB Not Given Q6HR NEB RUMA Apixaban 5 mg 03/16/18 21:00 03/20/18 09:51 Eliquis PO 5 mg BID RUMA Administration Chlorhexidine Gluconate 3 pack 03/17/18 04:00 03/20/18 05:08 Chlorhexidine 2% Cloth TOPICAL 03/22/18 03:59 3 pack DAILY@0400 RUMA Administration Digoxin 250 mcg 03/17/18 10:45 03/20/18 09:51 Lanoxin PO 250 mcg DAILY RUMA Administration Ceftriaxone Sodium 2,000 mg/ 100 mls @ 200 mls/hr 03/19/18 13:00 03/19/18 17: 34 Sodium Chloride IV.SIG Infused Q24H RUMA Infusion Metoprolol Tartrate 25 mg 03/18/18 09:56 03/20/18 09:51 Lopressor PO 25 mg TID RUMA Administration Senna/Docusate Sodium 1 tab 03/19/18 21:00 03/19/18 22:06 Marsha-Colace PO Not Given BID RUMA Sodium Chloride 2 ml 03/15/18 17:22 03/19/18 09:18 Ns Flush IV.FLUSH 2 ml UNSCH PRN Administration FLUSH AFTER USING IV ACCESS Temazepam 15 mg 03/15/18 21:22 03/16/18 00:10 Restoril PO 15 mg HS PRN Administration INSOMNIA Objective Remarks: GENERAL: Well-nourished, well-developed patient young female pt. SKIN: Warm and dry. HEAD: Normocephalic. EYES: No scleral icterus. No injection or drainage. NECK: Supple, trachea midline. CARDIOVASCULAR: Wearing life-vest. Normal rate. RESPIRATORY: Breath sounds equal bilaterally. No accessory muscle use. GASTROINTESTINAL: Abdomen soft, non-tender, nondistended. EXTREMITIES: No cyanosis, or edema. MUSCULOSKELETAL: Adequate muscle tone. NEUROLOGICAL: No obvious focal deficit. Awake, alert, and oriented x3. PSYCHIATRIC: Appropriate mood and affect; insight and judgment normal. Assessment/Plan - Plan Hx/Workup: Patient is a 22-year-old female who delivered a baby mid September of this year. In November she developed a pulmonary embolism with severe cardiomyopathy that was felt to be related to being . Patient had a repeat CTA in December that did not show any pulmonary embolism and unfortunately the patient self discontinued her anticoagulation. She again presents now with significant shortness of breath. CTA shows persistent pulmonary embolism. Echocardiogram this admission shows ejection fraction estimated in the range of 20-25%. 1. Heart rate has continued to improve. symptoms have resolved. 2. Hemoglobin improving, today 9.1. 3. Continue apixaban 5 mg twice daily for pulmonary embolism. 4. Continue to monitor bleeding. will monitor H&H. 5. Serology and immunology panels are pending. 6. Community acquired pneumonia with cavities/Septic Emboli related cavities: Antibiotic management per infectious disease. - Attending Statement The exam, history, and the medical decision-making described in the above note were completed with the assistance of the mid-level provider. I reviewed and agree with the findings presented. I attest that I had a [id number] encounter with the patient on the same day, and personally performed and documented my assessment and findings in the medical record.Denies any new c/o. Feels better. She feels like that she can go home. Continue eliquis. Monitor for any bleeding.and check cbc
[2018-03-20] MEDS: Senna/Docusate Sodium 8.6/50 MG Tablet PO SCH ×2 (12:40→20:32)
[2018-03-20 13:38] LABS: Cryptococcus Ag Screen Negative (Negative)
--- NOTE | 2018-03-20 16:46 | P.PNIM ---
Subjective Interval history: 7-9 Follow-up for cavitary lung lesions, PE. Patient is currently doing well. Denies any chest pain, shortness of breath, fever or chills. She is on room air. 7- DW RN AND PT AND CM AND ONCOLOGY CONTINUE CURRENT TREATMENT PER ID AM LABS HX OF NONCOMPLIANCE IN THE PAST-MAY NEED TO COMPLETE TREATMENT PRIOR TO DISCHARGE Physical Exam Vital signs: Vital Signs 03/19/18 20:00 03/19/18 21:55 03/19/18 22:25 Temperature 99.5 F Pulse Rate 89 89 Respiratory Rate 16 16 Blood Pressure 115/83 Pulse Oximetry 99 03/20/18 00:00 03/20/18 04:00 03/20/18 05:00 Temperature 99.0 F 98.7 F Pulse Rate 106 H 90 88 Respiratory Rate 16 15 Blood Pressure 126/90 122/84 Pulse Oximetry 98 96 03/20/18 07:20 03/20/18 10:30 03/20/18 10:39 Temperature 98.5 F Pulse Rate 87 98 H Respiratory Rate 16 Blood Pressure 106/75 Pulse Oximetry 98 98 03/20/18 12:00 Temperature 98.9 F Pulse Rate 104 H Respiratory Rate 16 Blood Pressure 113/93 H Pulse Oximetry 100 Intake & Output 03/19/18 03/20/18 03/20/18 18:59 06:59 18:59 Intake Total 1300 / 1300 840 / 840 250 / 250 Output Total 400 / 400 Balance 900 / 900 840 / 840 250 / 250 Intake: IV 100 / 100 250 / 250 Rocephin Inj 2,000 MG In NS Inj 100 / 100 100 ML @ 200 mls/hr IV.SIG Q24H KARLEE Rx#:[id number] Oral 1200 / 1200 840 / 840 Output: Urine 400 / 400 Other: # Voids 3 Date of Last Bowel Movement 03/19/18 03/19/18 # Bowel Movements 1 Narrative: GENERAL: Alert and oriented 3 talkative and cooperative SKIN: Warm and dry. HEAD: Atraumatic. Normocephalic. EYES: Pupils equal and round. No scleral icterus. No injection or drainage. ENT: No nasal bleeding or discharge. Mucous membranes pink and moist. NECK: Trachea midline. No JVD. CARDIOVASCULAR: Regular rate and rhythm. S1-S2 no S3 or S4 2 out of 6 systolic ejection murmur RESPIRATORY: No accessory muscle use. Few scattered rhonchi. breath sounds equal bilaterally. GASTROINTESTINAL: Abdomen soft, non-tender, nondistended. Hepatic and splenic margins not palpable. MUSCULOSKELETAL: Extremities without clubbing, cyanosis, or edema. No obvious deformities. NEUROLOGICAL: Awake and alert. No obvious cranial nerve deficits. Motor grossly within normal limits. Five out of 5 muscle strength in the arms and legs. Normal speech. PSYCHIATRIC: Appropriate mood and affect; insight and judgment normal. Results - Labs CBC & Chem 7: 03/19/18 06:03 03/19/18 06:03 Laboratory Results - last 24 hr 03/17/18 03/19/18 20:43 11:30 Cryptococcus Ag Screen Negative Rifampin Resistance Not detected Microbiology 03/16/18 23:15 Blood - Peripheral Aerobic Blood Culture - Preliminary No growth in 4 days 03/16/18 23:15 Blood - Peripheral Anaerobic Blood Culture - Preliminary No growth in 4 days 03/16/18 23:20 Blood - Peripheral Aerobic Blood Culture - Preliminary No growth in 4 days 03/16/18 23:20 Blood - Peripheral Anaerobic Blood Culture - Preliminary No growth in 4 days 03/15/18 20:25 Blood - Peripheral Aerobic Blood Culture - Final No growth in 5 days 03/15/18 20:25 Blood - Peripheral Anaerobic Blood Culture - Final No growth in 5 days 03/15/18 20:30 Blood - Peripheral Aerobic Blood Culture - Final No growth in 5 days 03/15/18 20:30 Blood - Peripheral Anaerobic Blood Culture - Final No growth in 5 days 03/17/18 16:10 Sputum - Expectorated Sputum Gram Stain - Final 03/17/18 16:10 Sputum - Expectorated Sputum Sputum Culture - Final Heavy growth normal respiratory eber - Imaging ITS Impressions Chest X-Ray 03/15/18 17:24 CONCLUSION: Mild cardiac decompensation Chest CTA 03/15/18 17:32 CONCLUSION: 1. Low volume pulmonary embolism 2. Multifocal infiltrates including cavitary left base infiltrate. 3. Cardiac enlargement Chest X-Ray 03/16/18 21:24 CONCLUSION: 1. Marked cardiomegaly suggesting cardiomyopathy. 2. Patchy infiltrates consistent with probable pneumonia and/or pulmonary edema. Clinical correlation is recommended. Assessment and Plan - Plan Ms. Noriega is a pleasant 22-year-old -[place] female with a history of cardiomyopathy, pulmonary hypertension, iron deficiency anemia and recurrent pulmonary embolism who was admitted to the hospital on 03/16/2018 due to chest pain involving left side. She she had cough and tachycardia. ED workup at [place] indicates pulmonary embolism and bilateral infiltrates. There was also left lung cavitary lesion. Infectious disease and pulmonology were consulted. Patient denies any IV drug use history. Pulmonary embolism -Hematology is following. Patient is currently on apixaban 5 mg twice daily. Probable pneumonia Cavitary lesion of left lung -Infectious disease is following patient. Infectious disease change antibiotics to ceftriaxone 2 g every 24 hours. -MTB DNA PCR negative. QuantiFERON gold is also negative. -Cavitary lesion could be due to superimposed infection and embolism. -Discussed with pulmonology and infectious disease today. -We will obtain records from [facility] [place]. If needed bronchoscopy could be considered. However, pulmonology feel that it would be a low yield procedure. We will have to stop apixaban for 1-2 days before bronchoscopy is considered. Per [facility] reports patient was positive for streptococcal pneumoniae pneumonia is being continued on Rocephin Patient did not take the antibiotics as was prescribed after discharge cardiomyopathy -Patient has an appointment to see Dr. Casiano in the outpatient setting. -Currently on digoxin 250 mcg daily, metoprolol tartrate 25 mg p.o. 3 times daily. -Patient has a LifeVest History of blatant malignant medical noncompliance Patient has stopped anticoagulation in the past Patient is also not taken the antibiotics that she was prescribed at discharge Full code. Apixaban. Code Status: Full code Discussed Condition With: RN and patient and case management and infectious disease Discharge Planning: Pending clearance by infectious disease secondary to her history of malignant medical noncompliance
[2018-03-20 17:29] LABS: Protein C Antigen 40 % (70-150); Protein C Functional 40 % (70 - 150); Protein S Antigen Free 99 % (50 - 160)
--- NOTE | 2018-03-20 18:04 | P.PN ---
Subjective Interval history: Doing well and off O2. CXR is stable. The pt was on antibiotics at [facility] and was treated Strep Pneumoniae Pneumonia. Bronchoscopy was not done due to High risk due to Arrythmia and Cardiomyopathy. Physical Exam Vital signs: Vital Signs 03/19/18 20:00 03/19/18 21:55 03/19/18 22:25 Temperature 99.5 F Pulse Rate 89 89 Respiratory Rate 16 16 Blood Pressure 115/83 Pulse Oximetry 99 03/20/18 00:00 03/20/18 04:00 03/20/18 05:00 Temperature 99.0 F 98.7 F Pulse Rate 106 H 90 88 Respiratory Rate 16 15 Blood Pressure 126/90 122/84 Pulse Oximetry 98 96 03/20/18 07:20 03/20/18 10:30 03/20/18 10:39 Temperature 98.5 F Pulse Rate 87 98 H Respiratory Rate 16 Blood Pressure 106/75 Pulse Oximetry 98 98 03/20/18 12:00 03/20/18 17:37 Temperature 98.9 F Pulse Rate 104 H Respiratory Rate 16 Blood Pressure 113/93 H Pulse Oximetry 100 96 Intake & Output 03/19/18 03/20/18 03/20/18 18:59 06:59 18:59 Intake Total 1300 / 1300 840 / 840 250 / 250 Output Total 400 / 400 Balance 900 / 900 840 / 840 250 / 250 Intake: IV 100 / 100 250 / 250 Rocephin Inj 2,000 MG In NS Inj 100 / 100 100 ML @ 200 mls/hr IV.SIG Q24H KARLEE Rx#:[id number] Oral 1200 / 1200 840 / 840 Output: Urine 400 / 400 Other: # Voids 3 Date of Last Bowel Movement 03/19/18 03/19/18 # Bowel Movements 1 Narrative: GENERAL: Alert and oriented 3 talkative and cooperative SKIN: Warm and dry. HEAD: Atraumatic. Normocephalic. EYES: Pupils equal and round. No scleral icterus. No injection or drainage. ENT: No nasal bleeding or discharge. Mucous membranes pink and moist. NECK: Trachea midline. No JVD. CARDIOVASCULAR: Regular rate and rhythm. S1-S2 no S3 or S4 2 out of 6 systolic ejection murmur RESPIRATORY: No accessory muscle use. Occ Crackles left base. breath sounds equal bilaterally. GASTROINTESTINAL: Abdomen soft, non-tender, nondistended. Hepatic and splenic margins not palpable. MUSCULOSKELETAL: Extremities without clubbing, cyanosis, or edema. No obvious deformities. NEUROLOGICAL: Awake and alert. No obvious cranial nerve deficits. Motor grossly within normal limits. Five out of 5 muscle strength in the arms and legs. Normal speech. PSYCHIATRIC: Appropriate mood and affect; insight and judgment normal. Results - Labs CBC & Chem 7: 03/19/18 06:03 03/19/18 06:03 Laboratory Results - last 24 hr 03/17/18 03/17/18 03/19/18 03:59 20:43 11:30 Protein C Antigen 40 L Protein C Activity 40 L Protein S Activity 99 Free Protein S Antigen 99 Cryptococcus Ag Screen Negative Rifampin Resistance Not detected Microbiology 03/16/18 23:15 Blood - Peripheral Aerobic Blood Culture - Preliminary No growth in 4 days 03/16/18 23:15 Blood - Peripheral Anaerobic Blood Culture - Preliminary No growth in 4 days 03/16/18 23:20 Blood - Peripheral Aerobic Blood Culture - Preliminary No growth in 4 days 03/16/18 23:20 Blood - Peripheral Anaerobic Blood Culture - Preliminary No growth in 4 days 03/15/18 20:25 Blood - Peripheral Aerobic Blood Culture - Final No growth in 5 days 03/15/18 20:25 Blood - Peripheral Anaerobic Blood Culture - Final No growth in 5 days 03/15/18 20:30 Blood - Peripheral Aerobic Blood Culture - Final No growth in 5 days 03/15/18 20:30 Blood - Peripheral Anaerobic Blood Culture - Final No growth in 5 days Assessment and Plan - Assessment (1) Cardiomyopathy Code(s): I42.9 - Cardiomyopathy, unspecified Status: Acute (2) Pulmonary embolism Code(s): I26.99 - Other pulmonary embolism without acute cor pulmonale Status : Chronic (3) Lung infiltrate on CT Code(s): R91.8 - Other nonspecific abnormal finding of lung field Status: Acute (4) Cavitary lesion of lung Code(s): J98.4 - Other disorders of lung Status: Acute (5) Hypotension Code(s): I95.9 - Hypotension, unspecified Status: Resolved (6) Iron deficiency anemia Code(s): D50.9 - Iron deficiency anemia, unspecified Status: Chronic - Plan 1. Will continue antibiotics per ID 2. O2 prn 2 L. 3. Duonebs qid prn. 4. Hold off on Bronchoscopy due to Risk of Arrhythmia and cardiomyopathy 5. CBC,BMP 6. CT chest in 6 weeks (2) Pulmonary embolism Qualifiers: Pulmonary embolism type: other Chronicity: chronic Acute cor pulmonale presence: without acute cor pulmonale Qualified Code(s): I27.82 - Chronic pulmonary embolism (6) Iron deficiency anemia Qualifiers: Iron deficiency anemia type: unspecified iron deficiency Qualified Code(s): D50.9 - Iron deficiency anemia, unspecified
[2018-03-20] MEDS: guaiFENesin 600 MG ER Tablet PO SCH (20:31)
[2018-03-21] MEDS ORDERED: Pharmacy Ordered Lab Info OTHER ONE (00:45)
[2018-03-21 01:20] LABS: Hepatitis A IgM Antibody Nonreactive (Nonreactive)
[2018-03-21 01:21] LABS: Hepatitits B Surface Antigen Nonreactive (Nonreactive)
[2018-03-21] MEDS: Chlorhexidine Gluconate 2% 1 Pack (2 Cloths) TOPICAL SCH (05:15)
[2018-03-21 08:10] LABS: Baso % (Auto) 0.7 % (0.0-2.0); Eos # (Auto) 0.3 th/mm3 (0.0-0.4); Eos % (Auto) 4.8 % (0.0-4.0); Hematocrit 30.7 % (35.0-46.0); Hemoglobin 9.5 gm/dL (11.6-15.3); Lymph # (Auto) 1.9 th/mm3 (1.0-4.8); Lymph % (Auto) 28.1 % (9.0-44.0); Mean Corpuscular Hemoglobin 25.5 pg (27.0-34.0); Mean Corpuscular Volume 82.4 fL (80.0-100.0); Mean Platelet Volume 7.6 fL (7.0-11.0); Mono # (Auto) 0.5 th/mm3 (0.0-0.9); Neut % (Auto) 59.4 % (16.0-70.0); Platelet Count 609 th/mm3 (150-450); Red Blood Count 3.73 mil/mm3 (4.00-5.30); Red Cell Distribution Width 21.3 % (11.6-17.2); White Blood Count 6.7 th/mm3 (4.0-11.0)
[2018-03-21 08:20] LABS: Mean Corpuscular HGB Conc 30.9 % (32.0-36.0)
[2018-03-21 08:37] LABS: Albumin 2.1 g/dL (3.4-5.0); Anion Gap 9 meq/L (5-15); Aspartate Aminotransferase 11 U/L (15-37); Blood Urea Nitrogen 7 mg/dL (7-18); Calcium 8.9 mg/dL (8.5-10.1); Carbon Dioxide 24.3 meq/L (21.0-32.0); Chloride 110 meq/L (98-107); Glomerular Filtration Rate Greater Than 89 mL/min (>89); Glucose,Random 69 mg/dL (74-106); Magnesium 1.8 mg/dL (1.5-2.5); Potassium 4.1 meq/L (3.5-5.1); Sodium 143 meq/L (136-145)
[2018-03-21 08:39] LABS: Cholesterol 89 mg/dL (120-200)
[2018-03-21 08:48] LABS: Alanine Aminotransferase 7 U/L (10-53); Alkaline Phosphatase 125 U/L (45-117); Chol/HDL Ratio 4.21 Ratio; Free T4 (Free Thyroxine) 1.44 ng/dL (0.76-1.46); HDL Cholesterol 21.1 mg/dL (40.0-60.0); LDL Cholesterol,Calculated 55 mg/dL (0-99); Phosphorus 3.7 mg/dL (2.5-4.9); Thyroid Stimulating Hormone 0.942 uIU/mL (0.358-3.740); Total Protein 6.5 g/dL (6.4-8.2); Triglycerides 64 mg/dL (42-150)
[2018-03-21] MEDS: guaiFENesin 600 MG ER Tablet PO SCH ×2 (09:10→21:27)
[2018-03-21] MEDS: Digoxin 250 MCG Tablet PO SCH (09:10)
[2018-03-21] MEDS: Metoprolol Tartrate 25 MG Tablet PO SCH ×3 (09:10→18:21)
[2018-03-21] MEDS: Senna/Docusate Sodium 8.6/50 MG Tablet PO SCH ×2 (10:22→21:28)
--- NOTE | 2018-03-21 15:56 | P.PNIM ---
Subjective Interval history: 7 Follow-up for cavitary lung lesions, PE. Patient is currently doing well. Denies any chest pain, shortness of breath, fever or chills. She is on room air. 03-20 RICHARD RN AND PT AND CM AND ONCOLOGY CONTINUE CURRENT TREATMENT PER ID AM LABS HX OF NONCOMPLIANCE IN THE PAST-MAY NEED TO COMPLETE TREATMENT PRIOR TO DISCHARGE 03-21 CONTINUE CURRENT ANTIBIOTICS NOT CLEARED BY ID RICHARD RN AND PATIENT AND CASE MANAGEMENT HX OF POOR COMPLIANCE Physical Exam Vital signs: Vital Signs 03/20/18 16:00 03/20/18 17:37 03/20/18 18:42 Temperature 98.1 F Pulse Rate 127 H 90 Respiratory Rate 18 Blood Pressure 109/81 Pulse Oximetry 91 L 96 03/20/18 20:00 03/20/18 22:00 03/21/18 00:00 Temperature 98.4 F 98.2 F Pulse Rate 92 H 94 H 99 H Respiratory Rate 16 16 Blood Pressure 129/87 120/95 H Pulse Oximetry 99 100 03/21/18 04:00 03/21/18 07:00 03/21/18 08:01 Temperature 97.9 F 98.2 F Pulse Rate 77 85 100 H Respiratory Rate 15 18 Blood Pressure 129/84 133/98 H Pulse Oximetry 98 98 03/21/18 11:00 03/21/18 11:24 03/21/18 12:00 Temperature 98.2 F Pulse Rate 90 94 H 90 Respiratory Rate 18 Blood Pressure 135/98 H Pulse Oximetry 100 Intake & Output 03/20/18 03/21/18 03/21/18 18:59 06:59 18:59 Intake Total 350 / 350 480 / 480 100 / 100 Balance 350 / 350 480 / 480 100 / 100 Weight 49 kg Intake: IV 350 / 350 100 / 100 Rocephin Inj 2,000 MG In NS Inj 100 / 100 100 / 100 100 ML @ 200 mls/hr IV.SIG Q24H KARLEE Rx#:[id number] Oral 480 / 480 Other: # Voids 4 Date of Last Bowel Movement 03/21/18 # Bowel Movements 2 Narrative: GENERAL: Alert and oriented 3 talkative and cooperative SKIN: Warm and dry. HEAD: Atraumatic. Normocephalic. EYES: Pupils equal and round. No scleral icterus. No injection or drainage. ENT: No nasal bleeding or discharge. Mucous membranes pink and moist. NECK: Trachea midline. No JVD. CARDIOVASCULAR: Regular rate and rhythm. S1-S2 no S3 or S4 2 out of 6 systolic ejection murmur RESPIRATORY: No accessory muscle use. Occ Crackles left base. breath sounds equal bilaterally. GASTROINTESTINAL: Abdomen soft, non-tender, nondistended. Hepatic and splenic margins not palpable. MUSCULOSKELETAL: Extremities without clubbing, cyanosis, or edema. No obvious deformities. NEUROLOGICAL: Awake and alert. No obvious cranial nerve deficits. Motor grossly within normal limits. Five out of 5 muscle strength in the arms and legs. Normal speech. PSYCHIATRIC: Appropriate mood and affect; insight and judgment normal. Results - Labs CBC & Chem 7: 03/21/18 06:31 03/21/18 06:31 Laboratory Results - last 24 hr 03/17/18 03/17/18 03/18/18 03:59 03:59 05:04 WBC RBC Hgb Hct MCV MCH MCHC RDW Plt Count MPV Neut % (Auto) Lymph % (Auto) [place]ulloch % (Auto) Eos % (Auto) Baso % (Auto) Neut # (Auto) Lymph # (Auto) [place] # (Auto) Eos # (Auto) Baso # (Auto) WBC Differential Differential Comment Thrombin Time 29 H Lupus Anticoagulant Lupus Anticoag aPTT 64.0 H Dil Bentley Viper Venom 92.0 H dRVVT Confirm Interp Negative dRVVT Mix Pat/Norm 1:1 ND dRVVT Mix Interpret ND Hexagonal Phase Confirm Positive A Protein C Antigen 40 L Protein C Activity 40 L Protein S Activity 99 Free Protein S Antigen 99 Sodium Potassium Chloride Carbon Dioxide Anion Gap BUN Creatinine Estimated GFR Random Glucose Calcium Phosphorus Magnesium Total Bilirubin AST ALT Alkaline Phosphatase Total Protein Albumin Triglycerides Cholesterol LDL Cholesterol, Calc HDL Cholesterol Cholesterol/HDL Ratio TSH Free T4 Beta-2-GPI IgG Ab Less than 9.0 Beta-2-GPI IgA Ab Less than 9.0 Beta-2-GPI IgM Ab Less than 9.0 Hepatitis A IgM Ab Hep Bs Antigen Hep B Core IgM Ab Hep C IgG Ab Prothrombin [id number] Mut 03/20/18 03/21/18 03/21/18 19:23 06:31 06:31 WBC 6.7 RBC 3.73 L Hgb 9.5 L Hct 30.7 L MCV 82.4 MCH 25.5 L MCHC 30.9 L RDW 21.3 H Plt Count 609 H MPV 7.6 Neut % (Auto) 59.4 Lymph % (Auto) 28.1 Mcculloch % (Auto) 7.0 Eos % (Auto) 4.8 H Baso % (Auto) 0.7 Neut # (Auto) 4.0 Lymph # (Auto) 1.9 [place]och # (Auto) 0.5 Eos # (Auto) 0.3 Baso # (Auto) 0.0 WBC Differential . Differential Comment Auto diff final Thrombin Time Lupus Anticoagulant Lupus Anticoag aPTT Dil Bentley Viper Venom dRVVT Confirm Interp dRVVT Mix Pat/Norm 1:1 dRVVT Mix Interpret Hexagonal Phase Confirm Protein C Antigen Protein C Activity Protein S Activity Free Protein S Antigen Sodium 143 Potassium 4.1 Chloride 110 H Carbon Dioxide 24.3 Anion Gap 9 BUN 7 Creatinine 0.59 Estimated GFR Greater than 89 Random Glucose 69 L Calcium 8.9 Phosphorus 3.7 Magnesium 1.8 Total Bilirubin 0.2 AST 11 L ALT 7 L Alkaline Phosphatase 125 H Total Protein 6.5 D Albumin 2.1 L Triglycerides 64 Cholesterol 89 L LDL Cholesterol, Calc 55 HDL Cholesterol 21.1 L Cholesterol/HDL Ratio 4.21 TSH 0.942 Free T4 1.44 Beta-2-GPI IgG Ab Beta-2-GPI IgA Ab Beta-2-GPI IgM Ab Hepatitis A IgM Ab Nonreactive Hep Bs Antigen Nonreactive Hep B Core IgM Ab Nonreactive Hep C IgG Ab Nonreactive Prothrombin [id number] Mut Microbiology 03/21/18 12:30 Stool Stool Occult Blood (SKY) - Final Hemoccult negative 03/17/18 16:10 Sputum - Expectorated Sputum Acid Fast Bacilli Smear - Final No acid fast bacilli seen 03/16/18 23:15 Blood - Peripheral Aerobic Blood Culture - Final No growth in 5 days 03/16/18 23:15 Blood - Peripheral Anaerobic Blood Culture - Final No growth in 5 days 03/16/18 23:20 Blood - Peripheral Aerobic Blood Culture - Final No growth in 5 days 03/16/18 23:20 Blood - Peripheral Anaerobic Blood Culture - Final No growth in 5 days - Imaging ITS Impressions Chest X-Ray 03/15/18 17:24 CONCLUSION: Mild cardiac decompensation Chest CTA 03/15/18 17:32 CONCLUSION: 1. Low volume pulmonary embolism 2. Multifocal infiltrates including cavitary left base infiltrate. 3. Cardiac enlargement Chest X-Ray 03/16/18 21:24 CONCLUSION: 1. Marked cardiomegaly suggesting cardiomyopathy. 2. Patchy infiltrates consistent with probable pneumonia and/or pulmonary edema. Clinical correlation is recommended. Assessment and Plan - Plan Ms. Noriega is a pleasant 22-year-old -[place] female with a history of cardiomyopathy, pulmonary hypertension, iron deficiency anemia and recurrent pulmonary embolism who was admitted to the hospital on 03/16/2018 due to chest pain involving left side. She she had cough and tachycardia. ED workup at [place] indicates pulmonary embolism and bilateral infiltrates. There was also left lung cavitary lesion. Infectious disease and pulmonology were consulted. Patient denies any IV drug use history. Pulmonary embolism -Hematology is following. Patient is currently on apixaban 5 mg twice daily. Probable pneumonia Cavitary lesion of left lung -Infectious disease is following patient. Infectious disease change antibiotics to ceftriaxone 2 g every 24 hours. -MTB DNA PCR negative. QuantiFERON gold is also negative. -Cavitary lesion could be due to superimposed infection and embolism. -Discussed with pulmonology and infectious disease today. -We will obtain records from [facility]. If needed bronchoscopy could be considered. However, pulmonology feel that it would be a low yield procedure. We will have to stop apixaban for 1-2 days before bronchoscopy is considered. Per [facility] reports patient was positive for streptococcal pneumoniae pneumonia is being continued on Rocephin Patient did not take the antibiotics as was prescribed after discharge cardiomyopathy -Patient has an appointment to see Dr. Casiano in the outpatient setting. -Currently on digoxin 250 mcg daily, metoprolol tartrate 25 mg p.o. 3 times daily. -Patient has a LifeVest History of blatant malignant medical noncompliance Patient has stopped anticoagulation in the past Patient is also not taken the antibiotics that she was prescribed at discharge Full code. Apixaban. Code Status: FULL CODE Discussed Condition With: RN AND PT AND CM Discharge Planning: Pending clearance by infectious disease secondary to her history of malignant medical noncompliance
--- NOTE | 2018-03-21 17:49 | P.PN ---
Subjective Interval history: Doing well and off O2 . No Fever. On Antibiotics per ID. records from [facility] were reviewed. Physical Exam Vital signs: Vital Signs 03/20/18 18:42 03/20/18 20:00 03/20/18 22:00 Temperature 98.4 F Pulse Rate 90 92 H 94 H Respiratory Rate 16 Blood Pressure 129/87 Pulse Oximetry 99 03/21/18 00:00 03/21/18 04:00 03/21/18 07:00 Temperature 98.2 F 97.9 F Pulse Rate 99 H 77 85 Respiratory Rate 16 15 Blood Pressure 120/95 H 129/84 Pulse Oximetry 100 98 03/21/18 08:01 03/21/18 11:00 03/21/18 11:24 Temperature 98.2 F 98.2 F Pulse Rate 100 H 90 94 H Respiratory Rate 18 18 Blood Pressure 133/98 H 135/98 H Pulse Oximetry 98 100 03/21/18 12:00 03/21/18 16:00 03/21/18 17:44 Temperature Pulse Rate 90 85 100 H Respiratory Rate 16 22 Blood Pressure 125/92 H 126/92 H Pulse Oximetry 99 Intake & Output 03/20/18 03/21/18 03/21/18 18:59 06:59 18:59 Intake Total 350 / 350 480 / 480 100 / 100 Balance 350 / 350 480 / 480 100 / 100 Weight 49 kg Intake: IV 350 / 350 100 / 100 Rocephin Inj 2,000 MG In NS Inj 100 / 100 100 / 100 100 ML @ 200 mls/hr IV.SIG Q24H KARLEE Rx#:[id number] Oral 480 / 480 Other: # Voids 4 Date of Last Bowel Movement 03/21/18 # Bowel Movements 2 Narrative: GENERAL: Alert and oriented 3 cooperative SKIN: Warm and dry. HEAD: Atraumatic. Normocephalic. EYES: Pupils equal and round. No scleral icterus. No injection or drainage. ENT: No nasal bleeding or discharge. Mucous membranes pink and moist. NECK: Trachea midline. No JVD. CARDIOVASCULAR: Regular rate and rhythm. S1-S2 no S3 or S4 2 out of 6 systolic ejection murmur RESPIRATORY: No accessory muscle use. Occ Crackles left base. breath sounds equal bilaterally. GASTROINTESTINAL: Abdomen soft, non-tender, nondistended. Hepatic and splenic margins not palpable. MUSCULOSKELETAL: Extremities without clubbing, cyanosis, or edema. No obvious deformities. NEUROLOGICAL: Awake and alert. No obvious cranial nerve deficits. Motor grossly within normal limits. Five out of 5 muscle strength in the arms and legs. Normal speech. PSYCHIATRIC: Appropriate mood and affect; insight and judgment normal. Results - Labs CBC & Chem 7: 03/21/18 06:31 03/21/18 06:31 Laboratory Results - last 24 hr 03/17/18 03/18/18 03/20/18 03:59 05:04 19:23 WBC RBC Hgb Hct MCV MCH MCHC RDW Plt Count MPV Neut % (Auto) Lymph % (Auto) [place] % (Auto) Eos % (Auto) Baso % (Auto) Neut # (Auto) Lymph # (Auto) [place] # (Auto) Eos # (Auto) Baso # (Auto) WBC Differential Differential Comment Thrombin Time 29 H Lupus Anticoagulant Lupus Anticoag aPTT 64.0 H Dil Bentley Viper Venom 92.0 H dRVVT Confirm Interp Negative dRVVT Mix Pat/Norm 1:1 ND dRVVT Mix Interpret ND Hexagonal Phase Confirm Positive A Sodium Potassium Chloride Carbon Dioxide Anion Gap BUN Creatinine Estimated GFR Random Glucose Calcium Phosphorus Magnesium Total Bilirubin AST ALT Alkaline Phosphatase Total Protein Albumin Triglycerides Cholesterol LDL Cholesterol, Calc HDL Cholesterol Cholesterol/HDL Ratio TSH Free T4 Beta-2-GPI IgG Ab Less than 9.0 Beta-2-GPI IgA Ab Less than 9.0 Beta-2-GPI IgM Ab Less than 9.0 Hepatitis A IgM Ab Nonreactive Hep Bs Antigen Nonreactive Hep B Core IgM Ab Nonreactive Hep C IgG Ab Nonreactive Prothrombin [id number] Mut 03/21/18 03/21/18 06:31 06:31 WBC 6.7 RBC 3.73 L Hgb 9.5 L Hct 30.7 L MCV 82.4 MCH 25.5 L MCHC 30.9 L RDW 21.3 H Plt Count 609 H MPV 7.6 Neut % (Auto) 59.4 Lymph % (Auto) 28.1 [place] % (Auto) 7.0 Eos % (Auto) 4.8 H Baso % (Auto) 0.7 Neut # (Auto) 4.0 Lymph # (Auto) 1.9 [place] # (Auto) 0.5 Eos # (Auto) 0.3 Baso # (Auto) 0.0 WBC Differential . Differential Comment Auto diff final Thrombin Time Lupus Anticoagulant Lupus Anticoag aPTT Dil Bentley Viper Venom dRVVT Confirm Interp dRVVT Mix Pat/Norm 1:1 dRVVT Mix Interpret Hexagonal Phase Confirm Sodium 143 Potassium 4.1 Chloride 110 H Carbon Dioxide 24.3 Anion Gap 9 BUN 7 Creatinine 0.59 Estimated GFR Greater than 89 Random Glucose 69 L Calcium 8.9 Phosphorus 3.7 Magnesium 1.8 Total Bilirubin 0.2 AST 11 L ALT 7 L Alkaline Phosphatase 125 H Total Protein 6.5 D Albumin 2.1 L Triglycerides 64 Cholesterol 89 L LDL Cholesterol, Calc 55 HDL Cholesterol 21.1 L Cholesterol/HDL Ratio 4.21 TSH 0.942 Free T4 1.44 Beta-2-GPI IgG Ab Beta-2-GPI IgA Ab Beta-2-GPI IgM Ab Hepatitis A IgM Ab Hep Bs Antigen Hep B Core IgM Ab Hep C IgG Ab Prothrombin [id number] Mut Microbiology 03/21/18 12:30 Stool Stool Occult Blood (SKY) - Final Hemoccult negative 03/17/18 16:10 Sputum - Expectorated Sputum Acid Fast Bacilli Smear - Final No acid fast bacilli seen 03/16/18 23:15 Blood - Peripheral Aerobic Blood Culture - Final No growth in 5 days 03/16/18 23:15 Blood - Peripheral Anaerobic Blood Culture - Final No growth in 5 days 03/16/18 23:20 Blood - Peripheral Aerobic Blood Culture - Final No growth in 5 days 03/16/18 23:20 Blood - Peripheral Anaerobic Blood Culture - Final No growth in 5 days Assessment and Plan - Assessment (1) Cardiomyopathy Code(s): I42.9 - Cardiomyopathy, unspecified Status: Acute (2) Pulmonary embolism Code(s): I26.99 - Other pulmonary embolism without acute cor pulmonale Status : Chronic (3) Lung infiltrate on CT Code(s): R91.8 - Other nonspecific abnormal finding of lung field Status: Acute (4) Cavitary lesion of lung Code(s): J98.4 - Other disorders of lung Status: Acute (5) Hypotension Code(s): I95.9 - Hypotension, unspecified Status: Resolved (6) Iron deficiency anemia Code(s): D50.9 - Iron deficiency anemia, unspecified Status: Chronic - Plan 1. Will continue antibiotics , Rocephin per ID 2. O2 prn 2 L. 3. D/C Nebs 4. Hold off on Bronchoscopy due to Risk of Arrhythmia and cardiomyopathy 5. Chest Xray this week 6. CT chest in 6 weeks (2) Pulmonary embolism Qualifiers: Pulmonary embolism type: other Chronicity: chronic Acute cor pulmonale presence: without acute cor pulmonale Qualified Code(s): I27.82 - Chronic pulmonary embolism (6) Iron deficiency anemia Qualifiers: Iron deficiency anemia type: unspecified iron deficiency Qualified Code(s): D50.9 - Iron deficiency anemia, unspecified
--- NOTE | 2018-03-22 00:26 | P.PNONC ---
Subjective Interval history: no cp or sob Objective Vital Signs/Intake & Output: Vital Signs 03/21/18 04:00 03/21/18 07:00 03/21/18 08:01 Temperature 97.9 F 98.2 F Pulse Rate 77 85 100 H Respiratory Rate 15 18 Blood Pressure 129/84 133/98 H Pulse Oximetry 98 98 03/21/18 11:00 03/21/18 11:24 03/21/18 12:00 Temperature 98.2 F Pulse Rate 90 94 H 90 Respiratory Rate 18 Blood Pressure 135/98 H Pulse Oximetry 100 03/21/18 16:00 03/21/18 17:44 Temperature Pulse Rate 85 100 H Respiratory Rate 16 22 Blood Pressure 125/92 H 126/92 H Pulse Oximetry 99 Intake & Output 03/21/18 03/21/18 03/22/18 06:59 18:59 06:59 Intake Total 480 / 480 340 / 340 Balance 480 / 480 340 / 340 Weight 49 kg Intake: IV 100 / 100 Rocephin Inj 2,000 MG In NS Inj 100 / 100 100 ML @ 200 mls/hr IV.SIG Q24H KARLEE Rx#:[id number] Oral 480 / 480 240 / 240 Other: Date of Last Bowel Movement 03/21/18 # Bowel Movements 2 Result Diagrams: 03/21/18 06:31 03/21/18 06:31 Laboratory Results: Laboratory Results - last 24 hr 03/17/18 03/18/18 03/20/18 03:59 05:04 19:23 WBC RBC Hgb Hct MCV MCH MCHC RDW Plt Count MPV Neut % (Auto) Lymph % (Auto) [place] % (Auto) Eos % (Auto) Baso % (Auto) Neut # (Auto) Lymph # (Auto) [place] # (Auto) Eos # (Auto) Baso # (Auto) WBC Differential Differential Comment Thrombin Time 29 H Lupus Anticoagulant Lupus Anticoag aPTT 64.0 H Dil Bentley Viper Venom 92.0 H dRVVT Confirm Interp Negative dRVVT Mix Pat/Norm 1:1 ND dRVVT Mix Interpret ND Hexagonal Phase Confirm Positive A Sodium Potassium Chloride Carbon Dioxide Anion Gap BUN Creatinine Estimated GFR Random Glucose Calcium Phosphorus Magnesium Total Bilirubin AST ALT Alkaline Phosphatase Total Protein Albumin Triglycerides Cholesterol LDL Cholesterol, Calc HDL Cholesterol Cholesterol/HDL Ratio TSH Free T4 Anti-Proteinase 3 Less than 1.0 Anti-Myeloperoxidase Less than 1.0 Beta-2-GPI IgG Ab Less than 9.0 Beta-2-GPI IgA Ab Less than 9.0 Beta-2-GPI IgM Ab Less than 9.0 Hepatitis A IgM Ab Nonreactive Hep Bs Antigen Nonreactive Hep B Core IgM Ab Nonreactive Hep C IgG Ab Nonreactive Prothrombin [id number] Mut 03/21/18 03/21/18 06:31 06:31 WBC 6.7 RBC 3.73 L Hgb 9.5 L Hct 30.7 L MCV 82.4 MCH 25.5 L MCHC 30.9 L RDW 21.3 H Plt Count 609 H MPV 7.6 Neut % (Auto) 59.4 Lymph % (Auto) 28.1 [place] % (Auto) 7.0 Eos % (Auto) 4.8 H Baso % (Auto) 0.7 Neut # (Auto) 4.0 Lymph # (Auto) 1.9 [place] # (Auto) 0.5 Eos # (Auto) 0.3 Baso # (Auto) 0.0 WBC Differential . Differential Comment Auto diff final Thrombin Time Lupus Anticoagulant Lupus Anticoag aPTT Dil Bentley Viper Venom dRVVT Confirm Interp dRVVT Mix Pat/Norm 1:1 dRVVT Mix Interpret Hexagonal Phase Confirm Sodium 143 Potassium 4.1 Chloride 110 H Carbon Dioxide 24.3 Anion Gap 9 BUN 7 Creatinine 0.59 Estimated GFR Greater than 89 Random Glucose 69 L Calcium 8.9 Phosphorus 3.7 Magnesium 1.8 Total Bilirubin 0.2 AST 11 L ALT 7 L Alkaline Phosphatase 125 H Total Protein 6.5 D Albumin 2.1 L Triglycerides 64 Cholesterol 89 L LDL Cholesterol, Calc 55 HDL Cholesterol 21.1 L Cholesterol/HDL Ratio 4.21 TSH 0.942 Free T4 1.44 Anti-Proteinase 3 Anti-Myeloperoxidase Beta-2-GPI IgG Ab Beta-2-GPI IgA Ab Beta-2-GPI IgM Ab Hepatitis A IgM Ab Hep Bs Antigen Hep B Core IgM Ab Hep C IgG Ab Prothrombin [id number] Mut Culture Results: Microbiology 03/21/18 12:30 Stool Occult Blood (SKY) - Final Stool Hemoccult negative 03/17/18 16:10 Acid Fast Bacilli Smear - Final Sputum - Expectorated Sputum No acid fast bacilli seen 03/16/18 23:15 Aerobic Blood Culture - Final Blood - Peripheral No growth in 5 days Anaerobic Blood Culture - Final No growth in 5 days 03/16/18 23:20 Aerobic Blood Culture - Final Blood - Peripheral No growth in 5 days Anaerobic Blood Culture - Final No growth in 5 days 03/15/18 20:25 Aerobic Blood Culture - Final Blood - Peripheral No growth in 5 days Anaerobic Blood Culture - Final No growth in 5 days 03/15/18 20:30 Aerobic Blood Culture - Final Blood - Peripheral No growth in 5 days Anaerobic Blood Culture - Final No growth in 5 days 03/17/18 16:10 Gram Stain - Final Sputum - Expectorated Sputum Sputum Culture - Final Heavy growth normal respiratory eber Medications: Active Medications Generic Name Dose Route Start Last Admin Trade Name Freq PRN Reason Stop Dose Admin Hydrocodone Bitart/Acetaminophen 1 tab 03/17/18 08:49 03/21/18 21:27 [place] 5/325 PO 1 tab Q4H PRN Administration PAIN SCALE 6 TO 10 Apixaban 5 mg 03/16/18 21:00 03/21/18 21:27 Eliquis PO 5 mg BID KARLEE Administration Chlorhexidine Gluconate 3 pack 03/17/18 04:00 03/21/18 05:15 Chlorhexidine 2% Cloth TOPICAL 03/22/18 03:59 Not Given DAILY@0400 KARLEE Digoxin 250 mcg 03/17/18 10:45 03/21/18 09:10 Lanoxin PO 250 mcg DAILY KARLEE Administration Guaifenesin 600 mg 03/20/18 21:00 03/21/18 21:27 Mucinex Er PO 600 mg BID KARLEE Administration Ceftriaxone Sodium 2,000 mg/ 100 mls @ 200 mls/hr 03/19/18 13:00 03/21/18 14: 05 Sodium Chloride IV.SIG Infused Q24H [facility] Infusion Metoprolol Tartrate 25 mg 03/18/18 09:56 03/21/18 18:21 Lopressor PO 25 mg TID KARLEE Administration Senna/Docusate Sodium 1 tab 03/19/18 21:00 03/21/18 21:28 Marsha-Colace PO Not Given BID KARLEE Sodium Chloride 2 ml 03/15/18 17:22 03/19/18 09:18 Ns Flush IV.FLUSH 2 ml UNSCH PRN Administration FLUSH AFTER USING IV ACCESS Temazepam 15 mg 03/15/18 21:22 03/16/18 00:10 Restoril PO 15 mg HS PRN Administration INSOMNIA Objective Remarks: GENERAL: Well-nourished, well-developed patient. SKIN: Warm and dry. HEAD: Normocephalic. EYES: No scleral icterus. No injection or drainage. NECK: Supple, trachea midline. No JVD or lymphadenopathy. LYMPHATIC: No adenopathy. CARDIOVASCULAR: Regular rate and rhythm without murmurs. RESPIRATORY: Breath sounds equal bilaterally. No accessory muscle use. GASTROINTESTINAL: Abdomen soft, non-tender, nondistended. EXTREMITIES: No cyanosis, or edema. MUSCULOSKELETAL: Adequate muscle tone. NEUROLOGICAL: No obvious focal deficit. Awake, alert, and oriented x3. PSYCHIATRIC: Appropriate mood and affect; insight and judgment normal. Assessment/Plan (1) Pulmonary embolism Code(s): I26.99 - Other pulmonary embolism without acute cor pulmonale Status : Chronic (2) Iron deficiency anemia Code(s): D50.9 - Iron deficiency anemia, unspecified Status: Chronic - Plan Hx/Workup: Patient is a 22-year-old female who delivered a baby mid September of this year. In November she developed a pulmonary embolism with severe cardiomyopathy that was felt to be related to being . Patient had a repeat CTA in December that did not show any pulmonary embolism and unfortunately the patient self discontinued her anticoagulation. She again presents now with significant shortness of breath. CTA shows persistent pulmonary embolism. Echocardiogram this admission shows ejection fraction estimated in the range of 20-25%. 1. Heart rate has continued to improve. symptoms have resolved. 2. Hemoglobin improving, today 9.1. 3. Continue apixaban 5 mg twice daily for pulmonary embolism. 4. Continue to monitor bleeding. will monitor H&H. 5. Serology and immunology panels are pending. 6. Community acquired pneumonia with cavities/Septic Emboli related cavities: Antibiotic management per infectious disease. (1) Pulmonary embolism Qualifiers: Pulmonary embolism type: other Chronicity: chronic Acute cor pulmonale presence: without acute cor pulmonale Qualified Code(s): I27.82 - Chronic pulmonary embolism (2) Iron deficiency anemia Qualifiers: Iron deficiency anemia type: unspecified iron deficiency Qualified Code(s): D50.9 - Iron deficiency anemia, unspecified
[2018-03-22] MEDS: Senna/Docusate Sodium 8.6/50 MG Tablet PO SCH ×2 (11:03→22:00)
[2018-03-22] MEDS: Digoxin 250 MCG Tablet PO SCH (11:03)
[2018-03-22] MEDS: Metoprolol Tartrate 25 MG Tablet PO SCH ×3 (11:03→17:58)
[2018-03-22] MEDS: guaiFENesin 600 MG ER Tablet PO SCH ×2 (11:03→22:00)
--- NOTE | 2018-03-22 13:18 | P.PNIM ---
Subjective Interval history: 7-9 Follow-up for cavitary lung lesions, PE. Patient is currently doing well. Denies any chest pain, shortness of breath, fever or chills. She is on room air. 7- RICHARD RN AND PT AND CM AND ONCOLOGY CONTINUE CURRENT TREATMENT PER ID AM LABS HX OF NONCOMPLIANCE IN THE PAST-MAY NEED TO COMPLETE TREATMENT PRIOR TO DISCHARGE 7-11 CONTINUE CURRENT ANTIBIOTICS NOT CLEARED BY ID RICHARD RN AND PATIENT AND CASE MANAGEMENT HX OF POOR COMPLIANCE 7-12 CONTINUE ANTIBIOTICS HAS AREA OF TENDERNESS NEAR LEFT ANTECUBITAL FOSSA WILL CONTINUE WARM COMPRESSES ALREADY ON ANTICOAGULATION Physical Exam Vital signs: Vital Signs 03/21/18 16:00 03/21/18 17:44 03/21/18 20:00 Temperature 98.3 F Pulse Rate 85 100 H 88 Respiratory Rate 16 22 16 Blood Pressure 125/92 H 126/92 H 125/95 H Pulse Oximetry 99 03/22/18 00:00 03/22/18 04:00 03/22/18 08:45 Temperature 98.1 F 98.4 F 98.0 F Pulse Rate 90 100 H 91 H Respiratory Rate 16 16 16 Blood Pressure 116/85 125/62 Pulse Oximetry 96 Intake & Output 03/21/18 03/22/18 03/22/18 18:59 06:59 18:59 Intake Total 340 / 340 477 / 477 Output Total 600 / 600 Balance 340 / 340 -123 / -123 Weight 51 kg Intake: IV 100 / 100 Rocephin Inj 2,000 MG In NS Inj 100 / 100 100 ML @ 200 mls/hr IV.SIG Q24H KARLEE Rx#:[id number] Oral 240 / 240 477 / 477 Output: Urine 600 / 600 Other: Date of Last Bowel Movement 03/21/18 03/21/18 # Bowel Movements 2 Narrative: GENERAL: Alert and oriented 3 cooperative SKIN: Warm and dry. HEAD: Atraumatic. Normocephalic. EYES: Pupils equal and round. No scleral icterus. No injection or drainage. ENT: No nasal bleeding or discharge. Mucous membranes pink and moist. NECK: Trachea midline. No JVD. CARDIOVASCULAR: Regular rate and rhythm. S1-S2 no S3 or S4 2 out of 6 systolic ejection murmur RESPIRATORY: No accessory muscle use. Occ Crackles left base. breath sounds equal bilaterally. GASTROINTESTINAL: Abdomen soft, non-tender, nondistended. Hepatic and splenic margins not palpable. MUSCULOSKELETAL: Extremities without clubbing, cyanosis, or edema. No obvious deformities. NEUROLOGICAL: Awake and alert. No obvious cranial nerve deficits. Motor grossly within normal limits. Five out of 5 muscle strength in the arms and legs. Normal speech. PSYCHIATRIC: Appropriate mood and affect; insight and judgment normal. Results - Labs CBC & Chem 7: 03/21/18 06:31 03/21/18 06:31 Laboratory Results - last 24 hr 03/17/18 03/17/18 03/18/18 03:59 03:59 05:04 Thrombin Time 29 H Lupus Anticoagulant Lupus Anticoag aPTT 64.0 H Dil Bentley Viper Venom 92.0 H dRVVT Confirm Interp Negative dRVVT Mix Pat/Norm 1:1 ND dRVVT Mix Interpret ND Hexagonal Phase Confirm Positive A Antithrombin III Activ 108 Anti-Proteinase 3 Less than 1.0 Anti-Myeloperoxidase Less than 1.0 Beta-2-GPI IgG Ab Less than 9.0 Beta-2-GPI IgA Ab Less than 9.0 Beta-2-GPI IgM Ab Less than 9.0 Prothrombin [id number] Mut Microbiology 03/21/18 12:30 Stool Stool Occult Blood (SKY) - Final Hemoccult negative 03/17/18 16:10 Sputum - Expectorated Sputum Acid Fast Bacilli Smear - Final No acid fast bacilli seen 03/16/18 23:15 Blood - Peripheral Aerobic Blood Culture - Final No growth in 5 days 03/16/18 23:15 Blood - Peripheral Anaerobic Blood Culture - Final No growth in 5 days 03/16/18 23:20 Blood - Peripheral Aerobic Blood Culture - Final No growth in 5 days 03/16/18 23:20 Blood - Peripheral Anaerobic Blood Culture - Final No growth in 5 days - Imaging ITS Impressions Chest X-Ray 03/15/18 17:24 CONCLUSION: Mild cardiac decompensation Chest CTA 03/15/18 17:32 CONCLUSION: 1. Low volume pulmonary embolism 2. Multifocal infiltrates including cavitary left base infiltrate. 3. Cardiac enlargement Chest X-Ray 03/16/18 21:24 CONCLUSION: 1. Marked cardiomegaly suggesting cardiomyopathy. 2. Patchy infiltrates consistent with probable pneumonia and/or pulmonary edema. Clinical correlation is recommended. Assessment and Plan - Plan Ms. Noriega is a pleasant 22-year-old -[place] female with a history of cardiomyopathy, pulmonary hypertension, iron deficiency anemia and recurrent pulmonary embolism who was admitted to the hospital on 03/16/2018 due to chest pain involving left side. She she had cough and tachycardia. ED workup at [facility] indicates pulmonary embolism and bilateral infiltrates. There was also left lung cavitary lesion. Infectious disease and pulmonology were consulted. Patient denies any IV drug use history. Pulmonary embolism -Hematology is following. Patient is currently on apixaban 5 mg twice daily. Probable pneumonia Cavitary lesion of left lung -Infectious disease is following patient. Infectious disease change antibiotics to ceftriaxone 2 g every 24 hours. -MTB DNA PCR negative. QuantiFERON gold is also negative. -Cavitary lesion could be due to superimposed infection and embolism. -Discussed with pulmonology and infectious disease today. -We will obtain records from [facility]. Per [facility] reports patient was positive for streptococcal pneumoniae pneumonia is being continued on Rocephin Patient did not take the antibiotics as was prescribed after discharge cardiomyopathy -Patient has an appointment to see Dr. Casiano in the outpatient setting. -Currently on digoxin 250 mcg daily, metoprolol tartrate 25 mg p.o. 3 times daily. -Patient has a LifeVest History of blatant malignant medical noncompliance Patient has stopped anticoagulation in the past Patient HAS also not taken the antibiotics that she was prescribed at discharge Full code. Apixaban. Code Status: FULL CODE Discussed Condition With: RN AND PT AND CM Discharge Planning: Pending clearance by infectious disease secondary to her history of malignant medical noncompliance
--- NOTE | 2018-03-22 17:12 | P.PN ---
Subjective Interval history: She is doing well. Off o2 sat 97. On IV antibiotics . CXR showed basal infiltrates. Physical Exam Vital signs: Vital Signs 03/21/18 17:44 03/21/18 20:00 03/22/18 00:00 Temperature 98.3 F 98.1 F Pulse Rate 100 H 88 90 Respiratory Rate 22 16 16 Blood Pressure 126/92 H 125/95 H 116/85 Pulse Oximetry 03/22/18 04:00 03/22/18 08:45 Temperature 98.4 F 98.0 F Pulse Rate 100 H 91 H Respiratory Rate 16 16 Blood Pressure 125/62 Pulse Oximetry 96 Intake & Output 03/21/18 03/22/18 03/22/18 18:59 06:59 18:59 Intake Total 340 / 340 477 / 477 Output Total 600 / 600 Balance 340 / 340 -123 / -123 Weight 51 kg Intake: IV 100 / 100 Rocephin Inj 2,000 MG In NS Inj 100 / 100 100 ML @ 200 mls/hr IV.SIG Q24H KARLEE Rx#:[id number] Oral 240 / 240 477 / 477 Output: Urine 600 / 600 Other: Date of Last Bowel Movement 03/21/18 03/21/18 # Bowel Movements 2 Narrative: GENERAL: Alert and oriented 3 cooperative SKIN: Warm and dry. HEAD: Atraumatic. Normocephalic. EYES: Pupils equal and round. No scleral icterus. No injection or drainage. ENT: No nasal bleeding or discharge. Mucous membranes pink and moist. NECK: Trachea midline. No JVD. CARDIOVASCULAR: Regular rate and rhythm. S1-S2 no S3 or S4 2 / 6 systolic murmur at LSB. RESPIRATORY: No accessory muscle use. Occ Crackles left base. breath sounds equal bilaterally. GASTROINTESTINAL: Abdomen soft, non-tender, nondistended. Hepatic and splenic margins not palpable. MUSCULOSKELETAL: Extremities without clubbing, cyanosis, or edema. No obvious deformities. NEUROLOGICAL: Awake and alert. No obvious cranial nerve deficits. Motor grossly within normal limits. Five out of 5 muscle strength in the arms and legs. Normal speech. PSYCHIATRIC: Appropriate mood and affect; insight and judgment normal. Results - Labs CBC & Chem 7: 03/21/18 06:31 03/21/18 06:31 Laboratory Results - last 24 hr 03/17/18 03/18/18 03:59 05:04 Antithrombin III Activ 108 Anti-Proteinase 3 Less than 1.0 Anti-Myeloperoxidase Less than 1.0 Microbiology 03/21/18 12:30 Stool Stool Occult Blood (SKY) - Final Hemoccult negative Assessment and Plan - Assessment (1) Cardiomyopathy Code(s): I42.9 - Cardiomyopathy, unspecified Status: Acute (2) Pulmonary embolism Code(s): I26.99 - Other pulmonary embolism without acute cor pulmonale Status : Chronic (3) Lung infiltrate on CT Code(s): R91.8 - Other nonspecific abnormal finding of lung field Status: Acute (4) Cavitary lesion of lung Code(s): J98.4 - Other disorders of lung Status: Acute (5) Hypotension Code(s): I95.9 - Hypotension, unspecified Status: Resolved (6) Iron deficiency anemia Code(s): D50.9 - Iron deficiency anemia, unspecified Status: Chronic - Plan 1. Will continue antibiotics , Rocephin 2. D/C O2 3. D/C Nebs 4. Hold off on Bronchoscopy due to Risk of Arrhythmia and cardiomyopathy 5. IS at bedside q3h. 6. 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
[2018-03-23] MEDS: guaiFENesin 600 MG ER Tablet PO SCH (09:05)
[2018-03-23] MEDS: Digoxin 250 MCG Tablet PO SCH (09:05)
[2018-03-23] MEDS: Metoprolol Tartrate 25 MG Tablet PO SCH ×3 (09:14→19:36)
[2018-03-23] MEDS: Senna/Docusate Sodium 8.6/50 MG Tablet PO SCH (10:53)
--- NOTE | 2018-03-23 12:01 | P.PNONC ---
Subjective Interval history: Patient sleeping on approach, awakens easily. Denies any chest pain or shortness of breath. Denies any excessive bleeding. States she is on her menstrual cycle, and reports it is being normal. Objective Vital Signs/Intake & Output: Vital Signs 03/22/18 12:00 03/22/18 13:00 03/22/18 14:00 Temperature 98.6 F Pulse Rate 82 86 92 H Respiratory Rate 16 Blood Pressure 137/89 Pulse Oximetry 98 03/22/18 15:00 03/22/18 16:00 03/22/18 17:00 Temperature Pulse Rate 90 70 92 H Respiratory Rate 16 Blood Pressure 135/100 H Pulse Oximetry 03/22/18 18:00 03/22/18 19:00 03/22/18 20:00 Temperature Pulse Rate 96 H 72 86 Respiratory Rate 16 Blood Pressure 124/94 H Pulse Oximetry 96 100 03/22/18 21:00 03/22/18 22:00 03/22/18 23:00 Temperature Pulse Rate 21 L 94 H 96 H Respiratory Rate Blood Pressure Pulse Oximetry 03/23/18 00:00 03/23/18 01:00 03/23/18 02:00 Temperature 100 F H Pulse Rate 96 H 98 H 94 H Respiratory Rate 16 Blood Pressure Pulse Oximetry 03/23/18 03:00 03/23/18 04:00 03/23/18 05:00 Temperature Pulse Rate 98 H 95 H 81 Respiratory Rate 16 Blood Pressure Pulse Oximetry 100 03/23/18 06:00 03/23/18 07:00 03/23/18 08:00 Temperature 98.3 F Pulse Rate 79 94 H 93 H Respiratory Rate 16 Blood Pressure 117/87 Pulse Oximetry 98 03/23/18 09:00 03/23/18 10:00 03/23/18 10:53 Temperature Pulse Rate 104 H 86 Respiratory Rate 18 Blood Pressure Pulse Oximetry 03/23/18 11:00 03/23/18 11:19 Temperature 98.0 F Pulse Rate 80 86 Respiratory Rate 16 Blood Pressure 132/94 H Pulse Oximetry 100 Intake & Output 03/22/18 03/23/18 03/23/18 18:59 06:59 18:59 Intake Total 100 / 100 Balance 100 / 100 Weight 51 kg Intake: IV 100 / 100 Rocephin Inj 2,000 MG In NS Inj 100 / 100 100 ML @ 200 mls/hr IV.SIG Q24H [facility] Rx#:[id number] Other: Date of Last Bowel Movement 03/21/18 03/22/18 Result Diagrams: 03/21/18 06:31 03/21/18 06:31 Laboratory Results: Laboratory Results - last 24 hr 03/18/18 05:04 Anti-Cardiolipin IgG Ab Less than 14.0 Anti-Cardiolipin IgA Ab Less than 11.0 Anti-Cardiolipin IgM Ab Less than 12.0 Culture Results: Microbiology 03/21/18 12:30 Stool Occult Blood (SKY) - Final Stool Hemoccult negative 03/17/18 16:10 Acid Fast Bacilli Smear - Final Sputum - Expectorated Sputum No acid fast bacilli seen 03/16/18 23:15 Aerobic Blood Culture - Final Blood - Peripheral No growth in 5 days Anaerobic Blood Culture - Final No growth in 5 days 03/16/18 23:20 Aerobic Blood Culture - Final Blood - Peripheral No growth in 5 days Anaerobic Blood Culture - Final No growth in 5 days 03/15/18 20:25 Aerobic Blood Culture - Final Blood - Peripheral No growth in 5 days Anaerobic Blood Culture - Final No growth in 5 days 03/15/18 20:30 Aerobic Blood Culture - Final Blood - Peripheral No growth in 5 days Anaerobic Blood Culture - Final No growth in 5 days Medications: Active Medications Generic Name Dose Route Start Last Admin Trade Name Freq PRN Reason Stop Dose Admin Hydrocodone Bitart/Acetaminophen 1 tab 03/17/18 08:49 03/23/18 09:04 [place] 5/325 PO 1 tab Q4H PRN Administration PAIN SCALE 6 TO 10 Apixaban 5 mg 03/16/18 21:00 03/23/18 09:05 Eliquis PO 5 mg BID [facility] Administration Digoxin 250 mcg 03/17/18 10:45 03/23/18 09:05 Lanoxin PO 250 mcg DAILY [facility] Administration Guaifenesin 600 mg 03/20/18 21:00 03/23/18 09:05 Mucinex Er PO 600 mg BID [facility] Administration Ceftriaxone Sodium 2,000 mg/ 100 mls @ 200 mls/hr 03/19/18 13:00 03/22/18 21: 36 Sodium Chloride IV.SIG Infused Q24H [facility] Infusion Metoprolol Tartrate 25 mg 03/18/18 09:56 03/23/18 09:14 Lopressor PO 25 mg TID [facility] Administration Senna/Docusate Sodium 1 tab 03/19/18 21:00 03/23/18 10:53 Marsha-Colace PO Not Given BID [facility] Sodium Chloride 2 ml 03/15/18 17:22 03/19/18 09:18 Ns Flush IV.FLUSH 2 ml UNSCH PRN Administration FLUSH AFTER USING IV ACCESS Temazepam 15 mg 03/15/18 21:22 03/16/18 00:10 Restoril PO 15 mg HS PRN Administration INSOMNIA Objective Remarks: GENERAL: Well-nourished, well-developed patient young female pt. SKIN: Warm and dry. HEAD: Normocephalic. EYES: No scleral icterus. No injection or drainage. NECK: Supple, trachea midline. CARDIOVASCULAR: 3/6 systolic murmur in the aortic listening area, normal rate. RESPIRATORY: Posterior breath sounds clear, equal bilaterally. No accessory muscle use. GASTROINTESTINAL: Abdomen soft, non-tender, nondistended. EXTREMITIES: No cyanosis, or edema. MUSCULOSKELETAL: Adequate muscle tone. NEUROLOGICAL: No obvious focal deficit. Awake, alert, and oriented x3. PSYCHIATRIC: Appropriate mood and affect; insight and judgment normal. Assessment/Plan (1) Pulmonary embolism Code(s): I26.99 - Other pulmonary embolism without acute cor pulmonale Status : Chronic (2) Iron deficiency anemia Code(s): D50.9 - Iron deficiency anemia, unspecified Status: Chronic - Plan Hx/Workup: Patient is a 22-year-old female who delivered a baby mid September of this year. In November she developed a pulmonary embolism with severe cardiomyopathy that was felt to be related to being . Patient had a repeat CTA in December that did not show any pulmonary embolism and unfortunately the patient self discontinued her anticoagulation. She again presents now with significant shortness of breath. CTA shows persistent pulmonary embolism. Echocardiogram this admission shows ejection fraction estimated in the range of 20-25%. 1. Chest pain and shortness of breath have resolved. 2. Continue apixaban 5 mg twice daily for pulmonary embolism. Patient is aware to continue the apixaban upon discharge and not to stop unless advised by her physician. 3. Continue to monitor bleeding. Report any episodes of bleeding. 4. Serology and immunology panels are pending. 5. Community acquired pneumonia with cavities/Septic Emboli related cavities: Antibiotic management per infectious disease. 6. We will sign off from a hematology standpoint. Kindly call if needed. - Attending Statement The exam, history, and the medical decision-making described in the above note were completed with the assistance of the mid-level provider. I reviewed and agree with the findings presented. I attest that I had a [id number] encounter with the patient on the same day, and personally performed and documented my assessment and findings in the medical record. Wants to go home. SOB abd breathing has improved. Continue eliquis. FU as outpt. Sign off (1) Pulmonary embolism Qualifiers: Pulmonary embolism type: other Chronicity: chronic Acute cor pulmonale presence: without acute cor pulmonale Qualified Code(s): I27.82 - Chronic pulmonary embolism (2) Iron deficiency anemia Qualifiers: Iron deficiency anemia type: unspecified iron deficiency Qualified Code(s): D50.9 - Iron deficiency anemia, unspecified
--- NOTE | 2018-03-23 12:05 | XR ---
EXAM DATE: 03/23/2018 12:01 PM EDT AGE/SEX: 22 years / Female INDICATIONS: Chest pain. CLINICAL DATA: This is the patient's initial encounter. Patient reports that signs and symptoms have been present for 1 day and indicates a pain score of 7/10. MEDICAL/SURGICAL HISTORY: . Cardiomyopathy. None. COMPARISON: [facility] [place] 1[place] SINGLE AP, [place]/16/[place]. . FINDINGS: Comparison is March 16. Basilar airspace disease is slightly improved. Small effusions also remain. Car diopericardial silhouette remains enlarged but stable. There is no pneumothorax. CONCLUSION: Slight improvement in basilar airspace disease since March 16. Small residual effusions remaining with cardiomegaly Electronically signed by: Ron Chavez MD 03/23/2018 12:04 PM EDT
--- NOTE | 2018-03-23 16:05 | P.PNIM ---
Subjective Interval history: 7-9 Follow-up for cavitary lung lesions, PE. Patient is currently doing well. Denies any chest pain, shortness of breath, fever or chills. She is on room air. 7-10 RICHARD RN AND PT AND CM AND ONCOLOGY CONTINUE CURRENT TREATMENT PER ID AM LABS HX OF NONCOMPLIANCE IN THE PAST-MAY NEED TO COMPLETE TREATMENT PRIOR TO DISCHARGE 7-11 CONTINUE CURRENT ANTIBIOTICS NOT CLEARED BY ID DW RN AND PATIENT AND CASE MANAGEMENT HX OF POOR COMPLIANCE 7-12 CONTINUE ANTIBIOTICS HAS AREA OF TENDERNESS NEAR LEFT ANTECUBITAL FOSSA WILL CONTINUE WARM COMPRESSES ALREADY ON ANTICOAGULATION 7-13 NOT CLEARED BY ID CONTINUE ANTIBIOTICS AND ANTICOAGULATION RICHARD RN AND PT AND CM Physical Exam Vital signs: Vital Signs 03/22/18 16:00 03/22/18 17:00 03/22/18 18:00 Temperature Pulse Rate 70 92 H 96 H Respiratory Rate 16 Blood Pressure 135/100 H Pulse Oximetry 96 03/22/18 19:00 03/22/18 20:00 03/22/18 21:00 Temperature Pulse Rate 72 86 21 L Respiratory Rate 16 Blood Pressure 124/94 H Pulse Oximetry 100 03/22/18 22:00 03/22/18 23:00 03/23/18 00:00 Temperature 100 F H Pulse Rate 94 H 96 H 96 H Respiratory Rate 16 Blood Pressure Pulse Oximetry 03/23/18 01:00 03/23/18 02:00 03/23/18 03:00 Temperature Pulse Rate 98 H 94 H 98 H Respiratory Rate Blood Pressure Pulse Oximetry 03/23/18 04:00 03/23/18 05:00 03/23/18 06:00 Temperature Pulse Rate 95 H 81 79 Respiratory Rate 16 Blood Pressure Pulse Oximetry 100 03/23/18 07:00 03/23/18 08:00 03/23/18 09:00 Temperature 98.3 F Pulse Rate 94 H 93 H 104 H Respiratory Rate 16 Blood Pressure 117/87 Pulse Oximetry 98 03/23/18 10:00 03/23/18 10:53 03/23/18 11:00 Temperature Pulse Rate 86 80 Respiratory Rate 18 Blood Pressure Pulse Oximetry 03/23/18 11:19 03/23/18 12:00 03/23/18 13:00 Temperature 98.0 F Pulse Rate 86 90 82 Respiratory Rate 16 Blood Pressure 132/94 H Pulse Oximetry 100 03/23/18 14:00 03/23/18 15:00 Temperature Pulse Rate 72 90 Respiratory Rate 18 Blood Pressure 147/91 H Pulse Oximetry 100 Intake & Output 03/22/18 03/23/18 03/23/18 18:59 06:59 18:59 Intake Total 100 / 100 100 / 100 Balance 100 / 100 100 / 100 Weight 51 kg Intake: IV 100 / 100 100 / 100 Rocephin Inj 2,000 MG In NS Inj 100 / 100 100 / 100 100 ML @ 200 mls/hr IV.SIG Q24H [facility] Rx#:[id number] Other: Date of Last Bowel Movement 03/21/18 03/22/18 Narrative: GENERAL: Alert and oriented 3 cooperative SKIN: Warm and dry. MULTIPLE TATTOOS HEAD: Atraumatic. Normocephalic. EYES: Pupils equal and round. No scleral icterus. No injection or drainage. ENT: No nasal bleeding or discharge. Mucous membranes pink and moist. NECK: Trachea midline. No JVD. CARDIOVASCULAR: Regular rate and rhythm. S1-S2 no S3 or S4 2 / 6 systolic murmur at LSB. RESPIRATORY: No accessory muscle use. Occ Crackles left base. breath sounds equal bilaterally. GASTROINTESTINAL: Abdomen soft, non-tender, nondistended. Hepatic and splenic margins not palpable. MUSCULOSKELETAL: Extremities without clubbing, cyanosis, or edema. No obvious deformities. NEUROLOGICAL: Awake and alert. No obvious cranial nerve deficits. Motor grossly within normal limits. Five out of 5 muscle strength in the arms and legs. Normal speech. PSYCHIATRIC: Appropriate mood and affect; insight and judgment normal. Results - Labs CBC & Chem 7: 03/21/18 06:31 03/21/18 06:31 Laboratory Results - last 24 hr 03/18/18 05:04 Anti-Cardiolipin IgG Ab Less than 14.0 Anti-Cardiolipin IgA Ab Less than 11.0 Anti-Cardiolipin IgM Ab Less than 12.0 - Imaging Impressions Chest X-Ray 03/23/18 00:00 CONCLUSION: Slight improvement in basilar airspace disease since March 16. Small residual effusions remaining with cardiomegaly Assessment and Plan - Plan Ms. Noriega is a pleasant 22-year-old -[place] female with a history of cardiomyopathy, pulmonary hypertension, iron deficiency anemia and recurrent pulmonary embolism who was admitted to the hospital on 03/16/2018 due to chest pain involving left side. She she had cough and tachycardia. ED workup at [facility] indicates pulmonary embolism and bilateral infiltrates. There was also left lung cavitary lesion. Infectious disease and pulmonology were consulted. Patient denies any IV drug use history. Pulmonary embolism -Hematology is following. Patient is currently on apixaban 5 mg twice daily. Probable pneumonia Cavitary lesion of left lung -Infectious disease is following patient. Infectious disease change antibiotics to ceftriaxone 2 g every 24 hours. -MTB DNA PCR negative. QuantiFERON gold is also negative. -Cavitary lesion could be due to superimposed infection and embolism. -Discussed with pulmonology and infectious disease today. -We will obtain records from [facility]. Per [facility] reports patient was positive for streptococcal pneumoniae pneumonia is being continued on Rocephin Patient did not take the antibiotics as was prescribed after discharge cardiomyopathy -Patient has an appointment to see Dr. Casiano in the outpatient setting. -Currently on digoxin 250 mcg daily, metoprolol tartrate 25 mg p.o. 3 times daily. -Patient has a LifeVest History of blatant malignant medical noncompliance Patient has stopped anticoagulation in the past Patient HAS also not taken the antibiotics that she was prescribed at discharge Full code. Apixaban. Code Status: FULL CODE Discussed Condition With: RN AND PT AND CM Discharge Planning: Pending clearance by infectious disease secondary to her history of malignant medical noncompliance
--- NOTE | 2018-03-23 16:41 | P.PNID ---
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 Patient also was found to have bilateral PE and was placed on Eliquis. Her PMHx is also significant for severe pulmonary hypertension, iron deficiency anemia, and recurrent pulmonary embolism. The patient reports she was diagnosed and treated with pneumonia at [facility]. She was discharged 5 days ago. She was given a LifeVest during her hospitalization at [facility]. She presented to [facility] due to chest pain involving the left side. She also endorsed coughing and increased heart rate. Workup in the emergency room revealed pulmonary embolus and bilateral infiltrates with left cavitary lesion. Patient reports cough with clear sputum and blood tinged sputum. Repeat Echo reportedly performed at bedside showed EF of 15%. Patient is undergoing workup for sepsis and cavitary pneumonia. Patient reports a sick contact her best friend. She reports working at [employer]. Denies any exposure to patients with tuberculosis Denies any intravenous drug abuse although admits to using marijuana Patient's best friend who is a girl has had recent pneumonia. ID consulted for evaluation and management of sepsis and cavitating pneumonia Overnight events reviewed No fevers No rash No diarrhea Records from [facility] reviewed: Blood cultures negative at 5 days. UDS positive for Marijuana. CT with PE/septic emboli and cavitation. Strep pneumo antigen was positive. Patient was discharged with a diagnosis of cavitary pneumonia secondary to Streptococcus pneumoniae. Patient discharged on Cefdinir but patient reports she did not take it as she could not afford it. ID saw patient at other hospital. Patient reports to me again today she cant afford her medications. She was using her Iphone and talking to her family and sending them pictures and texts. Antibiotics: Ceftriaxone IV Lines: Lines Ok Past Medical History: cardiomyopathy on Lifevest in first trimester with history of Pulmonary emboli Allergies/Adverse Reactions: Allergies No Known Allergies Allergy (Unverified 03/15/18 18:05) Objective Vital Signs 03/22/18 17:00 03/22/18 18:00 03/22/18 19:00 Temperature Pulse Rate 92 H 96 H 72 Respiratory Rate Blood Pressure Pulse Oximetry 96 03/22/18 20:00 03/22/18 21:00 03/22/18 22:00 Temperature Pulse Rate 86 21 L 94 H Respiratory Rate 16 Blood Pressure 124/94 H Pulse Oximetry 100 03/22/18 23:00 03/23/18 00:00 03/23/18 01:00 Temperature 100 F H Pulse Rate 96 H 96 H 98 H Respiratory Rate 16 Blood Pressure Pulse Oximetry 03/23/18 02:00 03/23/18 03:00 03/23/18 04:00 Temperature Pulse Rate 94 H 98 H 95 H Respiratory Rate 16 Blood Pressure Pulse Oximetry 100 03/23/18 05:00 03/23/18 06:00 03/23/18 07:00 Temperature Pulse Rate 81 79 94 H Respiratory Rate Blood Pressure Pulse Oximetry 03/23/18 08:00 03/23/18 09:00 03/23/18 10:00 Temperature 98.3 F Pulse Rate 93 H 104 H 86 Respiratory Rate 16 Blood Pressure 117/87 Pulse Oximetry 98 03/23/18 10:53 03/23/18 11:00 03/23/18 11:19 Temperature 98.0 F Pulse Rate 80 86 Respiratory Rate 18 16 Blood Pressure 132/94 H Pulse Oximetry 100 03/23/18 12:00 03/23/18 13:00 03/23/18 14:00 Temperature Pulse Rate 90 82 72 Respiratory Rate Blood Pressure Pulse Oximetry 03/23/18 15:00 Temperature Pulse Rate 90 Respiratory Rate 18 Blood Pressure 147/91 H Pulse Oximetry 100 Intake & Output 03/22/18 03/23/18 03/23/18 18:59 06:59 18:59 Intake Total 100 / 100 100 / 100 Balance 100 / 100 100 / 100 Weight 51 kg Intake: IV 100 / 100 100 / 100 Rocephin Inj 2,000 MG In NS Inj 100 / 100 100 / 100 100 ML @ 200 mls/hr IV.SIG Q24H [facility] Rx#:[id number] Other: Date of Last Bowel Movement 03/21/18 03/22/18 03/21/18 12:30 Stool Stool Occult Blood (SKY) - Final Hemoccult negative 03/17/18 16:10 Sputum - Expectorated Sputum Acid Fast Bacilli Smear - Final No acid fast bacilli seen 03/17/18 16:10 Sputum - Expectorated Sputum Mycobacterial Culture - Pending 03/16/18 23:15 Blood - Peripheral Aerobic Blood Culture - Final No growth in 5 days 03/16/18 23:15 Blood - Peripheral Anaerobic Blood Culture - Final No growth in 5 days 03/16/18 23:20 Blood - Peripheral Aerobic Blood Culture - Final No growth in 5 days 03/16/18 23:20 Blood - Peripheral Anaerobic Blood Culture - Final No growth in 5 days Imaging: ITS Impressions Chest CTA 03/15/18 17:32 CONCLUSION: 1. Low volume pulmonary embolism 2. Multifocal infiltrates including cavitary left base infiltrate. 3. Cardiac enlargement Chest X-Ray 03/23/18 00:00 CONCLUSION: Slight improvement in basilar airspace disease since March 16. Small residual effusions remaining with cardiomegaly Physical Exam: GENERAL: Well-nourished well-developed, not in acute distress SKIN: Cool and dry, no generalized rash HEAD: Atraumatic. Normocephalic. No temporal or scalp tenderness. EYES: Pupils equal round and reactive. Scleral icterus. No injection or drainage. No petechia ENT: Nothing abnormal detected NECK: Trachea midline. Supple, nontender, no meningeal signs. CARDIOVASCULAR: HS audible. RESPIRATORY: Clear to auscultation bilaterally. GASTROINTESTINAL: Abdomen soft nontender. MUSCULOSKELETAL: Extremities without clubbing, cyanosis. NEUROLOGICAL: Alert oriented 3. Nonfocal. Psych cooperative IV line sites ok. Assessment and Plan - Plan Lung infiltrates with cavity DDx: Community acquired pneumonia with cavities Septic Emboli related cavities. Pulm embolism on treatment 6 months post Cardiomyopathy with severe TR, moderate MR. On Life Vest Recs Continue Ceftriaxone IV Patient adamantly denies IV drug abuse. Fungal workup sent. Sputum culture and gram stain Sputum AFB stain and Culture. Negative MTB PCR. Follow cultures Follow clinically Discussed with CM dept to consider providing patient/fill her scripts for her medications on discharge: Levaquin(Levofloxacin) 750 mg po daily for 14 days starting tomorrow due to the extent of the infection in lungs on last CT Chest. Please do not substitute with Cipro as it does not have strep coverage. If patient cannot be discharged with oral levaquin then continue Ceftriaxone for the same duration. Jimenez Jesus Will sign off please call back if any change in clinical condition or questions.
--- NOTE | 2018-03-23 17:25 | P.DS ---
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 The patient reports she was diagnosed and treated with pneumonia at [facility]. She was discharged 5 days ago. She was given a LifeVest during her hospitalization at [facility]. She presented to [place] due to chest pain involving the left side. She also endorsed coughing and increased heart rate. Workup in the emergency room revealed pulmonary embolus and bilateral infiltrates. There is also mention of cavitary lesion. The patient is currently unstable, she is tachycardic in the 130s and blood pressures in the 90 over 50s. She looks uncomfortable. She denies fevers but endorses chills. She has been complaining of severe pain and was given morphine which she reports make her sleepy. Echo reportedly performed at bedside showed EF of 15%. DS: Diagnosis - Discharge Diagnosis (1) Cardiomyopathy Status: Acute (2) Pulmonary embolism Status: Chronic (3) Lung infiltrate on CT Status: Acute (4) Cavitary lesion of lung Status: Acute (5) Hypotension Status: Resolved (6) Tachycardia Status: Acute (7) Iron deficiency anemia Status: Chronic DS: Medications - Discharge Medications Prescriptions: apixaban [Eliquis] 5 mg PO BID #60 tab digoxin 250 mcg PO DAILY #30 tab guaifenesin [Mucinex] 600 mg PO BID #60 tab levofloxacin [Levaquin] 750 mg PO DAILY #42 tab metoprolol tartrate 25 mg PO TID #90 tab DS: Summary Hospital Course: 22-year-old female with a medical history significant for 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 The patient reports she was diagnosed and treated with pneumonia at [facility]. She was discharged 5 days ago. She was given a LifeVest during her hospitalization at [facility]. She presented to [place] due to chest pain involving the left side. She also endorsed coughing and increased heart rate. Workup in the emergency room revealed pulmonary embolus and bilateral infiltrates. There is also mention of cavitary lesion. The patient is currently unstable, she is tachycardic in the 130s and blood pressures in the 90 over 50s. She looks uncomfortable. She denies fevers but endorses chills. She has been complaining of severe pain and was given morphine which she reports make her sleepy. Echo reportedly performed at bedside showed EF of 15%. 7-9 Follow-up for cavitary lung lesions, PE. Patient is currently doing well. Denies any chest pain, shortness of breath, fever or chills. She is on room air. 7-10 DW RN AND PT AND CM AND ONCOLOGY CONTINUE CURRENT TREATMENT PER ID AM LABS HX OF NONCOMPLIANCE IN THE PAST-MAY NEED TO COMPLETE TREATMENT PRIOR TO DISCHARGE 7-11 CONTINUE CURRENT ANTIBIOTICS NOT CLEARED BY ID DW RN AND PATIENT AND CASE MANAGEMENT HX OF POOR COMPLIANCE 7-12 CONTINUE ANTIBIOTICS HAS AREA OF TENDERNESS NEAR LEFT ANTECUBITAL FOSSA WILL CONTINUE WARM COMPRESSES ALREADY ON ANTICOAGULATION 7-13 NOT CLEARED BY ID CONTINUE ANTIBIOTICS AND ANTICOAGULATION RICHARD RN AND PT AND CM RICHARD MARKHAM OF ID DC ON LEVAQUIJ 750MG PO FO 14 DAYS - Time Spent with Patient Total time spent providing and/or coordinating discharge services: Greater than 30 minutes - Quality: VTE Deep Vein Thrombosis/Pulmonary Embolism Present on Admission: Yes Exam Vital signs: Vital Signs 03/22/18 18:00 03/22/18 19:00 03/22/18 20:00 Temperature Pulse Rate 96 H 72 86 Respiratory Rate 16 Blood Pressure 124/94 H Pulse Oximetry 96 100 03/22/18 21:00 03/22/18 22:00 03/22/18 23:00 Temperature Pulse Rate 21 L 94 H 96 H Respiratory Rate Blood Pressure Pulse Oximetry 03/23/18 00:00 03/23/18 01:00 03/23/18 02:00 Temperature 100 F H Pulse Rate 96 H 98 H 94 H Respiratory Rate 16 Blood Pressure Pulse Oximetry 03/23/18 03:00 03/23/18 04:00 03/23/18 05:00 Temperature Pulse Rate 98 H 95 H 81 Respiratory Rate 16 Blood Pressure Pulse Oximetry 100 03/23/18 06:00 03/23/18 07:00 03/23/18 08:00 Temperature 98.3 F Pulse Rate 79 94 H 93 H Respiratory Rate 16 Blood Pressure 117/87 Pulse Oximetry 98 03/23/18 09:00 03/23/18 10:00 03/23/18 10:53 Temperature Pulse Rate 104 H 86 Respiratory Rate 18 Blood Pressure Pulse Oximetry 03/23/18 11:00 03/23/18 11:19 03/23/18 12:00 Temperature 98.0 F Pulse Rate 80 86 90 Respiratory Rate 16 Blood Pressure 132/94 H Pulse Oximetry 100 03/23/18 13:00 03/23/18 14:00 03/23/18 15:00 Temperature Pulse Rate 82 72 90 Respiratory Rate 18 Blood Pressure 147/91 H Pulse Oximetry 100 Intake & Output 03/22/18 03/23/18 03/23/18 18:59 06:59 18:59 Intake Total 100 / 100 100 / 100 Balance 100 / 100 100 / 100 Weight 51 kg Intake: IV 100 / 100 100 / 100 Rocephin Inj 2,000 MG In NS Inj 100 / 100 100 / 100 100 ML @ 200 mls/hr IV.SIG Q24H [facility] Rx#:[id number] Other: Date of Last Bowel Movement 03/21/18 03/22/18 Narrative: GENERAL: Alert and oriented 3 cooperative SKIN: Warm and dry. MULTIPLE TATTOOS HEAD: Atraumatic. Normocephalic. EYES: Pupils equal and round. No scleral icterus. No injection or drainage. ENT: No nasal bleeding or discharge. Mucous membranes pink and moist. NECK: Trachea midline. No JVD. CARDIOVASCULAR: Regular rate and rhythm. S1-S2 no S3 or S4 2 / 6 systolic murmur at LSB. RESPIRATORY: No accessory muscle use. Occ Crackles left base. breath sounds equal bilaterally. GASTROINTESTINAL: Abdomen soft, non-tender, nondistended. Hepatic and splenic margins not palpable. MUSCULOSKELETAL: Extremities without clubbing, cyanosis, or edema. No obvious deformities. NEUROLOGICAL: Awake and alert. No obvious cranial nerve deficits. Motor grossly within normal limits. Five out of 5 muscle strength in the arms and legs. Normal speech. PSYCHIATRIC: Appropriate mood and affect; insight and judgment normal. Results Procedures completed during hospitalization: NONE Completed studies during hospitalization: Laboratory Results WBC 6.7 th/mm3 (4.0-11.0) 03/21/18 06:31 RBC 3.73 mil/mm3 (4.00-5.30) L 03/21/18 06:31 Hgb 9.5 gm/dL (11.6-15.3) L 03/21/18 06:31 Hct 30.7 % (35.0-46.0) L 03/21/18 06:31 MCV 82.4 fL (80.0-100.0) 03/21/18 06:31 MCH 25.5 pg (27.0-34.0) L 03/21/18 06:31 MCHC 30.9 % (32.0-36.0) L 03/21/18 06:31 RDW 21.3 % (11.6-17.2) H 03/21/18 06:31 Plt Count 609 th/mm3 (150-450) H 03/21/18 06:31 MPV 7.6 fL (7.0-11.0) 03/21/18 06:31 Neut % (Auto) 59.4 % (16.0-70.0) 03/21/18 06:31 Lymph % (Auto) 28.1 % (9.0-44.0) 03/21/18 06:31 [place] % (Auto) 7.0 % (0.0-8.0) 03/21/18 06:31 Eos % (Auto) 4.8 % (0.0-4.0) H 03/21/18 06:31 Baso % (Auto) 0.7 % (0.0-2.0) 03/21/18 06:31 Neut # (Auto) 4.0 th/mm3 (1.8-7.7) 03/21/18 06:31 Lymph # (Auto) 1.9 th/mm3 (1.0-4.8) 03/21/18 06:31 [place] # (Auto) 0.5 th/mm3 (0.0-0.9) 03/21/18 06:31 Eos # (Auto) 0.3 th/mm3 (0.0-0.4) 03/21/18 06:31 Baso # (Auto) 0.0 th/mm3 (0.0-0.2) 03/21/18 06:31 WBC Differential . 03/21/18 06:31 Differential Comment Auto diff final 03/21/18 06:31 PT 12.7 sec (9.8-11.6) H 03/16/18 07:43 INR 1.3 Ratio 03/16/18 07:43 APTT 34.0 sec (24.3-30.1) H 03/16/18 09:50 Thrombin Time 29 sec (13-19) H 03/18/18 05:04 Lupus Anticoagulant (NOT DETECTED) 03/18/18 05:04 Lupus Anticoag aPTT 64.0 seconds (< OR = 40) H 03/18/18 05:04 Dil Bentley Viper Venom 92.0 seconds (< OR = 45) H 03/18/18 05:04 dRVVT Confirm Interp Negative (NEGATIVE) 03/18/18 05:04 dRVVT Mix Pat/Norm 1:1 ND 03/18/18 05:04 dRVVT Mix Interpret ND 03/18/18 05:04 Hexagonal Phase Confirm Positive (NEGATIVE) A 03/18/18 05:04 Protein C Antigen 40 % (70-150) L 03/17/18 03:59 Protein C Activity 40 % (70 - 150) L 03/17/18 03:59 Protein S Activity 99 % (50 - 160) 03/17/18 03:59 Free Protein S Antigen 99 % (50 - 160) 03/17/18 03:59 Antithrombin III Activ 108 % normal (80-120) 03/17/18 03:59 Sodium 143 meq/L (136-145) 03/21/18 06:31 Potassium 4.1 meq/L (3.5-5.1) 03/21/18 06:31 Chloride 110 meq/L (98-107) H 03/21/18 06:31 Carbon Dioxide 24.3 meq/L (21.0-32.0) 03/21/18 06:31 Anion Gap 9 meq/L (5-15) 03/21/18 06:31 BUN 7 mg/dL (7-18) 03/21/18 06:31 Creatinine 0.59 mg/dL (0.50-1.00) 03/21/18 06:31 Estimated GFR Greater than 89 mL/min (>89) 03/21/18 06:31 Random Glucose 69 mg/dL (74-106) L 03/21/18 06:31 Calcium 8.9 mg/dL (8.5-10.1) 03/21/18 06:31 Phosphorus 3.7 mg/dL (2.5-4.9) 03/21/18 06:31 Magnesium 1.8 mg/dL (1.5-2.5) 03/21/18 06:31 Total Bilirubin 0.2 mg/dL (0.2-1.0) 03/21/18 06:31 AST 11 U/L (15-37) L 03/21/18 06:31 ALT 7 U/L (10-53) L 03/21/18 06:31 Alkaline Phosphatase 125 U/L (45-117) H 03/21/18 06:31 Total Creatine Kinase 29 U/L (26-192) 03/17/18 13:40 Troponin I Less than 0.02 ng/mL (0.02-0.05) L 03/17/18 13:40 C-Reactive Protein 15.00 mg/dL (0.00-0.30) H 03/17/18 13:40 B-Natriuretic Peptide 443 pg/mL (0-100) H 03/15/18 17:10 Total Protein 6.5 g/dL (6.4-8.2) D 03/21/18 06:31 Albumin 2.1 g/dL (3.4-5.0) L 03/21/18 06:31 Triglycerides 64 mg/dL (42-150) 03/21/18 06:31 Cholesterol 89 mg/dL (120-200) L 03/21/18 06:31 LDL Cholesterol, Calc 55 mg/dL (0-99) 03/21/18 06:31 HDL Cholesterol 21.1 mg/dL (40.0-60.0) L 03/21/18 06:31 Cholesterol/HDL Ratio 4.21 Ratio 03/21/18 06:31 TSH 0.942 uIU/mL (0.358-3.740) 03/21/18 06:31 Free T4 1.44 ng/dL (0.76-1.46) 03/21/18 06:31 Urine Color Lisa (Yellw/Straw) 03/17/18 00:00 Urine Clarity Cloudy (Clear) H 03/17/18 00:00 Urine pH 5.0 (5.0-8.5) 03/17/18 00:00 Ur Specific [place] 1.031 (1.002-1.035) 03/17/18 00:00 Urine Protein 100 mg/dL (Neg-Trace) H 03/17/18 00:00 Urine Glucose (UA) Negative mg/dL (Negative) 03/17/18 00:00 Urine Ketones Trace mg/dL (Negative) H 03/17/18 00:00 Urine Occult Blood Small (Negative) H 03/17/18 00:00 Urine Nitrate Negative (Negative) 03/17/18 00:00 Urine Bilirubin Negative (Negative) 03/17/18 00:00 Urine Urobilinogen Less than 2 mg/dL (Less than 2) 03/17/18 00:00 Ur Leukocyte Esterase Negative (Negative) 03/17/18 00:00 Urine RBC 2 /hpf (0-3) 03/17/18 00:00 Urine WBC 6 /hpf (0-5) H 03/17/18 00:00 Ur Squamous Epith Cells 37 /hpf (0-5) 03/17/18 00:00 Urine Mucus Few /lpf (Occasional) H 03/17/18 00:00 Micro UA Comment Culture not ind 03/17/18 00:00 Urine Culture Comments Culture not ind 03/17/18 00:00 Nasal Screen MRSA (PCR) Not detected (Negative) 03/16/18 17:25 Vancomycin Trough 19.7 mcg/mL (5.0-10.0) H 03/19/18 01:19 Urine Opiates Screen Neg (Neg) 03/15/18 21:43 Ur Barbiturates Screen Neg (Neg) 03/15/18 21:43 Ur Amphetamines Screen Neg (Neg) 03/15/18 21:43 U Benzodiazepines Scrn Neg (Neg) 03/15/18 21:43 Urine Cocaine Screen Neg (Neg) 03/15/18 21:43 U Cannabinoids Screen Pos (Neg) 03/15/18 21:43 Serum Alcohol Less than 3 mg/dL (0-5) 03/15/18 17:10 KENNY Screen Neg (Neg) 03/17/18 20:43 Anti-Proteinase 3 Less than 1.0 AI (<1.0) 03/18/18 05:04 Anti-Myeloperoxidase Less than 1.0 AI (<1.0) 03/18/18 05:04 Beta-2-GPI IgG Ab Less than 9.0 SGU (< OR = 20) 03/18/18 05:04 Beta-2-GPI IgA Ab Less than 9.0 SEVERO (< OR = 20) 03/18/18 05:04 Beta-2-GPI IgM Ab Less than 9.0 SMU (< OR = 20) 03/18/18 05:04 Anti-Cardiolipin IgG Ab Less than 14.0 GPL U/mL (0-14) 03/18/18 05:04 Anti-Cardiolipin IgA Ab Less than 11.0 APL U/mL (0-11) 03/18/18 05:04 Anti-Cardiolipin IgM Ab Less than 12.0 MPL U/mL (0-12) 03/18/18 05:04 Cryptococcus Ag Screen Negative (Negative) 03/17/18 20:43 Hepatitis A IgM Ab Nonreactive (Nonreactive) 03/20/18 19:23 Hep Bs Antigen Nonreactive (Nonreactive) 03/20/18 19:23 Hep B Core IgM Ab Nonreactive (Nonreactive) 03/20/18 19:23 Hep C IgG Ab Nonreactive (Nonreactive) 03/20/18 19:23 M.tuberculosis DNA (PCR) Not detected (Not Detect) 03/19/18 11:30 TB (QFT) Gold In Tube Negative (Negative) 03/15/18 21:43 TB Test (QFT) Nil 0.01 IU/mL 03/15/18 21:43 TB Test Mitogen - Nil Greater than 10.00 IU/mL 03/15/18 21:43 TB Test Antigen - Nil 0 IU/mL 03/15/18 21:43 Rifampin Resistance Not detected (Not Detect) 03/19/18 11:30 Prothrombin [id number] Mut 03/17/18 03:59 Blood Type B Positive 03/17/18 17:58 Antibody Screen Positive H 03/17/18 13:40 Ab Screen Tube Method Positive H 03/17/18 13:40 Prewarmed Antibody Srcn Positive H 03/17/18 17:58 Antibody Identification Anti-C Anti-Traci Strong Non-Specific Cold Agg 18:04 Antibody Identification Anti-C Anti-Traci Strong Non-Specific Cold Agg 18:04 Antibody Identification Anti-C Anti-Traci Strong Non-Specific Cold Agg 18:04 Rout Panel Path Interp 03/17/18 18:04 Direct Antiglob Test Negative (Negative) 03/17/18 13:40 MTS Gel Crossmatch See Detail 03/17/18 13:40 Crossmatch Prewarmed See Detail 03/17/18 13:40 Bld Prod Order Comment 03/17/18 13:40 Impressions Chest CTA 03/15/18 17:32 CONCLUSION: 1. Low volume pulmonary embolism 2. Multifocal infiltrates including cavitary left base infiltrate. 3. Cardiac enlargement Chest X-Ray 03/23/18 00:00 CONCLUSION: Slight improvement in basilar airspace disease since March 16. Small residual effusions remaining with cardiomegaly Labs on day of discharge: Labs from last 24 hours 03/18/18 05:04 Anti-Cardiolipin IgG Ab Less than 14.0 Anti-Cardiolipin IgA Ab Less than 11.0 Anti-Cardiolipin IgM Ab Less than 12.0 - Impressions ITS Impressions Chest CTA 03/15/18 17:32 CONCLUSION: 1. Low volume pulmonary embolism 2. Multifocal infiltrates including cavitary left base infiltrate. 3. Cardiac enlargement Chest X-Ray 03/23/18 00:00 CONCLUSION: Slight improvement in basilar airspace disease since March 16. Small residual effusions remaining with cardiomegaly Discharge Plan - Discharge Disposition Patient Disposition: 01 Discharge Home - Discharge Condition Condition: Fair - Discharge Order Discharge Orders: Discharge Order (Routine); Ordered 03/23/18 Ordered By: Hi Black - Discharge Details Anticipated Discharge Date: 03/23/18 - Physicians Team Primary Care Provider: Neo Vasques Attending Provider: Hi Black Other Providers: Santana Rucker MD ; Emmanuel Nava MD ; Tawana Markham MD ; Duc Hammonds MD
--- NOTE | 2018-03-23 18:18 | P.PN ---
Subjective Interval history: No Cough or fever. Chest pain is gone. On PO Meds now . Levaquin Physical Exam Vital signs: Vital Signs 03/22/18 19:00 03/22/18 20:00 03/22/18 21:00 Temperature Pulse Rate 72 86 21 L Respiratory Rate 16 Blood Pressure 124/94 H Pulse Oximetry 100 03/22/18 22:00 03/22/18 23:00 03/23/18 00:00 Temperature 100 F H Pulse Rate 94 H 96 H 96 H Respiratory Rate 16 Blood Pressure Pulse Oximetry 03/23/18 01:00 03/23/18 02:00 03/23/18 03:00 Temperature Pulse Rate 98 H 94 H 98 H Respiratory Rate Blood Pressure Pulse Oximetry 03/23/18 04:00 03/23/18 05:00 03/23/18 06:00 Temperature Pulse Rate 95 H 81 79 Respiratory Rate 16 Blood Pressure Pulse Oximetry 100 03/23/18 07:00 03/23/18 08:00 03/23/18 09:00 Temperature 98.3 F Pulse Rate 94 H 93 H 104 H Respiratory Rate 16 Blood Pressure 117/87 Pulse Oximetry 98 03/23/18 10:00 03/23/18 10:53 03/23/18 11:00 Temperature Pulse Rate 86 80 Respiratory Rate 18 Blood Pressure Pulse Oximetry 03/23/18 11:19 03/23/18 12:00 03/23/18 13:00 Temperature 98.0 F Pulse Rate 86 90 82 Respiratory Rate 16 Blood Pressure 132/94 H Pulse Oximetry 100 03/23/18 14:00 03/23/18 15:00 Temperature Pulse Rate 72 90 Respiratory Rate 18 Blood Pressure 147/91 H Pulse Oximetry 100 Intake & Output 03/22/18 03/23/18 03/23/18 18:59 06:59 18:59 Intake Total 100 / 100 100 / 100 Balance 100 / 100 100 / 100 Weight 51 kg Intake: IV 100 / 100 100 / 100 Rocephin Inj 2,000 MG In NS Inj 100 / 100 100 / 100 100 ML @ 200 mls/hr IV.SIG Q24H [facility] Rx#:[id number] Other: Date of Last Bowel Movement 03/21/18 03/22/18 Narrative: GENERAL: Alert and oriented 3 cooperative SKIN: Warm and dry. HEAD: Atraumatic. Normocephalic. EYES: Pupils equal and round. No scleral icterus. No injection or drainage. ENT: No nasal bleeding or discharge. Mucous membranes pink and moist. NECK: Trachea midline. No JVD. CARDIOVASCULAR: Regular rate and rhythm. S1-S2 no S3 or S4 2 / 6 systolic murmur at LSB. RESPIRATORY: No accessory muscle use. Few Crackles left base. breath sounds equal bilaterally. GASTROINTESTINAL: Abdomen soft, non-tender, nondistended. Hepatic and splenic margins not palpable. MUSCULOSKELETAL: Extremities without clubbing, cyanosis, or edema. No obvious deformities. NEUROLOGICAL: Awake and alert. No obvious cranial nerve deficits. Motor grossly within normal limits. Normal speech. PSYCHIATRIC: Appropriate mood and affect; insight and judgment normal. Results - Labs CBC & Chem 7: 03/21/18 06:31 03/21/18 06:31 Laboratory Results - last 24 hr 03/18/18 05:04 Anti-Cardiolipin IgG Ab Less than 14.0 Anti-Cardiolipin IgA Ab Less than 11.0 Anti-Cardiolipin IgM Ab Less than 12.0 - Imaging Impressions Chest X-Ray 03/23/18 00:00 CONCLUSION: Slight improvement in basilar airspace disease since March 16. Small residual effusions remaining with cardiomegaly - Procedures NONE Assessment and Plan - Assessment (1) Cardiomyopathy Code(s): I42.9 - Cardiomyopathy, unspecified Status: Acute Plan: Continue Lisinopril 10 mg 2 D Echo and Cardiology evaluation next mth (2) Pulmonary embolism Code(s): I26.99 - Other pulmonary embolism without acute cor pulmonale Status : Chronic Plan: Eliquis 5 mg BID D/C O2 (3) Lung infiltrate on CT Code(s): R91.8 - Other nonspecific abnormal finding of lung field Status: Acute (4) Cavitary lesion of lung Code(s): J98.4 - Other disorders of lung Status: Acute Plan: Continue antibiotics per ID for 2 weeks , Levaquin Po CT chest in 4 weeks. (5) Hypotension Code(s): I95.9 - Hypotension, unspecified Status: Resolved Plan: Resolved. (6) Iron deficiency anemia Code(s): D50.9 - Iron deficiency anemia, unspecified Status: Chronic - Plan 1. Will continue antibiotics , per ID for 2 weeks 2. D/C O2 3. D/C Nebs 4. Home on PO Meds 5. well F/U as OP in 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
[2018-03-24 14:55] LABS: Cocci Immunodiffusion IgG Negative (Negative)
== END 2018-03-23 19:48 | disposition home or self-care (01) ==
LOC: NEDA 17:08 → NEPC 17:08 → NEPHCDU 23:23 → HIMC 03-16 17:22 → HCIN 03-18 19:35 → HCIS 03-21 16:42
PROVIDERS: ADMIT Family Medicine; ATTEND Family Medicine

== ENCOUNTER 2018-05-15 08:46 | Inpatient (IN) ==
[~2018-05-15 08:46] MED LIST changes: +Adenosine Inj 6 MG/2 ML Syringe IV.PUSH ONE; -CEPH-460 PO; -CLOT1CRE4 VAGINAL; -MACR100C2 PO; -ZOFR4TAB3 SL
[2018-05-15 08:51] VITALS: TEMP 99.5
[2018-05-15 10:21] LABS: Baso % (Auto) 0.4 % (0.0-2.0); Eos % (Auto) 0.1 % (0.0-4.0); Hematocrit 36.4 % (35.0-46.0); Hemoglobin 11.2 gm/dL (11.6-15.3); Lymph # (Auto) 1.4 th/mm3 (1.0-4.8); Lymph % (Auto) 11.9 % (9.0-44.0); Mean Corpuscular Hemoglobin 24.9 pg (27.0-34.0); Mean Corpuscular Volume 81.3 fL (80.0-100.0); Mean Platelet Volume 8.3 fL (7.0-11.0); Mono # (Auto) 1.1 th/mm3 (0.0-0.9); Neut # (Auto) 9.5 th/mm3 (1.8-7.7); Neut % (Auto) 78.6 % (16.0-70.0); Platelet Count 287 th/mm3 (150-450); Red Blood Count 4.48 mil/mm3 (4.00-5.30); Red Cell Distribution Width 18.7 % (11.6-17.2)
[2018-05-15 10:26] LABS: Mean Corpuscular HGB Conc 30.7 % (32.0-36.0)
[2018-05-15 10:33] LABS: Activated Partial Thrombo Time 27.6 sec (24.3-30.1); INR 1.4 Ratio; Prothrombin Time 13.7 sec (9.8-11.6)
[2018-05-15 10:40] LABS: Alanine Aminotransferase 15 U/L (10-53); Albumin 2.1 g/dL (3.4-5.0); Anion Gap 10 meq/L (5-15); Aspartate Aminotransferase 28 U/L (15-37); Blood Urea Nitrogen 13 mg/dL (7-18); Calcium 7.8 mg/dL (8.5-10.1); Carbon Dioxide 26.1 meq/L (21.0-32.0); Chloride 104 meq/L (98-107); Glomerular Filtration Rate Greater Than 89 mL/min (>89); Glucose,Random 94 mg/dL (74-106); Potassium 3.8 meq/L (3.5-5.1); Sodium 140 meq/L (136-145)
[2018-05-15 10:42] LABS: Alkaline Phosphatase 152 U/L (45-117); Total Protein 6.3 g/dL (6.4-8.2)
--- NOTE | 2018-05-15 11:18 | CT ---
EXAM DATE: 05/15/2018 11:06 AM EDT AGE/SEX: 22 years / Female INDICATIONS: Prior history of emboli, now swelling right arm and leg CLINICAL DATA: This is the patient's initial encounter. Patient reports that signs and symptoms have been present for 1 day and indicates a pain score of 0/10. MEDICAL/SURGICAL HISTORY: Deep venous thrombosis. Hypertension. None. RADIATION DOSE: 5.88 CTDI (mGy) COMPARISON: [facility] [place], CTA PULMONARY W CONTRAST W 3D, 05/11/2018. . TECHNIQUE: Volumetric scanning was performed using a multi-row detector CT scanner during bolus infu fifi of 75 ml Omnipaque 350 (iohexol) nonionic water-soluble contrast as a single exam dose. The tessy a was post processed with a variety of visualization algorithms including full volume maximum intensi ty projection and sliding thin slab reformation. Using automated exposure control and adjustment of t he mA and/or kV according to patient size, radiation dose was kept as low as reasonably achievable to obtain optimal diagnostic quality images. DICOM format image data is available electronically for r eview and comparison. FINDINGS: Pulmonary Arteries: No filling defects are seen in the pulmonary arteries out to the subsegmental ve ssels. The left and right pulmonary arteries are normal in diameter. Lung: There has been no significant changes with the scattered pulmonary infiltrates in both lungs, right greater than left. This pattern is stable compared to the prior exam. Effusion: There continues to be a right-sided pleural effusion which is about the same or slightly i ncreased compared to the prior examination. Mediastinum: No evidence of mediastinal or hilar adenopathy. The heart size remains enlarged but sta ble. Other: The axilla is unremarkable. There is evidence of anasarca. Compared to the prior exam there've been no new or significant changes demonstrated. CONCLUSION: 1. No evidence of pulmonary embolism. 2. No significant change in the bilateral pulmonary infiltrates, right greater than left compared to the prior examination. 3. Small to moderate right-sided pleural effusion. 4. No significant changes compared to the prior examination. Electronically signed by: Stephan Bonilla MD 05/15/2018 11:17 AM EDT
--- NOTE | 2018-05-15 11:47 | US ---
EXAM DATE: 05/15/2018 11:43 AM EDT AGE/SEX: 22 years / Female INDICATIONS: Right leg swelling. CLINICAL DATA: This is the patient's initial encounter. Patient reports that signs and symptoms have been present for 2 weeks and indicates a pain score of 0/10. MEDICAL/SURGICAL HISTORY: . Right leg swelling. DVT. HTN. Post cardiomyopathy. PE. None. COMPARISON: [facility] [place], US LEG BILATERAL VENOUS DOPPLER, 12/24/2017. . TECHNIQUE: Venous ultrasound of both lower extremities was performed from the inguinal ligament to t he proximal calf. Real-time, color Doppler and spectral tracing, compression and augmentation techni ques were used. FINDINGS: Normal compression of the deep venous system from the inguinal region to the proximal calf . No echogenic clot is seen. Normal response of the venous system to augmentation and respiration. CONCLUSION: 1. No evidence of DVT. Electronically signed by: Stephan Bonilla MD 05/15/2018 11:45 AM EDT
--- NOTE | 2018-05-15 11:50 | US ---
EXAM DATE: 05/15/2018 11:46 AM EDT AGE/SEX: 22 years / Female INDICATIONS: Right arm pain. CLINICAL DATA: This is the patient's initial encounter. Patient reports that signs and symptoms have been present for 1 day and indicates a pain score of 0/10. MEDICAL/SURGICAL HISTORY: . Post cardiomyopathy. DVT. PE. HTN. None. COMPARISON: No prior exams available for comparison. FINDINGS: On today's examination there is occlusive deep venous thrombosis involving the right jugul ar vein, right subclavian vein and right axillary vein. There is evidence of flow in the basilic vein , brachial vein and cephalic vein. Other: There is some edema in the soft tissues. CONCLUSION: 1. There is occlusive deep venous thrombosis involving the right upper extremity with involvement of the right jugular vein, right subclavian vein and right axillary vein. Electronically signed by: Stephan Bonilla MD 05/15/2018 11:49 AM EDT
--- NOTE | 2018-05-15 12:46 | ED ---
HPI General Chief complaint: Extremity Problem,Nontraumatic Stated complaint: Swelling Time Seen by Provider: 05/15/18 09:45 Source: patient Mode of arrival: ambulatory Limitations: no limitations History of Present Illness HPI narrative: The patient is a 22-year-old female that has cardiomyopathy in addition to right lower extremity and right upper extremity DVTs and was discharged on Eliquis. She ran out of Eliquis 2 weeks ago and instead of returning for refill she was advised to do so she just stopped taking the medication.. She woke up today with the swelling of her right upper and right lower extremities worsening. Patient was admitted here but left AMA at that time. She was given prescription for Eliquis as per previous records but the patient told me that she has not had Eliquis in 2 weeks. Patient also has a LifeVest that she supposed to be wearing but she has not used it in over a month because she just moved and she does not know what exactly it is in the house. Onset (ago): day(s) (4) Location: right, upper extremity and lower extremity (B/L R worse than the left) Radiation: neck Severity: mild Severity scale (1-10): 1 Quality: aching Pain Consistency: intermittent Relieving factors: none Exacerbating factors: none Associated symptoms: denies other symptoms Related Data Previous Rx's Medication Instructions Recorded apixaban [Eliquis] 5 mg PO BID #60 tab 03/23/18 digoxin 250 mcg PO DAILY #30 tab 03/23/18 guaifenesin [Mucinex] 600 mg PO BID #60 tab 03/23/18 metoprolol tartrate 25 mg PO TID #90 tab 03/23/18 levofloxacin [Levaquin] 750 mg PO DAILY 7 Days #7 tab 05/11/18 Allergies Allergy/AdvReac Type Severity Reaction Status Date / Time No Known Allergies Allergy Verified 05/15/18 10:15 Review of Systems ROS: all other systems reviewed are negative [facility] Social History Social History Substance History: No History of Abuse Second Hand Smoke Exposure: Yes Smoking Status: Never smoker How Often Do You Have a Drink Containing Alcohol: Never Recent Travel in [facility] within the Last 8 Weeks: No Recent Out of Country Travel within the Last 8 Weeks: No Immunization History Tetanus Immunization: <5 Years Exam Narrative Exam Narrative: GENERAL: Alert and oriented in no distress SKIN: Focused skin assessment warm/dry. HEAD: Atraumatic. Normocephalic. EYES: Pupils equal and round. No scleral icterus. No injection or drainage. ENT: No nasal bleeding or discharge. Mucous membranes pink and moist. NECK: Trachea midline. No JVD. CARDIOVASCULAR: Sinus tachycardia. No murmur appreciated. RESPIRATORY: No accessory muscle use. Clear to auscultation. Breath sounds equal bilaterally. GASTROINTESTINAL: Abdomen soft, non-tender, nondistended. Hepatic and splenic margins not palpable. MUSCULOSKELETAL: No obvious deformities. No clubbing. No cyanosis. Pitting edema on right upper and right lower extremity involving the palm and sole +4. Pitting edema on left lower extremity +2 NEUROLOGICAL: Awake and alert. No obvious cranial nerve deficits. Motor grossly within normal limits. Normal speech. PSYCHIATRIC: Appropriate mood and affect; insight and judgment normal. Procedures Intubation Laryngoscope: fiber optic video scope ET Tube Size: 6.5 ET Tube Uncuffed: No Tube Secured Depth (cm): 21 Tube Secured Location: lips Tube Placement Confirmation: visualized tube passing through cords, equal breath sounds bilaterally, no breath sounds over epigastrium and confirmation by capnometry Patient Tolerated Procedure: well and no complications Intubation Complications: none and difficult intubation (small airway anteriorly located) Additional Comments: CODE BLUE was initiated out of 15:10 patient was given 1 round of epinephrine compressions were started she was intubated at 15 1500 hrs. We had return of spontaneous circulation at 1511 with a blood pressure of 113/62 and a heart rate of 106. Etomidate 15 mg IV push was used for intubation and she was placed on a Versed drip Course Hospital Course: The patient was evaluated in the emergency department had CT Linsey of her chest that was initially read as negative however after discussing with interventional radiologist she felt like she might have had an extension of her previous PE. She also has an extension of her DVT on the right upper extremity. Discuss with IR who did not recommend intervention at this time due to multiple risk factors in addition to the patient having severe cardiomyopathy with an EF of 15%. Decision was made to admit the patient medically and see if we can take care of her here or she will need to be transferred to another facility for further treatment. At 3:10 PM the patient became unresponsive and CODE BLUE was initiated and the patient was intubated. had return of spontaneous circulation and intubated confirmed by direct visualization. Patient was admitted in the ICU. Admitting physician at bedside during code agrees with assessment and plan. Reevaluation(s) Reevaluation #1: Patient alert and oriented in no distress at this time heart rate has decreased to 110. Had a lengthy conversation with her explaining the severity of her condition and that she could potentially any moment because of her thrombosis. pt has made arrangements so that her child has somebody to take care of him and she will stay in and not leave AMA. Time: 12:23 Reevaluation #2: Patient was admitted and while awaiting placement loss pulses became unresponsive. CODE BLUE was initiated at 15:10 she received 1 round of epinephrine compressions and was intubated with return of spontaneous circulation . This dictation occurred 30 minutes prior to beginning of code Time: 15:31 Consultations Consultation #1: IR called us back. Physician seasonal recruiter needs to consult with his partner due to multiple complications on the patient's presentation. She has a cardiomyopathy with an EF of 15% not wearing a LifeVest and was on Eliquis up until recently. Time: 13:23 Initial Documented Vital Signs Temperature 99.5 F 05/15/18 08:50 Pulse Rate 122 H 05/15/18 08:50 Respiratory Rate 20 05/15/18 08:50 Blood Pressure 113/77 05/15/18 08:50 Pulse Oximetry 97 05/15/18 08:50 Last Documented Vital Signs Temperature 99.5 F 05/15/18 08:50 Pulse Rate 140 H 05/15/18 15:36 Respiratory Rate 18 05/15/18 15:36 Blood Pressure 136/91 H 05/15/18 15:36 Pulse Oximetry 100 05/15/18 15:36 Critical Care Time Critical Care Time: Yes Total Critical Care Time: 45 Attestation: Aggregate critical care time was 45 minutes. Time to perform other separately billable procedures was not included in the critical care time. My time did not include minutes spent treating any other patients simultaneously or on activities that did not directly contribute to the patient's treatment. The services I provided to this patient were to treat and/or prevent clinically significant deterioration that could result in: Permanent disability and/or I provided critical care services requiring my management, as noted below: Chart data review, documentation time, medication orders and management, vital sign assessments/reviewing monitor data, ordering and reviewing lab tests, ordering and interpreting/reviewing x-rays and diagnostic studies, care of the patient and discussion of the patient with the admitting physicians. Medical Decision Making MDM Narrative Medical decision making narrative: Patient with cardiomyopathy and DVT and PE noncompliant with anticoagulation presented with complaint of swelling. Was found to have significant extension of her thrombosis. IR was consulted however due to low EF she is not a good candidate for intervention. Decision was made to treat medically. Heparin was started ordered after we discuss with interventional radiology and found out that that would not be intervening at this time. During her stay in the ER while awaiting placement the patient lost pulses and became unresponsive CPR was initiated we had return of spontaneous circulation within a few minutes was intubated and was admitted to the ICU. Heparin was ordered at 14:53 by admitting physician. Medical Screen Exam Complete: Yes Emergency Medical Condition: Yes Lab Data Lab results reviewed: Yes I reviewed the patient's lab results. Result diagrams: 05/15/18 10:10 05/15/18 10:10 POC Results POC Urine Results Negative Lab Results 05/15/18 05/15/18 05/15/18 Range/Units 10:10 10:10 10:10 WBC 12.0 H (4.0-11.0) th/mm3 RBC 4.48 (4.00-5.30) mil/mm3 Hgb 11.2 L (11.6-15.3) gm/dL Hct 36.4 (35.0-46.0) % MCV 81.3 (80.0-100.0) fL MCH 24.9 L (27.0-34.0) pg MCHC 30.7 L (32.0-36.0) % RDW 18.7 H (11.6-17.2) % Plt Count 287 (150-450) th/mm3 MPV 8.3 (7.0-11.0) fL Neut % (Auto) 78.6 H (16.0-70.0) % Lymph % (Auto) 11.9 (9.0-44.0) % [place] % (Auto) 9.0 H (0.0-8.0) % Eos % (Auto) 0.1 (0.0-4.0) % Baso % (Auto) 0.4 (0.0-2.0) % Neut # (Auto) 9.5 H (1.8-7.7) th/mm3 Lymph # (Auto) 1.4 (1.0-4.8) th/mm3 [place] # (Auto) 1.1 H (0.0-0.9) th/mm3 Eos # (Auto) 0.0 (0.0-0.4) th/mm3 Baso # (Auto) 0.0 (0.0-0.2) th/mm3 WBC Differential . Differential Comment Auto diff final PT 13.7 H (9.8-11.6) sec INR 1.4 Ratio APTT 27.6 (24.3-30.1) sec Sodium 140 (136-145) meq/L Potassium 3.8 (3.5-5.1) meq/L Chloride 104 (98-107) meq/L Carbon Dioxide 26.1 (21.0-32.0) meq/L Anion Gap 10 (5-15) meq/L BUN 13 (7-18) mg/dL Creatinine 0.85 (0.50-1.00) mg/dL Estimated GFR Greater than 89 (>89) mL/min Random Glucose 94 (74-106) mg/dL Calcium 7.8 L (8.5-10.1) mg/dL Total Bilirubin 1.1 H (0.2-1.0) mg/dL AST 28 (15-37) U/L ALT 15 (10-53) U/L Alkaline Phosphatase 152 H (45-117) U/L B-Natriuretic Peptide (0-100) pg/mL Total Protein 6.3 L D (6.4-8.2) g/dL Albumin 2.1 L (3.4-5.0) g/dL 05/15/18 Range/Units 10:10 WBC (4.0-11.0) th/mm3 RBC (4.00-5.30) mil/mm3 Hgb (11.6-15.3) gm/dL Hct (35.0-46.0) % MCV (80.0-100.0) fL MCH (27.0-34.0) pg MCHC (32.0-36.0) % RDW (11.6-17.2) % Plt Count (150-450) th/mm3 MPV (7.0-11.0) fL Neut % (Auto) (16.0-70.0) % Lymph % (Auto) (9.0-44.0) % [place] % (Auto) (0.0-8.0) % Eos % (Auto) (0.0-4.0) % Baso % (Auto) (0.0-2.0) % Neut # (Auto) (1.8-7.7) th/mm3 Lymph # (Auto) (1.0-4.8) th/mm3 [place] # (Auto) (0.0-0.9) th/mm3 Eos # (Auto) (0.0-0.4) th/mm3 Baso # (Auto) (0.0-0.2) th/mm3 WBC Differential Differential Comment PT (9.8-11.6) sec INR Ratio APTT (24.3-30.1) sec Sodium (136-145) meq/L Potassium (3.5-5.1) meq/L Chloride (98-107) meq/L Carbon Dioxide (21.0-32.0) meq/L Anion Gap (5-15) meq/L BUN (7-18) mg/dL Creatinine (0.50-1.00) mg/dL Estimated GFR (>89) mL/min Random Glucose (74-106) mg/dL Calcium (8.5-10.1) mg/dL Total Bilirubin (0.2-1.0) mg/dL AST (15-37) U/L ALT (10-53) U/L Alkaline Phosphatase (45-117) U/L B-Natriuretic Peptide 2058 H (0-100) pg/mL Total Protein (6.4-8.2) g/dL Albumin (3.4-5.0) g/dL Imaging Data Radiologist's impression: Chest CTA 05/15/18 09:55 CONCLUSION: 1. No evidence of pulmonary embolism. 2. No significant change in the bilateral pulmonary infiltrates, right greater than left compared to the prior examination. 3. Small to moderate right-sided pleural effusion. 4. No significant changes compared to the prior examination. Venous Doppler Study 05/15/18 09:55 CONCLUSION: 1. No evidence of DVT. Venous Doppler Study 05/15/18 09:55 CONCLUSION: 1. There is occlusive deep venous thrombosis involving the right upper extremity with involvement of the right jugular vein, right subclavian vein and right axillary vein. Chest X-Ray 05/15/18 15:58 CONCLUSION: Interval endotracheal tube placement and gastric tube placement which appears appropriate in position. Overall worsening lung exam with significant cardiomegaly identified. ECG Data Attestation: I personally reviewed and interpreted this ECG as follows: Interpretation: Sinus tachycardia with a heart rate of 120 bpm NH interval 128 ms, QTc [address]-T wave abnormalities normal axis Discharge Plan Discharge Disposition Patient Disposition: 70 Transfer To Other Facility Discharge Condition Condition: Critical Discharge Details Discharge Comment: Patient was transferred to [facility] as per critical care recommendation,. She will be transferred via helicopter. Diagnosis: Deep vein thrombosis of lower extremity, Deep venous thrombosis of upper extremity, Pulmonary embolism, Cardiac arrest Physicians Team ED Provider: Charlie Hollingsworth Primary Care Provider: Primary Care Kay Buck Attending Provider: Marilou Ramsey Other Providers: Santana Rucker V ; Suzanne Waggoner ; Emmanuel Nava Status ED Status: Admitted Patient
[2018-05-15] MEDS ORDERED: Sodium Chlor 0.9% Inj 500 ML IV.CONT SCH (13:05)
--- NOTE | 2018-05-15 13:19 | P.HPIM ---
History of Present Illness Primary Care Physician: No Primary Care Physician Chief Complaint: swelling of the right and and both legs History of Present Illness: patient is a 22 y/o female with history of post- cardiomyopathy, PE, noncompliant with the medications and medical care, who presented to ER with swelling of the right arm and both legs. she says that she ran out of her eliquis two weeks ago after which she started to notice some swelling of the right arm and both legs. she was seen in ER a few days ago with fever, was advised to stay but she decided to leave. she was given a prescription for levaquin which she didn't fill. she's complaining of on and off exertional dyspnea, productive cough of whitish sputum. she denies any recent fever, chills ,chest pain. she denies any pain to the extremities while resting although has some pain to the legs when she's walking. Review of Systems All other systems reviewed negative except as stated in HPI PMFSH - History History Provided By: Patient - Medical History Medical History: Medical History (Last Updated 05/15/18 @ 10:13 by Caitlin Urbina) HTN (hypertension) (Acute) in first trimester with history of (Acute) Pulmonary emboli (Acute) cardiomyopathy (Acute) DVT (deep venous thrombosis) DVT complicating - Family History Family History: Family History (Last Reviewed 05/11/18 @ 12:35 by Nicole Carter MD) Other Hypothyroidism - Tobacco History Second Hand Smoke Exposure: Yes Smoking Status: Never smoker - Alcohol History How Often Do You Have a Drink Containing Alcohol: Never - Substance Use History Substance History: No History of Abuse - Travel History Recent Travel in the [place] Within the Last 8 Weeks: No Recent Travel Out of the Country Within the Last 8 Weeks: No - Immunization History Tetanus Immunization: <5 Years Medications and Allergies Active Medications: Active Medications Digoxin (Lanoxin) 250 mcg PO DAILY KARLEE Azithromycin 500 mg/ Sodium (Chloride) 250 mls @ 250 mls/hr IV.SIG Q24H KARLEE Ceftriaxone Sodium 1,000 mg/ (Sodium Chloride) 100 mls @ 200 mls/hr IV.SIG Q24H KARLEE Sodium Chloride (Ns Inj) 500 mls @ 50 mls/hr IV.CONT .Q10H KARLEE Metoprolol Tartrate (Lopressor) 25 mg PO TID KARLEE Allergies Allergy/AdvReac Type Severity Reaction Status Date / Time No Known Allergies Allergy Verified 05/15/18 10:15 Exam Vital signs: Vital Signs 05/15/18 08:50 05/15/18 11:38 Temperature 99.5 F Pulse Rate 122 H 116 H Respiratory Rate 20 20 Blood Pressure 113/77 116/85 Pulse Oximetry 97 98 Intake & Output 05/14/18 05/15/18 05/15/18 18:59 06:59 18:59 Weight 56.699 kg - Constitutional no acute distress - Routine Neck Exam Present: full ROM - Routine Respiratory Exam Present: CTA bilaterally - Routine Cardiovascular Exam Present: RRR, tachycardia - Routine Abdominal Exam Present: soft - Routine Extremities Exam Comments: edema of the right arm and right leg. - Routine Neurological Exam Present: alert, oriented X3 Results - Labs CBC & Chem 7: 05/15/18 10:10 05/15/18 10:10 Labs: Short CBC 05/15/18 Range/Units 10:10 WBC 12.0 H (4.0-11.0) th/mm3 Hgb 11.2 L (11.6-15.3) gm/dL Hct 36.4 (35.0-46.0) % Plt Count 287 (150-450) th/mm3 BMP 05/15/18 10:10 Sodium 140 Potassium 3.8 Chloride 104 Carbon Dioxide 26.1 BUN 13 Creatinine 0.85 Calcium 7.8 L Liver Function 05/15/18 Range/Units 10:10 Total Bilirubin 1.1 H (0.2-1.0) mg/dL AST 28 (15-37) U/L ALT 15 (10-53) U/L Alkaline Phosphatase 152 H (45-117) U/L Albumin 2.1 L (3.4-5.0) g/dL - Imaging Impressions Chest CTA 05/15/18 09:55 CONCLUSION: 1. No evidence of pulmonary embolism. 2. No significant change in the bilateral pulmonary infiltrates, right greater than left compared to the prior examination. 3. Small to moderate right-sided pleural effusion. 4. No significant changes compared to the prior examination. Venous Doppler Study 05/15/18 09:55 CONCLUSION: 1. No evidence of DVT. Venous Doppler Study 05/15/18 09:55 CONCLUSION: 1. There is occlusive deep venous thrombosis involving the right upper extremity with involvement of the right jugular vein, right subclavian vein and right axillary vein. Caprini VTE Risk Assessment Caprini VTE Risk Assessment: Moderate/High Risk (score >= 2) Caprini Risk Assessment Model: Point Value = 1 Point Value = 2 Point Value = 3 Point Value = 5 Age 41-60 Minor surgery BMI > 25 kg/m2 Swollen legs Varicose veins or History of unexplained or recurrent spontaneous Oral contraceptives or hormone replacement Sepsis (< 1 month) Serious lung disease, including pneumonia (< 1 month) Abnormal pulmonary function Acute myocardial infarction Congestive heart failure (< 1 month) History of inflammatory bowel disease Medical patient at bed rest Age 61-74 Arthroscopic surgery Major open surgery (> 45 min) Laparoscopic surgery (> 45 min) Malignancy Confined to bed (> 72 hours) Immobilizing plaster cast Central venous access Age >= 75 History of VTE Family history of VTE Factor V Leiden Prothrombin 24200P Lupus anticoagulant Anticardiolipin antibodies Elevated serum homocysteine Heparin-induced thrombocytopenia Other congenital or acquired thrombophilia Stroke (< 1 month) Elective arthroplasty Hip, pelvis, or leg fracture Acute spinal cord injury (< 1 month) Prophylaxis Regimen: Total Risk Factor Score Risk Level Prophylaxis Regimen 0-1 Low Early ambulation 2 Moderate Order ONE of the following: *Sequential Compression Device (SCD) *Heparin 5000 units SQ BID 3-4 Higher Order ONE of the following medications: *Heparin 5000 units SQ TID *Enoxaparin/Lovenox 40 mg SQ daily (WT < 150 kg, CrCl > 30 mL/min) *Enoxaparin/Lovenox 30 mg SQ daily (WT < 150 kg, CrCl > 10-29 mL/min) *Enoxaparin/Lovenox 30 mg SQ BID (WT < 150 kg, CrCl > 30 mL/min) AND/OR *Sequential Compression Device (SCD) 5 or more Highest Order ONE of the following medications: *Heparin 5000 units SQ TID (Preferred with Epidurals) *Enoxaparin/Lovenox 40 mg SQ daily (WT < 150 kg, CrCl > 30 mL/min) *Enoxaparin/Lovenox 30 mg SQ daily (WT < 150 kg, CrCl > 10-29 mL/min) *Enoxaparin/Lovenox 30 mg SQ BID (WT < 150 kg, CrCl > 30 mL/min) AND *Sequential Compression Device (SCD) Assessment and Plan - Plan A/P 22 y/o female with history of post- cardiomyopathy and PE - DVT of the right arm extremity- noncompliant with her anticoagulation regimen ; ran out of her Eliquis two weeks ago. IR consulted by ER for possible thrombolysis- will consult Hematology- will resume anticoagulation after IR evaluation- counselled on compliance with her medical treatment. -possible pneumonia- she was admitted in March for pneumonia and completed the course of antibiotic therapy. CT chest with persistent infiltrates. start on antibiotics- will consult pulmonary. -post- cardiomyopathy- had life vest which she says that she stopped using it last month. continue Digoxin and Metoprolol. wasn't started on STEFAN last admission due to low-normal BP's. will repeat echo and consult cardiology. -history of PE- will resume anticoagulation after IR evaluation/pending Hematology consult. Discussed Condition With: ER physician and the patient.
[2018-05-15] MEDS ORDERED: Acetaminophen 325 MG Tablet PO PRN (13:32)
[2018-05-15] MEDS ORDERED: Heparin 10,000 UNITS/10 ML Vial (for IV use) IV.PUSH STA (14:53)
--- NOTE | 2018-05-15 14:57 | P.PNADD ---
Addendum to Inpatient Note Reason for Addendum: Additional Documentation (d/w the ER physician; IR is not able to uitlize thrombolyis due to cardiomyopathy- therefore will start her on Heparin drip-per protocol- pending Hematology evaluation.)
[2018-05-15] MEDS ORDERED: Azithromycin Inj 500 MG in Sodium Chlor 0.9% Inj 250 ML IV.SIG SCH (15:00)
[2018-05-15] MEDS ORDERED: Etomidate Inj 40 MG/20 ML Vial IV.PUSH ONE (15:13)
[2018-05-15] MEDS ORDERED: Midazolam 50 MG/50 ML Inj 50 MG/50 ML BAG IV.CONT PRN (15:27)
--- NOTE | 2018-05-15 15:33 | P.PNADD ---
Addendum to Inpatient Note Reason for Addendum: Additional Documentation (patient was coded-upon my arrival back to ER, CPR was in process- she was intuabted in ER. care will be transferred to parquetry layer.she was started on versed drip for sedation per my d/ w ER physician till parquetry layer evaluation.)
[2018-05-15] MEDS ORDERED: Midazolam 50 MG/50 ML Inj 50 MG/50 ML BAG IV.CONT ONE (15:35)
[2018-05-15 15:37] VITALS: RESP 18; O2SAT 100
[2018-05-15] MEDS ORDERED: Propofol 1000 mg/100 ml Inj 1,000 MG/100 ML BOTTLE IV.CONT PRN (16:16)
[2018-05-15] MEDS ORDERED: Heparin Drip 25,000 UNIT/250 ML BAG IV.CONT PRN (16:17)
--- NOTE | 2018-05-15 16:18 | XR ---
EXAM DATE: 05/15/2018 4:13 PM EDT AGE/SEX: 22 years / Female INDICATIONS: Endotracheal tube placement. CLINICAL DATA: This is the patient's initial encounter. Patient reports that signs and symptoms have been present for 1 day and indicates a pain score of Nonresponsive. MEDICAL/SURGICAL HISTORY: Non-responsive. Non-responsive. COMPARISON: [facility] [place], CHEST 1V SINGLE AP, 05/11/2018. . FINDINGS: Single AP portable supine view of the chest demonstrate interval placement of endotracheal tube with the tip at the level of the clavicles. Gastric tube demonstrates a proximal port below the level of t he diaphragm. Heart size appears enlarged and there is progressive airspace opacity involving the rig ht hemithorax and the left hemidiaphragm is obscured. CONCLUSION: Interval endotracheal tube placement and gastric tube placement which appears appropriate in position . Overall worsening lung exam with significant cardiomegaly identified. Electronically signed by: Patricia Neville MD 05/15/2018 4:16 PM EDT
--- NOTE | 2018-05-15 17:37 | P.CONCC ---
History of Present Illness Consult date: 05/15/18 Requesting Physician: Charlie Hollingsworth Reason for Consult: cardiac arrest, cardiomyopathy, massive PE Primary Care Provider: a[facility] Primary Care Physician Family Provider: Neo Vasques Chief Complaint: swelling of the right and and both legs History of Present Illness: The patient was intubated prior to my arrival so details were obtained via chart review and discussion with the emergency department physician. 22-year-old female that has cardiomyopathy (reported EF of 15%) in addition to right lower extremity and right upper extremity DVTs and PE and was discharged on Eliquis. She ran out of Eliquis 2 weeks ago and instead of returning for refill she was advised to do so she just stopped taking the medication.. She woke up today with the swelling of her right upper and right lower extremities worsening. Patient was admitted here but left AMA at that time. She was given prescription for Eliquis as per previous records but the patient told me that she has not had Eliquis in 2 weeks. Patient also has a LifeVest that she supposed to be wearing but she has not used it in over a month because she just moved and she does not know what exactly it is in the house. Review of Systems unobtainable due to endotracheal tube PMFSH - History History Provided By: Patient, Medical Record - Medical / Surgical Hx Neg / Unobtainable Medical Problems Denied: Unable to Obtain Surgical History: Unable to Obtain - Medical History Medical History: Medical History (Last Reviewed 05/15/18 @ 17:40 by Ana Lilia Mahajan DO) HTN (hypertension) (Acute) in first trimester with history of (Acute) Pulmonary emboli (Acute) cardiomyopathy (Acute) DVT (deep venous thrombosis) DVT complicating - Family History Family History: Family History (Last Reviewed 05/15/18 @ 17:40 by Ana Lilia Mahajan DO) Other Hypothyroidism - Tobacco History Second Hand Smoke Exposure: Yes Smoking Status: Never smoker - Alcohol History How Often Do You Have a Drink Containing Alcohol: Never - Substance Use History Substance History: No History of Abuse - Travel History Recent Travel in the [place] Within the Last 8 Weeks: No Recent Travel Out of the Country Within the Last 8 Weeks: No - Immunization History Tetanus Immunization: <5 Years Medications and Allergies Active Medications: Active Medications Acetaminophen (Tylenol) 650 mg PO Q4H PRN PRN Reason: fever/pain 1-10 Digoxin (Lanoxin) 250 mcg PO DAILY [facility] Azithromycin 500 mg/ Sodium (Chloride) 250 mls @ 250 mls/hr IV.SIG Q24H [facility] Last Admin: 05/15/18 14:48 Dose: 250 mls/hr Ceftriaxone Sodium 1,000 mg/ (Sodium Chloride) 100 mls @ 200 mls/hr IV.SIG Q24H [facility] Last Infusion: 05/15/18 14:47 Dose: Infused Sodium Chloride (Ns Inj) 500 mls @ 50 mls/hr IV.CONT .Q10H [facility] Last Admin: 05/15/18 13:25 Dose: 50 mls/hr Midazolam HCl (Versed Inj) 50 mg in 50 mls @ 2 mls/hr IV.CONT TITRATE PRN; Protocol PRN Reason: Per Protocol Last Titration: 05/15/18 17:00 Dose: 0 mg/hr, 0 mls/hr Propofol (Diprivan 1000 Mg/100 Ml Inj) 1,000 mg in 100 mls @ 1.701 mls/hr IV.CONT TITRATE PRN; Protocol PRN Reason: Per Protocol Last Admin: 05/15/18 17:03 Dose: 5 mcg/kg/min, 1.7 mls/hr Heparin Sodium/Dextrose (Heparin/D5w 25,000 U/250 Ml) 25,000 unit in 250 mls @ 10 mls/hr IV.CONT TITRATE PRN; Protocol PRN Reason: Per Protocol Metoprolol Tartrate (Lopressor) 25 mg PO TID [facility] Allergies Allergy/AdvReac Type Severity Reaction Status Date / Time No Known Allergies Allergy Verified 05/15/18 10:15 Physical Exam Vital signs: Vital Signs 05/15/18 08:50 05/15/18 11:38 05/15/18 15:15 Temperature 99.5 F Pulse Rate 122 H 116 H Respiratory Rate 20 20 39 H Blood Pressure 113/77 116/85 Pulse Oximetry 97 98 05/15/18 15:36 Temperature Pulse Rate 140 H Respiratory Rate 18 Blood Pressure 136/91 H Pulse Oximetry 100 Intake & Output 05/14/18 05/15/18 05/15/18 18:59 06:59 18:59 Intake Total 102.5 / 102.5 Balance 102.5 / 102.5 Weight 56.699 kg Intake: IV 102.5 / 102.5 Versed Inj 50 mg In 50 ml @ 2 2.5 / 2.5 MG/HR 2 mls/hr IV.CONT TITRATE PRN Rx#:[id number] Rocephin Inj 1,000 MG In NS Inj 100 / 100 100 ML @ 200 mls/hr IV.SIG Q24H KARLEE Rx#:[id number] Narrative: GEN: Ill-appearing female, intubated and sedated HEENT: NCAT, pupils 3 mm and sluggishly reactive on sedation CV: Tachy to 130s and regular RESP: Mechanical breath sounds present bilaterally, significantly tachypneic to 30s ABD: Soft, non-distended, no guarding EXT: Swelling and edema of RUE and RLE, warm and well-perfused, no discoloration of skin NEURO: GCS7T (E3VTM4), purposefully moving all extremities, does not follow commands, sedated Assessment and Plan - Problem List (1) Cardiomyopathy Code(s): I42.9 - Cardiomyopathy, unspecified Status: Acute (2) Pulmonary embolism Code(s): I26.99 - Other pulmonary embolism without acute cor pulmonale Status : Chronic (3) Lung infiltrate on CT Code(s): R91.8 - Other nonspecific abnormal finding of lung field Status: Acute (4) Cavitary lesion of lung Code(s): J98.4 - Other disorders of lung Status: Acute (5) Hypotension Code(s): I95.9 - Hypotension, unspecified Status: Resolved (6) Tachycardia Code(s): R00.0 - Tachycardia, unspecified Status: Acute (7) Iron deficiency anemia Code(s): D50.9 - Iron deficiency anemia, unspecified Status: Chronic (8) Deep vein thrombosis of lower extremity Code(s): I82.409 - Acute embolism and thrombosis of unspecified deep veins of unspecified lower extremity Status: Acute (9) Deep venous thrombosis of upper extremity Code(s): I82.629 - Acute embolism and thrombosis of deep veins of unspecified upper extremity Status: Acute (10) HTN (hypertension) Code(s): I10 - Essential (primary) hypertension Status: Acute (11) in first trimester with history of Code(s): O09.291 - Supervision of with other poor reproductive or obstetric history, first trimester Status: Acute (12) Pulmonary emboli Code(s): I26.99 - Other pulmonary embolism without acute cor pulmonale Status : Acute (13) cardiomyopathy Code(s): 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 Both the critical care service and emergency physician discussed the results of the ultrasounds and CTA chest with our interventional radiologists at length ( Dr. Ramirez and Dr. Jacob). Given her severe cardiomyopathy, she is not a candidate for clot retrieval or interventional procedures such as targeted tPA as they feel she is at extremely high risk for repeat cardiac arrest during the procedure. They recommend transfer to a tertiary care center for evaluation for a heart transplant in addition to supportive care for massive PE/ post-arrest. I then discussed the case with [facility] in [place] ED physician , Dr. Way, who has accepted the patient for ED to ED transfer. The patient was initially seen by our hospitalist service but had not left the emergency department prior to her arrest and subsequent care. This patient is not currently requiring pressors for BP support but remains at high risk for life- threatening decompensation; therefore, I feel that a 2 hour ground transport to [place] is not appropriate and have requested that she be flown. She has poor peripheral access, and we are unable to use her right side for venous access due to extensive DVT. I attempted to get a 2nd peripheral IV in the LUE but was unsuccessful, both with and without ultrasound guidance. She requires multiple IV medications for sedation, heparin drip, etc. and so I made the decision to place an emergent left femoral triple lumen catheter prior to transfer. The patient's mother was updated by Dr. Singh (ED physician) and is aware of today's events and the need for emergent transfer. Coordination of care/ critical care time" Total critical care time spent is 45 minutes. This includes examining the patient, gathering history from someone other than the patient (i.e. chart review), discussing the patient's care with other providers (ED, transfer center ), managing the patient's blood pressure and ventilator settings, ordering and interpreting radiologic studies, ordering and interpreting laboratory values, managing the patient's sedation requirements with re-evaluation at frequent intervals, and documentation. Amount of time is separate from teaching, counseling the patient and/or family, and exclusive of procedures. 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 (2) Pulmonary embolism Qualifiers: Pulmonary embolism type: other Chronicity: chronic Acute cor pulmonale presence: without acute cor pulmonale Qualified Code(s): I27.82 - Chronic pulmonary embolism (7) Iron deficiency anemia Qualifiers: Iron deficiency anemia type: unspecified iron deficiency Qualified Code(s): D50.9 - Iron deficiency anemia, unspecified (8) Deep vein thrombosis of lower extremity Qualifiers: Affected thrombotic vein of extremity: other lower extremity vein Chronicity : chronic Laterality: right Qualified Code(s): I82.591 - Chronic embolism and thrombosis of other specified deep vein of right lower extremity (9) Deep venous thrombosis of upper extremity Qualifiers: Affected thrombotic vein of extremity: axillary Chronicity: acute Laterality : right Qualified Code(s): I82.A11 - Acute embolism and thrombosis of right axillary vein
[2018-05-15] MEDS ORDERED: Metoprolol Tartrate 25 MG Tablet PO SCH (18:00)
--- NOTE | 2018-05-15 18:35 | P.PCN ---
Date of procedure: 05/15/18 Pre-op diagnosis: cardiogenic shock, massive PE, cardiac arrest Post-op diagnosis: same Procedure: Left arterial radial line, ultrasound guided Area was prepped with chlorhexidine and allowed to dry. Placed under ultrasound guidance, 1 attempt, no immediate complications. Surgeon: Ana Lilia Mahajan Condition: critical Disposition: other (transfer to tertiary care center)
[2018-05-15 19:19] LABS: ABG Base Excess -6.4 mmol/L (-2-2); ABG PCO2 32 mmHg (38-42); ABG PO2 466 mmHg (61-120)
[2018-05-15 19:45] VITALS: BP 150/98; PULSE 130
[2018-05-16 06:13] LABS: Phosphorus 2.7 mg/dL (2.5-4.9)
[2018-05-16 06:27] LABS: Digoxin 0.5 ng/mL (0.8-2.0)
[2018-05-16] MEDS ORDERED: Digoxin 250 MCG Tablet PO SCH (09:00)
--- NOTE | 2018-05-16 13:28 | ECG ---
Date Performed: 05/15/2018 Time Performed: 09:30:24 PTAGE: 22 years EKG: SINUS TACHYCARDIA POSSIBLE ANTERIOR MYOCARDIAL INFARCTION MODERATE T-WAVE ABNORMALITY, CONS IDER LATERAL ISCHEMIA ABNORMAL ECG NO PREVIOUS TRACING DOCTOR: Emmanuel Nava Interpretating Date/Time 05/16/2018 13:26:45
== END 2018-05-15 22:05 | disposition short-term general hospital (02) ==
LOC: NEPC 08:46 → NEDA 17:07
PROVIDERS: ADMIT Internal Medicine; ATTEND Internal Medicine